=== PATIENT | male | born 1935 | race Caucasian/White ===

== ENCOUNTER 2016-11-04 10:07 | Emergency (ER) | payer MEDICARE, BC ==
[2016-11-04 11:09] VITALS: BP 151/63
--- NOTE | 2016-11-04 11:17 | EDM.PDOC ---
ED HISTORY OF PRESENT ILLNESS - General Chief Complaint: Chest Pain Stated Complaint: [facility] Time Seen by Provider: 11/04/16 11:09 Source: Reports: Patient, RN notes reviewed History Limitations: Reports: No limitations - History of Present Illness INITIAL COMMENTS - FREE TEXT/NARRATIVE: 81-year-old gentleman presents emergency department a complaint of chest pain, he is a known history of coronary artery disease had 5 stents placed in 2000, 2 more stents placed in 2011 had a carotid endarterectomy in 2008. This particular event he had epigastric pain that radiated into his abdomen he took one nitroglycerin which relieved the pain at approximately 1 minute. Denies any diaphoresis shortness of breath no nausea or vomiting, did take full asa at home - Related Data Allergies/ADRs: Allergies Allergy/AdvReac Type Severity Reaction Status Date / Time clopidogrel bisulfate Allergy Intermediate Rash Verified 11/04/16 10:47 [From Plavix] Home Meds: Home Meds Aspirin 325 mg PO DAILY 12/09/15 [History] Isosorbide Dinitrate 40 mg PO DAILY 12/09/15 [History] Nitroglycerin [Nitrostat] 0.4 mg PO ASDIRECTED PRN 12/09/15 [History] Omeprazole [Omeprazole] 20 mg PO DAILY 12/09/15 [History] Simvastatin [Simvastatin] 40 mg PO DAILY 12/09/15 [History] amLODIPine [Norvasc] 10 mg PO DAILY 12/09/15 [History] hydrALAZINE [Apresoline] 50 mg PO BID 12/09/15 [History] Acetaminophen/Diphenhydramine [Tylenol Pm Ex-Strength Caplet] 1 tab PO BEDTIME 11/04/16 [History] Lisinopril 5 mg PO DAILY 11/04/16 [History] Losartan Potassium 25 mg PO DAILY 11/04/16 [History] Metoprolol Succinate [Toprol Xl] 50 mg PO DAILY 11/04/16 [History] Multivitamin [Multivitamins] 1 tab PO DAILY 11/04/16 [History] Past Medical History HEENT History: Reports: Cataract Cardiovascular History: Reports: CAD, High cholesterol, Hypertension, Stents Gastrointestinal History: Reports: GERD Genitourinary History: Reports: Prostate disorder Musculoskeletal History: Reports: Fracture, Osteoarthritis Psychiatric History: Reports: Addiction Oncologic (Cancer) History: Reports: Other (see below) Other Oncologic History: small skin cancer Dermatologic History: Reports: Other (see below) Other Dermatologic History: multiple cysts - Infectious Disease History Infectious Disease History: Reports: Chicken pox, Measles, Mumps - Past Surgical History Cardiovascular Surgical History: Reports: Carotid endarterectomy, Carotid stents GI Surgical History: Reports: Cholecystectomy Male Surgical History: Reports: Nephrectomy, TURP-Transurethral resection of prostate, Other (see below) Other Male Surgeries/Procedures: stent in remaining kidney Musculoskeletal Surgical History: Reports: Other (see below) Other Musculoskeletal Surgeries/Procedures:: plates in left leg Social & Family History - Tobacco Use Smoking Status *Q: Former Smoker Used Tobacco, but Quit: Yes Month Tobacco Last Used: 2003 Second Hand Smoke Exposure: No - Caffeine Use Caffeine Use: Reports: Coffee - Alcohol Use Days Per Week of Alcohol Use: 0 - Recreational Drug Use Recreational Drug Use: No ED ROS GENERAL - Review of Systems Review Of Systems: See Below Constitutional: Reports: no symptoms HEENT: Reports: No symptoms Respiratory: Reports: No Symptoms Cardiovascular: Reports: Chest pain GI/Abdominal: Reports: No symptoms : Reports: no symptoms Musculoskeletal: Reports: no symptoms Skin: Reports: no symptoms Neurological: Reports: No Symptoms ED EXAM, GENERAL - Physical Exam Exam: See Below Exam Limited By: No limitations General Appearance: alert, WD/WN, no apparent distress Head: atraumatic, normocephalic Neck: normal inspection, supple, non-tender, full range of motion Respiratory/Chest: no respiratory distress, lungs clear, normal breath sounds, no accessory muscle use, chest non-tender Cardiovascular: regular rate, rhythm, no murmur GI/Abdominal: soft, non tender Extremities: normal inspection, no pedal edema Course - Vital Signs Last Recorded V/S: Last Vital Signs Temp 97.7 F 11/04/16 10:29 Pulse 55 L 11/04/16 10:56 Resp 16 11/04/16 10:56 BP 151/63 H 11/04/16 10:56 Pulse Ox 92 L 11/04/16 10:56 - Orders/Labs/Meds Orders: Active Orders 24 hr Category Date Time Status Cardiac Monitoring [RC] .As Directed Care 11/04/16 11:14 Active EKG Documentation Completion [RC] ASDIRECTED Care 11/04/16 11:14 Active Chest 2V [CR] Stat Exams 11/04/16 11:14 Taken EKG 12 Lead [EK] Stat Ther 11/04/16 11:14 Ordered Labs: Laboratory Tests 11/04/16 11/04/16 Range/Units 11:24 11:24 WBC 7.9 (4.5-11.0) K/uL RBC 5.01 (4.30-5.90) M/uL Hgb 14.5 (12.0-15.0) g/dL Hct 43.4 (40.0-54.0) % MCV 87 (80-98) fL MCH 29 (27-31) pg MCHC 33 (32-36) % Plt Count 191 (150-400) K/uL Neut % (Auto) 61 (36-66) % Lymph % (Auto) 27 (24-44) % [place] % (Auto) 10 H (2-6) % Eos % (Auto) 3 (2-4) % Baso % (Auto) 0 (0-1) % Sodium 137 L (140-148) mmol/L Potassium 3.9 (3.6-5.2) mmol/L Chloride 103 (100-108) mmol/L Carbon Dioxide 30 (21-32) mmol/L Anion Gap 7.9 (5.0-14.0) mmol/L BUN 25 H (7-18) mg/dL Creatinine 1.9 H (0.8-1.3) mg/dL Est Cr Clr Drug Dosing 31.03 mL/min Estimated GFR (MDRD) 34 L (>60) Glucose 102 (74-106) mg/dL Calcium 8.5 (8.5-10.1) mg/dL Total Bilirubin 0.4 (0.2-1.0) mg/dL AST 30 (15-37) U/L ALT 31 (12-78) U/L Alkaline Phosphatase 79 (46-116) U/L CK-MB (CK-2) 1.6 (0-3.6) mg/mL Troponin I < 0.017 (0.000-0.056) ng/mL Total Protein 6.9 (6.4-8.2) g/dL Albumin 3.2 L (3.4-5.0) g/dL Globulin 3.7 H (2.3-3.5) g/dL Albumin/Globulin Ratio 0.9 L (1.2-2.2) - Re-Assessments/Exams Free Text/Narrative Re-Assessment/Exam: 11/04/16 12:20 srinivasa score is 3 , heart score is 5 Departure - Departure Time of Disposition: 12:41 Disposition: Home, Self-Care 01 Condition: good Clinical Impression: Atypical chest pain Forms: ED Department Discharge Additional Instructions: Please report for your stress test this week, and then try to followup with your primary care the following day, call or return to the emergency department with worsening of symptoms - My Orders Last 24 Hours: My Active Orders 11/04/16 11:14 Cardiac Monitoring [RC] .As Directed EKG Documentation Completion [RC] ASDIRECTED Chest 2V [CR] Stat EKG 12 Lead [EK] Stat - Assessment/Plan Last 24 Hours: My Active Orders 11/04/16 11:14 Cardiac Monitoring [RC] .As Directed EKG Documentation Completion [RC] ASDIRECTED Chest 2V [CR] Stat EKG 12 Lead [EK] Stat Plan: Assessment Acuity = acute Site and laterality = epigastric chest pain complicated patient with known history of coronary artery disease Etiology = unclear etiology Manifestations = pain now resolved Location of injury = home Lab values = sodium low at 137 consistent hyponatremia creatinine elevated at 1.9 consistent with chronic renal failure stage GIIIB troponin negative, CK-MB negative chest x-ray I did review films myself I cannot appreciate any acute process, the official read from radiology is pending, EKG demonstrates a first degree block, PVCs no ST changes Plan I did offer him hospital admission he declined would like to try this as an outpatient first however I did set him up for a Chloe scan stress test which will be scheduled this week, hospitalist will followup, then we'll have him see his primary care approximately 24 hours after the stress test is completed Patient was in agreement with the plan all questions were answered, they were instructed to return to the emergency department or call for worsening symptoms. This note was dictated using [employer] voice recognition software please call with any questions.
--- NOTE | 2016-11-04 13:19 | CR ---
Chest 2V HISTORY: Chest pain COMPARISON: 07/08/2006 FINDINGS: Cardiac size normal pulmonary vessels normal distributed. No focal infiltrates or effusion s. Impression: No acute pulmonary disease.
== END 2016-11-04 13:18 | disposition home or self-care (01) ==
LOC: JP.ED 10:07
DX: R07.89 Other chest pain (principal); I10 Essential (primary) hypertension; E78.00 Pure hypercholesterolemia, unspecified; K21.9 Gastro-esophageal reflux disease without esophagitis; M19.90 Unspecified osteoarthritis, unspecified site; I25.10 Atherosclerotic heart disease of native coronary artery without angina pectoris; Z90.49 Acquired absence of other specified parts of digestive tract; Z88.8 Allergy status to other drugs, medicaments and biological substances; Z79.82 Long term (current) use of aspirin; Z79.899 Other long term (current) drug therapy; Z87.891 Personal history of nicotine dependence
CPT/HCPCS: 36415; 71020; 71020-26; 80053; 82553; 84484; 85025; 93005; 93010; 99284; 99285-25

== ENCOUNTER 2017-12-18 06:31 | Day surgery (SDC) | payer MEDICARE, BC ==
[~2017-12-18 06:31] MED LIST: Sodium Chloride 0.9% 10 ML Syringe FLUSH PRN
--- NOTE | 2017-12-18 08:33 | OR ---
DATE OF PROCEDURE: 12/18/2017 POSTOPERATIVE CARE: Postoperative care will be provided mainly at the [address] [place] [address] [facility] in conjunction with [facility]. PREOPERATIVE DIAGNOSIS: Cataract, left eye. POSTOPERATIVE DIAGNOSIS: Cataract, left eye. PROCEDURE: Cataract extraction, phacoemulsification with intraocular lens placement, left eye. ANESTHESIA: Topical and intracameral. ESTIMATED BLOOD LOSS: Minimal. COMPLICATIONS: None. PATHOLOGY SPECIMENS: None. SURGICAL FINDINGS: None. INDICATION FOR PROCEDURE: The patient is an 82-year-old male with history of a visually significant cataract in the left eye, which interfered with activities of daily living. This consisted of a nuclear sclerosis cataract. Following careful discussion of the risks, benefits and alternatives to cataract extraction with intraocular lens placement including blindness and , the patient elected to proceed, and informed, written consent was obtained prior to the procedure. DESCRIPTION OF THE PROCEDURE: The patient was previously identified, and a alesha placed above the left eye. All sources, including the patient, indicated that the left eye was the correct eye. The patient was subsequently taken to the operating room where standard monitors were applied. The patient was then prepped and draped in the usual sterile fashion for ophthalmic surgery. Attention was first directed at the 12 o'clock position where a paracentesis port was fashioned. Shugar solution followed by Viscoat was instilled into the eye. Attention was then directed to the 8:30 position where a triplanar incision was made in a near-clear manner using a keratome. A continuous capsulorrhexis was then made using a combination of the cystotome and Utrata forceps. Hydrodissection was achieved using a balanced salt solution, and the lens rotated nicely. Phacoemulsification was then done using a modified [id number] technique without complication. Phaco time was 12.32 CDE. The remaining cortex was removed using the irrigation/aspiration handpiece. Provisc was then instilled into the eye. A Technis lens, model [id number], at 16.0 diopters was then placed in the capsular bag using an Mccurtain injector. The remaining viscoelastic was removed using the irrigation/aspiration forceps. All wounds were then checked and found to be watertight. The lid speculum and drapes were removed. Maxitrol ointment was placed in the patient's left eye, and the eye was shielded. The patient tolerated the procedure well. The patient was instructed to follow up tomorrow. All needle and sponge counts were correct at the end of the procedure. Belkis Russell MD /[id number]
[2017-12-18 09:32] VITALS: BP 154/77
== END 2017-12-18 09:36 | disposition home or self-care (01) ==
LOC: JP.SDS 06:31
PROVIDERS: ATTEND Ophthalmology
DX: H25.12 Age-related nuclear cataract, left eye (principal); K21.9 Gastro-esophageal reflux disease without esophagitis; Z88.8 Allergy status to other drugs, medicaments and biological substances
CPT/HCPCS: 66984; J7050

== ENCOUNTER 2018-01-01 06:34 | Day surgery (SDC) | payer MEDICARE, BC ==
[2018-01-01] MEDS: Sodium Chloride 0.9% 10 ML Syringe FLUSH PRN (07:35)
[2018-01-01 08:35] VITALS: BP 158/82
--- NOTE | 2018-01-01 09:06 | OR ---
DATE OF PROCEDURE: 01/01/2018 POSTOPERATIVE CARE: Postoperative care will be provided mainly at the [address] [place] [address] [facility] in conjunction with [facility]. PREOPERATIVE DIAGNOSIS: Cataract, right eye. POSTOPERATIVE DIAGNOSIS: Cataract, right eye. PROCEDURE: Cataract extraction, phacoemulsification with intraocular lens placement, right eye. ANESTHESIA: Topical and intracameral. ESTIMATED BLOOD LOSS: Minimal. COMPLICATIONS: None. PATHOLOGY SPECIMENS: None. SURGICAL FINDINGS: None. INDICATION FOR PROCEDURE: The patient is an 82-year-old male with history of a visually significant cataract in the right eye, which interfered with activities of daily living. This consisted of a nuclear sclerosis cataract. Following careful discussion of the risks, benefits and alternatives to cataract extraction with intraocular lens placement including blindness and , the patient elected to proceed, and informed, written consent was obtained prior to the procedure. DESCRIPTION OF THE PROCEDURE: The patient was previously identified, and a alesha placed above the right eye. All sources, including the patient, indicated that the right eye was the correct eye. The patient was subsequently taken to the operating room where standard monitors were applied. The patient was then prepped and draped in the usual sterile fashion for ophthalmic surgery. Attention was first directed at the 12 o'clock position where a paracentesis port was fashioned. Shugar solution followed by Viscoat was instilled into the eye. Attention was then directed to the 8:30 position where a triplanar incision was made in a near-clear manner using a keratome. A continuous capsulorrhexis was then made using a combination of the cystotome and Utrata forceps. Hydrodissection was achieved using a balanced salt solution, and the lens rotated nicely. Phacoemulsification was then done using a modified [id number] technique without complication. Phaco time was 10.76 CDE. The remaining cortex was removed using the irrigation/aspiration handpiece. Provisc was then instilled into the eye. A Technis lens, model [id number], at 16.0 diopters was then placed in the capsular bag using an Annona injector. The remaining viscoelastic was removed using the irrigation/aspiration forceps. All wounds were then checked and found to be watertight. The lid speculum and drapes were removed. Maxitrol ointment was placed in the patient's right eye, and the eye was shielded. The patient tolerated the procedure well. The patient was instructed to follow up tomorrow. All needle and sponge counts were correct at the end of the procedure. Belkis Russell MD /[id number]
== END 2018-01-01 08:53 | disposition home or self-care (01) ==
LOC: JP.SDS 06:34
PROVIDERS: ATTEND Ophthalmology
DX: H25.11 Age-related nuclear cataract, right eye (principal); I12.9 Hypertensive chronic kidney disease with stage 1 through stage 4 chronic kidney disease, or unspecified chronic kidney disease; N18.9 Chronic kidney disease, unspecified; I25.10 Atherosclerotic heart disease of native coronary artery without angina pectoris; K27.9 Peptic ulcer, site unspecified, unspecified as acute or chronic, without hemorrhage or perforation; Z88.8 Allergy status to other drugs, medicaments and biological substances
CPT/HCPCS: J7050; V2632

== ENCOUNTER 2018-07-23 11:46 | Inpatient (IN) | payer MEDICARE, BC ==
[2018-07-23] MEDS ORDERED: Sodium Chloride 0.9% 10 ML Syringe FLUSH PRN (12:45)
[2018-07-23] MEDS ORDERED: Furosemide 40 MG/4 ML VIAL IVPUSH ONE (12:46)
[2018-07-23] MEDS ORDERED: Nitroglycerin 0.4 MG Tab.SL SL ONE (12:46)
--- NOTE | 2018-07-23 12:50 | EDM.PDOC ---
ED HPI GENERAL MEDICAL PROBLEM - General Chief Complaint: Respiratory Problem Stated Complaint: SHORTNESS OF BREATH Time Seen by Provider: 07/23/18 12:08 Source of Information: Reports: Patient, Family, Old Records, RN Notes Reviewed History Limitations: Reports: No Limitations - History of Present Illness INITIAL COMMENTS - FREE TEXT/NARRATIVE: 82-year-old gentleman presents emergency department today with complaint of shortness of breath, he was initially evaluated in clinic since the emergency department for further evaluation once she was found to be hypoxic around 87%. He is hypoxic in the emergency department states over the last week or so he has gotten progressively more short of breath has had an 8 pound weight gain over that period time was recently diagnosed as COPD a couple of months ago and started on medications. He does state he takes a diuretic but is unsure what medication that is. He feels chilled no fevers hurts to take a deep breath because he feels full no nausea vomiting no other or GI symptoms. Does have a known history of diastolic congestive heart per echocardiogram. Also found to be hypoxic at night during his last hospital stay now uses oxygen therapy at home at night - Related Data Allergies Allergy/AdvReac Type Severity Reaction Status Date / Time clopidogrel bisulfate Allergy Intermediate Rash Verified 07/23/18 12:01 [From Plavix] Home Meds: Home Meds Aspirin 325 mg PO DAILY 12/09/15 [History] Nitroglycerin [Nitrostat] 0.4 mg PO ASDIRECTED PRN 12/09/15 [History] Simvastatin 40 mg PO DAILY 12/09/15 [History] amLODIPine [Norvasc] 5 mg PO DAILY 12/09/15 [History] hydrALAZINE [Apresoline] 50 mg PO TID 12/09/15 [History] Acetaminophen/Diphenhydramine [Tylenol Pm Ex-Strength Caplet] 1 tab PO BEDTIME 11/04/16 [History] Losartan Potassium 50 mg PO DAILY 11/04/16 [History] Metoprolol Succinate [Toprol Xl] 100 mg PO DAILY 11/04/16 [History] Multivitamin [Multivitamins] 1 tab PO DAILY 11/04/16 [History] Cholecalciferol (Vitamin D3) [Vitamin D3] 2,000 units PO DAILY 12/18/17 [History ] Dextromethorphan/guaiFENesin [Robitussin DM] 5 ml PO Q6HR PRN 12/18/17 [History] Docusate Sodium [Colace] 50 mg PO BID 12/18/17 [History] Fluticasone Propionate [Flonase] 1 spray ANSHUL BID 12/18/17 [History] Isosorbide Mononitrate [Isosorbide Mononitrate ER] 60 mg PO DAILY 04/21/18 [ History] L.acidoph,Paracasei, B.lactis [Probiotic] 1 tab PO BID 04/21/18 [History] Albuterol [Ventolin HFA] 2 puff IH Q4H PRN 06/12/18 [History] Furosemide [Lasix] 1 tab PO DAILY 07/23/18 [History] Umeclidinium Brm/Vilanterol Tr [Anoro Ellipta 62.5-25 MCG] 1 puff INH DAILY [History] Past Medical History HEENT History: Reports: Cataract, Impaired Vision Other HEENT History: wears glasses Cardiovascular History: Reports: Arrhythmia, CAD, Heart Failure, High Cholesterol, Hypertension, Stents Respiratory History: Reports: SOB, Other (See Below) Other Respiratory History: home o2 Gastrointestinal History: Reports: GERD Genitourinary History: Reports: Chronic Renal Insuffiency, Prostate Disorder, Other (See Below) Other Genitourinary History: kidney stent Musculoskeletal History: Reports: Back Pain, Chronic, Fracture Psychiatric History: Reports: Addiction, Anxiety Oncologic (Cancer) History: Reports: Other (See Below) Other Oncologic History: skin cancer Dermatologic History: Reports: None Other Dermatologic History: multiple cysts - Infectious Disease History Infectious Disease History: Reports: Chicken Pox - Past Surgical History HEENT Surgical History: Reports: Cataract Surgery Cardiovascular Surgical History: Reports: Carotid Endarterectomy, Carotid Stents GI Surgical History: Reports: Cholecystectomy, Colonoscopy, Other (See Below) Other GI Surgeries/Procedures: states has "twisted bowel" Male Surgical History: Reports: TURP-Transurethral Resection of Prostate Musculoskeletal Surgical History: Reports: Other (See Below) Other Musculoskeletal Surgeries/Procedures:: right lower leg fracture Dermatological Surgical History: Reports: Skin Biopsy Social & Family History - Family History Family Medical History: Noncontributory - Tobacco Use Smoking Status *Q: Former Smoker Used Tobacco, but Quit: Yes Month/Year Tobacco Last Used: 0 - Caffeine Use Caffeine Use: Reports: Coffee, Soda, Tea - Recreational Drug Use Recreational Drug Use: No ED ROS GENERAL - Review of Systems Review Of Systems: See Below Constitutional: Reports: Chills, Weight Gain HEENT: Reports: No Symptoms Respiratory: Reports: Shortness of Breath, Cough, Sputum Cardiovascular: Reports: Dyspnea on Exertion, PND GI/Abdominal: Reports: No Symptoms : Reports: No Symptoms Musculoskeletal: Reports: No Symptoms Skin: Reports: No Symptoms Neurological: Reports: No Symptoms ED EXAM, GENERAL - Physical Exam Exam: See Below Free Text/Narrative:: General: Elderly Male, dyspneic but not using accessory muscles or in respiratory distress, alert and oriented x3 HEENT: head is atraumatic normocephalic, eyes pupils equal round reactive to light, sclera clear no conjunctivitis appreciated. Ears tympanic membranes clear and servin landmarks and light reflex are present bilaterally canals are clear. Nose no septal deviation, nares are clear, no blood present. Mouth mucosa is dry and pink no erythema or exudate noted in soft palate, tongue is midline uvula is midline, dentition is intact. Neck: Supple no thyromegaly no tracheal deviation. Nodes: Cervical nodes subclavicular nodes nontender no palpable lymphadenopathy noted. Lungs: Breath sounds are distant there is crackles in the bases bilaterally as well as a faint wheeze on the story phase CV: Regular rate and rhythm S1 and S2 appreciated no murmurs rubs or gallops noted. Abdomen: Soft, nontender, no palpable masses or organomegaly appreciated, no distention no guarding bowel sounds are present, . Neuro: Cranial nerves II through XII intact, GCS 15 Skin: Warm and dry, intact Extremities: +2 pitting edema bilaterally, pedal pulse is +2. Course - Vital Signs Last Recorded V/S: Last Vital Signs Temp 95.9 F 07/23/18 11:59 Pulse 60 07/23/18 13:17 Resp 21 H 07/23/18 13:04 BP 154/64 H 07/23/18 13:17 Pulse Ox 92 L 07/23/18 13:04 - Orders/Labs/Meds Orders: Active Orders 24 hr Category Date Time Status Cardiac Monitoring [RC] .As Directed Care 07/23/18 12:45 Active EKG Documentation Completion [RC] ASDIRECTED Care 07/23/18 12:46 Active Peripheral IV Care [RC] . DIRECTED Care 07/23/18 12:46 Active Chest 2V [CR] Stat Exams 07/23/18 12:45 Taken Sodium Chloride 0.9% [Saline Flush] Med 07/23/18 12:45 Active 10 ml FLUSH ASDIRECTED PRN Peripheral IV Insertion Adult [OM.PC] Stat Oth 07/23/18 12:45 Ordered Saline Lock Insert [OM.PC] Stat Oth 07/23/18 12:45 Ordered EKG 12 Lead [EK] Stat Ther 07/23/18 12:45 Ordered Medication Orders Sodium Chloride (Saline Flush) 10 ml FLUSH ASDIRECTED PRN PRN Reason: Keep Vein Open Last Admin: 07/23/18 13:09 Dose: 10 ml Labs: Laboratory Tests 07/23/18 07/23/18 07/23/18 Range/Units 12:51 12:51 12:51 WBC 8.3 (4.5-11.0) K/uL RBC 4.63 (4.30-5.90) M/uL Hgb 11.7 L (12.0-15.0) g/dL Hct 36.8 L (40.0-54.0) % MCV 80 (80-98) fL MCH 25 L (27-31) pg MCHC 32 (32-36) % Plt Count 251 (150-400) K/uL Neut % (Auto) 78 H (36-66) % Lymph % (Auto) 12 L (24-44) % [place] % (Auto) 10 H (2-6) % Eos % (Auto) 1 L (2-4) % Baso % (Auto) 0 (0-1) % Sodium 133 L (140-148) mmol/L Potassium 3.9 (3.6-5.2) mmol/L Chloride 100 (100-108) mmol/L Carbon Dioxide 28 (21-32) mmol/L Anion Gap 8.9 (5.0-14.0) mmol/L BUN 23 H (7-18) mg/dL Creatinine 2.2 H (0.8-1.3) mg/dL Est Cr Clr Drug Dosing 26.27 mL/min Estimated GFR (MDRD) 29 L (>60) Glucose 110 H (74-106) mg/dL Lactic Acid 1.4 (0.4-2.0) mmol/L Calcium 9.0 (8.5-10.1) mg/dL Total Bilirubin 0.8 (0.2-1.0) mg/dL AST 24 (15-37) U/L ALT 28 (12-78) U/L Alkaline Phosphatase 86 (46-116) U/L Troponin I < 0.017 (0.000-0.056) ng/mL Total Protein 6.5 (6.4-8.2) g/dL Albumin 2.7 L (3.4-5.0) g/dL Globulin 3.8 H (2.3-3.5) g/dL Albumin/Globulin Ratio 0.7 L (1.2-2.2) Meds: Medications Generic Name Dose Route Start Last Admin Trade Name Freq PRN Reason Stop Dose Admin Sodium Chloride 10 ml 07/23/18 12:45 07/23/18 13:09 Saline Flush FLUSH 10 ml ASDIRECTED PRN Administration Keep Vein Open Discontinued Medications Generic Name Dose Route Start Last Admin Trade Name Freq PRN Reason Stop Dose Admin Furosemide 80 mg 07/23/18 12:46 07/23/18 13:09 Lasix IVPUSH 07/23/18 12:47 80 mg ONETIME ONE Administration Nitroglycerin 0.4 mg 07/23/18 12:46 07/23/18 13:08 Nitrostat SL 07/23/18 12:47 0.4 mg ONETIME ONE Administration Departure - Departure Time of Disposition: 14:39 Disposition: Home, Self-Care 01 Condition: Fair (Which ones) Clinical Impression: CHF (congestive heart failure) Qualifiers: Heart failure type: diastolic Heart failure chronicity: acute on chronic Qualified Code(s): I50.33 - Acute on chronic diastolic (congestive) heart failure - Discharge Information Referrals: Walt Jenkins MD [Primary Care Provider] - Forms: ED Department Discharge - My Orders Last 24 Hours: My Active Orders 07/23/18 12:45 Cardiac Monitoring [RC] .As Directed Chest 2V [CR] Stat Sodium Chloride 0.9% [Saline Flush] 10 ml FLUSH ASDIRECTED PRN Peripheral IV Insertion Adult [OM.PC] Stat Saline Lock Insert [OM.PC] Stat EKG 12 Lead [EK] Stat 07/23/18 12:46 EKG Documentation Completion [RC] ASDIRECTED Peripheral IV Care [RC] . DIRECTED - Assessment/Plan Last 24 Hours: My Active Orders 07/23/18 12:45 Cardiac Monitoring [RC] .As Directed Chest 2V [CR] Stat Sodium Chloride 0.9% [Saline Flush] 10 ml FLUSH ASDIRECTED PRN Peripheral IV Insertion Adult [OM.PC] Stat Saline Lock Insert [OM.PC] Stat EKG 12 Lead [EK] Stat 07/23/18 12:46 EKG Documentation Completion [RC] ASDIRECTED Peripheral IV Care [RC] . DIRECTED Plan: Assessment Acuity = acute Site and laterality = exacerbation of diastolic congestive heart failure Etiology = unknown etiology Manifestations = dyspnea Location of injury = Home Lab values = CBC unremarkable, sodium low at 133 consistent hyponatremia creatinine elevated 2.2 consistent chronic renal failure stage GIV lactic acid normal at 1.4 troponin was negative albumin low at 2.7 consistent hypoalbuminemia, EKG demonstrates a sinus rhythm with multiple PVCs first ray block left ventricular hypertrophy, chest x-ray consistent with CHF fluid overload type pattern Plan Called discussed case with Dr. Pryor at 14:00 he kindly agreed to come to the emergency department and evaluate the patient for admission This note was dictated using [email or web address] voice recognition software please call with any questions on syntax or grammar.
--- NOTE | 2018-07-23 15:03 | PCM.HP ---
H&P History of Present Illness - General Date of Service: 07/23/18 Admit Problem/Dx: Admission Diagnosis/Problem Admission Diagnosis/Problem CHF, Congestive heart failure Source of Information: Patient, Family, Provider History Limitations: Reports: No Limitations - History of Present Illness Initial Comments - Free Text/Narative: John Paul presents to the emergency room today from the clinic. He was seen in the clinic with shortness of breath and found to be hypoxic so he was promptly sent to the emergency room. He reports progressive shortness of breath over the past week with a more rapid progression the past 2-3 days. He is short of breath with even minimal activity at this time. He normally uses oxygen at night but has been using during the day for the past 2 days with some relief in his symptoms. He has not had any chest pain. He does report some orthopnea. He has gained about 8 or maybe 10 pounds over the last week. He has noticed increased abdominal distention and his pants have been fitting tighter in the past week. He has not had any fevers. No complaints of nausea or abdominal pain. This feels very similar to his episode of congestive heart failure about 3 months ago. Workup in the emergency room revealed stable stage 3/4 chronic kidney disease and fairly unremarkable laboratory testing. Chest x-ray showed pulmonary edema. Examination consistent with congestive heart failure. He was hypoxic. He will be admitted for further management. - Related Data Allergies/Adverse Reactions: Allergies Allergy/AdvReac Type Severity Reaction Status Date / Time clopidogrel bisulfate Allergy Intermediate Rash Verified 07/23/18 12:01 [From Plavix] Home Medications: Home Meds Aspirin 325 mg PO DAILY 12/09/15 [History] Nitroglycerin [Nitrostat] 0.4 mg PO ASDIRECTED PRN 12/09/15 [History] Simvastatin 40 mg PO DAILY 12/09/15 [History] amLODIPine [Norvasc] 5 mg PO DAILY 12/09/15 [History] hydrALAZINE [Apresoline] 50 mg PO TID 12/09/15 [History] Acetaminophen/Diphenhydramine [Tylenol Pm Ex-Strength Caplet] 1 tab PO BEDTIME 11/04/16 [History] Losartan Potassium 50 mg PO DAILY 11/04/16 [History] Metoprolol Succinate [Toprol Xl] 100 mg PO DAILY 11/04/16 [History] Multivitamin [Multivitamins] 1 tab PO DAILY 11/04/16 [History] Cholecalciferol (Vitamin D3) [Vitamin D3] 2,000 units PO DAILY 12/18/17 [History ] Dextromethorphan/guaiFENesin [Robitussin DM] 5 ml PO Q6HR PRN 12/18/17 [History] Docusate Sodium [Colace] 50 mg PO BID 12/18/17 [History] Fluticasone Propionate [Flonase] 1 spray ANSHUL BID 12/18/17 [History] Isosorbide Mononitrate [Isosorbide Mononitrate ER] 60 mg PO DAILY 04/21/18 [ History] L.acidoph,Paracasei, B.lactis [Probiotic] 1 tab PO BID 04/21/18 [History] Albuterol [Ventolin HFA] 2 puff IH Q4H PRN 06/12/18 [History] Furosemide [Lasix] 1 tab PO DAILY 07/23/18 [History] Umeclidinium Brm/Vilanterol Tr [Anoro Ellipta 62.5-25 MCG] 1 puff INH DAILY [History] Past Medical History HEENT History: Reports: Cataract, Impaired Vision Other HEENT History: wears glasses Cardiovascular History: Reports: Arrhythmia, CAD, Heart Failure, High Cholesterol, Hypertension, Stents Respiratory History: Reports: SOB, Other (See Below) Other Respiratory History: home o2 Gastrointestinal History: Reports: GERD Genitourinary History: Reports: Chronic Renal Insuffiency, Prostate Disorder, Other (See Below) Other Genitourinary History: kidney stent Musculoskeletal History: Reports: Back Pain, Chronic, Fracture Psychiatric History: Reports: Addiction, Anxiety Oncologic (Cancer) History: Reports: Other (See Below) Other Oncologic History: skin cancer Dermatologic History: Reports: None Other Dermatologic History: multiple cysts - Infectious Disease History Infectious Disease History: Reports: Chicken Pox - Past Surgical History HEENT Surgical History: Reports: Cataract Surgery Cardiovascular Surgical History: Reports: Carotid Endarterectomy, Carotid Stents GI Surgical History: Reports: Cholecystectomy, Colonoscopy, Other (See Below) Other GI Surgeries/Procedures: states has "twisted bowel" Male Surgical History: Reports: TURP-Transurethral Resection of Prostate Musculoskeletal Surgical History: Reports: Other (See Below) Other Musculoskeletal Surgeries/Procedures:: right lower leg fracture Dermatological Surgical History: Reports: Skin Biopsy Social & Family History - Family History Family Medical History: Noncontributory - Tobacco Use Smoking Status *Q: Former Smoker Used Tobacco, but Quit: Yes Month/Year Tobacco Last Used: 0 - Caffeine Use Caffeine Use: Reports: Coffee, Soda, Tea - Alcohol Use Alcohol Use History: No - Recreational Drug Use Recreational Drug Use: No H&P Review of Systems - Review of Systems: Review Of Systems: See Below Free Text/Narrative: A complete 12 point review of systems was obtained. Pertinent positives and negatives are noted in the history of present illness. All other systems were reviewed and were negative except as noted. Exam - Exam Exam: See Below - Vital Signs Vital Signs: Last Vital Signs Temp 1356 C H 07/23/18 13:55 Pulse 65 07/23/18 13:55 Resp 21 H 07/23/18 13:04 BP 137/75 07/23/18 13:55 Pulse Ox 92 L 07/23/18 13:55 Weight: 83.915 kg - Exam Quality Assessment: Supplemental Oxygen General: Alert, Oriented, Cooperative. No: Mild Distress HEENT: Mucosa Moist & Omega, Other (mild periorbital swelling ). No: Scleral Icterus Neck: Supple, JVD Lungs: Normal Respiratory Effort, Crackles (both bases ). No: Wheezing Cardiovascular: Regular Rate, Irregular Rhythm, Systolic Murmur, Gallop/S3 GI/Abdominal Exam: Normal Bowel Sounds, Soft, Non-Tender, No Distention. No: No Abnormal Bruit (abdominal bruit present) Extremities: Pedal Edema (pitting edema to the knee bilaterally ). No: Increased Warmth Peripheral Pulses: 1+: Dorsalis Pedis (L), Dorsalis Pedis (R) Skin: Warm, Dry Neuro Extensive - Mental Status: Alert, Oriented x3, Nl Response to Commands Neuro Extensive - Motor, Sensory, Reflexes: CN II-XII Intact. No: Dysarthria, Abnormal Motor, Tremor Psychiatric: Alert, Normal Affect - Patient Data Lab Results Last 24 hrs: Laboratory Results - last 24 hr 07/23/18 07/23/18 07/23/18 Range/Units 12:51 12:51 12:51 WBC 8.3 (4.5-11.0) K/uL RBC 4.63 (4.30-5.90) M/uL Hgb 11.7 L (12.0-15.0) g/dL Hct 36.8 L (40.0-54.0) % MCV 80 (80-98) fL MCH 25 L (27-31) pg MCHC 32 (32-36) % Plt Count 251 (150-400) K/uL Neut % (Auto) 78 H (36-66) % Lymph % (Auto) 12 L (24-44) % Marshall % (Auto) 10 H (2-6) % Eos % (Auto) 1 L (2-4) % Baso % (Auto) 0 (0-1) % Sodium 133 L (140-148) mmol/L Potassium 3.9 (3.6-5.2) mmol/L Chloride 100 (100-108) mmol/L Carbon Dioxide 28 (21-32) mmol/L Anion Gap 8.9 (5.0-14.0) mmol/L BUN 23 H (7-18) mg/dL Creatinine 2.2 H (0.8-1.3) mg/dL Est Cr Clr Drug Dosing 26.27 mL/min Estimated GFR (MDRD) 29 L (>60) Glucose 110 H (74-106) mg/dL Lactic Acid 1.4 (0.4-2.0) mmol/L Calcium 9.0 (8.5-10.1) mg/dL Total Bilirubin 0.8 (0.2-1.0) mg/dL AST 24 (15-37) U/L ALT 28 (12-78) U/L Alkaline Phosphatase 86 (46-116) U/L Troponin I < 0.017 (0.000-0.056) ng/mL Total Protein 6.5 (6.4-8.2) g/dL Albumin 2.7 L (3.4-5.0) g/dL Globulin 3.8 H (2.3-3.5) g/dL Albumin/Globulin Ratio 0.7 L (1.2-2.2) Result Diagrams: 07/23/18 12:51 07/23/18 12:51 Imaging Impressions Last 24 hrs: CXR - images personally reviewed - there is diffuse pulmonary edema, curly B lines and a small effusion present. Heart size slightly prominent. No mass or infiltrate. EKG INTERPRETATION EKG Date: 07/23/18 Rhythm: NSR Rate (Beats/Min): 72 [place]: LAD-Left [place] Deviation P-Wave: Present QRS: Normal ST-T: Normal QT: Normal Comparison: No Change *Q Meaningful Use (ADM) - VTE Risk Assess *Q Each Risk Factor Represents 1 Point: Swollen Legs, Current, Obesity ( BMI > 25 kg/m2), Congestive heart failure (CHF) Total Score 1 Point Risk Factors: 3 Each Risk Factor Represents 2 Points: None Total Score 2 Point Risk Factors: 0 Each Risk Factor Represents 3 Points: Age 75 Years or Greater Total Score 3 Point Risk Factors: 3 Each Risk Factor Represents 5 Points: None Total Score 5 Point Risk Factors: 0 Venous Thromboembolism Risk Factor Score *Q: 6 - Problem List (1) Diastolic CHF, acute on chronic SNOMED Code(s): 847099460, 960008527 ICD Code: I50.33 - ACUTE ON CHRONIC DIASTOLIC (CONGESTIVE) HEART FAILURE Status: Acute Current Visit: No (2) Acute respiratory failure with hypoxia SNOMED Code(s): 58371122, 162676076 ICD Code: J96.01 - ACUTE RESPIRATORY FAILURE WITH HYPOXIA Status: Acute Current Visit: Yes (3) CKD (chronic kidney disease) stage 4, GFR 15-29 ml/min SNOMED Code(s): 743959398 ICD Code: N18.4 - CHRONIC KIDNEY DISEASE, STAGE 4 (SEVERE) Status: Chronic Current Visit: No (4) Abdominal bruit SNOMED Code(s): 209640103 ICD Code: R09.89 - OTH SYMPTOMS AND SIGNS INVOLVING THE CIRC AND RESP SYSTEMS Status: Acute Current Visit: Yes (5) Family history of abdominal aortic aneurysm (AAA) SNOMED Code(s): 702285138 ICD Code: Z82.49 - FAMILY HX OF ISCHEM HEART DIS AND OTH DIS OF THE CIRC SYS Status: Chronic Current Visit: Yes Problem List Initiated/Reviewed/Updated: Yes Orders Last 24hrs: Active Orders 24 hr Category Date Time Status Patient Status Manage Transfer [TRANSFER] Routine ADT 07/23/18 14:47 Ordered Cardiac Monitoring [RC] .As Directed Care 07/23/18 12:45 Active EKG Documentation Completion [RC] ASDIRECTED Care 07/23/18 12:46 Active Peripheral IV Care [RC] . DIRECTED Care 07/23/18 12:46 Active Chest 2V [CR] Stat Exams 07/23/18 12:45 Taken Sodium Chloride 0.9% [Saline Flush] Med 07/23/18 12:45 Active 10 ml FLUSH ASDIRECTED PRN Peripheral IV Insertion Adult [OM.PC] Stat Oth 07/23/18 12:45 Ordered Saline Lock Insert [OM.PC] Stat Oth 07/23/18 12:45 Ordered Resuscitation Status Routine Resus Stat 07/23/18 14:51 Ordered EKG 12 Lead [EK] Stat Ther 07/23/18 12:45 Ordered Medication Orders Sodium Chloride (Saline Flush) 10 ml FLUSH ASDIRECTED PRN PRN Reason: Keep Vein Open Last Admin: 07/23/18 13:09 Dose: 10 ml Assessment/Plan Comment:: ASSESSMENT AND PLAN - Acute on chronic diastolic congestive heart failure - complicated by hypoxic respiratory failure. Symptoms include dyspnea with exertion, orthopnea and fatigue. No obvious cause for exacerbation of this may be related to a slow buildup of fluid with more acute decompensation secondary to suboptimal furosemide dosing. No evidence for infection. No recent events to suggest or raise concern for change in cardiac function. No evidence for ischemia. -Continue medical management including beta velvet -Strict intake and output monitoring -Repeat dose of furosemide in the morning -Supplement oxygen as needed -Daily weights Stage III/for chronic kidney disease - recent GFR has been between 27 and 32 but typically less than 30. He has a history of only a single functioning kidney. We will need to closely monitor laboratory studies and urine output in the setting of diuresis. -Heart failure management as above -Repeat labs in the morning Abdominal bruit - Family history of AAA with a father who of a ruptured AAA. Patient has not had previous screening. -Ultrasound in the morning Maintenance issues - - DVT prophylaxis - LUCERO stockings - GI prophylaxis - not indicated - Nutrition - low sodium - Quesada catheter - not indicated CODE STATUS - DNR/DNI Admission justification - This patient will be admitted for inpatient services and is medically appropriate meeting medical necessity for inpatient admission as outlined in my documentation. I reasonably expect the patient will require inpatient services that span a period time over 2 midnights. I reasonably expect this patient to be discharged or transferred within 96 hours [facility]. Disposition - I would anticipate discharge home with his after the hospital stay Primary care physician - Dr Alice Pryor M.D.
[2018-07-23] MEDS ORDERED: Acetaminophen 325 MG Tab PO PRN (15:36)
[2018-07-23] MEDS ORDERED: Magnesium Hydroxide 400 MG/5 ML Susp 30 ML Cup PO PRN (15:36)
[2018-07-23] MEDS ORDERED: Ondansetron 4 MG Tab.DIS PO PRN (15:36)
[2018-07-23] MEDS ORDERED: Albuterol 0.083% 2.5 MG/3 ML Neb Soln NEB PRN (15:36)
[2018-07-23] MEDS: hydrALAZINE 25 MG Tab PO SCH (21:36)
[2018-07-23] MEDS: Docusate Sodium Liquid 100 MG/10 ML UD Cup PO SCH ×2 (21:41→21:48)
[2018-07-23] MEDS: Simvastatin 20 MG Tab PO SCH (21:41)
[2018-07-23] MEDS: Fluticasone Propionate Nasal Spray 16 GM Bottle NASBOTH SCH (21:42)
[2018-07-23] MEDS: Indacaterol/Glycopyrrolate 1 EA Cap.W.Dev Kit of 6 IH SCH (21:45)
[2018-07-24] MEDS: Indacaterol/Glycopyrrolate 1 EA Cap.W.Dev Kit of 6 IH SCH ×2 (07:50→20:26)
[2018-07-24] MEDS ORDERED: Furosemide 40 MG/4 ML VIAL IVPUSH ONE (08:00)
[2018-07-24] MEDS: Fluticasone Propionate Nasal Spray 16 GM Bottle NASBOTH SCH ×2 (08:14→20:26)
[2018-07-24] MEDS: Docusate Sodium Liquid 100 MG/10 ML UD Cup PO SCH ×2 (08:14→20:26)
[2018-07-24] MEDS: hydrALAZINE 25 MG Tab PO SCH ×3 (08:15→20:22)
[2018-07-24] MEDS: Losartan 50 MG Tab PO SCH (08:15)
[2018-07-24] MEDS: Aspirin 325 MG Tab.EC PO SCH (08:15)
[2018-07-24] MEDS: amLODIPine 5 MG Tab PO SCH (08:15)
[2018-07-24] MEDS: Isosorbide Mononitrate 30 MG Tab.ER PO SCH (08:15)
[2018-07-24] MEDS: Metoprolol Succinate 50 MG Tab.ER PO SCH (08:16)
[2018-07-24] MEDS: Multivitamins with Iron/Calcium/Folic Acid/Minerals Tab PO SCH (08:16)
--- NOTE | 2018-07-24 10:14 | PCM.PN ---
- General Info Date of Service: 07/24/18 Subjective Update: no acute events overnight. Excellent response to diuresis yesterday afternoon. Shortness of breath has improved. He did have an episode of orthopnea with increased shortness of breath overnight. Lower extremity edema has improved significantly. Still requiring supplemental oxygen. Kidney function stable with diuresis. Functional Status: Reports: Pain Controlled, Tolerating Diet - Review of Systems Pulmonary: Reports: Shortness of Breath - Patient Data Vitals - Most Recent: Last Vital Signs Temp 36.2 C 07/24/18 07:40 Pulse 62 07/24/18 08:16 Resp 18 07/24/18 07:40 BP 154/49 H 07/24/18 08:16 Pulse Ox 92 L 07/24/18 07:40 Weight - Most Recent: 80.739 kg I&O - Last 24 Hours: Intake & Output 07/23/18 07/24/18 07/24/18 22:59 06:59 14:59 Intake Total 240 Output Total 1950 950 350 Balance -1710 -950 -350 Lab Results Last 24 Hours: Laboratory Results - last 24 hr 07/23/18 07/23/18 07/23/18 Range/Units 12:51 12:51 12:51 WBC 8.3 (4.5-11.0) K/uL RBC 4.63 (4.30-5.90) M/uL Hgb 11.7 L (12.0-15.0) g/dL Hct 36.8 L (40.0-54.0) % MCV 80 (80-98) fL MCH 25 L (27-31) pg MCHC 32 (32-36) % Plt Count 251 (150-400) K/uL Neut % (Auto) 78 H (36-66) % Lymph % (Auto) 12 L (24-44) % [place] % (Auto) 10 H (2-6) % Eos % (Auto) 1 L (2-4) % Baso % (Auto) 0 (0-1) % Sodium 133 L (140-148) mmol/L Potassium 3.9 (3.6-5.2) mmol/L Chloride 100 (100-108) mmol/L Carbon Dioxide 28 (21-32) mmol/L Anion Gap 8.9 (5.0-14.0) mmol/L BUN 23 H (7-18) mg/dL Creatinine 2.2 H (0.8-1.3) mg/dL Est Cr Clr Drug Dosing 26.27 mL/min Estimated GFR (MDRD) 29 L (>60) Glucose 110 H (74-106) mg/dL Lactic Acid 1.4 (0.4-2.0) mmol/L Calcium 9.0 (8.5-10.1) mg/dL Total Bilirubin 0.8 (0.2-1.0) mg/dL AST 24 (15-37) U/L ALT 28 (12-78) U/L Alkaline Phosphatase 86 (46-116) U/L Troponin I < 0.017 (0.000-0.056) ng/mL Total Protein 6.5 (6.4-8.2) g/dL Albumin 2.7 L (3.4-5.0) g/dL Globulin 3.8 H (2.3-3.5) g/dL Albumin/Globulin Ratio 0.7 L (1.2-2.2) 07/24/18 Range/Units 04:58 WBC (4.5-11.0) K/uL RBC (4.30-5.90) M/uL Hgb (12.0-15.0) g/dL Hct (40.0-54.0) % MCV (80-98) fL MCH (27-31) pg MCHC (32-36) % Plt Count (150-400) K/uL Neut % (Auto) (36-66) % Lymph % (Auto) (24-44) % [place] % (Auto) (2-6) % Eos % (Auto) (2-4) % Baso % (Auto) (0-1) % Sodium 138 L (140-148) mmol/L Potassium 3.9 (3.6-5.2) mmol/L Chloride 101 (100-108) mmol/L Carbon Dioxide 31 (21-32) mmol/L Anion Gap 9.9 (5.0-14.0) mmol/L BUN 26 H (7-18) mg/dL Creatinine 2.3 H (0.8-1.3) mg/dL Est Cr Clr Drug Dosing 25.13 mL/min Estimated GFR (MDRD) 27 L (>60) Glucose 92 (74-106) mg/dL Lactic Acid (0.4-2.0) mmol/L Calcium 8.9 (8.5-10.1) mg/dL Total Bilirubin (0.2-1.0) mg/dL AST (15-37) U/L ALT (12-78) U/L Alkaline Phosphatase (46-116) U/L Troponin I (0.000-0.056) ng/mL Total Protein (6.4-8.2) g/dL Albumin (3.4-5.0) g/dL Globulin (2.3-3.5) g/dL Albumin/Globulin Ratio (1.2-2.2) Med Orders - Current: Current Medications Acetaminophen (Tylenol) 650 mg PO Q4H PRN PRN Reason: Pain (Mild 1-3)/fever Albuterol (Proventil Neb Soln) 2.5 mg NEB Q4H PRN PRN Reason: Shortness Of Breath/wheezing Last Admin: 07/24/18 00:29 Dose: 2.5 mg Amlodipine Besylate (Norvasc) 5 mg PO DAILY [facility] Last Admin: 07/24/18 08:15 Dose: 5 mg Aspirin (Ecotrin) 325 mg PO DAILY [facility] Last Admin: 07/24/18 08:15 Dose: 325 mg Docusate Sodium (Colace 50 Mg/5 Ml Liquid) 50 mg PO BID [facility] Last Admin: 07/24/18 08:14 Dose: 50 mg Fluticasone Propionate (Flonase) 0 gm NASBOTH BID [facility] Last Admin: 07/24/18 08:14 Dose: 1 each Glycopyrrolate/Indacaterol (Utibron Neohaler 27.5-15.6 Mcg) 0 each IH BIDRT [facility] Last Admin: 07/24/18 07:50 Dose: 1 cap Hydralazine HCl (Apresoline) 50 mg PO TID [facility] Last Admin: 07/24/18 08:15 Dose: 50 mg Isosorbide Mononitrate (Imdur) 60 mg PO DAILY [facility] Last Admin: 07/24/18 08:15 Dose: 60 mg Losartan Potassium (Cozaar) 50 mg PO DAILY [facility] Last Admin: 07/24/18 08:15 Dose: 50 mg Magnesium Hydroxide (Milk Of Magnesia) 30 ml PO Q12H PRN PRN Reason: Constipation Metoprolol Succinate (Toprol Xl) 100 mg PO DAILY [facility] Last Admin: 07/24/18 08:16 Dose: 100 mg Multivitamins/Minerals (Thera M Plus) 1 tab PO DAILY [facility] Last Admin: 07/24/18 08:16 Dose: 1 tab Ondansetron HCl (Zofran Odt) 4 mg PO Q6H PRN PRN Reason: Nausea able to take PO Simvastatin (Zocor) 40 mg PO BEDTIME [facility] Last Admin: 07/23/18 21:41 Dose: 40 mg Sodium Chloride (Saline Flush) 10 ml FLUSH ASDIRECTED PRN PRN Reason: Keep Vein Open Last Admin: 07/23/18 13:09 Dose: 10 ml Discontinued Medications Furosemide (Lasix) 80 mg IVPUSH ONETIME ONE Stop: 07/23/18 12:47 Last Admin: 07/23/18 13:09 Dose: 80 mg Furosemide (Lasix) 60 mg IVPUSH ONETIME ONE Stop: 07/24/18 08:01 Last Admin: 07/24/18 08:00 Dose: 60 mg Nitroglycerin (Nitrostat) 0.4 mg SL ONETIME ONE Stop: 07/23/18 12:47 Last Admin: 07/23/18 13:08 Dose: 0.4 mg - Exam Quality Assessment: Supplemental Oxygen General: Alert, Oriented, Cooperative, No Acute Distress Neck: JVD Lungs: Normal Respiratory Effort, Crackles (both bases) Cardiovascular: Regular Rate, Irregular Rhythm GI/Abdominal Exam: Soft, No Distention Extremities: No Pedal Edema Skin: Warm, Dry Psy/Mental Status: Alert, Normal Affect - Problem List & Annotations (1) Acute respiratory failure with hypoxia SNOMED Code(s): 76483574, 025365595 Code(s): J96.01 - ACUTE RESPIRATORY FAILURE WITH HYPOXIA Status: Acute Current Visit: Yes (2) CKD (chronic kidney disease) stage 4, GFR 15-29 ml/min SNOMED Code(s): 887472659 Code(s): N18.4 - CHRONIC KIDNEY DISEASE, STAGE 4 (SEVERE) Status: Chronic Current Visit: No (3) Abdominal bruit SNOMED Code(s): 351749198 Code(s): R09.89 - OTH SYMPTOMS AND SIGNS INVOLVING THE CIRC AND RESP SYSTEMS Status: Acute Current Visit: Yes (4) Family history of abdominal aortic aneurysm (AAA) SNOMED Code(s): 915144255 Code(s): Z82.49 - FAMILY HX OF ISCHEM HEART DIS AND OTH DIS OF THE CIRC SYS Status: Chronic Current Visit: Yes - Problem List Review Problem List Initiated/Reviewed/Updated: Yes - My Orders Last 24 Hours: My Active Orders 07/23/18 14:51 Resuscitation Status Routine 07/23/18 15:36 Patient Status [ADT] Routine Antiembolic Devices [RC] .Routine Bedrest Bedside Commode [RC] ASDIRECTED Height and Weight [RC] DAILY Intake and Output [RC] QSHIFT Notify Provider Vital Signs [RC] ASDIRECTED Oxygen Therapy [RC] PRN RT Aerosol Therapy [RC] ASDIRECTED VTE/DVT Education [RC] Per Unit Routine Vital Signs [RC] Q4H Consult to Dietary [Consult to Pattern Illustrator] [CONS] Routine Acetaminophen [Tylenol] 650 mg PO Q4H PRN Albuterol [Proventil Neb Soln] 2.5 mg NEB Q4H PRN Magnesium Hydroxide [Milk of Magnesia] 30 ml PO Q12H PRN Ondansetron [Zofran ODT] 4 mg PO Q6H PRN Antiembolic Hose [OM.PC] Per Unit Routine 07/23/18 21:00 Docusate Sodium [Colace 50 MG/5 ML Liquid] 50 mg PO BID Fluticasone Propionate [Flonase] 0 gm NASBOTH BID Indacaterol/Glycopyrrolate [Utibron Neohaler 27.5-15.6 MCG] 0 each IH BIDRT Simvastatin [Zocor] 40 mg PO BEDTIME hydrALAZINE [Apresoline] 50 mg PO TID 07/23/18 Dinner 2 Gram Sodium Diet [DIET] 07/24/18 07:00 AAA Screen [US] Routine 07/24/18 09:00 Aspirin [Ecotrin] 325 mg PO DAILY Isosorbide Mononitrate [Imdur] 60 mg PO DAILY Losartan [Cozaar] 50 mg PO DAILY Metoprolol Succinate [Toprol XL] 100 mg PO DAILY Multivitamins w-Iron/Ca/FA/Min [Thera M Plus] 1 tab PO DAILY amLODIPine [Norvasc] 5 mg PO DAILY 07/25/18 05:00 BASIC METABOLIC PANEL,BMP [CHEM] Timed - Plan Plan:: ASSESSMENT AND PLAN - Acute on chronic diastolic congestive heart failure - complicated by hypoxic respiratory failure. clinically improved with diuresis but still evidence for volume overload with JVD and ongoing crackles in the lower lungs. Still on supplemental oxygen. -furosemide 60 mg 1 this morning and reassess this afternoon, likely will need additional doses -Continue medical management including beta velvet -Strict intake and output monitoring -Supplement oxygen as needed -Daily weights Stage III/IV chronic kidney disease - recent GFR has been between 27 and 32 but typically less than 30. He has a history of only a single functioning kidney. kidney function stable so far during diuresis. -Heart failure management as above -Repeat labs in the morning Abdominal bruit - Family history of AAA with a father who of a ruptured AAA. aortic ultrasound did not show evidence for aortic aneurysm. Maintenance issues - - DVT prophylaxis - LUCERO stockings - GI prophylaxis - not indicated - Nutrition - low sodium Disposition - I would anticipate discharge home with his after the hospital stay Primary care physician - Dr Alice Pryor M.D.
[2018-07-24] MEDS ORDERED: Furosemide 20 MG/2 ML VIAL IVPUSH ONE (16:00)
[2018-07-24] MEDS: Simvastatin 20 MG Tab PO SCH (20:22)
[2018-07-25] MEDS: Indacaterol/Glycopyrrolate 1 EA Cap.W.Dev Kit of 6 IH SCH ×2 (08:13→20:16)
[2018-07-25] MEDS: Fluticasone Propionate Nasal Spray 16 GM Bottle NASBOTH SCH ×2 (08:15→20:17)
[2018-07-25] MEDS: Aspirin 325 MG Tab.EC PO SCH (08:15)
[2018-07-25] MEDS: Metoprolol Succinate 50 MG Tab.ER PO SCH (08:15)
[2018-07-25] MEDS: Isosorbide Mononitrate 30 MG Tab.ER PO SCH (08:15)
[2018-07-25] MEDS: hydrALAZINE 25 MG Tab PO SCH ×3 (08:15→20:18)
[2018-07-25] MEDS: Furosemide 20 MG/2 ML VIAL IVPUSH SCH (08:16)
[2018-07-25] MEDS: Multivitamins with Iron/Calcium/Folic Acid/Minerals Tab PO SCH (08:16)
[2018-07-25] MEDS: Docusate Sodium Liquid 100 MG/10 ML UD Cup PO SCH ×2 (08:16→20:19)
[2018-07-25] MEDS: amLODIPine 5 MG Tab PO SCH (08:16)
[2018-07-25] MEDS: Losartan 50 MG Tab PO SCH (08:16)
[2018-07-25] MEDS: Potassium Chloride 20 MEQ Tab.ER PO SCH ×2 (10:06→20:18)
--- NOTE | 2018-07-25 10:54 | PCM.PN ---
- General Info Date of Service: 07/25/18 Subjective Update: there were no acute events overnight. Shortness of breath has continued to improve after another day of excellent diuresis. Weight is down 10 pounds from admission. He does continue to require supplemental oxygen. No episodes of chest pain. - Patient Data Vitals - Most Recent: Last Vital Signs Temp 35.9 C 07/25/18 07:22 Pulse 65 07/25/18 08:15 Resp 18 07/25/18 07:22 BP 134/78 07/25/18 08:16 Pulse Ox 91 L 07/25/18 07:22 Weight - Most Recent: 75.75 kg I&O - Last 24 Hours: Intake & Output 07/24/18 07/25/18 07/25/18 22:59 06:59 14:59 Intake Total 940 240 Output Total 1175 555 500 Balance -314 -954 -458 Lab Results Last 24 Hours: Laboratory Results - last 24 hr 07/25/18 Range/Units 05:29 Sodium 140 (140-148) mmol/L Potassium 3.2 L (3.6-5.2) mmol/L Chloride 100 (100-108) mmol/L Carbon Dioxide 31 (21-32) mmol/L Anion Gap 12.2 (5.0-14.0) mmol/L BUN 26 H (7-18) mg/dL Creatinine 2.3 H (0.8-1.3) mg/dL Est Cr Clr Drug Dosing 25.19 mL/min Estimated GFR (MDRD) 27 L (>60) Glucose 96 (74-106) mg/dL Calcium 8.8 (8.5-10.1) mg/dL Med Orders - Current: Current Medications Acetaminophen (Tylenol) 650 mg PO Q4H PRN PRN Reason: Pain (Mild 1-3)/fever Albuterol (Proventil Neb Soln) 2.5 mg NEB Q4H PRN PRN Reason: Shortness Of Breath/wheezing Last Admin: 07/24/18 00:29 Dose: 2.5 mg Amlodipine Besylate (Norvasc) 5 mg PO DAILY [facility] Last Admin: 07/25/18 08:16 Dose: 5 mg Aspirin (Ecotrin) 325 mg PO DAILY [facility] Last Admin: 07/25/18 08:15 Dose: 325 mg Docusate Sodium (Colace 50 Mg/5 Ml Liquid) 50 mg PO BID [facility] Last Admin: 07/25/18 08:16 Dose: 50 mg Fluticasone Propionate (Flonase) 0 gm NASBOTH BID [facility] Last Admin: 07/25/18 08:15 Dose: 1 each Furosemide (Lasix) 60 mg IVPUSH DAILY [facility] Last Admin: 07/25/18 08:16 Dose: 60 mg Furosemide (Lasix) 60 mg IVPUSH ONETIME ONE Stop: 07/25/18 15:01 Glycopyrrolate/Indacaterol (Utibron Neohaler 27.5-15.6 Mcg) 0 each IH BIDRT [facility] Last Admin: 07/25/18 08:13 Dose: 1 cap Hydralazine HCl (Apresoline) 50 mg PO TID [facility] Last Admin: 07/25/18 08:15 Dose: 50 mg Isosorbide Mononitrate (Imdur) 60 mg PO DAILY [facility] Last Admin: 07/25/18 08:15 Dose: 60 mg Losartan Potassium (Cozaar) 50 mg PO DAILY [facility] Last Admin: 07/25/18 08:16 Dose: 50 mg Magnesium Hydroxide (Milk Of Magnesia) 30 ml PO Q12H PRN PRN Reason: Constipation Metoprolol Succinate (Toprol Xl) 100 mg PO DAILY [facility] Last Admin: 07/25/18 08:15 Dose: 100 mg Multivitamins/Minerals (Thera M Plus) 1 tab PO DAILY [facility] Last Admin: 07/25/18 08:16 Dose: 1 tab Ondansetron HCl (Zofran Odt) 4 mg PO Q6H PRN PRN Reason: Nausea able to take PO Potassium Chloride (Klor-Con M20) 40 meq PO BID [facility] Stop: 07/25/18 21:01 Last Admin: 07/25/18 10:06 Dose: 40 meq Simvastatin (Zocor) 40 mg PO BEDTIME [facility] Last Admin: 07/24/18 20:22 Dose: 40 mg Sodium Chloride (Saline Flush) 10 ml FLUSH ASDIRECTED PRN PRN Reason: Keep Vein Open Last Admin: 07/23/18 13:09 Dose: 10 ml Discontinued Medications Furosemide (Lasix) 80 mg IVPUSH ONETIME ONE Stop: 07/23/18 12:47 Last Admin: 07/23/18 13:09 Dose: 80 mg Furosemide (Lasix) 60 mg IVPUSH ONETIME ONE Stop: 07/24/18 08:01 Last Admin: 07/24/18 08:00 Dose: 60 mg Furosemide (Lasix) 60 mg IVPUSH ONETIME ONE Stop: 07/24/18 16:01 Last Admin: 07/24/18 16:25 Dose: 60 mg Nitroglycerin (Nitrostat) 0.4 mg SL ONETIME ONE Stop: 07/23/18 12:47 Last Admin: 07/23/18 13:08 Dose: 0.4 mg - Exam Quality Assessment: Supplemental Oxygen General: Alert, Oriented, Cooperative, No Acute Distress Lungs: Normal Respiratory Effort, Crackles (few at both bases) Cardiovascular: Regular Rate, Irregular Rhythm GI/Abdominal Exam: Soft, No Distention Extremities: No Pedal Edema Psy/Mental Status: Alert, Normal Affect - Problem List & Annotations (1) Diastolic congestive heart failure, NYHA class 3 SNOMED Code(s): 764336904, 038348884, 296107051 Code(s): I50.30 - UNSPECIFIED DIASTOLIC (CONGESTIVE) HEART FAILURE Status: Acute Current Visit: Yes Qualifiers: Congestive heart failure chronicity: acute on chronic Qualified Code(s): I50.33 - Acute on chronic diastolic (congestive) heart failure (2) Acute respiratory failure with hypoxia SNOMED Code(s): 25349793, 426400583 Code(s): J96.01 - ACUTE RESPIRATORY FAILURE WITH HYPOXIA Status: Acute Current Visit: Yes (3) CKD (chronic kidney disease) stage 4, GFR 15-29 ml/min SNOMED Code(s): 526979618 Code(s): N18.4 - CHRONIC KIDNEY DISEASE, STAGE 4 (SEVERE) Status: Chronic Current Visit: No (4) Abdominal bruit SNOMED Code(s): 938403934 Code(s): R09.89 - OTH SYMPTOMS AND SIGNS INVOLVING THE CIRC AND RESP SYSTEMS Status: Acute Current Visit: Yes (5) Family history of abdominal aortic aneurysm (AAA) SNOMED Code(s): 711641990 Code(s): Z82.49 - FAMILY HX OF ISCHEM HEART DIS AND OTH DIS OF THE CIRC SYS Status: Chronic Current Visit: Yes - Problem List Review Problem List Initiated/Reviewed/Updated: Yes - My Orders Last 24 Hours: My Active Orders 07/25/18 09:00 Furosemide [Lasix] 60 mg IVPUSH DAILY 07/25/18 09:15 Potassium Chloride [Klor-Con M20] 40 meq PO BID 07/25/18 15:00 Furosemide [Lasix] 60 mg IVPUSH ONETIME ONE 07/26/18 05:00 BASIC METABOLIC PANEL,BMP [CHEM] Timed CBC W/O DIFF,HEMOGRAM [HEME] Timed (1) - Plan Plan:: ASSESSMENT AND PLAN - Acute on chronic diastolic congestive heart failure - complicated by hypoxic respiratory failure. slowly better and excellent response to diuresis but still requiring supplemental oxygen. Still has mild JVD and some crackles at the bases. weight is down 10 pounds. -furosemide 60 mg 2 today and again in the morning then reassess -Continue medical management including beta velvet -Strict intake and output monitoring -Supplement oxygen as needed -Daily weights -dietary has been consulted for information about heart healthy diet Stage III/IV chronic kidney disease - recent GFR has been between 27 and 32 but typically less than 30. He has a history of only a single functioning kidney. kidney function stable has remained stable with diuresis. -Heart failure management as above -Repeat labs in the morning Abdominal bruit - Family history of AAA with a father who of a ruptured AAA. aortic ultrasound did not show evidence for aortic aneurysm. Maintenance issues - - DVT prophylaxis - LUCERO stockings - GI prophylaxis - not indicated - Nutrition - low sodium Disposition - I would anticipate discharge home with his after the hospital stay Primary care physician - Dr Alice Pryor M.D.
[2018-07-25] MEDS ORDERED: Furosemide 20 MG/2 ML VIAL IVPUSH ONE (15:00)
[2018-07-25] MEDS: Simvastatin 20 MG Tab PO SCH (20:19)
[2018-07-26] MEDS: Indacaterol/Glycopyrrolate 1 EA Cap.W.Dev Kit of 6 IH SCH (07:19)
[2018-07-26] MEDS: hydrALAZINE 25 MG Tab PO SCH (08:24)
[2018-07-26] MEDS: Losartan 50 MG Tab PO SCH (08:25)
[2018-07-26] MEDS: Aspirin 325 MG Tab.EC PO SCH (08:25)
[2018-07-26] MEDS: Fluticasone Propionate Nasal Spray 16 GM Bottle NASBOTH SCH (08:25)
[2018-07-26] MEDS: Isosorbide Mononitrate 30 MG Tab.ER PO SCH (08:25)
[2018-07-26] MEDS: Multivitamins with Iron/Calcium/Folic Acid/Minerals Tab PO SCH (08:26)
[2018-07-26] MEDS: amLODIPine 5 MG Tab PO SCH (08:26)
[2018-07-26] MEDS: Metoprolol Succinate 50 MG Tab.ER PO SCH (08:26)
[2018-07-26] MEDS: Docusate Sodium Liquid 100 MG/10 ML UD Cup PO SCH (08:30)
[2018-07-26] MEDS: Furosemide 20 MG/2 ML VIAL IVPUSH SCH (08:34)
[2018-07-26 11:04] VITALS: BP 136/62
--- NOTE | 2018-07-26 12:11 | PCM.DCSUM1 ---
Discharge Summary - Hospital Course Brief History: 82-year-old male with history of diastolic congestive heart failure and stage IV chronic kidney disease who presented with progressive shortness of breath and weight gain. He was admitted for management of decompensated diastolic congestive heart failure. Diagnosis: Stroke: No - Discharge Data Discharge Date: 07/26/18 Discharge Disposition: Home, Self-Care 01 Condition: Good - Discharge Diagnosis/Problem(s) (1) Diastolic congestive heart failure, NYHA class 3 SNOMED Code(s): 219188941, 797962785, 829670701 ICD Code: I50.30 - UNSPECIFIED DIASTOLIC (CONGESTIVE) HEART FAILURE Status : Acute Qualifiers: Congestive heart failure chronicity: acute on chronic Qualified Code(s): I50.33 - Acute on chronic diastolic (congestive) heart failure (2) Acute respiratory failure with hypoxia SNOMED Code(s): 44541993, 446777593 ICD Code: J96.01 - ACUTE RESPIRATORY FAILURE WITH HYPOXIA Status: Acute (3) CKD (chronic kidney disease) stage 4, GFR 15-29 ml/min SNOMED Code(s): 890588781 ICD Code: N18.4 - CHRONIC KIDNEY DISEASE, STAGE 4 (SEVERE) Status: Chronic (4) Abdominal bruit SNOMED Code(s): 367690194 ICD Code: R09.89 - OTH SYMPTOMS AND SIGNS INVOLVING THE CIRC AND RESP SYSTEMS Status: Acute (5) Family history of abdominal aortic aneurysm (AAA) SNOMED Code(s): 689351750 ICD Code: Z82.49 - FAMILY HX OF ISCHEM HEART DIS AND OTH DIS OF THE CIRC SYS Status: Chronic - Patient Summary/Data Consults: Consultations 07/23/18 15:36 Consult to Dietary [Consult to [employer]] [CONS] Routine Comment: Physician Instructions: Quantity: Reason for Consult: CHF Hospital Course: John Paul presented to the emergency room on July 23 with several days of progressive shortness of breath and 10 pound weight gain. Workup in the emergency room was consistent with an exacerbation of his diastolic congestive heart failure as well as acute respiratory failure with hypoxia. Also noted in the emergency room was an abdominal bruit and with his family history AAA rupture there was concern for possible aortic aneurysm. He was admitted to the hospital after receiving IV diuresis in the emergency room and abdominal ultrasound was planned for the next morning. He had an excellent response to diuresis overnight following admission. By the morning after admission he is feeling fair amount better as far as shortness of breath. He did continue to require supplemental oxygen. His chronic kidney disease was stable. We did perform an ultrasound of the aorta and there is no evidence for aneurysm. We continued the IV diuresis for the next 2 days in the hospital. He had steady improvement in his congestive heart failure with the diuresis. Kidney function remains stable with the diuresis. He did remain on supplemental oxygen all the way up until the morning of discharge. On the morning of discharge she is off supplemental oxygen and has lost nearly 15 pounds with the diuresis. His abdominal distention has improved and lower extremity edema has resolved. He is feeling much better at this point. I think he safe for discharge home. He does have supplemental oxygen at home that he uses at night. I did increase his furosemide from 20-40 mg. I encouraged him to follow-up in a few days time to recheck his weight. He may need additional titration of this furosemide to a larger dose. Kidney function has remained stable as previously mentioned. He is safe for discharge home at this time and will be discharged home with his and son. He did receive heart failure education as well as a dietary consultation during the hospital stay. We did not repeat an echocardiogram as he has had one in recent months. - Patient Instructions Diet: Low Sodium Activity: As Tolerated Showering/Bathing: May Shower Notify Provider of: Fever, Increased Pain, Nausea and/or Vomiting Other/Special Instructions: 1. You were in the hospital for management of diastolic congestive heart failure with signs and symptoms including shortness of breath and significant weight gain. Your condition has been improving with diuretic therapy. I believe we are down to good volume of fluid inside your body and can start you on a maintenance program. You should take 40 mg of furosemide (Lasix) once daily in the morning. Please keep track of your weight every day and alert your healthcare provider if you gain more than 2 pounds in 1 day or more than 5 pounds over a few days. 2. Continue your other home medications as previously prescribed. 3. Follow up either next Friday or the Friday after that with Dr. Jenkins to recheck your weight and respiratory status. 4. Seek medical attention if you have fever greater than 101, severe shortness of breath or if you develop chest pain - Discharge Plan *PRESCRIPTION DRUG MONITORING PROGRAM REVIEWED*: Not Applicable *COPY OF PRESCRIPTION DRUG MONITORING REPORT IN PATIENT JOSELIN: Not Applicable Prescriptions/Med Rec: Furosemide 40 mg PO DAILY #30 tablet Home Medications: Home Meds Aspirin 325 mg PO DAILY 12/09/15 [History] Nitroglycerin [Nitrostat] 0.4 mg PO ASDIRECTED PRN 12/09/15 [History] Simvastatin 40 mg PO DAILY 12/09/15 [History] amLODIPine [Norvasc] 5 mg PO DAILY 12/09/15 [History] hydrALAZINE [Apresoline] 50 mg PO TID 12/09/15 [History] Acetaminophen/Diphenhydramine [Tylenol Pm Ex-Strength Caplet] 1 tab PO BEDTIME 11/04/16 [History] Losartan Potassium 50 mg PO DAILY 11/04/16 [History] Metoprolol Succinate [Toprol Xl] 100 mg PO DAILY 11/04/16 [History] Multivitamin [Multivitamins] 1 tab PO DAILY 11/04/16 [History] Cholecalciferol (Vitamin D3) [Vitamin D3] 2,000 units PO DAILY 12/18/17 [History ] Dextromethorphan/guaiFENesin [Robitussin DM] 5 ml PO Q6HR PRN 12/18/17 [History] Docusate Sodium [Colace] 50 mg PO BID 12/18/17 [History] Fluticasone Propionate [Flonase] 1 spray ANSHUL BID 12/18/17 [History] Isosorbide Mononitrate [Isosorbide Mononitrate ER] 60 mg PO DAILY 04/21/18 [ History] L.acidoph,Paracasei, B.lactis [Probiotic] 1 tab PO BID 04/21/18 [History] Albuterol [Ventolin HFA] 2 puff IH Q4H PRN 06/12/18 [History] Umeclidinium Brm/Vilanterol Tr [Anoro Ellipta 62.5-25 MCG] 1 puff INH DAILY [History] Furosemide 40 mg PO DAILY #30 tablet 07/26/18 [Rx] Oxygen Therapy Mode: Nasal Cannula (at night) Patient Handouts: Low-Sodium Eating Plan, Heart Failure Referrals: Walt Jenkins MD [Primary Care Provider] - (f/u in 5-7 days - f/u hospital stay for CHF, CKD) - Discharge Summary/Plan Comment DC Time >30 min.: No - Patient Data Vitals - Most Recent: Last Vital Signs Temp 35.5 C 07/26/18 11:01 Pulse 62 07/26/18 11:01 Resp 16 07/26/18 11:01 BP 136/62 07/26/18 11:01 Pulse Ox 94 L 07/26/18 12:05 Weight - Most Recent: 74.752 kg I&O - Last 24 hours: Intake & Output 07/25/18 07/26/18 07/26/18 22:59 06:59 14:59 Intake Total 780 200 240 Output Total 1325 700 350 Balance -545 500 -110 Lab Results - Last 24 hrs: Laboratory Results - last 24 hr 07/26/18 07/26/18 Range/Units 04:55 04:55 WBC 8.6 (4.5-11.0) K/uL RBC 4.71 (4.30-5.90) M/uL Hgb 11.7 L (12.0-15.0) g/dL Hct 37.8 L (40.0-54.0) % MCV 80 (80-98) fL MCH 25 L (27-31) pg MCHC 31 L (32-36) % Plt Count 229 (150-400) K/uL Sodium 139 L (140-148) mmol/L Potassium 3.9 (3.6-5.2) mmol/L Chloride 101 (100-108) mmol/L Carbon Dioxide 32 (21-32) mmol/L Anion Gap 9.9 (5.0-14.0) mmol/L BUN 29 H (7-18) mg/dL Creatinine 2.4 H (0.8-1.3) mg/dL Est Cr Clr Drug Dosing 24.14 mL/min Estimated GFR (MDRD) 26 L (>60) Glucose 102 (74-106) mg/dL Calcium 8.8 (8.5-10.1) mg/dL Med Orders - Current: Current Medications Acetaminophen (Tylenol) 650 mg PO Q4H PRN PRN Reason: Pain (Mild 1-3)/fever Albuterol (Proventil Neb Soln) 2.5 mg NEB Q4H PRN PRN Reason: Shortness Of Breath/wheezing Last Admin: 07/24/18 00:29 Dose: 2.5 mg Amlodipine Besylate (Norvasc) 5 mg PO DAILY [facility] Last Admin: 07/26/18 08:26 Dose: 5 mg Aspirin (Ecotrin) 325 mg PO DAILY [facility] Last Admin: 07/26/18 08:25 Dose: 325 mg Docusate Sodium (Colace 50 Mg/5 Ml Liquid) 50 mg PO BID [facility] Last Admin: 07/26/18 08:30 Dose: 50 mg Fluticasone Propionate (Flonase) 0 gm NASBOTH BID [facility] Last Admin: 07/26/18 08:25 Dose: 1 each Furosemide (Lasix) 60 mg IVPUSH DAILY [facility] Last Admin: 07/26/18 08:34 Dose: 60 mg Glycopyrrolate/Indacaterol (Utibron Neohaler 27.5-15.6 Mcg) 0 each IH BIDRT [facility] Last Admin: 07/26/18 07:19 Dose: 1 cap Hydralazine HCl (Apresoline) 50 mg PO TID [facility] Last Admin: 07/26/18 08:24 Dose: 50 mg Isosorbide Mononitrate (Imdur) 60 mg PO DAILY [facility] Last Admin: 07/26/18 08:25 Dose: 60 mg Losartan Potassium (Cozaar) 50 mg PO DAILY [facility] Last Admin: 07/26/18 08:25 Dose: 50 mg Magnesium Hydroxide (Milk Of Magnesia) 30 ml PO Q12H PRN PRN Reason: Constipation Metoprolol Succinate (Toprol Xl) 100 mg PO DAILY [facility] Last Admin: 07/26/18 08:26 Dose: 100 mg Multivitamins/Minerals (Thera M Plus) 1 tab PO DAILY [facility] Last Admin: 07/26/18 08:26 Dose: 1 tab Ondansetron HCl (Zofran Odt) 4 mg PO Q6H PRN PRN Reason: Nausea able to take PO Simvastatin (Zocor) 40 mg PO BEDTIME [facility] Last Admin: 07/25/18 20:19 Dose: 40 mg Sodium Chloride (Saline Flush) 10 ml FLUSH ASDIRECTED PRN PRN Reason: Keep Vein Open Last Admin: 07/23/18 13:09 Dose: 10 ml Discontinued Medications Furosemide (Lasix) 80 mg IVPUSH ONETIME ONE Stop: 07/23/18 12:47 Last Admin: 07/23/18 13:09 Dose: 80 mg Furosemide (Lasix) 60 mg IVPUSH ONETIME ONE Stop: 07/24/18 08:01 Last Admin: 07/24/18 08:00 Dose: 60 mg Furosemide (Lasix) 60 mg IVPUSH ONETIME ONE Stop: 07/24/18 16:01 Last Admin: 07/24/18 16:25 Dose: 60 mg Furosemide (Lasix) 60 mg IVPUSH ONETIME ONE Stop: 07/25/18 15:01 Last Admin: 07/25/18 14:25 Dose: 60 mg Nitroglycerin (Nitrostat) 0.4 mg SL ONETIME ONE Stop: 07/23/18 12:47 Last Admin: 07/23/18 13:08 Dose: 0.4 mg Potassium Chloride (Klor-Con M20) 40 meq PO BID [facility] Stop: 07/25/18 21:01 Last Admin: 07/25/18 20:18 Dose: 40 meq - Exam Quality Assessment: Denies: Supplemental Oxygen General: Reports: Alert, Oriented, Cooperative, No Acute Distress Lungs: Reports: Clear to Auscultation, Normal Respiratory Effort Cardiovascular: Reports: Regular Rate, Regular Rhythm, Murmurs GI/Abdominal Exam: Soft, No Distention Extremities: No Pedal Edema Psy/Mental Status: Reports: Alert, Normal Affect
== END 2018-07-26 13:07 | disposition home or self-care (01) | DRG 291 ==
LOC: JP.ED 11:46 → JP.MS 14:47
PROVIDERS: ADMIT Internal Medicine; ATTEND Internal Medicine
DX: I13.0 Hypertensive heart and chronic kidney disease with heart failure and stage 1 through stage 4 chronic kidney disease, or unspecified chronic kidney disease (principal); I50.33 Acute on chronic diastolic (congestive) heart failure; J96.01 Acute respiratory failure with hypoxia; N18.4 Chronic kidney disease, stage 4 (severe); Z66 Do not resuscitate; Z99.81 Dependence on supplemental oxygen; Z87.891 Personal history of nicotine dependence; R09.89 Other specified symptoms and signs involving the circulatory and respiratory systems; R06.02 Shortness of breath; R09.02 Hypoxemia; J44.9 Chronic obstructive pulmonary disease, unspecified; Z82.49 Family history of ischemic heart disease and other diseases of the circulatory system; I25.10 Atherosclerotic heart disease of native coronary artery without angina pectoris; E78.00 Pure hypercholesterolemia, unspecified; Z85.828 Personal history of other malignant neoplasm of skin; N42.9 Disorder of prostate, unspecified; M54.9 Dorsalgia, unspecified; G89.29 Other chronic pain; Z95.5 Presence of coronary angioplasty implant and graft; H54.7 Unspecified visual loss; Z79.82 Long term (current) use of aspirin; Z88.8 Allergy status to other drugs, medicaments and biological substances
CPT/HCPCS: 36415; 71046; 80053; 83605; 84484; 85025; 93005; 96374; 99285; A9270; J1940; 80048; 85027; 94640

== ENCOUNTER 2018-10-20 22:00 | Inpatient (IN) | payer MEDICARE, BC ==
--- NOTE | 2018-10-20 22:14 | EDM.PDOC ---
ED HPI GENERAL MEDICAL PROBLEM - General Chief Complaint: Respiratory Problem Stated Complaint: SOB Time Seen by Provider: 10/20/18 22:08 Source of Information: Reports: Patient, EMS, Old Records History Limitations: Reports: No Limitations - History of Present Illness INITIAL COMMENTS - FREE TEXT/NARRATIVE: 83 yo male arrives in ER tonight via EMS. Was seen in the clinic earlier today with a WBC ct of 11.3 with a left shift. No fever. Oxygenation in clinic was 92% , lower than normal for him. CXR was suggestive of either early pneumonia or pulm edema. He does have a hx of both CHF and COPD. He was tx'd after his clinic visit today with a course of Levaquin 750 mg qd and prednisone and told to go to the ER if he should worsen. In clinic he reported a productive cough, but no fever. Stools have been darker than normal lately, he thinks due to some spinach he ate. Is not aware of any orthopnea and denies sharp pain with breathing. Onset: Gradual Onset Date: 10/16/18 Duration: Day(s):, Getting Worse Location: Reports: Chest Quality: Reports: Other (mild tightness with breathing) Severity: Mild Improves with: Reports: Rest Worsens with: Reports: Movement Context: Reports: Other (see HPI) Associated Symptoms: Reports: Cough, Shortness of Breath. Denies: Diaphoresis, Fever/Chills Treatments [employer]: Reports: Other (see below) (see HPI) - Related Data Allergies Allergy/AdvReac Type Severity Reaction Status Date / Time clopidogrel bisulfate Allergy Intermediate Rash Verified 07/23/18 12:01 [From Plavix] Home Meds: Home Meds Aspirin 325 mg PO DAILY 12/09/15 [History] Nitroglycerin [Nitrostat] 0.4 mg PO ASDIRECTED PRN 12/09/15 [History] Simvastatin 40 mg PO DAILY 12/09/15 [History] amLODIPine [Norvasc] 5 mg PO DAILY 12/09/15 [History] hydrALAZINE [Apresoline] 50 mg PO TID 12/09/15 [History] Acetaminophen/Diphenhydramine [Tylenol Pm Ex-Strength Caplet] 1 tab PO BEDTIME 11/04/16 [History] Losartan Potassium 12.56 mg PO DAILY 11/04/16 [History] Metoprolol Succinate [Toprol Xl] 50 mg PO DAILY 11/04/16 [History] Multivitamin [Multivitamins] 1 tab PO DAILY 11/04/16 [History] Cholecalciferol (Vitamin D3) [Vitamin D3] 2,000 units PO DAILY 12/18/17 [History ] Dextromethorphan/guaiFENesin [Robitussin DM] 5 ml PO Q6HR PRN 12/18/17 [History] Docusate Sodium [Colace] 50 mg PO BID 12/18/17 [History] Fluticasone Propionate [Flonase] 1 spray ANSHUL BID 12/18/17 [History] Isosorbide Mononitrate [Isosorbide Mononitrate ER] 40 mg PO DAILY 04/21/18 [ History] L.acidoph,Paracasei, B.lactis [Probiotic] 1 tab PO BID 04/21/18 [History] Furosemide 40 mg PO DAILY #30 tablet 07/26/18 [Rx] Levofloxacin 750 mg PO DAILY 10/20/18 [History] predniSONE [Prednisone] 20 mg PO ASDIRECTED 10/20/18 [History] Past Medical History HEENT History: Reports: Cataract, Impaired Vision Other HEENT History: wears glasses Cardiovascular History: Reports: Arrhythmia, CAD, Heart Failure, High Cholesterol, Hypertension, Stents Respiratory History: Reports: SOB, Other (See Below) Other Respiratory History: home o2 Gastrointestinal History: Reports: GERD Genitourinary History: Reports: Chronic Renal Insuffiency, Prostate Disorder, Other (See Below) Other Genitourinary History: kidney stent Musculoskeletal History: Reports: Back Pain, Chronic, Fracture Psychiatric History: Reports: Addiction, Anxiety Oncologic (Cancer) History: Reports: Other (See Below) Other Oncologic History: skin cancer Dermatologic History: Reports: None Other Dermatologic History: multiple cysts - Infectious Disease History Infectious Disease History: Reports: Chicken Pox - Past Surgical History HEENT Surgical History: Reports: Cataract Surgery Cardiovascular Surgical History: Reports: Carotid Endarterectomy, Carotid Stents GI Surgical History: Reports: Cholecystectomy, Colonoscopy, Other (See Below) Other GI Surgeries/Procedures: states has "twisted bowel" Male Surgical History: Reports: TURP-Transurethral Resection of Prostate Musculoskeletal Surgical History: Reports: Other (See Below) Other Musculoskeletal Surgeries/Procedures:: right lower leg fracture Dermatological Surgical History: Reports: Skin Biopsy Social & Family History - Family History Family Medical History: Noncontributory - Tobacco Use Smoking Status *Q: Former Smoker Used Tobacco, but Quit: Yes Month/Year Tobacco Last Used: 12 years ago - Caffeine Use Caffeine Use: Reports: Coffee, Tea - Recreational Drug Use Recreational Drug Use: No ED ROS GENERAL - Review of Systems Review Of Systems: See Below Constitutional: Reports: No Symptoms HEENT: Reports: No Symptoms Respiratory: Reports: Shortness of Breath, Cough, Sputum (white). Denies: Wheezing, Pleuritic Chest Pain, Hemoptysis Cardiovascular: Reports: No Symptoms Endocrine: Reports: No Symptoms GI/Abdominal: Reports: No Symptoms : Reports: No Symptoms Musculoskeletal: Reports: No Symptoms Skin: Reports: No Symptoms Neurological: Reports: No Symptoms Psychiatric: Reports: No Symptoms ED EXAM, GENERAL - Physical Exam Exam: See Below Exam Limited By: No Limitations General Appearance: Alert, WD/WN, Mild Distress Eye Exam: Bilateral Eye: Normal Inspection Ears: Normal External Exam, Normal Canal, Hearing Grossly Normal, Normal TMs Ear Exam: Bilateral Ear: Auricle Normal, Canal Normal, TM normal Nose: Normal Inspection, Normal Mucosa, No Blood Throat/Mouth: Normal Inspection, Normal Lips, Normal Oropharynx, Normal Voice, No Airway Compromise Head: Atraumatic, Normocephalic Neck: Normal Inspection Respiratory/Chest: Lungs Clear, Normal Breath Sounds, No Accessory Muscle Use, Other (mild tachypnea, cough sounds a little wet, but does not produce any sputum. ) Cardiovascular: No Edema, Irregularly Irregular GI/Abdominal: Normal Bowel Sounds, Soft, Non-Tender, No Distention Back Exam: Normal Inspection. No: CVA Tenderness (R), CVA Tenderness (L) Extremities: Normal Inspection, Normal Range of Motion, Non-Tender, No Pedal Edema Neurological: Alert, Oriented, CN II-XII Intact, Normal Cognition, No Motor/ Sensory Deficits Psychiatric: Normal Affect, Anxious Skin Exam: Warm, Dry, Intact, Normal Color, No Rash Lymphatic: No Adenopathy EKG INTERPRETATION EKG Date: 10/21/18 Time: 00:25 Rhythm: NSR Rate (Beats/Min): 76 [place]: Normal P-Wave: Present QRS: Other (L anterior fascicular block) ST-T: Normal QT: Prolonged (borderline) Comparison: No Change Course - Vital Signs Text/Narrative:: Discussed with Becca @ [facility]. Discussed w/Dr. Pride 0000h, Called [facility] per patient request, not able to accept. Called [facility], 0012h, they felt he was not a good candidate for VQ scan. Dr. Pride agreed to admit here for now, doppler US in the morning planned. Last Recorded V/S: Last Vital Signs Temp 36.1 C 10/20/18 23:02 Pulse 70 10/21/18 00:24 Resp 24 H 10/21/18 00:24 BP 162/43 H 10/21/18 00:24 Pulse Ox 98 10/21/18 00:24 - Orders/Labs/Meds Orders: Active Orders 24 hr Category Date Time Status EKG Documentation Completion [RC] ASDIRECTED Care 10/21/18 00:19 Active Sodium Chloride 0.9% [Saline Flush] Med 10/21/18 00:17 Active 10 ml FLUSH ASDIRECTED PRN Saline Lock Insert [OM.PC] Routine Oth 10/21/18 00:17 Ordered EKG 12 Lead [EK] Routine Ther 10/21/18 00:18 Ordered Medication Orders Sodium Chloride (Saline Flush) 10 ml FLUSH ASDIRECTED PRN PRN Reason: Keep Vein Open Last Admin: 10/21/18 00:51 Dose: 10 ml Admin: 10/21/18 00:30 Dose: 10 ml Labs: Laboratory Tests 10/20/18 10/20/18 10/20/18 Range/Units 22:25 22:25 22:25 WBC 6.5 (4.5-11.0) K/uL RBC 4.41 (4.30-5.90) M/uL Hgb 10.6 L (12.0-15.0) g/dL Hct 33.3 L (40.0-54.0) % MCV 76 L (80-98) fL MCH 24 L (27-31) pg MCHC 32 (32-36) % Plt Count 406 H (150-400) K/uL D-Dimer, Quantitative 1050 H (0.0-400.0) ng/mL Sodium 132 L (140-148) mmol/L Potassium 3.8 (3.6-5.2) mmol/L Chloride 96 L (100-108) mmol/L Carbon Dioxide 22 (21-32) mmol/L Anion Gap 17.8 H (5.0-14.0) mmol/L BUN 38 H (7-18) mg/dL Creatinine 3.1 H (0.8-1.3) mg/dL Est Cr Clr Drug Dosing 18.89 mL/min Estimated GFR (MDRD) 19 L (>60) Glucose 189 H (74-106) mg/dL Calcium 10.8 H D (8.5-10.1) mg/dL Troponin I < 0.017 (0.000-0.056) ng/mL C-Reactive Protein (0.0-0.3) mg/dL NT-Pro-B Natriuret Pep (5-450) pg/mL 10/20/18 Range/Units 22:25 WBC (4.5-11.0) K/uL RBC (4.30-5.90) M/uL Hgb (12.0-15.0) g/dL Hct (40.0-54.0) % MCV (80-98) fL MCH (27-31) pg MCHC (32-36) % Plt Count (150-400) K/uL D-Dimer, Quantitative (0.0-400.0) ng/mL Sodium (140-148) mmol/L Potassium (3.6-5.2) mmol/L Chloride (100-108) mmol/L Carbon Dioxide (21-32) mmol/L Anion Gap (5.0-14.0) mmol/L BUN (7-18) mg/dL Creatinine (0.8-1.3) mg/dL Est Cr Clr Drug Dosing mL/min Estimated GFR (MDRD) (>60) Glucose (74-106) mg/dL Calcium (8.5-10.1) mg/dL Troponin I (0.000-0.056) ng/mL C-Reactive Protein 9.55 H (0.0-0.3) mg/dL NT-Pro-B Natriuret Pep 7472 H (5-450) pg/mL Meds: Medications Generic Name Dose Route Start Last Admin Trade Name Freq PRN Reason Stop Dose Admin Sodium Chloride 10 ml 10/21/18 00:17 10/21/18 00:51 Saline Flush FLUSH 10 ml ASDIRECTED PRN Administration Keep Vein Open Discontinued Medications Generic Name Dose Route Start Last Admin Trade Name Freq PRN Reason Stop Dose Admin Al Hydroxide/Mg Hydroxide 30 ml 10/21/18 00:18 10/21/18 00:26 Mag-Al Plus PO 10/21/18 00:19 30 ml ONETIME ONE Administration Enoxaparin Sodium 30 mg 10/21/18 01:03 Lovenox SUBCUT 10/21/18 01:04 ONETIME ONE Lorazepam 0.5 mg 10/21/18 00:17 10/21/18 00:26 Ativan IVPUSH 10/21/18 00:18 0.5 mg ONETIME ONE Administration Morphine Sulfate 2 mg 10/21/18 00:42 10/21/18 00:49 Morphine IVPUSH 10/21/18 00:43 2 mg ONETIME ONE Administration Nitroglycerin 1 gm 10/21/18 00:37 10/21/18 00:43 Nitro-Bid 2% TOP 10/21/18 00:38 1 gm ONETIME ONE Administration - Radiology Interpretation Free Text/Narrative:: CXR-mild congestive changes. Departure - Departure Time of Disposition: 01:15 Disposition: Admitted As Inpatient 65 Condition: Fair Clinical Impression: Elevated brain natriuretic peptide (BNP) level, Elevated d-dimer Dyspnea Qualifiers: Dyspnea type: dyspnea on exertion Qualified Code(s): R06.09 - Other forms of dyspnea CRF (chronic renal failure) Qualifiers: Chronic kidney disease stage: stage 4 (severe) Qualified Code(s): N18.4 - Chronic kidney disease, stage 4 (severe) - Discharge Information Referrals: Walt Jenkins MD [Primary Care Provider] - Forms: ED Department Discharge - My Orders Last 24 Hours: My Active Orders 10/21/18 00:17 Sodium Chloride 0.9% [Saline Flush] 10 ml FLUSH ASDIRECTED PRN Saline Lock Insert [OM.PC] Routine 10/21/18 00:18 EKG 12 Lead [EK] Routine 10/21/18 00:19 EKG Documentation Completion [RC] ASDIRECTED - Assessment/Plan Last 24 Hours: My Active Orders 10/21/18 00:17 Sodium Chloride 0.9% [Saline Flush] 10 ml FLUSH ASDIRECTED PRN Saline Lock Insert [OM.PC] Routine 10/21/18 00:18 EKG 12 Lead [EK] Routine 10/21/18 00:19 EKG Documentation Completion [RC] ASDIRECTED
--- NOTE | 2018-10-21 00:10 | CRLCR ---
INDICATION: Shortness of breath TECHNIQUE: Chest 2 views. COMPARISON: 07/23/2018 FINDINGS: Cardiovascular and mediastinum: Stable cardiomegaly with mild congestive changes.. Mediastinum is within normal limits. Lungs and pleural spaces: Lungs are clear. No sign of infiltrate or mass. No sign of pleural effusion. No pneumothorax. Bones and soft tissues: No significant findings. IMPRESSION: Stable cardiomegaly with mild congestive changes. Dictated by Chiki Mcdonald MD @ 10/21/2018 12:09:54 AM Dictated by: Chiki Mcdonald MD @ 10/21/2018 00:10:00 (Electronically Signed)
[2018-10-21] MEDS ORDERED: LORazepam 2 MG/ML SDV IVPUSH ONE (00:17)
[2018-10-21] MEDS ORDERED: Aluminum Hydroxide/Magnesium Hydroxide/Simethicone Susp 30 ML Cup PO ONE (00:18)
[2018-10-21] MEDS: Sodium Chloride 0.9% 10 ML Syringe FLUSH PRN ×4 (00:30→10:15)
[2018-10-21] MEDS ORDERED: Nitroglycerin 2% Oint 1 GM UD Packet TOP ONE (00:37)
[2018-10-21] MEDS ORDERED: Morphine 2 MG/ML Syringe IVPUSH ONE (00:42)
[2018-10-21] MEDS ORDERED: Enoxaparin 30 MG/0.3 ML Syringe SUBCUT ONE (01:03)
[2018-10-21] MEDS ORDERED: hydrALAZINE 25 MG Tab PO STA (01:12)
--- NOTE | 2018-10-21 01:44 | PCM.HP ---
H&P History of Present Illness - General Date of Service: 10/20/18 Admit Problem/Dx: Admission Diagnosis/Problem Admission Diagnosis/Problem Shortness of breath Source of Information: Patient, Family () History Limitations: Reports: No Limitations - History of Present Illness Initial Comments - Free Text/Narative: INITIAL COMMENTS - FREE TEXT/NARRATIVE: chief complaint shortness of breath for 6 days. 83 yo male arrives in ER tonight via EMS. Was seen in the clinic earlier today with a WBC ct of 11.3 with a left shift. No fever. Oxygenation in clinic was 92% , lower than normal for him. CXR was suggestive of either early pneumonia or pulm edema. He does have a hx of both CHF and COPD. He was tx'd after his clinic visit today with a course of Levaquin 750 mg qd and prednisone and told to go to the ER if he should worsen. In clinic he reported a productive cough, but no fever. Stools have been darker than normal lately, he thinks due to some spinach he ate. Is not aware of any orthopnea and denies sharp pain with breathing. Onset: Gradual Onset Date: 10/16/18 Onset of Symptoms: Reports: Gradual Symptom Onset Date: 10/15/18 Duration of Symptoms: Reports: Getting Worse Location: Reports: Generalized (shortness of breath, weakness) Quality: Reports: Other Severity: Moderate Improves with: Reports: Rest Worsens with: Reports: Movement Context: Reports: Other (acute - chronic illness) Associated Symptoms: Reports: Cough, Shortness of Breath, Weakness - Related Data Allergies/Adverse Reactions: Allergies Allergy/AdvReac Type Severity Reaction Status Date / Time clopidogrel bisulfate Allergy Intermediate Rash Verified 07/23/18 12:01 [From Plavix] Home Medications: Home Meds Aspirin 325 mg PO DAILY 12/09/15 [History] Nitroglycerin [Nitrostat] 0.4 mg PO ASDIRECTED PRN 12/09/15 [History] Simvastatin 40 mg PO DAILY 12/09/15 [History] amLODIPine [Norvasc] 5 mg PO DAILY 12/09/15 [History] hydrALAZINE [Apresoline] 50 mg PO TID 12/09/15 [History] Acetaminophen/Diphenhydramine [Tylenol Pm Ex-Strength Caplet] 1 tab PO BEDTIME 11/04/16 [History] Losartan Potassium 12.56 mg PO DAILY 11/04/16 [History] Metoprolol Succinate [Toprol Xl] 50 mg PO DAILY 11/04/16 [History] Multivitamin [Multivitamins] 1 tab PO DAILY 11/04/16 [History] Cholecalciferol (Vitamin D3) [Vitamin D3] 2,000 units PO DAILY 12/18/17 [History ] Dextromethorphan/guaiFENesin [Robitussin DM] 5 ml PO Q6HR PRN 12/18/17 [History] Docusate Sodium [Colace] 50 mg PO BID 12/18/17 [History] Fluticasone Propionate [Flonase] 1 spray ANSHUL BID 12/18/17 [History] Isosorbide Mononitrate [Isosorbide Mononitrate ER] 40 mg PO DAILY 04/21/18 [ History] L.acidoph,Paracasei, B.lactis [Probiotic] 1 tab PO BID 04/21/18 [History] Furosemide 40 mg PO DAILY #30 tablet 07/26/18 [Rx] Levofloxacin 750 mg PO DAILY 10/20/18 [History] predniSONE [Prednisone] 20 mg PO ASDIRECTED 10/20/18 [History] Past Medical History HEENT History: Reports: Cataract, Impaired Vision Other HEENT History: wears glasses Cardiovascular History: Reports: Arrhythmia, CAD, Heart Failure, High Cholesterol, Hypertension, Stents Respiratory History: Reports: SOB, Other (See Below) Other Respiratory History: home o2 Gastrointestinal History: Reports: GERD Genitourinary History: Reports: Chronic Renal Insuffiency, Prostate Disorder, Other (See Below) Other Genitourinary History: kidney stent Musculoskeletal History: Reports: Back Pain, Chronic, Fracture Psychiatric History: Reports: Addiction, Anxiety Oncologic (Cancer) History: Reports: Other (See Below) Other Oncologic History: skin cancer Dermatologic History: Reports: None Other Dermatologic History: multiple cysts - Infectious Disease History Infectious Disease History: Reports: Chicken Pox - Past Surgical History HEENT Surgical History: Reports: Cataract Surgery Cardiovascular Surgical History: Reports: Carotid Endarterectomy, Carotid Stents GI Surgical History: Reports: Cholecystectomy, Colonoscopy, Other (See Below) Other GI Surgeries/Procedures: states has "twisted bowel" Male Surgical History: Reports: TURP-Transurethral Resection of Prostate Musculoskeletal Surgical History: Reports: Other (See Below) Other Musculoskeletal Surgeries/Procedures:: right lower leg fracture Dermatological Surgical History: Reports: Skin Biopsy Social & Family History - Family History Family Medical History: Noncontributory - Tobacco Use Smoking Status *Q: Former Smoker Used Tobacco, but Quit: Yes Month/Year Tobacco Last Used: 12 years ago - Caffeine Use Caffeine Use: Reports: Coffee, Tea - Recreational Drug Use Recreational Drug Use: No - Living Situation & Occupation Living situation: Reports: , with Family Occupation: Retired (lives with Veena in [place]. 3 Son, none live in the area.) H&P Review of Systems - Review of Systems: Review Of Systems: See Below General: Reports: Weakness, Other (shortness of breath) HEENT: Reports: No Symptoms Pulmonary: Reports: Shortness of Breath, Sputum (clear) Cardiovascular: Reports: Dyspnea on Exertion, Other (history of 6 stent, heart murmur. no chest pain) Gastrointestinal: Reports: Other (loose stool, last bowel movement in ER, fecal occult negative) Genitourinary: Reports: No Symptoms Musculoskeletal: Reports: No Symptoms Skin: Reports: No Symptoms Psychiatric: Reports: No Symptoms Neurological: Reports: No Symptoms Hematologic/Lymphatic: Reports: No Symptoms Immunologic: Reports: No Symptoms Exam - Exam Exam: See Below - Vital Signs Vital Signs: Last Vital Signs Temp 36.1 C 10/20/18 23:02 Pulse 70 10/21/18 00:24 Resp 24 H 10/21/18 00:24 BP 147/70 H 10/21/18 01:29 Pulse Ox 98 10/21/18 00:24 Weight: 79.379 kg - Exam Quality Assessment: Supplemental Oxygen, DVT Prophylaxis General: Alert, Oriented, 4 HEENT: PERRLA, Conjunctiva Clear, EACs Clear, EOMI, Hearing Intact, Mucosa Moist & [place], Nares Patent, Normal Nasal Septum Neck: Supple, Trachea Midline Lungs: Clear to Auscultation, Normal Respiratory Effort, Other (oxygen nasal cannula) Cardiovascular: Normal S1, Normal S2, Irregular Rhythm, Other (murmur present) GI/Abdominal Exam: Normal Bowel Sounds, Soft, Non-Tender, No Distention, No Abnormal Bruit, No Mass, Pelvis Stable (Male) Exam: Deferred Rectal (Males) Exam: Deferred Back Exam: Normal Inspection, Full Range of Motion Extremities: Normal Inspection, Normal Range of Motion, Non-Tender, No Pedal Edema, Normal Capillary Refill Skin: Warm, Dry, Intact Neurological: Strength Equal Bilateral Neuro Extensive - Mental Status: Alert, Oriented x3, Normal Mood/Affect, Normal Cognition Psychiatric: Alert, Normal Affect, Normal Mood - Patient Data Lab Results Last 24 hrs: Laboratory Results - last 24 hr 10/20/18 10/20/18 10/20/18 Range/Units 22:25 22:25 22:25 WBC 6.5 (4.5-11.0) K/uL RBC 4.41 (4.30-5.90) M/uL Hgb 10.6 L (12.0-15.0) g/dL Hct 33.3 L (40.0-54.0) % MCV 76 L (80-98) fL MCH 24 L (27-31) pg MCHC 32 (32-36) % Plt Count 406 H (150-400) K/uL D-Dimer, Quantitative 1050 H (0.0-400.0) ng/mL Sodium 132 L (140-148) mmol/L Potassium 3.8 (3.6-5.2) mmol/L Chloride 96 L (100-108) mmol/L Carbon Dioxide 22 (21-32) mmol/L Anion Gap 17.8 H (5.0-14.0) mmol/L BUN 38 H (7-18) mg/dL Creatinine 3.1 H (0.8-1.3) mg/dL Est Cr Clr Drug Dosing 18.89 mL/min Estimated GFR (MDRD) 19 L (>60) Glucose 189 H (74-106) mg/dL Calcium 10.8 H D (8.5-10.1) mg/dL Troponin I < 0.017 (0.000-0.056) ng/mL C-Reactive Protein (0.0-0.3) mg/dL NT-Pro-B Natriuret Pep (5-450) pg/mL 10/20/18 Range/Units 22:25 WBC (4.5-11.0) K/uL RBC (4.30-5.90) M/uL Hgb (12.0-15.0) g/dL Hct (40.0-54.0) % MCV (80-98) fL MCH (27-31) pg MCHC (32-36) % Plt Count (150-400) K/uL D-Dimer, Quantitative (0.0-400.0) ng/mL Sodium (140-148) mmol/L Potassium (3.6-5.2) mmol/L Chloride (100-108) mmol/L Carbon Dioxide (21-32) mmol/L Anion Gap (5.0-14.0) mmol/L BUN (7-18) mg/dL Creatinine (0.8-1.3) mg/dL Est Cr Clr Drug Dosing mL/min Estimated GFR (MDRD) (>60) Glucose (74-106) mg/dL Calcium (8.5-10.1) mg/dL Troponin I (0.000-0.056) ng/mL C-Reactive Protein 9.55 H (0.0-0.3) mg/dL NT-Pro-B Natriuret Pep 7472 H (5-450) pg/mL Result Diagrams: 10/20/18 22:25 10/20/18 22:25 Levy Results Last 24 hrs: Microbiology 10/20/18 23:02 Stool Occult Blood (LEVY) - Final Stool / Feces - Stool, Formed NEGATIVE OCCULT BLOOD - Problem List (1) Dyspnea SNOMED Code(s): 195570321 ICD Code: R06.00 - DYSPNEA, UNSPECIFIED Status: Acute Priority: High Current Visit: Yes Qualifiers: Dyspnea type: shortness of breath Qualified Code(s): R06.02 - Shortness of breath; R06.00 - Dyspnea, unspecified; R06.01 - Orthopnea (2) Elevated brain natriuretic peptide (BNP) level SNOMED Code(s): 039172478, 079008145 ICD Code: R79.89 - OTHER SPECIFIED ABNORMAL FINDINGS OF BLOOD CHEMISTRY Status: Acute Priority: High Current Visit: Yes (3) Elevated d-dimer SNOMED Code(s): 740748005 ICD Code: R79.89 - OTHER SPECIFIED ABNORMAL FINDINGS OF BLOOD CHEMISTRY Status: Acute Priority: High Current Visit: Yes (4) CHF (congestive heart failure) SNOMED Code(s): 22472052 ICD Code: I50.9 - HEART FAILURE, UNSPECIFIED Status: Acute Priority: High Current Visit: Yes Qualifiers: Heart failure type: diastolic Heart failure chronicity: acute on chronic Qualified Code(s): I50.33 - Acute on chronic diastolic (congestive) heart failure (5) CKD (chronic kidney disease) stage 4, GFR 15-29 ml/min SNOMED Code(s): 728625759 ICD Code: N18.4 - CHRONIC KIDNEY DISEASE, STAGE 4 (SEVERE) Status: Chronic Priority: Medium Current Visit: Yes (6) COPD (chronic obstructive pulmonary disease) SNOMED Code(s): 80721444 ICD Code: J44.9 - CHRONIC OBSTRUCTIVE PULMONARY DISEASE, UNSPECIFIED Status : Acute Current Visit: Yes Qualifiers: COPD type: unspecified COPD Qualified Code(s): J44.9 - Chronic obstructive pulmonary disease, unspecified Problem List Initiated/Reviewed/Updated: Yes Orders Last 24hrs: Active Orders 24 hr Category Date Time Status Patient Status Manage Transfer [TRANSFER] Routine ADT 10/21/18 01:32 Ordered EKG Documentation Completion [RC] ASDIRECTED Care 10/21/18 00:19 Active Sodium Chloride 0.9% [Saline Flush] Med 10/21/18 00:17 Active 10 ml FLUSH ASDIRECTED PRN Saline Lock Insert [OM.PC] Routine Oth 10/21/18 00:17 Ordered Resuscitation Status Routine Resus Stat 10/21/18 01:33 Ordered EKG 12 Lead [EK] Routine Ther 10/21/18 00:18 Ordered Medication Orders Sodium Chloride (Saline Flush) 10 ml FLUSH ASDIRECTED PRN PRN Reason: Keep Vein Open Last Admin: 10/21/18 00:51 Dose: 10 ml Admin: 10/21/18 00:30 Dose: 10 ml Assessment/Plan Comment:: ASSESSMENT / PLAN chief complaint shortness of breath for 6 days. 83 yo male arrives in ER [facility] via EMS. Was seen in the clinic earlier today with a WBC ct of 11.3 with a left shift. No fever. Oxygenation in clinic was 92% , lower than normal for him. Chest x-ray was suggestive of either early pneumonia or pulmonary edema. He does have a hx of both CHF and COPD. He was tx' d after his clinic visit today with a course of Levaquin 750 mg qd and prednisone and told to go to the ER if he should worsen. In clinic he reported a productive cough, but no fever. Stools have been darker than normal lately, he thinks due to some spinach he ate. Is not aware of any orthopnea and denies sharp pain with breathing. In Emergency Room given Lovenox 30 mg subcut, Nitro paste one inch, Morphine 2 mg IV, Ativan 0.5 mg IV, Maalox and Hydralazine 50 mg po . Mr. Curiel reports feeling much better, shortness of breath has improved. Oxygen sats at 99% on 2 liter per NC. Dyspnea, elevated Pro-BNP and elevated D-dimer, CHF, Ischemic heart disease -Admit to [address] [place] [address] for further monitoring -IV saline lock -telemetry -Nitro paste one inch to chest -Lovenox 30 mg subcut in ER, next dose ordered for 1300 -home medications ordered -re-assess in am COPD -Continue Oxygen at 2 liter per NC -Robitussin DM 10 ml every 4 to 6 hours for cough -albuterol nebulizer every 4 hours as needed for wheezing and cough -Duo nebu nebulize every 6 hours prn -Advise to notify nurses of any chest pain or other symptoms -And a.m. labs: CBC, BMP CKD stage IV -monitor I and O -continue diuretics Maintenance issues -Orders home meds: ordered. hold Levaquin -Nutrition: 2 gram sodium diet -Quesada catheter not indicated at this time -DVT: Lovenox 30 mg subcut -PPI: IV Protonix 40mg daily -consult Spiritual CODE STATUS: FULL CODE Admission status: Admit to [address] [place] [address] Admission justification. This patient will be admitted for inpatient services and is medically appropriate meeting medical necessity for inpatient admission as outlined in my documentation. I reasonably expect the patient will require inpatient services that span. Time over 2 midnights. I reasonably expect this patient to be discharged or transferred within 96 hours after admission to the critical access hospital. Disposition: home Primary care provider: Dr. Alice Godoy Hospitalist: Dr. Pride
[2018-10-21] MEDS ORDERED: Albuterol 0.083% 2.5 MG/3 ML Neb Soln NEB PRN (01:57)
[2018-10-21] MEDS ORDERED: Docusate Sodium 100 MG Cap PO PRN (01:57)
[2018-10-21] MEDS ORDERED: LORazepam 2 MG/ML SDV IV PRN (01:57)
[2018-10-21] MEDS ORDERED: Melatonin 3 MG Tab PO PRN (01:57)
[2018-10-21] MEDS ORDERED: Morphine 2 MG/ML Syringe IVPUSH PRN (01:57)
[2018-10-21] MEDS ORDERED: guaiFENesin/Dextromethorphan 100-10 MG/5 ML Soln 10 ML Cup PO PRN (01:57)
[2018-10-21] MEDS ORDERED: Albuterol/Ipratropium 3.0-0.5 MG/3 ML Neb Soln NEB PRN (01:57)
[2018-10-21] MEDS ORDERED: Ondansetron 4 MG/2 ML SDV IVPUSH PRN (04:10)
[2018-10-21] MEDS: Ondansetron 4 MG Tab.DIS PO PRN ×3 (04:34→15:07)
[2018-10-21] MEDS: predniSONE 20 MG Tab PO SCH (08:27)
[2018-10-21] MEDS: Losartan 50 MG Tab PO SCH (08:29)
[2018-10-21] MEDS: Isosorbide Mononitrate 30 MG Tab.ER PO SCH (08:30)
[2018-10-21] MEDS: Simvastatin 20 MG Tab PO SCH (08:31)
[2018-10-21] MEDS: Lactobacillus Rhamnosus GG (Probiotic) Cap PO SCH ×2 (08:34→20:53)
[2018-10-21] MEDS: Aspirin 325 MG Tab.EC PO SCH (08:35)
[2018-10-21] MEDS: hydrALAZINE 25 MG Tab PO SCH ×3 (08:37→20:54)
[2018-10-21] MEDS: Metoprolol Succinate 50 MG Tab.ER PO SCH (08:39)
[2018-10-21] MEDS: amLODIPine 5 MG Tab PO SCH (08:40)
[2018-10-21] MEDS: Docusate Sodium Liquid 100 MG/10 ML UD Cup PO SCH ×2 (08:42→20:53)
[2018-10-21] MEDS: Fluticasone Propionate Nasal Spray 16 GM Bottle NAS SCH ×2 (08:44→20:51)
[2018-10-21] MEDS: Pantoprazole 40 MG Vial IVPUSH SCH (08:48)
[2018-10-21] MEDS ORDERED: Furosemide 40 MG/4 ML VIAL IVPUSH ONE (09:00)
[2018-10-21] MEDS ORDERED: Furosemide 40 MG Tab PO SCH (09:00)
--- NOTE | 2018-10-21 10:34 | CRLUS ---
INDICATION: Dyspnea. Evaluate for DVT. TECHNIQUE: : Ultrasound venous duplex lower extremity bilateral. Compression venous exam was performed using servin scale, color Doppler, and spectral Doppler imaging. COMPARISON: FINDINGS: Sonographic imaging demonstrates the common femoral, deep femoral, superficial femoral, popliteal, posterior tibial and greater saphenous veins to be fully compressible with normal color Doppler blood flow in both lower extremities. IMPRESSION: Normal bilateral lower extremity venous ultrasound, no sign of deep venous thrombosis. Dictated by Geraldo Alba MD @ Oct 21 2018 10:32AM Signed by Dr. Geraldo Alba @ Oct 21 2018 10:33AM
--- NOTE | 2018-10-21 12:58 | PCM.PN ---
- General Info Date of Service: 10/21/18 Subjective Update: Mr. Curiel is an 83-year-old gentleman with a known history of diastolic congestive heart failure as well as COPD. Over the past few days to become progressively more short of breath and presented to the emergency department last night. White blood cell count was normal and chest x-ray showed only mild pulmonary congestion consistent with congestive heart failure, no obvious infiltrate. He's not had significant temperature elevation or cough. D-dimer was obtained and found to be significantly elevated. Unfortunately he is not a candidate for CT angiogram of the chest because of his fairly severe stage IV chronic kidney disease. Initially the plan was to transfer him because of our inability to obtain a VQ scan. We were unsuccessful in obtaining transfer last night so he was admitted here. Bilateral venous Doppler studies of both lower extremities are negative for deep vein thrombosis. Symptomatically he has improved after receiving IV diuretic therapy. We have discussed options for further evaluation and management, I explained to him that were unable to rule out pulmonary emboli without further evaluation. Further evaluation would require transfer to another facility where he could undergo a VQ scan. He does not want to consider transfer at this time and is accepted and understands the risk of undiagnosed PE and potential complications including . Functional Status: Reports: Tolerating Diet, Ambulating, Urinating - Review of Systems General: Reports: Weakness. Denies: Fever, Chills Pulmonary: Reports: Shortness of Breath. Denies: Pleuritic Chest Pain, Cough, Sputum, Hemoptysis, Wheezing Cardiovascular: Reports: Dyspnea on Exertion. Denies: Chest Pain, Palpitations , Orthopnea, PND, Edema, Lightheadedness Gastrointestinal: Reports: No Symptoms - Patient Data Vitals - Most Recent: Last Vital Signs Temp 95.7 F 10/21/18 10:26 Pulse 67 10/21/18 10:26 Resp 16 10/21/18 10:26 BP 131/56 L 10/21/18 10:26 Pulse Ox 97 10/21/18 10:26 Weight - Most Recent: 170 lb 15.989 oz I&O - Last 24 Hours: Intake & Output 10/20/18 10/21/18 10/21/18 22:59 06:59 14:59 Intake Total 660 300 Output Total 425 500 Balance 235 -200 Lab Results Last 24 Hours: Laboratory Results - last 24 hr 10/20/18 10/20/18 10/20/18 Range/Units 22:25 22:25 22:25 WBC 6.5 (4.5-11.0) K/uL RBC 4.41 (4.30-5.90) M/uL Hgb 10.6 L (12.0-15.0) g/dL Hct 33.3 L (40.0-54.0) % MCV 76 L (80-98) fL MCH 24 L (27-31) pg MCHC 32 (32-36) % Plt Count 406 H (150-400) K/uL Neut % (Auto) (36-66) % Lymph % (Auto) (24-44) % Dewey % (Auto) (2-6) % Eos % (Auto) (2-4) % Baso % (Auto) (0-1) % PT (9.5-12.0) sec INR (0.80-1.20) D-Dimer, Quantitative 1050 H (0.0-400.0) ng/mL Sodium 132 L (140-148) mmol/L Potassium 3.8 (3.6-5.2) mmol/L Chloride 96 L (100-108) mmol/L Carbon Dioxide 22 (21-32) mmol/L Anion Gap 17.8 H (5.0-14.0) mmol/L BUN 38 H (7-18) mg/dL Creatinine 3.1 H (0.8-1.3) mg/dL Est Cr Clr Drug Dosing 18.89 mL/min Estimated GFR (MDRD) 19 L (>60) Glucose 189 H (74-106) mg/dL Calcium 10.8 H D (8.5-10.1) mg/dL Troponin I < 0.017 (0.000-0.056) ng/mL C-Reactive Protein (0.0-0.3) mg/dL NT-Pro-B Natriuret Pep (5-450) pg/mL 10/20/18 10/21/18 10/21/18 Range/Units 22:25 05:09 05:09 WBC 7.6 (4.5-11.0) K/uL RBC 3.92 L (4.30-5.90) M/uL Hgb 9.5 L (12.0-15.0) g/dL Hct 30.2 L (40.0-54.0) % MCV 77 L (80-98) fL MCH 24 L (27-31) pg MCHC 32 (32-36) % Plt Count 385 (150-400) K/uL Neut % (Auto) 90 H (36-66) % Lymph % (Auto) 8 L (24-44) % Dewey % (Auto) 2 (2-6) % Eos % (Auto) 0 L (2-4) % Baso % (Auto) 0 (0-1) % PT 13.7 H (9.5-12.0) sec INR 1.26 H (0.80-1.20) D-Dimer, Quantitative (0.0-400.0) ng/mL Sodium (140-148) mmol/L Potassium (3.6-5.2) mmol/L Chloride (100-108) mmol/L Carbon Dioxide (21-32) mmol/L Anion Gap (5.0-14.0) mmol/L BUN (7-18) mg/dL Creatinine (0.8-1.3) mg/dL Est Cr Clr Drug Dosing mL/min Estimated GFR (MDRD) (>60) Glucose (74-106) mg/dL Calcium (8.5-10.1) mg/dL Troponin I (0.000-0.056) ng/mL C-Reactive Protein 9.55 H (0.0-0.3) mg/dL NT-Pro-B Natriuret Pep 7472 H (5-450) pg/mL 10/21/18 Range/Units 05:09 WBC (4.5-11.0) K/uL RBC (4.30-5.90) M/uL Hgb (12.0-15.0) g/dL Hct (40.0-54.0) % MCV (80-98) fL MCH (27-31) pg MCHC (32-36) % Plt Count (150-400) K/uL Neut % (Auto) (36-66) % Lymph % (Auto) (24-44) % Dewey % (Auto) (2-6) % Eos % (Auto) (2-4) % Baso % (Auto) (0-1) % PT (9.5-12.0) sec INR (0.80-1.20) D-Dimer, Quantitative (0.0-400.0) ng/mL Sodium 135 L (140-148) mmol/L Potassium 3.9 (3.6-5.2) mmol/L Chloride 99 L (100-108) mmol/L Carbon Dioxide 26 (21-32) mmol/L Anion Gap 13.9 (5.0-14.0) mmol/L BUN 41 H (7-18) mg/dL Creatinine 3.1 H (0.8-1.3) mg/dL Est Cr Clr Drug Dosing 19.18 mL/min Estimated GFR (MDRD) 19 L (>60) Glucose 239 H (74-106) mg/dL Calcium 9.9 (8.5-10.1) mg/dL Troponin I (0.000-0.056) ng/mL C-Reactive Protein (0.0-0.3) mg/dL NT-Pro-B Natriuret Pep (5-450) pg/mL Levy Results Last 24 Hours: Microbiology 10/20/18 23:02 Stool Occult Blood (LEVY) - Final Stool / Feces - Stool, Formed NEGATIVE OCCULT BLOOD Med Orders - Current: Current Medications Albuterol (Proventil Neb Soln) 2.5 mg NEB Q4H PRN PRN Reason: Shortness Of Breath/wheezing Albuterol/Ipratropium (Duoneb 3.0-0.5 Mg/3 Ml) 3 ml NEB QID PRN PRN Reason: Shortness Of Breath/wheezing Amlodipine Besylate (Norvasc) 5 mg PO DAILY [facility] Last Admin: 10/21/18 08:40 Dose: 5 mg Aspirin (Ecotrin) 325 mg PO DAILY [facility] Last Admin: 10/21/18 08:35 Dose: 325 mg Docusate Sodium (Colace) 100 mg PO BID PRN PRN Reason: Constipation Docusate Sodium (Colace 50 Mg/5 Ml Liquid) 50 mg PO BID [facility] Last Admin: 10/21/18 08:42 Dose: 50 mg Enoxaparin Sodium (Lovenox) 30 mg SUBCUT BEDTIME [facility] Fluticasone Propionate (Flonase) 0 gm ANSHUL BID [facility] Last Admin: 10/21/18 08:44 Dose: 1 spray Guaifenesin/Dextromethorphan (Robitussin Dm) 5 ml PO Q6HR PRN PRN Reason: Cough Hydralazine HCl (Apresoline) 50 mg PO TID [facility] Last Admin: 10/21/18 08:37 Dose: 50 mg Isosorbide Mononitrate (Imdur) 30 mg PO DAILY@0730 [facility] Last Admin: 10/21/18 08:30 Dose: 30 mg Lactobacillus Rhamnosus (Culturelle) 1 cap PO BID [facility] Last Admin: 10/21/18 08:34 Dose: 1 cap Lorazepam (Ativan) 1 mg IV Q6H PRN PRN Reason: Nausea/Vomiting Losartan Potassium (Cozaar) 12.5 mg PO DAILY [facility] Last Admin: 10/21/18 08:29 Dose: 12.5 mg Melatonin (Melatonin) 6 mg PO BEDTIME PRN PRN Reason: Insomnia Metoprolol Succinate (Toprol Xl) 50 mg PO DAILY [facility] Last Admin: 10/21/18 08:39 Dose: 50 mg Morphine Sulfate (Morphine) 2 mg IVPUSH Q2H PRN PRN Reason: Pain (severe 7-10) Nitroglycerin (Nitrostat) 0.4 mg SL ASDIRECTED PRN PRN Reason: Chest Pain Ondansetron HCl (Zofran Odt) 4 mg PO Q4H PRN PRN Reason: Nausea/Vomiting Last Admin: 10/21/18 08:47 Dose: 4 mg Ondansetron HCl (Zofran) 4 mg IVPUSH Q4H PRN PRN Reason: Nausea/Vomiting Pantoprazole Sodium (Protonix Iv) 40 mg IVPUSH DAILY [facility] Last Admin: 10/21/18 08:48 Dose: 40 mg Prednisone (Prednisone) 60 mg PO DAILY [facility] Stop: 10/22/18 09:01 Last Admin: 10/21/18 08:27 Dose: 60 mg Prednisone (Prednisone) 40 mg PO DAILY [facility] Stop: 10/25/18 09:01 Prednisone (Prednisone) 20 mg PO DAILY [facility] Stop: 10/28/18 09:01 Simvastatin (Zocor) 40 mg PO DAILY [facility] Last Admin: 10/21/18 08:31 Dose: 40 mg Sodium Chloride (Saline Flush) 10 ml FLUSH ASDIRECTED PRN PRN Reason: Keep Vein Open Last Admin: 10/21/18 10:15 Dose: 10 ml Discontinued Medications Al Hydroxide/Mg Hydroxide (Mag-Al Plus) 30 ml PO ONETIME ONE Stop: 10/21/18 00:19 Last Admin: 10/21/18 00:26 Dose: 30 ml Enoxaparin Sodium (Lovenox) 30 mg SUBCUT ONETIME ONE Stop: 10/21/18 01:04 Last Admin: 10/21/18 01:09 Dose: 30 mg Furosemide (Lasix) 40 mg PO DAILY [facility] Last Admin: 10/21/18 08:35 Dose: 40 mg Furosemide (Lasix) 80 mg IVPUSH ONETIME ONE Stop: 10/21/18 09:01 Last Admin: 10/21/18 10:01 Dose: 80 mg Hydralazine HCl (Apresoline) 50 mg PO NOW ST[facility] Stop: 10/21/18 01:13 Last Admin: 10/21/18 01:29 Dose: 50 mg Lorazepam (Ativan) 0.5 mg IVPUSH ONETIME ONE Stop: 10/21/18 00:18 Last Admin: 10/21/18 00:26 Dose: 0.5 mg Morphine Sulfate (Morphine) 2 mg IVPUSH ONETIME ONE Stop: 10/21/18 00:43 Last Admin: 10/21/18 00:49 Dose: 2 mg Nitroglycerin (Nitro-Bid 2%) 1 gm TOP ONETIME ONE Stop: 10/21/18 00:38 Last Admin: 10/21/18 00:43 Dose: 1 gm Sodium Chloride (Saline Flush) 10 ml FLUSH ASDIRECTED PRN PRN Reason: Keep Vein Open Last Admin: 10/21/18 00:51 Dose: 10 ml - Exam Quality Assessment: Supplemental Oxygen, DVT Prophylaxis General: Alert, Oriented, Cooperative, Mild Distress Lungs: Clear to Auscultation, Normal Respiratory Effort Cardiovascular: Regular Rate, Regular Rhythm, No Murmurs GI/Abdominal Exam: Soft, Non-Tender, No Organomegaly, No Distention Extremities: Non-Tender, No Pedal Edema - Problem List Review Problem List Initiated/Reviewed/Updated: Yes - My Orders Last 24 Hours: My Active Orders 10/22/18 05:00 BASIC METABOLIC PANEL,BMP [CHEM] Timed MAGNESIUM [CHEM] Timed - Plan Plan:: ASSESSMENT / PLAN Dyspnea, elevated Pro-BNP and elevated D-dimer, CHF, Ischemic heart disease. Venous Doppler studies obtained this morning are negative for deep vein thrombosis. We discussed further evaluation including VQ scan which we are unable to obtain here. He understands that were not able to adequately evaluate for pulmonary emboli under the current circumstances. He wishes to avoid transfer and is willing to accept the risks of missing this diagnosis -telemetry -Nitro paste one inch to chest -home medications ordered -Furosemide 80 mg IV this a.m., reassess tomorrow -Echocardiogram in am -Hold on further eval for PE per pt request COPD -Continue Oxygen at 2 liter per NC -Robitussin DM 10 ml every 4 to 6 hours for cough -albuterol nebulizer every 4 hours as needed for wheezing and cough -Duo nebu nebulize every 6 hours prn -Advise to notify nurses of any chest pain or other symptoms -And a.m. labs: CBC, BMP CKD stage IV -monitor I and O -continue diuretics Maintenance issues -Orders home meds: ordered. hold Levaquin -Nutrition: 2 gram sodium diet -Quesada catheter not indicated at this time -DVT: Lovenox 30 mg subcut -PPI: IV Protonix 40mg daily -consult Spiritual CODE STATUS: FULL CODE Admission status: Admit to [address] [place] [address] Admission justification. This patient will be admitted for inpatient services and is medically appropriate meeting medical necessity for inpatient admission as outlined in my documentation. I reasonably expect the patient will require inpatient services that span. Time over 2 midnights. I reasonably expect this patient to be discharged or transferred within 96 hours after admission to the critical access hospital. Disposition: home Primary care provider: Dr. Alice Godoy Hospitalist: Dr. Pride
[2018-10-21] MEDS: Enoxaparin 30 MG/0.3 ML Syringe SUBCUT SCH (20:55)
[2018-10-22] MEDS: Isosorbide Mononitrate 30 MG Tab.ER PO SCH (08:24)
[2018-10-22] MEDS: hydrALAZINE 25 MG Tab PO SCH ×3 (08:26→21:00)
[2018-10-22] MEDS: Docusate Sodium Liquid 100 MG/10 ML UD Cup PO SCH ×2 (08:29→20:55)
[2018-10-22] MEDS: Losartan 50 MG Tab PO SCH (08:30)
[2018-10-22] MEDS: Lactobacillus Rhamnosus GG (Probiotic) Cap PO SCH ×2 (08:33→20:58)
[2018-10-22] MEDS: Aspirin 325 MG Tab.EC PO SCH (08:35)
[2018-10-22] MEDS: Fluticasone Propionate Nasal Spray 16 GM Bottle NAS SCH ×2 (08:36→20:59)
[2018-10-22] MEDS ORDERED: Furosemide 40 MG/4 ML VIAL IVPUSH ONE (08:36)
[2018-10-22] MEDS: amLODIPine 5 MG Tab PO SCH (08:37)
[2018-10-22] MEDS: predniSONE 20 MG Tab PO SCH (08:39)
[2018-10-22] MEDS: Metoprolol Succinate 50 MG Tab.ER PO SCH (08:40)
[2018-10-22] MEDS: Simvastatin 20 MG Tab PO SCH (08:42)
[2018-10-22] MEDS: Sodium Chloride 0.9% 10 ML Syringe FLUSH PRN (08:45)
[2018-10-22] MEDS: Pantoprazole 40 MG Vial IVPUSH SCH (08:53)
--- NOTE | 2018-10-22 12:24 | PCM.PN ---
- General Info Date of Service: 10/22/18 Subjective Update: Mr. Curiel feels improved since yesterday with less shortness of breath. He feels very well rested this morning and was able to sleep throughout the night. Continues to require use of supplemental oxygen to maintain adequate oxygenation. He has been noted to have transient bradycardia as well as tachycardia dysrhythmias which have been relatively short-lived. Functional Status: Reports: Tolerating Diet, Ambulating, Urinating - Review of Systems General: Reports: Weakness. Denies: Fever, Chills Pulmonary: Reports: Shortness of Breath. Denies: Pleuritic Chest Pain, Cough, Sputum, Hemoptysis, Wheezing Cardiovascular: Reports: Dyspnea on Exertion. Denies: Chest Pain, Palpitations , Orthopnea, PND, Edema, Lightheadedness Gastrointestinal: Reports: No Symptoms - Patient Data Vitals - Most Recent: Last Vital Signs Temp 95.9 F 10/22/18 11:11 Pulse 67 10/22/18 11:11 Resp 16 10/22/18 11:11 BP 123/47 L 10/22/18 11:11 Pulse Ox 98 10/22/18 11:11 Weight - Most Recent: 170 lb 15.989 oz I&O - Last 24 Hours: Intake & Output 10/21/18 10/22/18 10/22/18 22:59 06:59 14:59 Intake Total 660 360 Output Total 350 225 Balance 310 135 Lab Results Last 24 Hours: Laboratory Results - last 24 hr 10/22/18 Range/Units 04:30 Sodium 136 L (140-148) mmol/L Potassium 4.1 (3.6-5.2) mmol/L Chloride 101 (100-108) mmol/L Carbon Dioxide 27 (21-32) mmol/L Anion Gap 12.1 (5.0-14.0) mmol/L BUN 52 H (7-18) mg/dL Creatinine 3.0 H (0.8-1.3) mg/dL Est Cr Clr Drug Dosing 19.44 mL/min Estimated GFR (MDRD) 20 L (>60) Glucose 147 H (74-106) mg/dL Calcium 9.5 (8.5-10.1) mg/dL Magnesium 2.0 (1.8-2.4) mg/dL Med Orders - Current: Current Medications Albuterol (Proventil Neb Soln) 2.5 mg NEB Q4H PRN PRN Reason: Shortness Of Breath/wheezing Albuterol/Ipratropium (Duoneb 3.0-0.5 Mg/3 Ml) 3 ml NEB QID PRN PRN Reason: Shortness Of Breath/wheezing Amlodipine Besylate (Norvasc) 5 mg PO DAILY [facility] Last Admin: 10/22/18 08:37 Dose: 5 mg Aspirin (Ecotrin) 325 mg PO DAILY [facility] Last Admin: 10/22/18 08:35 Dose: 325 mg Docusate Sodium (Colace) 100 mg PO BID PRN PRN Reason: Constipation Docusate Sodium (Colace 50 Mg/5 Ml Liquid) 50 mg PO BID [facility] Last Admin: 10/22/18 08:29 Dose: 50 mg Enoxaparin Sodium (Lovenox) 30 mg SUBCUT BEDTIME [facility] Last Admin: 10/21/18 20:55 Dose: 30 mg Fluticasone Propionate (Flonase) 0 gm ANSHUL BID [facility] Last Admin: 10/22/18 08:36 Dose: 1 spray Guaifenesin/Dextromethorphan (Robitussin Dm) 5 ml PO Q6HR PRN PRN Reason: Cough Hydralazine HCl (Apresoline) 50 mg PO TID [facility] Last Admin: 10/22/18 08:26 Dose: 50 mg Isosorbide Mononitrate (Imdur) 30 mg PO DAILY@0730 [facility] Last Admin: 10/22/18 08:24 Dose: 30 mg Lactobacillus Rhamnosus (Culturelle) 1 cap PO BID [facility] Last Admin: 10/22/18 08:33 Dose: 1 cap Lorazepam (Ativan) 1 mg IV Q6H PRN PRN Reason: Nausea/Vomiting Losartan Potassium (Cozaar) 12.5 mg PO DAILY [facility] Last Admin: 10/22/18 08:30 Dose: 12.5 mg Melatonin (Melatonin) 6 mg PO BEDTIME PRN PRN Reason: Insomnia Metoprolol Succinate (Toprol Xl) 50 mg PO DAILY [facility] Last Admin: 10/22/18 08:40 Dose: 50 mg Morphine Sulfate (Morphine) 2 mg IVPUSH Q2H PRN PRN Reason: Pain (severe 7-10) Nitroglycerin (Nitrostat) 0.4 mg SL ASDIRECTED PRN PRN Reason: Chest Pain Ondansetron HCl (Zofran Odt) 4 mg PO Q4H PRN PRN Reason: Nausea/Vomiting Last Admin: 10/21/18 15:07 Dose: 4 mg Ondansetron HCl (Zofran) 4 mg IVPUSH Q4H PRN PRN Reason: Nausea/Vomiting Pantoprazole Sodium (Protonix Iv) 40 mg IVPUSH DAILY [facility] Last Admin: 10/22/18 08:53 Dose: 40 mg Prednisone (Prednisone) 40 mg PO DAILY [facility] Stop: 10/25/18 09:01 Prednisone (Prednisone) 20 mg PO DAILY [facility] Stop: 10/28/18 09:01 Simvastatin (Zocor) 40 mg PO DAILY [facility] Last Admin: 10/22/18 08:42 Dose: 40 mg Sodium Chloride (Saline Flush) 10 ml FLUSH ASDIRECTED PRN PRN Reason: Keep Vein Open Last Admin: 10/22/18 08:45 Dose: 10 ml Discontinued Medications Al Hydroxide/Mg Hydroxide (Mag-Al Plus) 30 ml PO ONETIME ONE Stop: 10/21/18 00:19 Last Admin: 10/21/18 00:26 Dose: 30 ml Enoxaparin Sodium (Lovenox) 30 mg SUBCUT ONETIME ONE Stop: 10/21/18 01:04 Last Admin: 10/21/18 01:09 Dose: 30 mg Furosemide (Lasix) 40 mg PO DAILY [facility] Last Admin: 10/21/18 08:35 Dose: 40 mg Furosemide (Lasix) 80 mg IVPUSH ONETIME ONE Stop: 10/21/18 09:01 Last Admin: 10/21/18 10:01 Dose: 80 mg Furosemide (Lasix) 80 mg IVPUSH NOW ONE Stop: 10/22/18 08:37 Last Admin: 10/22/18 09:23 Dose: 80 mg Hydralazine HCl (Apresoline) 50 mg PO NOW [facility] Stop: 10/21/18 01:13 Last Admin: 10/21/18 01:29 Dose: 50 mg Lorazepam (Ativan) 0.5 mg IVPUSH ONETIME ONE Stop: 10/21/18 00:18 Last Admin: 10/21/18 00:26 Dose: 0.5 mg Morphine Sulfate (Morphine) 2 mg IVPUSH ONETIME ONE Stop: 10/21/18 00:43 Last Admin: 10/21/18 00:49 Dose: 2 mg Nitroglycerin (Nitro-Bid 2%) 1 gm TOP ONETIME ONE Stop: 10/21/18 00:38 Last Admin: 10/21/18 00:43 Dose: 1 gm Prednisone (Prednisone) 60 mg PO DAILY [facility] Stop: 10/22/18 09:01 Last Admin: 10/22/18 08:39 Dose: 60 mg Sodium Chloride (Saline Flush) 10 ml FLUSH ASDIRECTED PRN PRN Reason: Keep Vein Open Last Admin: 10/21/18 00:51 Dose: 10 ml - Exam Quality Assessment: Supplemental Oxygen, DVT Prophylaxis General: Alert, Oriented, Cooperative, No Acute Distress Lungs: Clear to Auscultation, Normal Respiratory Effort Cardiovascular: Regular Rate, Regular Rhythm, Murmurs GI/Abdominal Exam: Soft, Non-Tender, No Organomegaly, No Distention Extremities: Non-Tender, No Pedal Edema - Problem List Review Problem List Initiated/Reviewed/Updated: Yes - My Orders Last 24 Hours: My Active Orders 10/22/18 08:00 Echo Comp wo Cont [US] Urgent 10/23/18 05:00 BASIC METABOLIC PANEL,BMP [CHEM] Timed - Plan Plan:: ASSESSMENT / PLAN Dyspnea, elevated Pro-BNP and elevated D-dimer, CHF, Ischemic heart disease. Venous Doppler studies obtained this morning are negative for deep vein thrombosis. We discussed further evaluation including VQ scan which we are unable to obtain here. He understands that we are not able to adequately evaluate for pulmonary emboli under the current circumstances. He wishes to avoid transfer and is willing to accept the risks of missing this diagnosis. Preliminary report on echocardiogram obtained from this morning shows evidence of diastolic dysfunction with normal systolic function. Also noted was biatrial enlargement, right ventricular enlargement, and mild to moderate valvular disease -telemetry -home medications ordered -Furosemide 80 mg IV this a.m., reassess tomorrow -Echocardiogram in am -Hold on further eval for PE per pt request COPD -Continue Oxygen at 2 liter per NC -Robitussin DM 10 ml every 4 to 6 hours for cough -albuterol nebulizer every 4 hours as needed for wheezing and cough -Duo nebu nebulize every 6 hours prn -And a.m. labs: CBC, BMP CKD stage IV -monitor I and O -continue diuretics Maintenance issues -Nutrition: 2 gram sodium diet -Quesada catheter not indicated at this time -DVT: Lovenox 30 mg subcut -PPI: Not indicated CODE STATUS: FULL CODE Admission status: Admit to [address] [place] [address] Admission justification. This patient will be admitted for inpatient services and is medically appropriate meeting medical necessity for inpatient admission as outlined in my documentation. I reasonably expect the patient will require inpatient services that span. Time over 2 midnights. I reasonably expect this patient to be discharged or transferred within 96 hours after admission to the critical [facility]. Disposition: home Primary care provider: Dr. Alice Godoy Hospitalist: Dr. Pride
[2018-10-22] MEDS: Ondansetron 4 MG Tab.DIS PO PRN ×2 (16:56→20:55)
[2018-10-22] MEDS: Enoxaparin 30 MG/0.3 ML Syringe SUBCUT SCH (20:58)
[2018-10-22] MEDS ORDERED: Magnesium Sulfate/Water 2 GM in Premix Bag 1 BAG IV ONE (22:55)
[2018-10-22] MEDS: Nitroglycerin 0.4 MG Tab.SL SL PRN ×2 (23:10→23:20)
[2018-10-23] MEDS: Nitroglycerin 0.4 MG Tab.SL SL PRN (00:05)
[2018-10-23] MEDS ORDERED: Morphine 2 MG/ML Syringe IVPUSH PRN (00:54)
[2018-10-23] MEDS ORDERED: Nitroglycerin/D5W 25 MG/250 ML BOTTLE IV SCH (01:00)
--- NOTE | 2018-10-23 01:04 | PCM.PN ---
- General Info Date of Service: 10/23/18 Subjective Update: Mr. Curiel has continued to have dysrhythmias that were somewhat worse this evening with frequent premature ventricular complexes and rates up towards 120. At approximately 10:30 this evening he began to experience substernal chest pain that was moderate to severe in intensity. EKG thus far as been repeat repeated twice and shows no acute ST segment changes. Initial troponin level is within normal range. Pain did improve with sublingual much glycerin as well as IV morphine, after. At time it has reoccurred. I discussed options for management with him as well as his including transfer to a tertiary care center with cardiology available versus medical management here. Consistent with his previous decision that he did not want to consider transfer for VQ scan , at this time he would like to be managed medically here and does recognize and understand that this is not the highest level of care available. - Review of Systems Pulmonary: Reports: Shortness of Breath. Denies: Pleuritic Chest Pain, Cough, Sputum, Hemoptysis, Wheezing Cardiovascular: Reports: Chest Pain, Dyspnea on Exertion. Denies: Palpitations , Orthopnea, PND, Edema, Lightheadedness Gastrointestinal: Reports: Nausea. Denies: Abdominal Pain, Difficulty Swallowing, Vomiting - Patient Data Vitals - Most Recent: Last Vital Signs Temp 97.1 F 10/22/18 19:00 Pulse 82 10/23/18 00:07 Resp 20 10/23/18 00:07 BP 137/40 L 10/23/18 00:07 Pulse Ox 92 L 10/23/18 00:07 Weight - Most Recent: 170 lb 15.989 oz I&O - Last 24 Hours: Intake & Output 10/22/18 10/22/18 10/23/18 14:59 22:59 06:59 Intake Total 840 1130 50 Output Total 625 950 Balance 215 180 50 Lab Results Last 24 Hours: Laboratory Results - last 24 hr 10/22/18 10/22/18 Range/Units 04:30 23:09 Sodium 136 L 137 L (140-148) mmol/L Potassium 4.1 3.9 (3.6-5.2) mmol/L Chloride 101 100 (100-108) mmol/L Carbon Dioxide 27 27 (21-32) mmol/L Anion Gap 12.1 13.9 (5.0-14.0) mmol/L BUN 52 H 63 H (7-18) mg/dL Creatinine 3.0 H 3.0 H (0.8-1.3) mg/dL Est Cr Clr Drug Dosing 19.44 19.44 mL/min Estimated GFR (MDRD) 20 L 20 L (>60) Glucose 147 H 149 H (74-106) mg/dL Calcium 9.5 9.3 (8.5-10.1) mg/dL Magnesium 2.0 (1.8-2.4) mg/dL Troponin I 0.018 (0.000-0.056) ng/mL Med Orders - Current: Current Medications Albuterol (Proventil Neb Soln) 2.5 mg NEB Q4H PRN PRN Reason: Shortness Of Breath/wheezing Albuterol/Ipratropium (Duoneb 3.0-0.5 Mg/3 Ml) 3 ml NEB QID PRN PRN Reason: Shortness Of Breath/wheezing Amlodipine Besylate (Norvasc) 5 mg PO DAILY [facility] Last Admin: 10/22/18 08:37 Dose: 5 mg Aspirin (Ecotrin) 325 mg PO DAILY [facility] Last Admin: 10/22/18 08:35 Dose: 325 mg Docusate Sodium (Colace) 100 mg PO BID PRN PRN Reason: Constipation Docusate Sodium (Colace 50 Mg/5 Ml Liquid) 50 mg PO BID [facility] Last Admin: 10/22/18 20:55 Dose: 50 mg Enoxaparin Sodium (Lovenox) 30 mg SUBCUT BEDTIME [facility] Last Admin: 10/22/18 20:58 Dose: 30 mg Fluticasone Propionate (Flonase) 0 gm ANSHUL BID [facility] Last Admin: 10/22/18 20:59 Dose: 1 spray Guaifenesin/Dextromethorphan (Robitussin Dm) 5 ml PO Q6HR PRN PRN Reason: Cough Hydralazine HCl (Apresoline) 50 mg PO TID [facility] Last Admin: 10/22/18 21:00 Dose: 50 mg Magnesium Sulfate 2 gm/ Premix 50 mls @ 12.5 mls/hr IV ONETIME ONE Stop: 10/23/18 02:54 Last Admin: 10/22/18 23:05 Dose: 12.5 mls/hr Heparin Sodium/Dextrose (Heparin 25,000 Units In D5w 500 Ml) 25,000 units in 500 mls @ 0 mls/hr IV TITRATE [facility]; Protocol Nitroglycerin/Dextrose (Nitroglycerin 25 Mg/D5w 250 Ml) 25 mg in 250 mls @ 6 mls/hr IV TITRATE [facility]; Protocol Isosorbide Mononitrate (Imdur) 30 mg PO DAILY@0730 [facility] Last Admin: 10/22/18 08:24 Dose: 30 mg Lactobacillus Rhamnosus (Culturelle) 1 cap PO BID [facility] Last Admin: 10/22/18 20:58 Dose: 1 cap Lorazepam (Ativan) 1 mg IV Q6H PRN PRN Reason: Nausea/Vomiting Losartan Potassium (Cozaar) 12.5 mg PO DAILY [facility] Last Admin: 10/22/18 08:30 Dose: 12.5 mg Melatonin (Melatonin) 6 mg PO BEDTIME PRN PRN Reason: Insomnia Metoprolol Succinate (Toprol Xl) 50 mg PO DAILY [facility] Last Admin: 10/22/18 08:40 Dose: 50 mg Morphine Sulfate (Morphine) 2 mg IVPUSH Q1H PRN PRN Reason: Chest Pain Nitroglycerin (Nitrostat) 0.4 mg SL ASDIRECTED PRN PRN Reason: Chest Pain Last Admin: 10/23/18 00:05 Dose: 0.4 mg Ondansetron HCl (Zofran Odt) 4 mg PO Q4H PRN PRN Reason: Nausea/Vomiting Last Admin: 10/22/18 20:55 Dose: 4 mg Ondansetron HCl (Zofran) 4 mg IVPUSH Q4H PRN PRN Reason: Nausea/Vomiting Prednisone (Prednisone) 40 mg PO DAILY [facility] Stop: 10/25/18 09:01 Prednisone (Prednisone) 20 mg PO DAILY [facility] Stop: 10/28/18 09:01 Simvastatin (Zocor) 40 mg PO DAILY [facility] Last Admin: 10/22/18 08:42 Dose: 40 mg Sodium Chloride (Saline Flush) 10 ml FLUSH ASDIRECTED PRN PRN Reason: Keep Vein Open Last Admin: 10/22/18 08:45 Dose: 10 ml Discontinued Medications Al Hydroxide/Mg Hydroxide (Mag-Al Plus) 30 ml PO ONETIME ONE Stop: 10/21/18 00:19 Last Admin: 10/21/18 00:26 Dose: 30 ml Enoxaparin Sodium (Lovenox) 30 mg SUBCUT ONETIME ONE Stop: 10/21/18 01:04 Last Admin: 10/21/18 01:09 Dose: 30 mg Furosemide (Lasix) 40 mg PO DAILY [facility] Last Admin: 10/21/18 08:35 Dose: 40 mg Furosemide (Lasix) 80 mg IVPUSH ONETIME ONE Stop: 10/21/18 09:01 Last Admin: 10/21/18 10:01 Dose: 80 mg Furosemide (Lasix) 80 mg IVPUSH NOW ONE Stop: 10/22/18 08:37 Last Admin: 10/22/18 09:23 Dose: 80 mg Hydralazine HCl (Apresoline) 50 mg PO NOW [facility] Stop: 10/21/18 01:13 Last Admin: 10/21/18 01:29 Dose: 50 mg Lorazepam (Ativan) 0.5 mg IVPUSH ONETIME ONE Stop: 10/21/18 00:18 Last Admin: 10/21/18 00:26 Dose: 0.5 mg Morphine Sulfate (Morphine) 2 mg IVPUSH ONETIME ONE Stop: 10/21/18 00:43 Last Admin: 10/21/18 00:49 Dose: 2 mg Morphine Sulfate (Morphine) 2 mg IVPUSH Q2H PRN PRN Reason: Pain (severe 7-10) Last Admin: 10/22/18 23:54 Dose: 2 mg Nitroglycerin (Nitro-Bid 2%) 1 gm TOP ONETIME ONE Stop: 10/21/18 00:38 Last Admin: 10/21/18 00:43 Dose: 1 gm Pantoprazole Sodium (Protonix Iv) 40 mg IVPUSH DAILY [facility] Last Admin: 10/22/18 08:53 Dose: 40 mg Prednisone (Prednisone) 60 mg PO DAILY [facility] Stop: 10/22/18 09:01 Last Admin: 10/22/18 08:39 Dose: 60 mg Sodium Chloride (Saline Flush) 10 ml FLUSH ASDIRECTED PRN PRN Reason: Keep Vein Open Last Admin: 10/21/18 00:51 Dose: 10 ml - Exam Quality Assessment: Supplemental Oxygen, DVT Prophylaxis General: Alert, Oriented, Cooperative, Moderate Distress Lungs: Clear to Auscultation, Normal Respiratory Effort Cardiovascular: Regular Rate, Irregular Rhythm, Murmurs GI/Abdominal Exam: Soft, Non-Tender, No Organomegaly, No Distention Extremities: Non-Tender, No Pedal Edema - Problem List Review Problem List Initiated/Reviewed/Updated: Yes - My Orders Last 24 Hours: My Active Orders 10/22/18 08:00 Echo Comp wo Cont [US] Urgent 10/22/18 22:55 Magnesium Sulfate/Water [Magnesium Sulfate 2 GM in Water 50 ML] 2 gm Premix Bag 1 bag IV ONETIME 10/22/18 23:11 EKG Documentation Completion [RC] ASDIRECTED EKG 12 Lead [EK] Stat 10/23/18 00:49 Patient Status [ADT] Routine 10/23/18 00:54 Morphine 2 mg IVPUSH Q1H PRN 10/23/18 01:00 Heparin Sodium/D5W [Heparin 25,000 Units in D5W 500 ML] 25,000 units in 500 ml IV TITRATE Nitroglycerin 25 MG in D5W @ 10 MCG/MIN(250ml) Premix Nitroglycerin/D5W [ Nitroglycerin 25 MG/D5W 250 ML] 25 mg in 250 ml IV TITRATE 10/23/18 05:00 BASIC METABOLIC PANEL,BMP [CHEM] Routine 10/24/18 05:00 CBC WITH AUTO DIFF [HEME] Timed MAGNESIUM [CHEM] Timed TROPONIN I [CHEM] Timed - Plan Plan:: ASSESSMENT / PLAN Dyspnea, elevated Pro-BNP and elevated D-dimer, CHF, Ischemic heart disease. Venous Doppler studies obtained this morning are negative for deep vein thrombosis. We discussed further evaluation including VQ scan which we are unable to obtain here. He understands that we are not able to adequately evaluate for pulmonary emboli under the current circumstances. He wishes to avoid transfer and is willing to accept the risks of missing this diagnosis. Preliminary report on echocardiogram obtained from this morning shows evidence of diastolic dysfunction with normal systolic function. Also noted was biatrial enlargement, right ventricular enlargement, and mild to moderate valvular disease -telemetry -home medications ordered -Furosemide 80 mg IV this a.m., reassess tomorrow -Hold on further eval for PE per pt request Chest pain-onset this evening, symptoms consistent with and suspicious for angina. 2 EKGs obtained thus far showed no acute ST segment changes, initial troponin level is within normal range. He has a known history of coronary artery disease and is status post previous angioplasties with stent placement. Current chest pain is consistent with angina that he has experienced in the past. We have discussed options for management and I did recommend transfer to tertiary care center for further subspecialty evaluation. He does not want to consider transfer at this time and would like to be treated medically here. -Aspirin 325 mg by mouth now -Transfer to the intensive care unit for more close monitoring -IV heparin per protocol -IV nitroglycerin continuous infusion -IV morphine as needed -Serial troponin levels -Reassess in a.m. COPD -Continue Oxygen at 2 liter per NC -Robitussin DM 10 ml every 4 to 6 hours for cough -albuterol nebulizer every 4 hours as needed for wheezing and cough -Duo nebu nebulize every 6 hours prn -And a.m. labs: CBC, BMP CKD stage IV -monitor I and O -continue diuretics Maintenance issues -Nutrition: 2 gram sodium diet -Quesada catheter not indicated at this time -DVT: Lovenox 30 mg subcut -PPI: Not indicated CODE STATUS: FULL CODE Admission status: Admit to [address] [place] [address] Admission justification. This patient will be admitted for inpatient services and is medically appropriate meeting medical necessity for inpatient admission as outlined in my documentation. I reasonably expect the patient will require inpatient services that span. Time over 2 midnights. I reasonably expect this patient to be discharged or transferred within 96 hours after admission to the critical access hospital. Disposition: home Primary care provider: Dr. Alice Godoy Hospitalist: Dr. Pride
[2018-10-23] MEDS ORDERED: Heparin Sodium 5,000 Units/ML Vial IV ONE (01:15)
[2018-10-23] MEDS: Heparin Sodium/D5W 25,000 UNITS/500 ML BAG IV SCH (01:28)
[2018-10-23] MEDS ORDERED: Heparin Sodium 5,000 Units/ML Vial IVPUSH ONE ×3 (08:12→22:01)
[2018-10-23] MEDS ORDERED: Heparin Sodium 5,000 Units/ML Vial ONE (08:16)
[2018-10-23] MEDS: hydrALAZINE 25 MG Tab PO SCH ×3 (08:32→20:30)
[2018-10-23] MEDS: Isosorbide Mononitrate 30 MG Tab.ER PO SCH (08:32)
[2018-10-23] MEDS: Docusate Sodium Liquid 100 MG/10 ML UD Cup PO SCH ×2 (08:33→20:30)
[2018-10-23] MEDS: Losartan 50 MG Tab PO SCH (08:34)
[2018-10-23] MEDS: Aspirin 325 MG Tab.EC PO SCH (08:35)
[2018-10-23] MEDS: Fluticasone Propionate Nasal Spray 16 GM Bottle NAS SCH ×2 (08:35→20:30)
[2018-10-23] MEDS: Lactobacillus Rhamnosus GG (Probiotic) Cap PO SCH ×2 (08:35→20:29)
[2018-10-23] MEDS: amLODIPine 5 MG Tab PO SCH (08:36)
[2018-10-23] MEDS: predniSONE 20 MG Tab PO SCH (08:37)
[2018-10-23] MEDS: Metoprolol Succinate 50 MG Tab.ER PO SCH (08:37)
[2018-10-23] MEDS: Simvastatin 20 MG Tab PO SCH (08:38)
--- NOTE | 2018-10-23 12:23 | PCM.PN ---
- General Info Date of Service: 10/23/18 Subjective Update: Mr. Curiel experienced more frequent tachycardia last night, followed by an episode of substernal chest pain very consistent with angina. EKG showed no acute ST segment changes and troponin levels have remained normal. He was transferred to the intensive care unit and started on IV heparin as well as IV nitroglycerin. This morning he is pain-free and feels improved. He is unsure concerning his wishes for ongoing management. Considering options for more aggressive evaluation versus comfort cares. Functional Status: Reports: Tolerating Diet, Urinating - Review of Systems General: Reports: Weakness. Denies: Fever, Chills Pulmonary: Reports: Shortness of Breath. Denies: Pleuritic Chest Pain, Cough, Sputum, Hemoptysis, Wheezing Cardiovascular: Reports: Dyspnea on Exertion. Denies: Chest Pain, Palpitations , Orthopnea, PND, Edema, Lightheadedness Gastrointestinal: Reports: No Symptoms - Patient Data Vitals - Most Recent: Last Vital Signs Temp 98.4 F 10/23/18 00:55 Pulse 76 10/23/18 08:37 Resp 13 10/23/18 06:15 BP 151/58 H 10/23/18 08:37 Pulse Ox 93 L 10/23/18 06:15 Weight - Most Recent: 170 lb 15.989 oz I&O - Last 24 Hours: Intake & Output 10/22/18 10/23/18 10/23/18 22:59 06:59 14:59 Intake Total 1130 151 500 Output Total 950 525 300 Balance 180 -374 200 Lab Results Last 24 Hours: Laboratory Results - last 24 hr 10/22/18 10/23/18 10/23/18 Range/Units 23:09 00:01 04:40 WBC 15.4 H (4.5-11.0) K/uL RBC 3.72 L (4.30-5.90) M/uL Hgb 9.0 L (12.0-15.0) g/dL Hct 29.2 L (40.0-54.0) % MCV 79 L (80-98) fL MCH 24 L (27-31) pg MCHC 31 L (32-36) % Plt Count 365 (150-400) K/uL Neut % (Auto) 90 H (36-66) % Lymph % (Auto) 5 L (24-44) % [place] % (Auto) 5 (2-6) % Eos % (Auto) 0 L (2-4) % Baso % (Auto) 0 (0-1) % APTT 30.6 (27.0-36.0) sec Sodium 137 L (140-148) mmol/L Potassium 3.9 (3.6-5.2) mmol/L Chloride 100 (100-108) mmol/L Carbon Dioxide 27 (21-32) mmol/L Anion Gap 13.9 (5.0-14.0) mmol/L BUN 63 H (7-18) mg/dL Creatinine 3.0 H (0.8-1.3) mg/dL Est Cr Clr Drug Dosing 19.44 mL/min Estimated GFR (MDRD) 20 L (>60) Glucose 149 H (74-106) mg/dL Calcium 9.3 (8.5-10.1) mg/dL Magnesium (1.8-2.4) mg/dL Troponin I 0.018 (0.000-0.056) ng/mL 10/23/18 10/23/18 10/23/18 Range/Units 04:40 04:50 07:28 WBC (4.5-11.0) K/uL RBC (4.30-5.90) M/uL Hgb (12.0-15.0) g/dL Hct (40.0-54.0) % MCV (80-98) fL MCH (27-31) pg MCHC (32-36) % Plt Count (150-400) K/uL Neut % (Auto) (36-66) % Lymph % (Auto) (24-44) % [place] % (Auto) (2-6) % Eos % (Auto) (2-4) % Baso % (Auto) (0-1) % APTT 45.8 H (27.0-36.0) sec Sodium 137 L (140-148) mmol/L Potassium 3.9 (3.6-5.2) mmol/L Chloride 102 (100-108) mmol/L Carbon Dioxide 29 (21-32) mmol/L Anion Gap 9.9 (5.0-14.0) mmol/L BUN 64 H (7-18) mg/dL Creatinine 2.9 H (0.8-1.3) mg/dL Est Cr Clr Drug Dosing 20.11 mL/min Estimated GFR (MDRD) 21 L (>60) Glucose 147 H (74-106) mg/dL Calcium 9.1 (8.5-10.1) mg/dL Magnesium 2.7 H (1.8-2.4) mg/dL Troponin I 0.030 (0.000-0.056) ng/mL Med Orders - Current: Current Medications Albuterol (Proventil Neb Soln) 2.5 mg NEB Q4H PRN PRN Reason: Shortness Of Breath/wheezing Albuterol/Ipratropium (Duoneb 3.0-0.5 Mg/3 Ml) 3 ml NEB QID PRN PRN Reason: Shortness Of Breath/wheezing Amlodipine Besylate (Norvasc) 5 mg PO DAILY [facility] Last Admin: 10/23/18 08:36 Dose: 5 mg Aspirin (Ecotrin) 325 mg PO DAILY [facility] Last Admin: 10/23/18 08:35 Dose: 325 mg Docusate Sodium (Colace) 100 mg PO BID PRN PRN Reason: Constipation Docusate Sodium (Colace 50 Mg/5 Ml Liquid) 50 mg PO BID [facility] Last Admin: 10/23/18 08:33 Dose: 50 mg Fluticasone Propionate (Flonase) 0 gm ANSHUL BID [facility] Last Admin: 10/23/18 08:35 Dose: 1 spray Guaifenesin/Dextromethorphan (Robitussin Dm) 5 ml PO Q6HR PRN PRN Reason: Cough Hydralazine HCl (Apresoline) 50 mg PO TID [facility] Last Admin: 10/23/18 08:32 Dose: 50 mg Heparin Sodium/Dextrose (Heparin 25,000 Units In D5w 500 Ml) 25,000 units in 500 mls @ 18.615 mls/hr IV TITRATE [facility]; Protocol Last Titration: 10/23/18 08:08 Dose: 13.27 unit/kg/hr, 20.585 mls/hr Isosorbide Mononitrate (Imdur) 30 mg PO DAILY@0730 [facility] Last Admin: 10/23/18 08:32 Dose: 30 mg Lactobacillus Rhamnosus (Culturelle) 1 cap PO BID [facility] Last Admin: 10/23/18 08:35 Dose: 1 cap Lorazepam (Ativan) 1 mg IV Q6H PRN PRN Reason: Nausea/Vomiting Losartan Potassium (Cozaar) 12.5 mg PO DAILY [facility] Last Admin: 10/23/18 08:34 Dose: 12.5 mg Melatonin (Melatonin) 6 mg PO BEDTIME PRN PRN Reason: Insomnia Metoprolol Succinate (Toprol Xl) 50 mg PO DAILY [facility] Last Admin: 10/23/18 08:37 Dose: 50 mg Morphine Sulfate (Morphine) 2 mg IVPUSH Q1H PRN PRN Reason: Chest Pain Nitroglycerin (Nitrostat) 0.4 mg SL ASDIRECTED PRN PRN Reason: Chest Pain Last Admin: 10/23/18 00:05 Dose: 0.4 mg Ondansetron HCl (Zofran Odt) 4 mg PO Q4H PRN PRN Reason: Nausea/Vomiting Last Admin: 10/22/18 20:55 Dose: 4 mg Ondansetron HCl (Zofran) 4 mg IVPUSH Q4H PRN PRN Reason: Nausea/Vomiting Prednisone (Prednisone) 40 mg PO DAILY [facility] Stop: 10/25/18 09:01 Last Admin: 10/23/18 08:37 Dose: 40 mg Prednisone (Prednisone) 20 mg PO DAILY [facility] Stop: 10/28/18 09:01 Simvastatin (Zocor) 40 mg PO DAILY [facility] Last Admin: 10/23/18 08:38 Dose: 40 mg Sodium Chloride (Saline Flush) 10 ml FLUSH ASDIRECTED PRN PRN Reason: Keep Vein Open Last Admin: 10/22/18 08:45 Dose: 10 ml Discontinued Medications Al Hydroxide/Mg Hydroxide (Mag-Al Plus) 30 ml PO ONETIME ONE Stop: 10/21/18 00:19 Last Admin: 10/21/18 00:26 Dose: 30 ml Enoxaparin Sodium (Lovenox) 30 mg SUBCUT ONETIME ONE Stop: 10/21/18 01:04 Last Admin: 10/21/18 01:09 Dose: 30 mg Enoxaparin Sodium (Lovenox) 30 mg SUBCUT BEDTIME [facility] Last Admin: 10/22/18 20:58 Dose: 30 mg Furosemide (Lasix) 40 mg PO DAILY [facility] Last Admin: 10/21/18 08:35 Dose: 40 mg Furosemide (Lasix) 80 mg IVPUSH ONETIME ONE Stop: 10/21/18 09:01 Last Admin: 10/21/18 10:01 Dose: 80 mg Furosemide (Lasix) 80 mg IVPUSH NOW ONE Stop: 10/22/18 08:37 Last Admin: 10/22/18 09:23 Dose: 80 mg Heparin Sodium (Porcine) (Heparin Sodium) 4,000 units IV ONETIME ONE Stop: 10/23/18 01:16 Last Admin: 10/23/18 01:34 Dose: 4,000 units Heparin Sodium (Porcine) (Heparin Sodium) Confirm Administered Dose 5,000 units .ROUTE .STK-MED ONE Stop: 10/23/18 08:17 Last Admin: 10/23/18 08:26 Dose: Not Given Heparin Sodium (Porcine) (Heparin Sodium) 1,000 units IVPUSH .BOLUS ONE Stop: 10/23/18 08:13 Last Admin: 10/23/18 08:30 Dose: 1,000 units Hydralazine HCl (Apresoline) 50 mg PO NOW [facility] Stop: 10/21/18 01:13 Last Admin: 10/21/18 01:29 Dose: 50 mg Magnesium Sulfate 2 gm/ Premix 50 mls @ 12.5 mls/hr IV ONETIME ONE Stop: 10/23/18 02:54 Last Admin: 10/22/18 23:05 Dose: 12.5 mls/hr Nitroglycerin/Dextrose (Nitroglycerin 25 Mg/D5w 250 Ml) 25 mg in 250 mls @ 6 mls/hr IV TITRATE [facility]; Protocol Last Titration: 10/23/18 01:39 Dose: 5 mcg/min, 3 mls/hr Lorazepam (Ativan) 0.5 mg IVPUSH ONETIME ONE Stop: 10/21/18 00:18 Last Admin: 10/21/18 00:26 Dose: 0.5 mg Morphine Sulfate (Morphine) 2 mg IVPUSH ONETIME ONE Stop: 10/21/18 00:43 Last Admin: 10/21/18 00:49 Dose: 2 mg Morphine Sulfate (Morphine) 2 mg IVPUSH Q2H PRN PRN Reason: Pain (severe 7-10) Last Admin: 10/22/18 23:54 Dose: 2 mg Nitroglycerin (Nitro-Bid 2%) 1 gm TOP ONETIME ONE Stop: 10/21/18 00:38 Last Admin: 10/21/18 00:43 Dose: 1 gm Pantoprazole Sodium (Protonix Iv) 40 mg IVPUSH DAILY [facility] Last Admin: 10/22/18 08:53 Dose: 40 mg Prednisone (Prednisone) 60 mg PO DAILY [facility] Stop: 10/22/18 09:01 Last Admin: 10/22/18 08:39 Dose: 60 mg Sodium Chloride (Saline Flush) 10 ml FLUSH ASDIRECTED PRN PRN Reason: Keep Vein Open Last Admin: 10/21/18 00:51 Dose: 10 ml - Exam Quality Assessment: DVT Prophylaxis General: Alert, Oriented, Cooperative, No Acute Distress Lungs: Clear to Auscultation, Normal Respiratory Effort Cardiovascular: Regular Rate, Regular Rhythm, No Murmurs GI/Abdominal Exam: Soft, Non-Tender, No Organomegaly, No Distention Extremities: Non-Tender, No Pedal Edema - Problem List Review Problem List Initiated/Reviewed/Updated: Yes - My Orders Last 24 Hours: My Active Orders 10/22/18 23:11 EKG Documentation Completion [RC] ASDIRECTED EKG 12 Lead [EK] Stat 10/23/18 00:49 Patient Status [ADT] Routine 10/23/18 00:54 Morphine 2 mg IVPUSH Q1H PRN 10/23/18 01:00 Heparin Sodium/D5W [Heparin 25,000 Units in D5W 500 ML] 25,000 units in 500 ml IV TITRATE 10/23/18 14:30 PTT,PARTIAL THROMBOPLSTIN TIME [COAG] Routine 10/24/18 05:00 BASIC METABOLIC PANEL,BMP [CHEM] Timed CBC WITH AUTO DIFF [HEME] Timed - Plan Plan:: ASSESSMENT / PLAN Congestive heart failure with elevated Pro-BNP and elevated D-dimer, Ischemic heart disease. Level of dyspnea has been stable, he continues to require supplemental oxygen. Obligated by chest pain which occurred last night. -telemetry -home medications ordered -Transitioned to oral furosemide 80 mg by mouth daily -Hold on further eval for PE per pt request Chest pain-currently pain-free, serial EKGs and troponin levels have shown no significant change. We have discussed options for further evaluation and management, he's not sure how we would like to proceed. Further aggressive evaluation and intervention versus more of a pale he did care approach. -Aspirin 325 mg by mouth daily -IV heparin per protocol -Discontinue IV nitroglycerin -IV morphine as needed COPD -Continue Oxygen at 2 liter per NC -Robitussin DM 10 ml every 4 to 6 hours for cough -albuterol nebulizer every 4 hours as needed for wheezing and cough -Duo nebu nebulize every 6 hours prn -And a.m. labs: CBC, BMP CKD stage IV-renal function has remained stable -monitor I and O -continue diuretics Maintenance issues -Nutrition: 2 gram sodium diet -Quesada catheter not indicated at this time -DVT: Lovenox 30 mg subcut -PPI: Not indicated CODE STATUS: FULL CODE Admission status: Admit to [address] [place] [address] Admission justification. This patient will be admitted for inpatient services and is medically appropriate meeting medical necessity for inpatient admission as outlined in my documentation. I reasonably expect the patient will require inpatient services that span. Time over 2 midnights. I reasonably expect this patient to be discharged or transferred within 96 hours after admission to the [facility]. Disposition: home Primary care provider: Dr. Alice Gdooy Hospitalist: Dr. Pride
[2018-10-23] MEDS: Furosemide 40 MG Tab PO SCH (12:48)
[2018-10-24] MEDS: Heparin Sodium/D5W 25,000 UNITS/500 ML BAG IV SCH (00:13)
[2018-10-24] MEDS: Losartan 50 MG Tab PO SCH (08:27)
[2018-10-24] MEDS: Docusate Sodium Liquid 100 MG/10 ML UD Cup PO SCH (08:27)
[2018-10-24] MEDS: Lactobacillus Rhamnosus GG (Probiotic) Cap PO SCH (08:27)
[2018-10-24] MEDS: predniSONE 20 MG Tab PO SCH (08:27)
[2018-10-24] MEDS: Furosemide 40 MG Tab PO SCH (08:28)
[2018-10-24] MEDS: Metoprolol Succinate 50 MG Tab.ER PO SCH (08:28)
[2018-10-24] MEDS: amLODIPine 5 MG Tab PO SCH (08:29)
[2018-10-24] MEDS: hydrALAZINE 25 MG Tab PO SCH (08:29)
[2018-10-24] MEDS: Simvastatin 20 MG Tab PO SCH (08:29)
[2018-10-24] MEDS: Isosorbide Mononitrate 30 MG Tab.ER PO SCH (08:29)
[2018-10-24] MEDS: Aspirin 325 MG Tab.EC PO SCH (08:29)
[2018-10-24] MEDS: Fluticasone Propionate Nasal Spray 16 GM Bottle NAS SCH (08:30)
[2018-10-24 10:57] VITALS: BP 147/61
--- NOTE | 2018-10-24 10:57 | PCM.DCSUM1 ---
Discharge Summary - Hospital Course Brief History: Mr. Curiel is an 83-year-old gentleman who was admitted through the emergency department with increased shortness of breath secondary to exacerbation of diastolic congestive heart failure. - Discharge Data Discharge Date: 10/24/18 Discharge Disposition: Home, Self-Care 01 Condition: Fair - Discharge Diagnosis/Problem(s) (1) Elevated d-dimer SNOMED Code(s): 868053658 ICD Code: R79.89 - OTHER SPECIFIED ABNORMAL FINDINGS OF BLOOD CHEMISTRY Status: Acute Priority: High Current Visit: Yes (2) COPD (chronic obstructive pulmonary disease) SNOMED Code(s): 90667586 ICD Code: J44.9 - CHRONIC OBSTRUCTIVE PULMONARY DISEASE, UNSPECIFIED Status : Acute Current Visit: Yes Qualifiers: COPD type: unspecified COPD Qualified Code(s): J44.9 - Chronic obstructive pulmonary disease, unspecified (3) Chronic ischemic heart disease SNOMED Code(s): 564662376 ICD Code: I25.9 - CHRONIC ISCHEMIC HEART DISEASE, UNSPECIFIED Status: Chronic Current Visit: No (4) CKD (chronic kidney disease) stage 4, GFR 15-29 ml/min SNOMED Code(s): 092812711 ICD Code: N18.4 - CHRONIC KIDNEY DISEASE, STAGE 4 (SEVERE) Status: Chronic Priority: Medium Current Visit: Yes (5) Diastolic congestive heart failure, NYHA class 3 SNOMED Code(s): 053667955, 337042005, 230864819 ICD Code: I50.30 - UNSPECIFIED DIASTOLIC (CONGESTIVE) HEART FAILURE Status : Chronic Current Visit: No Qualifiers: Congestive heart failure chronicity: acute on chronic Qualified Code(s): I50.33 - Acute on chronic diastolic (congestive) heart failure - Patient Summary/Data Consults: Consultations 10/21/18 01:57 Consult to Spiritual Care [CONS] Routine Special Instructions: daily prayers Hospital Course: Mr. Curiel is a 83 yo male who was admitted through the emergency department with increased shortness of breath and hypoxia secondary to exacerbation of diastolic congestive heart failure with underlying COPD. Was seen in the clinic earlier today with a WBC ct of 11.3 with a left shift. No fever. Oxygenation in clinic was 92%, lower than normal for him. CXR was suggestive of either early pneumonia or pulm edema. He does have a hx of both CHF and COPD. He was tx'd after his clinic visit today with a course of Levaquin 750 mg qd and prednisone and told to go to the ER if he should worsen. In clinic he reported a productive cough, but no fever. Stools have been darker than normal lately, he thinks due to some spinach he ate. Is not aware of any orthopnea and denies sharp pain with breathing. He was given a dose of IV diuretic therapy in the emergency department and did note improvement in shortness of breath. On admission he was continued on IV furosemide and later transitioned to oral furosemide, 80 mg per day and will be discharged on this dose. He was noted to have very frequent ventricular ectopy throughout his hospital stay, episodes of short-lived tachycardia and transient episodes of bradycardia. 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 He continued to require use of supplemental oxygen throughout his hospital stay. On the day of discharge he was documented to have oxygen saturation of 85% on room air at rest. D-dimer level was noted to be elevated in the emergency department. We were unable to obtain CT scan angiogram of the chest because of his chronic kidney disease stage IV. On the morning after admission venous Doppler studies were obtained that showed no evidence of deep vein thrombosis in either leg. Discussion was held with the patient and his , we were unable to obtain VQ scan at our facility for further evaluation of possible pulmonary embolism. We discussed transfer to another facility where this test could be accomplished, patient decided not to pursue further evaluation and understands potential risk of undiagnosed pulmonary emboli and potential complications. On the evening of the he did develop substernal chest pain and was transferred to the intensive care unit for further evaluation and monitoring. Pain resolved with use of IV morphine and sublingual nitroglycerin, but then reoccurred. Serial EKG showed no acute ST segment changes and serial troponin levels remained within normal range. After transfer to the intensive care unit he was placed on IV heparin and continuous infusion of IV nitroglycerin. Pain totally resolved with those interventions and he had no recurrence of the chest pain through the rest of his hospital stay. We again had a discussion concerning further evaluation of his chest pain including Deniz scan Cardiolite study. He refused this and prefers to be treated medically without further aggressive evaluation. He understands the potential risk of undiagnosed worsening coronary artery disease. We did have a longer conversation concerning his overall goals for ongoing care. At this time he wants to avoid further aggressive interventions or evaluations and would like to take palliative care approach to ongoing management. He would like to be managed medically with no further aggressive interventions or evaluation at this time. His renal function was monitored daily during his hospital course and remained stable with a GFR in the range of 20. His dose of diuretic therapy will be increased to 80 mg of Lasix daily and his dose of isosorbide will be increased to 60 mg daily. Activity will be as tolerated and he will remain on a low-sodium diet. Follow-up appointment will be scheduled with his primary care provider within one week, BMP will be obtained at the time of follow-up appointment. He will be discharged on home oxygen 2 L/m via nasal cannula with a portable device available. - Patient Instructions Diet: Low Sodium Activity: As Tolerated Other/Special Instructions: Please schedule follow-up appointment with Dr. Jenkins within one week. BMP should be obtained at the time of follow-up appointment. Please arrange for home oxygen after discharge with available portable oxygen for use away from home. - Discharge Plan *PRESCRIPTION DRUG MONITORING PROGRAM REVIEWED*: Not Applicable *COPY OF PRESCRIPTION DRUG MONITORING REPORT IN PATIENT JOSELIN: Not Applicable Prescriptions/Med Rec: Furosemide [Lasix] 80 mg PO DAILY #30 tablet Isosorbide Mononitrate [Isosorbide Mononitrate ER] 60 mg PO DAILY #30 tab.er.24h Home Medications: Home Meds Aspirin 325 mg PO DAILY 12/09/15 [History] Nitroglycerin [Nitrostat] 0.4 mg PO ASDIRECTED PRN 12/09/15 [History] Simvastatin 40 mg PO DAILY 12/09/15 [History] amLODIPine [Norvasc] 5 mg PO DAILY 12/09/15 [History] hydrALAZINE [Apresoline] 50 mg PO TID 12/09/15 [History] Acetaminophen/Diphenhydramine [Tylenol Pm Ex-Strength Caplet] 1 tab PO BEDTIME 11/04/16 [History] Losartan Potassium 12.56 mg PO DAILY 11/04/16 [History] Metoprolol Succinate [Toprol Xl] 50 mg PO DAILY 11/04/16 [History] Multivitamin [Multivitamins] 1 tab PO DAILY 11/04/16 [History] Cholecalciferol (Vitamin D3) [Vitamin D3] 2,000 units PO DAILY 12/18/17 [History ] Dextromethorphan/guaiFENesin [Robitussin DM] 5 ml PO Q6HR PRN 12/18/17 [History] Docusate Sodium [Colace] 50 mg PO BID 12/18/17 [History] Fluticasone Propionate [Flonase] 1 spray ANSHUL BID 12/18/17 [History] L.acidoph,Paracasei, B.lactis [Probiotic] 1 tab PO BID 04/21/18 [History] Furosemide [Lasix] 80 mg PO DAILY #30 tablet 10/24/18 [Rx] Isosorbide Mononitrate [Isosorbide Mononitrate ER] 60 mg PO DAILY #30 tab.er.24h 10/24/18 [Rx] Referrals: Walt Jenkins MD [Primary Care Provider] - - Discharge Summary/Plan Comment DC Time >30 min.: No - Patient Data Vitals - Most Recent: Last Vital Signs Temp 98.6 F 10/24/18 04:00 Pulse 68 10/24/18 08:28 Resp 9 L 10/24/18 07:28 BP 167/73 H 10/24/18 08:29 Pulse Ox 93 L 10/24/18 07:28 Weight - Most Recent: 170 lb 15.989 oz I&O - Last 24 hours: Intake & Output 10/23/18 10/24/18 10/24/18 22:59 06:59 14:59 Intake Total 450 906 Output Total 650 1050 850 Balance -200 -144 -850 Lab Results - Last 24 hrs: Laboratory Results - last 24 hr 10/23/18 10/23/18 10/24/18 Range/Units 14:30 21:28 04:07 WBC 13.8 H (4.5-11.0) K/uL RBC 3.78 L (4.30-5.90) M/uL Hgb 9.2 L (12.0-15.0) g/dL Hct 29.5 L (40.0-54.0) % MCV 78 L (80-98) fL MCH 24 L (27-31) pg MCHC 31 L (32-36) % Plt Count 326 (150-400) K/uL Neut % (Auto) 85 H (36-66) % Lymph % (Auto) 8 L (24-44) % Moca % (Auto) 7 H (2-6) % Eos % (Auto) 0 L (2-4) % Baso % (Auto) 0 (0-1) % APTT 42.3 H 46.1 H (27.0-36.0) sec Sodium (140-148) mmol/L Potassium (3.6-5.2) mmol/L Chloride (100-108) mmol/L Carbon Dioxide (21-32) mmol/L Anion Gap (5.0-14.0) mmol/L BUN (7-18) mg/dL Creatinine (0.8-1.3) mg/dL Est Cr Clr Drug Dosing mL/min Estimated GFR (MDRD) (>60) Glucose (74-106) mg/dL Calcium (8.5-10.1) mg/dL 10/24/18 10/24/18 Range/Units 04:07 04:07 WBC (4.5-11.0) K/uL RBC (4.30-5.90) M/uL Hgb (12.0-15.0) g/dL Hct (40.0-54.0) % MCV (80-98) fL MCH (27-31) pg MCHC (32-36) % Plt Count (150-400) K/uL Neut % (Auto) (36-66) % Lymph % (Auto) (24-44) % Moca % (Auto) (2-6) % Eos % (Auto) (2-4) % Baso % (Auto) (0-1) % APTT 66.9 H (27.0-36.0) sec Sodium 135 L (140-148) mmol/L Potassium 3.9 (3.6-5.2) mmol/L Chloride 99 L (100-108) mmol/L Carbon Dioxide 28 (21-32) mmol/L Anion Gap 11.9 (5.0-14.0) mmol/L BUN 62 H (7-18) mg/dL Creatinine 2.7 H (0.8-1.3) mg/dL Est Cr Clr Drug Dosing 21.60 mL/min Estimated GFR (MDRD) 23 L (>60) Glucose 119 H (74-106) mg/dL Calcium 9.4 (8.5-10.1) mg/dL Med Orders - Current: Current Medications Albuterol (Proventil Neb Soln) 2.5 mg NEB Q4H PRN PRN Reason: Shortness Of Breath/wheezing Albuterol/Ipratropium (Duoneb 3.0-0.5 Mg/3 Ml) 3 ml NEB QID PRN PRN Reason: Shortness Of Breath/wheezing Amlodipine Besylate (Norvasc) 5 mg PO DAILY [facility] Last Admin: 10/24/18 08:29 Dose: 5 mg Aspirin (Ecotrin) 325 mg PO DAILY [facility] [place] Last Admin: 10/24/18 08:29 Dose: 325 mg Docusate Sodium (Colace) 100 mg PO BID PRN PRN Reason: Constipation Docusate Sodium (Colace 50 Mg/5 Ml Liquid) 50 mg PO BID [facility] [place] Last Admin: 10/24/18 08:27 Dose: 50 mg Fluticasone Propionate (Flonase) 0 gm ANSHUL BID [facility] [place] Last Admin: 10/24/18 08:30 Dose: 1 spray Furosemide (Lasix) 80 mg PO DAILY [facility] [place] Last Admin: 10/24/18 08:28 Dose: 80 mg Guaifenesin/Dextromethorphan (Robitussin Dm) 5 ml PO Q6HR PRN PRN Reason: Cough Hydralazine HCl (Apresoline) 50 mg PO TID [facility] [place] Last Admin: 10/24/18 08:29 Dose: 50 mg Heparin Sodium/Dextrose (Heparin 25,000 Units In D5w 500 Ml) 25,000 units in 500 mls @ 18.615 mls/hr IV TITRATE [facility]; Protocol Last Admin: 10/24/18 00:13 Dose: 16.6 unit/kg/hr, 25.751 mls/hr Isosorbide Mononitrate (Imdur) 30 mg PO DAILY@0730 [facility] Last Admin: 10/24/18 08:29 Dose: 30 mg Lactobacillus Rhamnosus (Culturelle) 1 cap PO BID [facility] [place] Last Admin: 10/24/18 08:27 Dose: 1 cap Lorazepam (Ativan) 1 mg IV Q6H PRN PRN Reason: Nausea/Vomiting Losartan Potassium (Cozaar) 12.5 mg PO DAILY [facility] [place] Last Admin: 10/24/18 08:27 Dose: 12.5 mg Melatonin (Melatonin) 6 mg PO BEDTIME PRN PRN Reason: Insomnia Last Admin: 10/23/18 21:20 Dose: 6 mg Metoprolol Succinate (Toprol Xl) 50 mg PO DAILY [facility] [place] Last Admin: 10/24/18 08:28 Dose: 50 mg Morphine Sulfate (Morphine) 2 mg IVPUSH Q1H PRN PRN Reason: Chest Pain Nitroglycerin (Nitrostat) 0.4 mg SL ASDIRECTED PRN PRN Reason: Chest Pain Last Admin: 10/23/18 00:05 Dose: 0.4 mg Ondansetron HCl (Zofran Odt) 4 mg PO Q4H PRN PRN Reason: Nausea/Vomiting Last Admin: 10/22/18 20:55 Dose: 4 mg Ondansetron HCl (Zofran) 4 mg IVPUSH Q4H PRN PRN Reason: Nausea/Vomiting Prednisone (Prednisone) 40 mg PO DAILY [facility] [place] Stop: 10/25/18 09:01 Last Admin: 10/24/18 08:27 Dose: 40 mg Prednisone (Prednisone) 20 mg PO DAILY [facility] [place] Stop: 10/28/18 09:01 Simvastatin (Zocor) 40 mg PO DAILY [facility] [place] Last Admin: 10/24/18 08:29 Dose: 40 mg Sodium Chloride (Saline Flush) 10 ml FLUSH ASDIRECTED PRN PRN Reason: Keep Vein Open Last Admin: 10/22/18 08:45 Dose: 10 ml Discontinued Medications Al Hydroxide/Mg Hydroxide (Mag-Al Plus) 30 ml PO ONETIME ONE Stop: 10/21/18 00:19 Last Admin: 10/21/18 00:26 Dose: 30 ml Enoxaparin Sodium (Lovenox) 30 mg SUBCUT ONETIME ONE Stop: 10/21/18 01:04 Last Admin: 10/21/18 01:09 Dose: 30 mg Enoxaparin Sodium (Lovenox) 30 mg SUBCUT BEDTIME [facility] [place] Last Admin: 10/22/18 20:58 Dose: 30 mg Furosemide (Lasix) 40 mg PO DAILY [facility] [place] Last Admin: 10/21/18 08:35 Dose: 40 mg Furosemide (Lasix) 80 mg IVPUSH ONETIME ONE Stop: 10/21/18 09:01 Last Admin: 10/21/18 10:01 Dose: 80 mg Furosemide (Lasix) 80 mg IVPUSH NOW ONE Stop: 10/22/18 08:37 Last Admin: 10/22/18 09:23 Dose: 80 mg Heparin Sodium (Porcine) (Heparin Sodium) 4,000 units IV ONETIME ONE Stop: 10/23/18 01:16 Last Admin: 10/23/18 01:34 Dose: 4,000 units Heparin Sodium (Porcine) (Heparin Sodium) Confirm Administered Dose 5,000 units .ROUTE .STK-MED ONE Stop: 10/23/18 08:17 Last Admin: 10/23/18 08:26 Dose: Not Given Heparin Sodium (Porcine) (Heparin Sodium) 1,000 units IVPUSH .BOLUS ONE Stop: 10/23/18 08:13 Last Admin: 10/23/18 08:30 Dose: 1,000 units Heparin Sodium (Porcine) (Heparin Sodium) 1,000 units IVPUSH .BOLUS ONE Stop: 10/23/18 15:00 Last Admin: 10/23/18 15:19 Dose: 1,000 units Heparin Sodium (Porcine) (Heparin Sodium) 1,000 units IVPUSH ONETIME ONE Stop: 10/23/18 22:02 Last Admin: 10/23/18 22:10 Dose: 1,000 units Hydralazine HCl (Apresoline) 50 mg PO NOW STA Stop: 10/21/18 01:13 Last Admin: 10/21/18 01:29 Dose: 50 mg Magnesium Sulfate 2 gm/ Premix 50 mls @ 12.5 mls/hr IV ONETIME ONE Stop: 10/23/18 02:54 Last Admin: 10/22/18 23:05 Dose: 12.5 mls/hr Nitroglycerin/Dextrose (Nitroglycerin 25 Mg/D5w 250 Ml) 25 mg in 250 mls @ 6 mls/hr IV TITRATE [facility]; Protocol Last Titration: 10/23/18 01:39 Dose: 5 mcg/min, 3 mls/hr Lorazepam (Ativan) 0.5 mg IVPUSH ONETIME ONE Stop: 10/21/18 00:18 Last Admin: 10/21/18 00:26 Dose: 0.5 mg Morphine Sulfate (Morphine) 2 mg IVPUSH ONETIME ONE Stop: 10/21/18 00:43 Last Admin: 10/21/18 00:49 Dose: 2 mg Morphine Sulfate (Morphine) 2 mg IVPUSH Q2H PRN PRN Reason: Pain (severe 7-10) Last Admin: 10/22/18 23:54 Dose: 2 mg Nitroglycerin (Nitro-Bid 2%) 1 gm TOP ONETIME ONE Stop: 10/21/18 00:38 Last Admin: 10/21/18 00:43 Dose: 1 gm Pantoprazole Sodium (Protonix Iv) 40 mg IVPUSH DAILY [facility] Last Admin: 10/22/18 08:53 Dose: 40 mg Prednisone (Prednisone) 60 mg PO DAILY [facility] Stop: 10/22/18 09:01 Last Admin: 10/22/18 08:39 Dose: 60 mg Sodium Chloride (Saline Flush) 10 ml FLUSH ASDIRECTED PRN PRN Reason: Keep Vein Open Last Admin: 10/21/18 00:51 Dose: 10 ml - Exam Quality Assessment: Reports: Supplemental Oxygen, DVT Prophylaxis General: Reports: Alert, Oriented, Cooperative, No Acute Distress Lungs: Reports: Clear to Auscultation, Normal Respiratory Effort, Decreased Breath Sounds Cardiovascular: Reports: Regular Rate, Irregular Rhythm, Murmurs GI/Abdominal Exam: Soft, Non-Tender, No Organomegaly, No Distention Extremities: Non-Tender, No Pedal Edema
[2018-10-26] MEDS ORDERED: predniSONE 20 MG Tab PO SCH (09:00)
== END 2018-10-24 12:41 | disposition home or self-care (01) | DRG 291 ==
LOC: JP.ED 22:00 → JP.MS 10-21 01:32 → JP.ICU 10-23 00:49
PROVIDERS: ADMIT Hospitalist; ATTEND Hospitalist
DX: I13.0 Hypertensive heart and chronic kidney disease with heart failure and stage 1 through stage 4 chronic kidney disease, or unspecified chronic kidney disease (principal); I50.9 Heart failure, unspecified; I50.33 Acute on chronic diastolic (congestive) heart failure; N18.4 Chronic kidney disease, stage 4 (severe); I25.10 Atherosclerotic heart disease of native coronary artery without angina pectoris; I25.9 Chronic ischemic heart disease, unspecified; I25.119 Atherosclerotic heart disease of native coronary artery with unspecified angina pectoris; J44.9 Chronic obstructive pulmonary disease, unspecified; E78.00 Pure hypercholesterolemia, unspecified; K21.9 Gastro-esophageal reflux disease without esophagitis; M54.9 Dorsalgia, unspecified; G89.29 Other chronic pain; F41.9 Anxiety disorder, unspecified; R79.1 Abnormal coagulation profile; I49.9 Cardiac arrhythmia, unspecified; H54.7 Unspecified visual loss; Z85.828 Personal history of other malignant neoplasm of skin; Z95.828 Presence of other vascular implants and grafts; Z79.82 Long term (current) use of aspirin; Z79.890 Hormone replacement therapy; Z99.81 Dependence on supplemental oxygen; Z79.52 Long term (current) use of systemic steroids; R06.09 Other forms of dyspnea; Z79.899 Other long term (current) drug therapy; R06.02 Shortness of breath; R05 Cough; Z88.8 Allergy status to other drugs, medicaments and biological substances; Z90.49 Acquired absence of other specified parts of digestive tract; Z87.891 Personal history of nicotine dependence; Z95.5 Presence of coronary angioplasty implant and graft
CPT/HCPCS: 36415; 71046; 80048; 82272; 83735; 83880; 84484; 85025; 85027; 85379; 85610; 85730; 86140; 93005; 93010; 93306; 93970; 94762; 96372; 96374; 96375; 99285; 99285-25; A9270-GY; C9113; J1644; J1650; J1940; J2060; J2270; J3475; J3490

== ENCOUNTER 2018-10-30 15:15 | Emergency (ER) | payer MEDICARE, BC ==
[2018-10-30] MEDS ORDERED: Lactated Ringers 1,000 ML IV ONE (15:51)
[2018-10-30] MEDS ORDERED: HYDROmorphone 1 MG/ML Syringe IVPUSH ONE ×2 (15:51→16:29)
[2018-10-30] MEDS ORDERED: Ondansetron 4 MG/2 ML SDV IVPUSH ONE (15:52)
--- NOTE | 2018-10-30 16:00 | EDM.PDOC ---
ED HPI GENERAL MEDICAL PROBLEM - General Chief Complaint: Abdominal Pain Stated Complaint: ABDOMEN PAIN Time Seen by Provider: 10/30/18 15:40 Source of Information: Reports: Patient, Old Records History Limitations: Reports: Other (suboptimal historian) - History of Present Illness INITIAL COMMENTS - FREE TEXT/NARRATIVE: 83 yo male with intermittent abdominal pain since leaving our hospital about a week ago after an admission for chest pain felt possibly initially to be due to a PE. His GFR was too low to perform a contrasted CT and we did not have nuclear medicine capability. He says he had some minor abdominal pain episodes during that admission, but there is no documentation of this. He says his pain gets much worse when he eats. He did vomit once yesterday, otherwise he has had mild nausea ongoing. His stools are light in color, but formed. No fever. Pain is diffuse. He has no hx of any abdominal surgeries. He has tried without success to get into the clinic to see his doctor, he does have a pending appt for hospital follow up, but could not wait. He has known CAD, is a former smoker, and has end stage renal failure. Onset: Gradual Onset Date: 10/23/18 Duration: Week(s): (1), Getting Worse, Waxing/Waning Location: Reports: Abdomen Quality: Reports: Ache Severity: Moderate Improves with: Reports: Other (not eating) Worsens with: Reports: Eating Context: Reports: Other (see HPI) Associated Symptoms: Reports: Nausea/Vomiting. Denies: Chest Pain, Fever/Chills , Shortness of Breath Treatments TAILOR HELPER: Reports: Other (see below) (none) Upper Abdomen Pain Score (Numeric/FACES): 4 - Related Data Allergies Allergy/AdvReac Type Severity Reaction Status Date / Time clopidogrel bisulfate Allergy Intermediate Rash Verified 07/23/18 12:01 [From Plavix] Home Meds: Home Meds Aspirin 325 mg PO DAILY 12/09/15 [History] Nitroglycerin [Nitrostat] 0.4 mg PO ASDIRECTED PRN 12/09/15 [History] Simvastatin 40 mg PO DAILY 12/09/15 [History] amLODIPine [Norvasc] 5 mg PO DAILY 12/09/15 [History] hydrALAZINE [Apresoline] 50 mg PO TID 12/09/15 [History] Acetaminophen/Diphenhydramine [Tylenol Pm Ex-Strength Caplet] 1 tab PO BEDTIME 11/04/16 [History] Losartan Potassium 12.56 mg PO DAILY 11/04/16 [History] Metoprolol Succinate [Toprol Xl] 100 mg PO DAILY 11/04/16 [History] Multivitamin [Multivitamins] 1 tab PO DAILY 11/04/16 [History] Cholecalciferol (Vitamin D3) [Vitamin D3] 2,000 units PO DAILY 12/18/17 [History ] Dextromethorphan/guaiFENesin [Robitussin DM] 5 ml PO Q6HR PRN 12/18/17 [History] Docusate Sodium [Colace] 50 mg PO BID 12/18/17 [History] Fluticasone Propionate [Flonase] 1 spray ANSHUL BID 12/18/17 [History] L.acidoph,Paracasei, B.lactis [Probiotic] 1 tab PO BID 04/21/18 [History] Furosemide [Lasix] 80 mg PO DAILY #30 tablet 10/24/18 [Rx] Isosorbide Mononitrate [Isosorbide Mononitrate ER] 60 mg PO DAILY #30 tab.er.24h 10/24/18 [Rx] Past Medical History HEENT History: Reports: Cataract, Impaired Vision Other HEENT History: wears glasses Cardiovascular History: Reports: Arrhythmia, CAD, Heart Failure, High Cholesterol, Hypertension, Stents Respiratory History: Reports: SOB, Other (See Below) Other Respiratory History: home o2 Gastrointestinal History: Reports: GERD Genitourinary History: Reports: Chronic Renal Insuffiency, Prostate Disorder, Other (See Below) Other Genitourinary History: kidney stent Musculoskeletal History: Reports: Back Pain, Chronic, Fracture Psychiatric History: Reports: Addiction, Anxiety Oncologic (Cancer) History: Reports: Other (See Below) Other Oncologic History: skin cancer Dermatologic History: Reports: None Other Dermatologic History: multiple cysts - Infectious Disease History Infectious Disease History: Reports: Chicken Pox - Past Surgical History HEENT Surgical History: Reports: Cataract Surgery Cardiovascular Surgical History: Reports: Carotid Endarterectomy, Carotid Stents GI Surgical History: Reports: Cholecystectomy, Colonoscopy, Other (See Below) Other GI Surgeries/Procedures: states has "twisted bowel" Male Surgical History: Reports: TURP-Transurethral Resection of Prostate Musculoskeletal Surgical History: Reports: Other (See Below) Other Musculoskeletal Surgeries/Procedures:: right lower leg fracture Dermatological Surgical History: Reports: Skin Biopsy Social & Family History - Family History Family Medical History: Noncontributory - Tobacco Use Smoking Status *Q: Former Smoker Used Tobacco, but Quit: Yes Month/Year Tobacco Last Used: 2000 - Caffeine Use Caffeine Use: Reports: Coffee, Tea - Recreational Drug Use Recreational Drug Use: No - Living Situation & Occupation Living situation: Reports: , with Family Occupation: Retired (lives with Veena in [place]. 3 Son, none live in the area.) ED ROS GENERAL - Review of Systems Review Of Systems: See Below Constitutional: Reports: No Symptoms HEENT: Reports: No Symptoms Respiratory: Reports: No Symptoms Cardiovascular: Reports: No Symptoms GI/Abdominal: Reports: Abdominal Pain, Decreased Appetite, Nausea, Vomiting ( once yesterday). Denies: Black Stool, Bloody Stool, Constipation, Diarrhea, Distension, Hematemesis, Hematochezia : Reports: No Symptoms Musculoskeletal: Reports: No Symptoms Skin: Reports: No Symptoms Neurological: Reports: No Symptoms ED EXAM, GI/ABD - Physical Exam Exam: See Below Exam Limited By: No Limitations General Appearance: Alert, WD/WN, Mild Distress Eyes: Bilateral: Normal Appearance Ears: Normal External Exam, Normal Canal, Hearing Grossly Normal Nose: Normal Inspection, No Blood Throat/Mouth: Normal Inspection, Normal Lips, Normal Oropharynx, Normal Voice, No Airway Compromise Head: Atraumatic, Normocephalic Neck: Normal Inspection Respiratory/Chest: No Respiratory Distress, Lungs Clear, Normal Breath Sounds, No Accessory Muscle Use Cardiovascular: Regular Rate, Rhythm, No Edema GI/Abdominal Exam: Normal Bowel Sounds, Soft, Non-Tender, No Distention Back Exam: Normal Inspection. No: CVA Tenderness (R), CVA Tenderness (L) Extremities: Normal Inspection, Normal Range of Motion, Non-Tender, No Pedal Edema Neurological: Alert, Oriented, CN II-XII Intact, Normal Cognition, No Motor/ Sensory Deficits Psychiatric: Normal Affect, Normal Mood Skin Exam: Warm, Dry, Intact, Normal Color, No Rash Course - Vital Signs Text/Narrative:: Dr. Smallwood called @ 0273h. Dr. Cyr accepted @ [facility] @ 4672 Last Recorded V/S: Last Vital Signs Temp 36.0 C 10/30/18 15:32 Pulse 67 10/30/18 17:28 Resp 18 10/30/18 17:00 BP 145/55 H 10/30/18 17:28 Pulse Ox 97 10/30/18 17:28 - Orders/Labs/Meds Orders: Active Orders 24 hr Category Date Time Status Abdomen 2V AP Flat Upright [CR] Stat Exams 10/30/18 16:29 Taken Abdomen Comp [US] Stat Exams 10/30/18 16:08 Taken UA W/MICROSCOPIC [URIN] Stat Lab 10/30/18 15:52 Ordered Lactated Ringers [Ringers, Lactated] 1,000 ml Med 10/30/18 17:30 Active IV ASDIRECTED Medication Orders Lactated Ringer's (Ringers, Lactated) 1,000 mls @ 500 mls/hr IV ASDIRECTED WILLA Last Admin: 10/30/18 17:27 Dose: 500 mls/hr Labs: Laboratory Tests 10/30/18 10/30/18 10/30/18 Range/Units 16:01 16:01 16:01 WBC 9.4 (4.5-11.0) K/uL RBC 3.99 L (4.30-5.90) M/uL Hgb 9.5 L (12.0-15.0) g/dL Hct 31.7 L (40.0-54.0) % MCV 79 L (80-98) fL MCH 24 L (27-31) pg MCHC 30 L (32-36) % Plt Count 280 (150-400) K/uL Sodium 136 L (140-148) mmol/L Potassium 3.5 L (3.6-5.2) mmol/L Chloride 98 L (100-108) mmol/L Carbon Dioxide 29 (21-32) mmol/L Anion Gap 12.5 (5.0-14.0) mmol/L BUN 31 H (7-18) mg/dL Creatinine 2.8 H (0.8-1.3) mg/dL Est Cr Clr Drug Dosing 20.28 mL/min Estimated GFR (MDRD) 22 L (>60) Glucose 144 H (74-106) mg/dL Lactic Acid (0.4-2.0) mmol/L Calcium 8.6 (8.5-10.1) mg/dL Total Bilirubin (0.2-1.0) mg/dL Direct Bilirubin (0.0-0.2) mg/dL Indirect Bilirubin AST (15-37) U/L ALT (12-78) U/L Alkaline Phosphatase (46-116) U/L C-Reactive Protein 3.52 H (0.0-0.3) mg/dL Total Protein (6.4-8.2) g/dL Albumin (3.4-5.0) g/dL Globulin (2.3-3.5) g/dL Albumin/Globulin Ratio (1.2-2.2) Lipase (73-393) U/L 10/30/18 10/30/18 10/30/18 Range/Units 16:11 16:11 16:37 WBC (4.5-11.0) K/uL RBC (4.30-5.90) M/uL Hgb (12.0-15.0) g/dL Hct (40.0-54.0) % MCV (80-98) fL MCH (27-31) pg MCHC (32-36) % Plt Count (150-400) K/uL Sodium (140-148) mmol/L Potassium (3.6-5.2) mmol/L Chloride (100-108) mmol/L Carbon Dioxide (21-32) mmol/L Anion Gap (5.0-14.0) mmol/L BUN (7-18) mg/dL Creatinine (0.8-1.3) mg/dL Est Cr Clr Drug Dosing mL/min Estimated GFR (MDRD) (>60) Glucose (74-106) mg/dL Lactic Acid 3.1 H (0.4-2.0) mmol/L Calcium (8.5-10.1) mg/dL Total Bilirubin 0.5 (0.2-1.0) mg/dL Direct Bilirubin 0.19 (0.0-0.2) mg/dL Indirect Bilirubin 0.31 AST 17 (15-37) U/L ALT 18 (12-78) U/L Alkaline Phosphatase 76 (46-116) U/L C-Reactive Protein (0.0-0.3) mg/dL Total Protein 5.8 L (6.4-8.2) g/dL Albumin 2.1 L (3.4-5.0) g/dL Globulin 3.7 H (2.3-3.5) g/dL Albumin/Globulin Ratio 0.6 L (1.2-2.2) Lipase 193 (73-393) U/L Meds: Medications Generic Name Dose Route Start Last Admin Trade Name Sherly PRN Reason Stop Dose Admin Lactated Ringer's 1,000 mls @ 500 mls/hr 10/30/18 17:30 10/30/18 17:27 Ringers, Lactated IV 500 mls/hr ASDIRECTED WILLA Administration Discontinued Medications Generic Name Dose Route Start Last Admin Trade Name Sherly PRN Reason Stop Dose Admin Hydromorphone HCl 1 mg 10/30/18 15:51 10/30/18 16:19 Dilaudid IVPUSH 10/30/18 15:52 1 mg ONETIME ONE Administration Hydromorphone HCl 1 mg 10/30/18 16:29 10/30/18 16:35 Dilaudid IVPUSH 10/30/18 16:30 1 mg ONETIME ONE Administration Lactated Ringer's 1,000 mls @ 1,000 mls/hr 10/30/18 15:51 10/30/18 16:16 Ringers, Lactated IV 10/30/18 16:50 1,000 mls/hr BOLUS ONE Administration Ondansetron HCl 4 mg 10/30/18 15:52 10/30/18 16:19 Zofran IVPUSH 10/30/18 15:53 4 mg ONETIME ONE Administration - Radiology Interpretation Free Text/Narrative:: Flat and upright abdomen [id number] Abd US- Departure - Departure Time of Disposition: 17:45 Disposition: DC/Tfer to Acute Hospital 02 Condition: Fair Clinical Impression: Ischemic bowel disease, Elevated lactic acid level Abdominal pain Qualifiers: Abdominal location: generalized Qualified Code(s): R10.84 - Generalized abdominal pain Chronic renal failure Qualifiers: Chronic kidney disease stage: stage 4 (severe) Qualified Code(s): N18.4 - Chronic kidney disease, stage 4 (severe) - Discharge Information *PRESCRIPTION DRUG MONITORING PROGRAM REVIEWED*: No *COPY OF PRESCRIPTION DRUG MONITORING REPORT IN PATIENT JOSELIN: No Referrals: Walt Jenkins MD [Primary Care Provider] - Forms: ED Department Discharge - My Orders Last 24 Hours: My Active Orders 10/30/18 15:52 UA W/MICROSCOPIC [URIN] Stat 10/30/18 16:08 Abdomen Comp [US] Stat 10/30/18 16:29 Abdomen 2V AP Flat Upright [CR] Stat 10/30/18 17:30 Lactated Ringers [Ringers, Lactated] 1,000 ml IV ASDIRECTED - Assessment/Plan Last 24 Hours: My Active Orders 10/30/18 15:52 UA W/MICROSCOPIC [URIN] Stat 10/30/18 16:08 Abdomen Comp [US] Stat 10/30/18 16:29 Abdomen 2V AP Flat Upright [CR] Stat 10/30/18 17:30 Lactated Ringers [Ringers, Lactated] 1,000 ml IV ASDIRECTED
[2018-10-30] MEDS ORDERED: Lactated Ringers 1,000 ML IV SCH (17:30)
--- NOTE | 2018-10-30 18:09 | CRLUS ---
INDICATION: Abdominal pain, worse with eating TECHNIQUE: Ultrasound abdomen complete. Sonographic images of the entire abdomen were obtained using servin-scale and color Doppler. COMPARISON: None FINDINGS: Liver: Normal in size and echotexture. No masses. No intrahepatic biliary dilatation. Gallbladder: History of cholecystectomy. Common bile duct: 4 mm. Pancreas: 3.8 centimeter x 3.6 centimeter x 3.6 centimeter lobulated septated cyst involving the head of the pancreas. Spleen: Normal in size and appearance. Right kidney: 8.6 cm. Normal echotexture and cortex. Multiple renal cysts. No masses, stones, or hydronephrosis. Left kidney: 11.9 cm. Normal echotexture and cortex. No masses, stones, or hydronephrosis. Vasculature: Dilatation of the distal abdominal aorta measures 3.4 centimeter x 2.8 centimeter. IMPRESSION: History of cholecystectomy. Normal common bile duct. 3.8 centimeter x 3.6 centimeter x 3.6 centimeter lobulated cyst septated cystic lesion involving the head of the pancreas. Aneurysmal dilatation of the distal abdominal aorta measuring 3.4 centimeters x 2.8 centimeters. Dictated by Chiki Mcdonald MD @ Oct 30 2018 6:09PM Signed by Dr. Chiki Mcdonald @ Oct 30 2018 6:09PM
--- NOTE | 2018-10-30 18:20 | CRLCR ---
Indication: Abdominal pain Technique: Abdomen 2 view. Comparison: Abdomen CT November 25, 2017 Findings: Bowel: Bowel pattern is normal. Soft tissues: No sign of free air. No sign of soft tissue mass. Vascular calcifications noted. Surgical clips in the right upper quadrant. Bones: Unremarkable for age. Impression: Unremarkable abdomen. Dictated by Jessica Bansal MD @ Oct 30 2018 6:13PM Signed by Dr. Jessica Bansal @ Oct 30 2018 6:17PM
[2018-10-30 18:30] VITALS: BP 131/65
== END 2018-10-30 18:33 ==
LOC: JP.ED 15:15
DX: K55.9 Vascular disorder of intestine, unspecified (principal); I13.0 Hypertensive heart and chronic kidney disease with heart failure and stage 1 through stage 4 chronic kidney disease, or unspecified chronic kidney disease; I50.9 Heart failure, unspecified; E78.00 Pure hypercholesterolemia, unspecified; N18.4 Chronic kidney disease, stage 4 (severe); K21.9 Gastro-esophageal reflux disease without esophagitis; R74.0 Nonspecific elevation of levels of transaminase and lactic acid dehydrogenase [LDH]; Z79.899 Other long term (current) drug therapy; Z88.8 Allergy status to other drugs, medicaments and biological substances; Z99.81 Dependence on supplemental oxygen; Z87.891 Personal history of nicotine dependence
CPT/HCPCS: 36415; 74019; 76700; 80048; 80076; 83605; 83690; 85027; 86140; 96361; 96374; 96375; 99285; J1170; J2405; J7120

== ENCOUNTER 2018-11-19 12:07 | Emergency (ER) | payer MEDICARE, BC ==
[2018-11-19] MEDS ORDERED: HYDROmorphone 1 MG/ML Syringe IM ONE (12:48)
[2018-11-19 12:58] VITALS: BP 129/61
--- NOTE | 2018-11-19 13:29 | EDM.PDOC ---
ED HPI GENERAL MEDICAL PROBLEM - General Chief Complaint: Abdominal Pain Stated Complaint: SEVERE ABD PAIN Time Seen by Provider: 11/19/18 12:40 Source of Information: Reports: Patient, Family History Limitations: Reports: No Limitations - History of Present Illness INITIAL COMMENTS - FREE TEXT/NARRATIVE: 83-year-old male with chronic recurring lower abdominal pain presents with an increase amount of pain over the past several days. He had some type of an imaging study done at [facility] in [place] on Friday, results unknown. This morning the pain was intractable and debilitating so he came in to be evaluated. It is lower abdomen, nonradiating and very sharp and crampy in nature. Onset: Gradual abdominal Pain Score (Numeric/FACES): 5 - Related Data Allergies Allergy/AdvReac Type Severity Reaction Status Date / Time clopidogrel bisulfate Allergy Intermediate Rash Verified 11/19/18 12:31 [From Plavix] Home Meds: Home Meds Aspirin 325 mg PO DAILY 12/09/15 [History] Nitroglycerin [Nitrostat] 0.4 mg PO ASDIRECTED PRN 12/09/15 [History] Simvastatin 40 mg PO DAILY 12/09/15 [History] amLODIPine [Norvasc] 5 mg PO DAILY 12/09/15 [History] hydrALAZINE [Apresoline] 50 mg PO TID 12/09/15 [History] Acetaminophen/Diphenhydramine [Tylenol Pm Ex-Strength Caplet] 1 tab PO BEDTIME 11/04/16 [History] Losartan Potassium 12.56 mg PO DAILY 11/04/16 [History] Metoprolol Succinate [Toprol Xl] 100 mg PO DAILY 11/04/16 [History] Multivitamin [Multivitamins] 1 tab PO DAILY 11/04/16 [History] Cholecalciferol (Vitamin D3) [Vitamin D3] 2,000 units PO DAILY 12/18/17 [History ] Dextromethorphan/guaiFENesin [Robitussin DM] 5 ml PO Q6HR PRN 12/18/17 [History] Docusate Sodium [Colace] 50 mg PO BID 12/18/17 [History] Fluticasone Propionate [Flonase] 1 spray ANSHUL BID 12/18/17 [History] L.acidoph,Paracasei, B.lactis [Probiotic] 1 tab PO BID 04/21/18 [History] Furosemide [Lasix] 80 mg PO DAILY #30 tablet 10/24/18 [Rx] Isosorbide Mononitrate [Isosorbide Mononitrate ER] 60 mg PO DAILY #30 tab.er.24h 10/24/18 [Rx] Past Medical History HEENT History: Reports: Cataract, Impaired Vision Other HEENT History: wears glasses Cardiovascular History: Reports: Arrhythmia, CAD, Heart Failure, High Cholesterol, Hypertension, Stents Respiratory History: Reports: SOB, Other (See Below) Other Respiratory History: home o2 Gastrointestinal History: Reports: GERD Genitourinary History: Reports: Chronic Renal Insuffiency, Prostate Disorder, Other (See Below) Other Genitourinary History: kidney stent Musculoskeletal History: Reports: Back Pain, Chronic, Fracture Psychiatric History: Reports: Addiction, Anxiety Oncologic (Cancer) History: Reports: Other (See Below) Other Oncologic History: skin cancer Dermatologic History: Reports: None Other Dermatologic History: multiple cysts - Infectious Disease History Infectious Disease History: Reports: Chicken Pox - Past Surgical History HEENT Surgical History: Reports: Cataract Surgery Cardiovascular Surgical History: Reports: Carotid Endarterectomy, Carotid Stents GI Surgical History: Reports: Cholecystectomy, Colonoscopy, Other (See Below) Other GI Surgeries/Procedures: states has "twisted bowel" Male Surgical History: Reports: TURP-Transurethral Resection of Prostate Musculoskeletal Surgical History: Reports: Other (See Below) Other Musculoskeletal Surgeries/Procedures:: right lower leg fracture Dermatological Surgical History: Reports: Skin Biopsy Social & Family History - Family History Family Medical History: Noncontributory - Tobacco Use Smoking Status *Q: Never Smoker - Caffeine Use Caffeine Use: Reports: Coffee, Tea - Living Situation & Occupation Living situation: Reports: , with Family Occupation: Retired (lives with Veena in [place]. 3 Son, none live in the area.) ED ROS GENERAL - Review of Systems Review Of Systems: See Below Constitutional: Denies: Fever, Chills HEENT: Reports: No Symptoms Respiratory: Reports: Shortness of Breath, Other Cardiovascular: Denies: Chest Pain (Intermittent shortness of breath with activity) GI/Abdominal: Reports: Abdominal Pain, Vomiting (Emesis one time yesterday). Denies: Diarrhea, Decreased Appetite ED EXAM, GI/ABD - Physical Exam Exam: See Below Exam Limited By: No Limitations General Appearance: Alert, No Apparent Distress (Appears uncomfortable but not distressed), Anxious Eyes: Bilateral: Normal Appearance (No jaundice) Respiratory/Chest: No Respiratory Distress, Lungs Clear Cardiovascular: Regular Rate, Rhythm GI/Abdominal Exam: Normal Bowel Sounds, Tender (Fairly tender to palpation across the lower abdomen, especially the left lower quadrant with mild guarding) Extremities: No: Pedal Edema Neurological: Alert, Oriented Psychiatric: Normal Affect, Normal Mood Skin Exam: Warm, Dry Course - Vital Signs Last Recorded V/S: Last Vital Signs Temp 96.0 F 11/19/18 12:29 Pulse 66 11/19/18 12:29 Resp 16 11/19/18 12:29 BP 129/61 11/19/18 12:29 Pulse Ox 95 11/19/18 12:29 - Orders/Labs/Meds Orders: Active Orders 24 hr Category Date Time Status Enema [RC] ASDIRECTED Care 11/19/18 17:23 Active Labs: Laboratory Tests 11/19/18 11/19/18 11/19/18 Range/Units 12:50 12:50 12:50 WBC 8.2 (4.5-11.0) K/uL RBC 3.92 L (4.30-5.90) M/uL Hgb 9.5 L (12.0-15.0) g/dL Hct 31.5 L (40.0-54.0) % MCV 80 (80-98) fL MCH 24 L (27-31) pg MCHC 30 L (32-36) % Plt Count 231 (150-400) K/uL Neut % (Auto) 72 H (36-66) % Lymph % (Auto) 17 L (24-44) % Dent % (Auto) 10 H (2-6) % Eos % (Auto) 1 L (2-4) % Baso % (Auto) 0 (0-1) % Sodium 135 L (140-148) mmol/L Potassium 3.6 (3.6-5.2) mmol/L Chloride 100 (100-108) mmol/L Carbon Dioxide 29 (21-32) mmol/L Anion Gap 9.6 (5.0-14.0) mmol/L BUN 25 H (7-18) mg/dL Creatinine 2.5 H (0.8-1.3) mg/dL Est Cr Clr Drug Dosing 22.58 mL/min Estimated GFR (MDRD) 25 L (>60) Glucose 105 (74-106) mg/dL Lactic Acid 1.8 (0.4-2.0) mmol/L Calcium 8.8 (8.5-10.1) mg/dL C-Reactive Protein (0.0-0.3) mg/dL 11/19/18 Range/Units 12:50 WBC (4.5-11.0) K/uL RBC (4.30-5.90) M/uL Hgb (12.0-15.0) g/dL Hct (40.0-54.0) % MCV (80-98) fL MCH (27-31) pg MCHC (32-36) % Plt Count (150-400) K/uL Neut % (Auto) (36-66) % Lymph % (Auto) (24-44) % Dent % (Auto) (2-6) % Eos % (Auto) (2-4) % Baso % (Auto) (0-1) % Sodium (140-148) mmol/L Potassium (3.6-5.2) mmol/L Chloride (100-108) mmol/L Carbon Dioxide (21-32) mmol/L Anion Gap (5.0-14.0) mmol/L BUN (7-18) mg/dL Creatinine (0.8-1.3) mg/dL Est Cr Clr Drug Dosing mL/min Estimated GFR (MDRD) (>60) Glucose (74-106) mg/dL Lactic Acid (0.4-2.0) mmol/L Calcium (8.5-10.1) mg/dL C-Reactive Protein 0.96 H (0.0-0.3) mg/dL Meds: Medications Discontinued Medications Generic Name Dose Route Start Last Admin Trade Name Freq PRN Reason Stop Dose Admin Hydromorphone HCl 1 mg 11/19/18 12:48 11/19/18 12:52 Dilaudid IM 11/19/18 12:49 1 mg ONETIME ONE Administration - Re-Assessments/Exams Free Text/Narrative Re-Assessment/Exam: 11/19/18 18:41 CBC, CMP and lactic acid as well as CRP were obtained which were reassuring. CT the abdomen and pelvis showed moderate constipation. After consultation with the hospitalist service, the patient was given a fleets enema had good results and less pain. 11/19/18 18:41 Patient will be discharged and encouraged to use fleets enemas as needed for constipation and increase MiraLAX. He can return if pain recurs and is unrelenting. Departure - Departure Time of Disposition: 18:27 Disposition: Home, Self-Care 01 Condition: Good Clinical Impression: Abdominal pain Qualifiers: Abdominal location: lower abdomen, unspecified Qualified Code(s): R10.30 - Lower abdominal pain, unspecified - Discharge Information Instructions: Constipation, Adult, [id number] Referrals: Walt Jenkins MD [Primary Care Provider] - Forms: ED Department Discharge Care Plan Goals: Consider home enemas as discussed if pain recurs. An increase in your MiraLAX dose may be beneficial as well, and continue drinking sufficient water. Return anytime if worsening and pain is persistent and unresponsive to bowel movements or enemas.
--- NOTE | 2018-11-19 16:14 | CRLCT ---
INDICATION: Lower abdominal pain TECHNIQUE: CT abdomen and pelvis without contrast. COMPARISON: November 25, 2017 FINDINGS: Lower chest: Small pericardial effusion. Borderline cardiomegaly. Significant atherosclerotic disease within the distal descending thoracic aorta. Coronary artery calcifications. Small hiatal hernia. Liver: Unremarkable. Spleen: Unremarkable. Pancreas: 3.3 cm cystic lesion in the pancreatic head. This appears grossly stable within the confines of a noncontrast exam when compared to November 25, 2017. Gallbladder and bile ducts: S/p cholecystectomy. Adrenal glands: Unremarkable. Kidneys: Atrophy of the right kidney. Multiple cysts on the right kidney. GI tract: Moderate amount of feces throughout the colon. Appendix is normal. Vascular structures: Moderate atherosclerotic disease. 3.7 cm infrarenal abdominal aortic aneurysm, stable since November 25, 2017. Proximal left renal artery stent. Lymph nodes: Unremarkable. Miscellaneous: Fat containing left inguinal hernia. No free air or significant free fluid. Pelvic Organs: Enlarged prostate gland. Bones: Unremarkable for age. IMPRESSION: No acute intra-abdominal process identified. 3.3 cystic lesion in the pancreatic head. This appears stable when compared to November 25, 2017. Moderate amount of feces in the colon. Small pericardial effusion. Coronary artery disease. Small hiatal hernia. Right renal atrophy. Moderate to severe atherosclerotic disease with 3.7 cm infrarenal abdominal aortic aneurysm, stable since November 25, 2017. Proximal left renal artery stent. Fat containing left inguinal hernia. Prostate gland enlargement. Status post cholecystectomy. These findings were discussed with Dr. Brewster at 4:11pm on 11/19/2018. Please note that all CT scans at this facility use dose modulation, iterative reconstruction, and/or weight-based dosing when appropriate to reduce radiation dose to as low as reasonably achievable. Dictated by Jessica Bansal MD @ Nov 19 2018 3:41PM (Electronically Signed)
--- NOTE | 2018-11-19 18:21 | PCM.CONS ---
H&P History of Present Illness - General Date of Service: 11/19/18 Source of Information: Patient, Family, Old Records, Provider, RN Notes Reviewed - History of Present Illness Initial Comments - Free Text/Narative: Mr. Curiel is an 83-year-old gentleman who I've been asked to see in the emergency department for recommendations concerning evaluation and management of abdominal pain. He presented to the emergency department today with severe pain in his left lower quadrant of the abdomen. He reports that he is been having this pain over the last year but it's been significantly worse over the past 3 weeks. He presented for emergency department a few weeks ago with similar symptoms and was transferred to tertiary care center for further evaluation. He did have several studies there including an ultrasound looking for ischemic disease. All studies were unremarkable but he continues to experience intermittent episodes of severe left lower quadrant abdominal pain. The pain is present in the left lower quadrant and does not radiate but has been intermittent. Pain will increase and is often associated with nausea as well as vomiting after he eats. He definitely notes that the pain is improved after he has a bowel movement and is fairly good for about a day and a half before it reoccurs. He has a known dilated redundant colon. He reports that his bowel movements remain formed and relatively soft. CT scan of the abdomen and pelvis was obtained in the emergency department today and shows a moderate amount of stool within the colon but no other acute abnormalities to explain his pain. Laboratory studies were obtained and are stable from previous levels including his renal function. abdominal Pain Score (Numeric/FACES): 5 - Related Data Allergies/Adverse Reactions: Allergies Allergy/AdvReac Type Severity Reaction Status Date / Time clopidogrel bisulfate Allergy Intermediate Rash Verified 11/19/18 12:31 [From Plavix] Home Medications: Home Meds Aspirin 325 mg PO DAILY 12/09/15 [History] Nitroglycerin [Nitrostat] 0.4 mg PO ASDIRECTED PRN 12/09/15 [History] Simvastatin 40 mg PO DAILY 12/09/15 [History] amLODIPine [Norvasc] 5 mg PO DAILY 12/09/15 [History] hydrALAZINE [Apresoline] 50 mg PO TID 12/09/15 [History] Acetaminophen/Diphenhydramine [Tylenol Pm Ex-Strength Caplet] 1 tab PO BEDTIME 05/01/17 [History] Losartan Potassium 12.56 mg PO DAILY 11/04/16 [History] Metoprolol Succinate [Toprol Xl] 100 mg PO DAILY 11/04/16 [History] Multivitamin [Multivitamins] 1 tab PO DAILY 11/04/16 [History] Cholecalciferol (Vitamin D3) [Vitamin D3] 2,000 units PO DAILY 12/18/17 [History ] Dextromethorphan/guaiFENesin [Robitussin DM] 5 ml PO Q6HR PRN 12/18/17 [History] Docusate Sodium [Colace] 50 mg PO BID 12/18/17 [History] Fluticasone Propionate [Flonase] 1 spray ANSHUL BID 12/18/17 [History] L.acidoph,Paracasei, B.lactis [Probiotic] 1 tab PO BID 04/21/18 [History] Furosemide [Lasix] 80 mg PO DAILY #30 tablet 10/24/18 [Rx] Isosorbide Mononitrate [Isosorbide Mononitrate ER] 60 mg PO DAILY #30 tab.er.24h 10/24/18 [Rx] Past Medical History HEENT History: Reports: Cataract, Impaired Vision Other HEENT History: wears glasses Cardiovascular History: Reports: Arrhythmia, CAD, Heart Failure, High Cholesterol, Hypertension, Stents Respiratory History: Reports: SOB, Other (See Below) Other Respiratory History: home o2 Gastrointestinal History: Reports: GERD Genitourinary History: Reports: Chronic Renal Insuffiency, Prostate Disorder, Other (See Below) Other Genitourinary History: kidney stent Musculoskeletal History: Reports: Back Pain, Chronic, Fracture Psychiatric History: Reports: Addiction, Anxiety Oncologic (Cancer) History: Reports: Other (See Below) Other Oncologic History: skin cancer Dermatologic History: Reports: None Other Dermatologic History: multiple cysts - Infectious Disease History Infectious Disease History: Reports: Chicken Pox - Past Surgical History HEENT Surgical History: Reports: Cataract Surgery Cardiovascular Surgical History: Reports: Carotid Endarterectomy, Carotid Stents GI Surgical History: Reports: Cholecystectomy, Colonoscopy, Other (See Below) Other GI Surgeries/Procedures: states has "twisted bowel" Male Surgical History: Reports: TURP-Transurethral Resection of Prostate Musculoskeletal Surgical History: Reports: Other (See Below) Other Musculoskeletal Surgeries/Procedures:: right lower leg fracture Dermatological Surgical History: Reports: Skin Biopsy Social & Family History - Family History Family Medical History: Noncontributory - Tobacco Use Smoking Status *Q: Never Smoker - Caffeine Use Caffeine Use: Reports: Coffee, Tea - Living Situation & Occupation Living situation: Reports: , with Family Occupation: Retired (lives with Veena in [place]. 3 Son, none live in the area.) H&P Review of Systems - Review of Systems: Review Of Systems: See Below General: Reports: Weakness. Denies: Fever, Chills Pulmonary: Reports: Shortness of Breath. Denies: Wheezing, Pleuritic Chest Pain , Cough, Sputum, Hemoptysis Cardiovascular: Reports: Dyspnea on Exertion, Edema. Denies: Chest Pain, Palpitations, Orthopnea, PND, Lightheadedness Gastrointestinal: Reports: Abdominal Pain, Anorexia, Constipation, Distension, Nausea, Vomiting. Denies: Black Stool, Bloody Stool, Diarrhea, Difficulty Swallowing Genitourinary: Reports: No Symptoms Musculoskeletal: Reports: No Symptoms Exam - Exam Exam: See Below - Vital Signs Vital Signs: Last Vital Signs Temp 96.0 F 11/19/18 12:29 Pulse 66 11/19/18 12:29 Resp 16 11/19/18 12:29 BP 129/61 11/19/18 12:29 Pulse Ox 95 11/19/18 12:29 Weight: 160 lb - Exam General: Alert, Oriented, Cooperative, Moderate Distress Neck: Supple, Trachea Midline, +2 Carotid Pulse wo Bruit Lungs: Clear to Auscultation, Normal Respiratory Effort Cardiovascular: Regular Rate, Regular Rhythm, Normal S1, Normal S2, Systolic Murmur. No: Diastolic Murmur GI/Abdominal Exam: Soft, No Organomegaly, Distended, Tender. No: Guarding, Rigid, Rebound Back Exam: Normal Inspection, Full Range of Motion Extremities: Non-Tender, Pedal Edema Skin: Warm, Dry - Patient Data Lab Results Last 24 hrs: Laboratory Results - last 24 hr 11/19/18 11/19/18 11/19/18 Range/Units 12:50 12:50 12:50 WBC 8.2 (4.5-11.0) K/uL RBC 3.92 L (4.30-5.90) M/uL Hgb 9.5 L (12.0-15.0) g/dL Hct 31.5 L (40.0-54.0) % MCV 80 (80-98) fL MCH 24 L (27-31) pg MCHC 30 L (32-36) % Plt Count 231 (150-400) K/uL Neut % (Auto) 72 H (36-66) % Lymph % (Auto) 17 L (24-44) % [place] % (Auto) 10 H (2-6) % Eos % (Auto) 1 L (2-4) % Baso % (Auto) 0 (0-1) % Sodium 135 L (140-148) mmol/L Potassium 3.6 (3.6-5.2) mmol/L Chloride 100 (100-108) mmol/L Carbon Dioxide 29 (21-32) mmol/L Anion Gap 9.6 (5.0-14.0) mmol/L BUN 25 H (7-18) mg/dL Creatinine 2.5 H (0.8-1.3) mg/dL Est Cr Clr Drug Dosing 22.58 mL/min Estimated GFR (MDRD) 25 L (>60) Glucose 105 (74-106) mg/dL Lactic Acid 1.8 (0.4-2.0) mmol/L Calcium 8.8 (8.5-10.1) mg/dL C-Reactive Protein (0.0-0.3) mg/dL 11/19/18 Range/Units 12:50 WBC (4.5-11.0) K/uL RBC (4.30-5.90) M/uL Hgb (12.0-15.0) g/dL Hct (40.0-54.0) % MCV (80-98) fL MCH (27-31) pg MCHC (32-36) % Plt Count (150-400) K/uL Neut % (Auto) (36-66) % Lymph % (Auto) (24-44) % [place] % (Auto) (2-6) % Eos % (Auto) (2-4) % Baso % (Auto) (0-1) % Sodium (140-148) mmol/L Potassium (3.6-5.2) mmol/L Chloride (100-108) mmol/L Carbon Dioxide (21-32) mmol/L Anion Gap (5.0-14.0) mmol/L BUN (7-18) mg/dL Creatinine (0.8-1.3) mg/dL Est Cr Clr Drug Dosing mL/min Estimated GFR (MDRD) (>60) Glucose (74-106) mg/dL Lactic Acid (0.4-2.0) mmol/L Calcium (8.5-10.1) mg/dL C-Reactive Protein 0.96 H (0.0-0.3) mg/dL Result Diagrams: 11/19/18 12:50 11/19/18 12:50 Consult PN Assessment/Plan Procedures: Procedures AIRWAY INHALATION TREATMENT (07/23/18) ASSAY OF LACTIC ACID (10/30/18) ASSAY OF LIPASE (10/30/18) ASSAY OF MAGNESIUM (10/21/18) ASSAY OF NATRIURETIC PEPTIDE (10/21/18) ASSAY OF TROPONIN QUANT (10/21/18) C-REACTIVE PROTEIN (10/30/18) CARDIOVASCULAR STRESS TEST (11/06/16) CARDIOVASCULAR STRESS TEST (11/06/16) CATARACT SURG W/IOL 1 STAGE (01/01/18) CHEST X-RAY 2VW FRONTAL&LATL (11/04/16) COMPLETE CBC AUTOMATED (10/30/18) COMPLETE CBC W/AUTO DIFF WBC (10/21/18) COMPREHEN METABOLIC PANEL (07/23/18) CREATINE MB FRACTION (11/04/16) CT ABD & PELVIS W/O CONTRAST (11/25/17) ELECTROCARDIOGRAM REPORT (04/21/18) ELECTROCARDIOGRAM TRACING (10/21/18) EMERGENCY DEPT VISIT (10/30/18) EMERGENCY DEPT VISIT (06/12/18) EMERGENCY DEPT VISIT (06/11/18) EMERGENCY DEPT VISIT (06/11/18) EMERGENCY DEPT VISIT (05/25/18) EMERGENCY DEPT VISIT (04/21/18) EMERGENCY DEPT VISIT (11/04/16) EMERGENCY DEPT VISIT (11/04/16) EMERGENCY DEPT VISIT (12/09/15) EMERGENCY DEPT VISIT (05/31/14) EXTRACRANIAL BILAT STUDY (07/23/16) EXTREMITY STUDY (10/21/18) FIBRIN DEGRADATION QUANT (10/21/18) HEPATIC FUNCTION PANEL (10/30/18) HT MUSCLE IMAGE SPECT MULT (11/06/16) HYDRATE IV INFUSION ADD-ON (10/30/18) MANUAL THERAPY 1/> REGIONS (03/14/16) MEASURE BLOOD OXYGEN LEVEL (10/21/18) METABOLIC PANEL TOTAL CA (10/30/18) MRI ABDOMEN W/O DYE (03/24/17) OCCULT BLD FECES 1-3 TESTS (10/21/18) PROTHROMBIN TIME (10/21/18) PT EVALUATION (03/05/16) ROUTINE VENIPUNCTURE (10/30/18) THER/PROPH/DIAG INJ IV PUSH (10/30/18) THER/PROPH/DIAG INJ SC/IM (10/21/18) THERAPEUTIC EXERCISES (03/14/16) THROMBOPLASTIN TIME PARTIAL (10/21/18) TTE W/DOPPLER COMPLETE (10/21/18) TX/PRO/DX INJ NEW DRUG ADDON (10/30/18) URINALYSIS AUTO W/SCOPE (04/21/18) URINE BACTERIA CULTURE (05/31/14) US ABDL AORTA SCREEN AAA (07/23/18) US EXAM ABDO [place] (03/15/16) US EXAM ABDOM COMPLETE (10/30/18) X-RAY EXAM ABDOMEN 2 VIEWS (10/30/18) X-RAY EXAM CHEST 1 VIEW (04/21/18) X-RAY EXAM CHEST 2 VIEWS (10/21/18) X-RAY EXAM OF ANKLE (12/09/15) (1) LLQ abdominal pain SNOMED Code(s): 975787629 Code(s): R10.32 - LEFT LOWER QUADRANT PAIN Current Visit: Yes (2) Constipation by delayed colonic transit SNOMED Code(s): 22117132 Code(s): K59.01 - SLOW TRANSIT CONSTIPATION Current Visit: Yes (3) CAD (coronary artery disease) SNOMED Code(s): 83292288 Code(s): I25.10 - ATHSCL HEART DISEASE OF [place] CORONARY ARTERY W/O ANG PCTRS Current Visit: No (4) CKD (chronic kidney disease) stage 4, GFR 15-29 ml/min SNOMED Code(s): 981681682 Code(s): N18.4 - CHRONIC KIDNEY DISEASE, STAGE 4 (SEVERE) Priority: Medium Current Visit: No (5) Diastolic congestive heart failure, NYHA class 3 SNOMED Code(s): 570309262, 563361786, 850265664 Code(s): I50.30 - UNSPECIFIED DIASTOLIC (CONGESTIVE) HEART FAILURE Current Visit: No Qualifiers: Congestive heart failure chronicity: acute on chronic Qualified Code(s): I50.33 - Acute on chronic diastolic (congestive) heart failure Problem List Initiated/Reviewed/Updated: Yes My Orders Last 24 Hours: My Active Orders 11/19/18 17:23 Enema [RC] ASDIRECTED Plan: ASSESSMENT AND RECOMMENDATIONS LEFT LOWER QUADRANT ABDOMINAL PAIN SECONDARY TO CONSTIPATION-ongoing left lower quadrant abdominal pain over the past few weeks, status post hospitalization at a tertiary care center with extensive evaluation. No specific etiology identified without evaluation. CT scan of the abdomen obtained today shows no acute abnormalities but does document moderate stool within a dilated redundant colon. Laboratory studies including renal function are stable from recent evaluations. He has been given a tap water enema in the emergency department resulting in a large bowel movement and resolution of his pain. -Discharge to home -Increase MiraLAX to 17 g 3 times daily -May use intermittent tapwater enemas at home for management of recurrent pain and constipation Requesting Provider: BIPIN Date Consult Requested: 11/19/18 Reason for Consult: Left lower quadrant abdominal pain Patient History Reviewed: Yes Notified Requestor: Yes
== END 2018-11-19 18:27 | disposition home or self-care (01) ==
LOC: JP.ED 12:07
DX: R10.30 Lower abdominal pain, unspecified (principal); J44.9 Chronic obstructive pulmonary disease, unspecified; I25.10 Atherosclerotic heart disease of native coronary artery without angina pectoris; E78.00 Pure hypercholesterolemia, unspecified; I10 Essential (primary) hypertension; Z95.5 Presence of coronary angioplasty implant and graft; Z88.8 Allergy status to other drugs, medicaments and biological substances; Z79.82 Long term (current) use of aspirin; Z79.899 Other long term (current) drug therapy
CPT/HCPCS: 36415; 74176; 80048; 83605; 85025; 86140; 96372; 99284; J1170

== ENCOUNTER 2020-02-17 07:44 | Emergency (ER) | payer MEDICARE, BC, OTHER ==
[2020-02-17 08:03] VITALS: BP 144/76; PULSE 71
--- NOTE | 2020-02-17 08:45 | EDM.PDOC ---
ED HPI GENERAL MEDICAL PROBLEM - General Chief Complaint: Respiratory Problem Stated Complaint: SHORT OF BREATH,RECENT FALL Time Seen by Provider: 02/17/20 08:17 Source of Information: Reports: Patient, Family History Limitations: Reports: No Limitations - History of Present Illness INITIAL COMMENTS - FREE TEXT/NARRATIVE: 84-year-old male with COPD, uses oxygen at night but usually has more energy and participates in cardiac rehab twice weekly has become much more weak in the past 7 to 10 days, has fallen twice and struck his anterior chest once on the floor and once on the wall over the past 7 days. He was seen in the clinic on Friday, a chest x-ray was reassuring and he was told he has a chest wall injury. He is concerned that 4 more days have gone by and he still has significant discomfort with breathing, shortness of breath, and profound weakness. He is concerned of COVID or some other type of serious medical condition. When he breathes he feels a "oozing feeling" in the left chest, no significant cough or fever. Denies peripheral edema. Onset: Unknown/Unsure (Started gradually sometime over the past 2 weeks) Location: Reports: Chest (Most of his symptoms are in the left chest especially anteriorly) Worsens with: Reports: Breathing, Other (Any activity causes shortness of breath and weakness), Movement Associated Symptoms: Reports: Chest Pain, Malaise, Shortness of Breath, Weakness. Denies: Cough, Fever/Chills, Headaches, Loss of Appetite, Nausea /Vomiting Left Chest Pain Score (Numeric/FACES): 6 - Related Data Allergies Allergy/AdvReac Type Severity Reaction Status Date / Time clopidogrel bisulfate Allergy Intermediate Rash Verified 02/17/20 07:50 [From Plavix] lisinopril Allergy Cough Verified 02/17/20 07:50 contrast dye Allergy Other Uncoded 02/17/20 07:50 Home Meds: Home Meds Aspirin 325 mg PO DAILY 12/09/15 [History] Nitroglycerin [Nitrostat] 0.4 mg PO ASDIRECTED PRN 12/09/15 [History] Simvastatin 40 mg PO DAILY 12/09/15 [History] amLODIPine [Norvasc] 5 mg PO DAILY 12/09/15 [History] hydrALAZINE [Apresoline] 50 mg PO TID 12/09/15 [History] Acetaminophen/Diphenhydramine [Tylenol Pm Ex-Strength Caplet] 1 tab PO BEDTIME 11/04/16 [History] Metoprolol Succinate [Toprol Xl] 100 mg PO DAILY 11/04/16 [History] Multivitamin [Multivitamins] 1 tab PO DAILY 11/04/16 [History] Cholecalciferol (Vitamin D3) [Vitamin D3] 5,000 units PO DAILY 12/18/17 [History] Dextromethorphan/guaiFENesin [Robitussin DM] 5 ml PO Q6HR PRN 12/18/17 [History] Fluticasone Propionate [Flonase] 1 spray ANSHUL BID 12/18/17 [History] Furosemide [Lasix] 80 mg PO DAILY #30 tablet 10/24/18 [Rx] Isosorbide Mononitrate [Isosorbide Mononitrate ER] 60 mg PO DAILY #30 tab.er.24h 10/24/18 [Rx] Albuterol Sulfate [Proair Hfa] 1 - 2 puff IH Q4H PRN 06/09/19 [History] Albuterol/Ipratropium [DuoNeb 3.0-0.5 MG/3 ML] 3 ml INH Q4H PRN 06/09/19 [History] Budesonide/Formoterol [Symbicort 80-4.5 MCG] 1 puff INH BID 06/09/19 [History] Melatonin 5 mg PO BEDTIME 06/09/19 [History] Sennosides/Docusate Sodium [Senokot-S Tablet] 2 each PO BID PRN 06/09/19 [History] Umeclidinium Brm/Vilanterol Tr [Anoro Ellipta 62.5-25 MCG] 1 each IH DAILY 06/09/19 [History] polyethylene glycoL 3350 [MiraLAX] 17 gm PO DAILY 06/09/19 [History] Azithromycin [Zithromax] 250 mg PO DAILY 5 Days #6 tab 02/17/20 [Rx] Past Medical History HEENT History: Reports: Cataract, Impaired Vision Other HEENT History: wears glasses Cardiovascular History: Reports: Arrhythmia, CAD, Heart Failure, High Cholesterol, Hypertension, Stents Respiratory History: Reports: SOB, Other (See Below) Other Respiratory History: home o2 Gastrointestinal History: Reports: GERD Genitourinary History: Reports: Chronic Renal Insuffiency, Prostate Disorder, Other (See Below) Other Genitourinary History: kidney stent Musculoskeletal History: Reports: Back Pain, Chronic, Fracture Psychiatric History: Reports: Addiction, Anxiety Endocrine/Metabolic History: Reports: Obesity/BMI 30+ Oncologic (Cancer) History: Reports: Other (See Below) Other Oncologic History: skin cancer Dermatologic History: Reports: None Other Dermatologic History: multiple cysts - Infectious Disease History Infectious Disease History: Reports: Chicken Pox, Measles, Mumps - Past Surgical History HEENT Surgical History: Reports: Cataract Surgery Cardiovascular Surgical History: Reports: Carotid Endarterectomy, Carotid Stents GI Surgical History: Reports: Cholecystectomy, Colonoscopy, Other (See Below) Other GI Surgeries/Procedures: states has "twisted bowel" Male Surgical History: Reports: TURP-Transurethral Resection of Prostate Musculoskeletal Surgical History: Reports: Other (See Below) Other Musculoskeletal Surgeries/Procedures:: right lower leg fracture Dermatological Surgical History: Reports: Skin Biopsy Social & Family History - Family History Family Medical History: Noncontributory - Tobacco Use Smoking Status *Q: Former Smoker Years of Tobacco use: 40 Packs/Tins Daily: 1 Used Tobacco, but Quit: Yes Month/Year Tobacco Last Used: 20 years ago Second Hand Smoke Exposure: No - Caffeine Use Caffeine Use: Reports: Coffee, Soda, Tea - Recreational Drug Use Recreational Drug Use: No - Living Situation & Occupation Living situation: Reports: , with Family Occupation: Retired (lives with Veena in [place]. 3 Son, none live in the area.) ED ROS GENERAL - Review of Systems Review Of Systems: See Below Constitutional: Reports: Malaise. Denies: Fever, Chills Respiratory: Reports: Shortness of Breath, Other (Left anterior chest wall discomfort). Denies: Cough Cardiovascular: Reports: Other (Chronic frequent PVCs and bradycardia) GI/Abdominal: Reports: No Symptoms Musculoskeletal: Reports: Back Pain (Chronic back and hip pain, currently being evaluated for epidural treatment) Neurological: Reports: Weakness, Other (2 falls in the past week). Denies: Confusion, Headache Psychiatric: Reports: No Symptoms Hematologic/Lymphatic: Reports: Other (Denies any recent bleeding or anemia but his last hemoglobin done here in the emergency room a year ago was 9.5) ED EXAM, GENERAL - Physical Exam Exam: See Below Exam Limited By: No Limitations General Appearance: Alert, No Apparent Distress, Other (Appears tired but not distressed, on arrival was tachypneic but now comfortable) Throat/Mouth: Normal Inspection Head: Atraumatic Respiratory/Chest: No Respiratory Distress, Rales (Basilar rales are heard posteriorly and are symmetric.), Other (Definite left anterior chest tenderness to palpation along the lateral costochondral line, no bruising or deformity. No crepitus.) GI/Abdominal: Normal Bowel Sounds, Soft, Non-Tender Extremities: Normal Inspection. No: Pedal Edema, Slow Capillary Refill, Pallor Neurological: Alert, Oriented, No Motor/Sensory Deficits Psychiatric: Normal Affect, Normal Mood Skin Exam: Warm, Dry Course - Vital Signs Last Recorded V/S: Last Vital Signs Temp 97.9 F 02/17/20 08:18 Pulse 71 02/17/20 08:18 Resp 24 H 02/17/20 08:18 BP 144/76 H 02/17/20 08:18 Pulse Ox 93 L 02/17/20 08:18 - Orders/Labs/Meds Orders: Active Orders 24 hr Category Date Time Status CORONAVIRUS COVID-19, RANDY Stat Lab 02/17/20 11:12 Received Labs: Laboratory Tests 02/17/20 02/17/20 Range/Units 08:48 08:48 WBC 8.8 (4.5-11.0) K/uL RBC 4.04 L (4.30-5.90) M/uL Hgb 11.8 L D (12.0-15.0) g/dL Hct 37.3 L (40.0-54.0) % MCV 92 (80-98) fL MCH 29 (27-31) pg MCHC 32 (32-36) % Plt Count 183 (150-400) K/uL Neut % (Auto) 81 H (36-66) % Lymph % (Auto) 10 L (24-44) % [place] % (Auto) 8 H (2-6) % Eos % (Auto) 1 L (2-4) % Baso % (Auto) 0 (0-1) % Sodium 137 L (140-148) mmol/L Potassium 4.5 (3.6-5.2) mmol/L Chloride 105 (100-108) mmol/L Carbon Dioxide 25 (21-32) mmol/L Anion Gap 11.5 (5.0-14.0) mmol/L BUN 33 H (7-18) mg/dL Creatinine 3.1 H (0.8-1.3) mg/dL Est Cr Clr Drug Dosing 17.99 mL/min Estimated GFR (MDRD) 19 L (>60) Glucose 149 H (74-106) mg/dL Calcium 8.6 (8.5-10.1) mg/dL Total Bilirubin 0.9 D (0.2-1.0) mg/dL AST 16 (15-37) U/L ALT 17 (12-78) U/L Alkaline Phosphatase 73 (46-116) U/L Total Protein 6.2 L (6.4-8.2) g/dL Albumin 2.8 L (3.4-5.0) g/dL Globulin 3.4 (2.3-3.5) g/dL Albumin/Globulin Ratio 0.8 L (1.2-2.2) - Re-Assessments/Exams Free Text/Narrative Re-Assessment/Exam: 02/17/20 08:46 At rest the patient's O2 saturations improved to the low 90s without oxygen. CBC and CMP were ordered and a CT of the chest will be done to observe for subtle traumatic findings such as linear rib fractures or small pneumothorax 02/17/20 09:59 Patient remained stable, fatigued but in no distress while in the emergency room. Hemoglobin returned 11.8 which is a significant improvement from his level last year. Kidney function is poor but stable, GFR is 19 and creatinine is 3.1. CT of the chest show small bilateral effusions and possible basilar pneumonias. White count is normal. A COVID test was obtained. Patient will be placed on a course of Zithromax and recheck next week if not improving satisfactorily. Departure - Departure Time of Disposition: 11:32 Disposition: Home, Self-Care 01 Clinical Impression: Weakness, Shortness of breath Pneumonia Qualifiers: Pneumonia type: due to unspecified organism Laterality: bilateral Lung location: lower lobe of lung Qualified Code(s): J18.9 - Pneumonia, unspecified organism - Discharge Information Prescriptions: Azithromycin [Zithromax] 250 mg PO DAILY 5 Days #6 tab Instructions: COVID-19, Weakness, [id number], COVID-19: How to Protect Yourself and Others - [facility] Referrals: Pat Johnson PA-C [Primary Care Provider] - Forms: ED Department Discharge Care Plan Goals: Continue your current medications, take antibiotic as prescribed through the weekend and recheck next week if not improving satisfactorily. Return sooner if worsening such as increasing shortness of breath or fever. Sepsis Event Note (ED) - Evaluation Sepsis Screening Result: No Definite Risk - Focused Exam Vital Signs: Vital Signs Temp Pulse Resp BP Pulse Ox 02/17/20 08:18 97.9 F 71 24 H 144/76 H 93 L 02/17/20 08:03 93 L 02/17/20 08:02 97.9 F 71 26 H 144/76 H 88 L - My Orders Last 24 Hours: My Active Orders 02/17/20 11:12 CORONAVIRUS COVID-19, RANDY Stat - Assessment/Plan Last 24 Hours: My Active Orders 02/17/20 11:12 CORONAVIRUS COVID-19, RANDY Stat
--- NOTE | 2020-02-17 09:35 | CT ---
Chest wo Cont CLINICAL HISTORY: Chest injury, SOB TECHNIQUE: Transverse scans were obtained from the thoracic inlet to the lung bases without contrast. Auto dosage reduction in intervertebral reconstruction techniques were employed COMPARISONS: Plain image 2019 FINDINGS: Patient is a small to moderate right pleural effusion and a small left effusion. There is bilateral lower lobe airspace disease. There is a 9 x 11 mm pulmonary nodule in the lateral left upper lobe. There is an 8 x 12 mm noncalcified nodule in the right upper lobe there is a 9 mm nonsolid nodule in the posterior right upper lobe. There is a 4 mm noncalcified nodule in the right middle lobe The mediastinum contains multiple varying sized lymph nodes a periaortic lymph node measures 1.3 x 1.6 cm. There is a pretracheal lymph node measuring 1.9 x 1.1 x 2.0 cm. There are smaller lymph nodes in the aortopulmonic window. There is also soft tissue fullness in the subcarinal region which may be some matted lymphadenopathy. There is moderate atheromatous change in the aorta with the ectasia of the descending aorta. Maximum transverse diameter in the mid descending aorta is 3.5 cm. There is a small hiatal hernia. Skin incision to the upper abdomen show no mass or adenopathy. There is moderate atrophy of the right the kidney. This is likely due to chronic renal artery stenosis. IMPRESSION: No fracture is identified Small to moderate right effusion and small left pleural effusion Bilateral lower lobe airspace disease may represent bilateral pneumonia Multiple pulmonary nodules described above Mediastinal lymphadenopathy Advanced atherosclerotic changes in the aorta Moderate atrophy right kidney likely vascular in nature
== END 2020-02-17 11:00 | disposition home or self-care (01) ==
LOC: JP.ED 07:44
DX: J18.9 Pneumonia, unspecified organism (principal); I13.0 Hypertensive heart and chronic kidney disease with heart failure and stage 1 through stage 4 chronic kidney disease, or unspecified chronic kidney disease; I50.9 Heart failure, unspecified; N18.9 Chronic kidney disease, unspecified; E78.00 Pure hypercholesterolemia, unspecified; I25.10 Atherosclerotic heart disease of native coronary artery without angina pectoris; K21.9 Gastro-esophageal reflux disease without esophagitis; E66.9 Obesity, unspecified; Z68.25 Body mass index [BMI] 25.0-25.9, adult; Z79.82 Long term (current) use of aspirin; Z79.899 Other long term (current) drug therapy; Z79.2 Long term (current) use of antibiotics; Z79.01 Long term (current) use of anticoagulants; Z88.8 Allergy status to other drugs, medicaments and biological substances; Z91.041 Radiographic dye allergy status; Z90.89 Acquired absence of other organs; Z20.828 Contact with and (suspected) exposure to other viral communicable diseases; Z87.891 Personal history of nicotine dependence
CPT/HCPCS: 36415; 71250; 80053; 85025; 99284; 99285; U0002

== ENCOUNTER 2020-02-21 13:03 | Inpatient (IN) | payer MEDICARE, BC ==
--- NOTE | 2020-02-21 13:43 | EDM.PDOC ---
ED HPI GENERAL MEDICAL PROBLEM - General Chief Complaint: Respiratory Problem Stated Complaint: SHORTNESS OF BREATH Time Seen by Provider: 02/21/20 13:40 Source of Information: Reports: Patient, Old Records, RN History Limitations: Reports: Other (poor hearing, poor historian) - History of Present Illness INITIAL COMMENTS - FREE TEXT/NARRATIVE: 84 yo male was seen here 4 d ago with a similar complaint of ANDERSEN. He was worked up and not much was found and he was placed on a Z-pack. Today with only 1 pill left and not feeling any better(didn't understand that this med works for 10 days) he called the clinic and was told to come back to the ER. He denies fever, cough, orthopnea, chest pain, or a hx of valvular heart dz. He is followed by cardiology. He has not had calf pain or LE edema. Last had an ECHO in 10/23 that showed a normal EF and minimal valvular dz. His Pro-BNP was elevated higher than in the past on his last visit here 4 d ago. Onset: Gradual Duration: Week(s): (approximately), Getting Worse (not sure, possibly slightly worse.) Location: Reports: Chest Quality: Reports: Other (no pain) Severity: Mild Improves with: Reports: Rest Worsens with: Reports: Other (exertion) Context: Reports: Other (See HPI) Associated Symptoms: Reports: Shortness of Breath. 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 (see below) (Z-pack) denies Pain Score (Numeric/FACES): 0 - Related Data Allergies Allergy/AdvReac Type Severity Reaction Status Date / Time clopidogrel bisulfate Allergy Intermediate Rash Verified 02/21/20 13:12 [From Plavix] lisinopril Allergy Cough Verified 02/21/20 13:12 contrast dye Allergy Other Uncoded 02/21/20 13:12 Home Meds: Home Meds Aspirin 325 mg PO DAILY 12/09/15 [History] Nitroglycerin [Nitrostat] 0.4 mg PO ASDIRECTED PRN 12/09/15 [History] Simvastatin 40 mg PO DAILY 12/09/15 [History] amLODIPine [Norvasc] 5 mg PO DAILY 12/09/15 [History] hydrALAZINE [Apresoline] 50 mg PO TID 12/09/15 [History] Acetaminophen/Diphenhydramine [Tylenol Pm Ex-Strength Caplet] 1 tab PO BEDTIME 11/04/16 [History] Metoprolol Succinate [Toprol Xl] 100 mg PO DAILY 11/04/16 [History] Multivitamin [Multivitamins] 1 tab PO DAILY 11/04/16 [History] Cholecalciferol (Vitamin D3) [Vitamin D3] 5,000 units PO DAILY 12/18/17 [History] Dextromethorphan/guaiFENesin [Robitussin DM] 5 ml PO Q6HR PRN 12/18/17 [History] Fluticasone Propionate [Flonase] 1 spray ANSHUL BID 12/18/17 [History] Furosemide [Lasix] 80 mg PO DAILY #30 tablet 10/24/18 [Rx] Isosorbide Mononitrate [Isosorbide Mononitrate ER] 60 mg PO DAILY #30 tab.er.24h 10/24/18 [Rx] Albuterol Sulfate [Proair Hfa] 1 - 2 puff IH Q4H PRN 06/09/19 [History] Albuterol/Ipratropium [DuoNeb 3.0-0.5 MG/3 ML] 3 ml INH Q4H PRN 06/09/19 [History] Budesonide/Formoterol [Symbicort 80-4.5 MCG] 1 puff INH BID 06/09/19 [History] Melatonin 5 mg PO BEDTIME 06/09/19 [History] Sennosides/Docusate Sodium [Senokot-S Tablet] 2 each PO BID PRN 06/09/19 [History] Umeclidinium Brm/Vilanterol Tr [Anoro Ellipta 62.5-25 MCG] 1 each IH DAILY 06/09/19 [History] polyethylene glycoL 3350 [MiraLAX] 17 gm PO DAILY 06/09/19 [History] Azithromycin [Zithromax] 250 mg PO DAILY 5 Days #6 tab 02/17/20 [Rx] Past Medical History HEENT History: Reports: Cataract, Impaired Vision Other HEENT History: wears glasses Cardiovascular History: Reports: Arrhythmia, CAD, Heart Failure, High Cholesterol, Hypertension, Stents Respiratory History: Reports: SOB, Other (See Below) Other Respiratory History: home o2 Gastrointestinal History: Reports: GERD Genitourinary History: Reports: Chronic Renal Insuffiency, Prostate Disorder, Other (See Below) Other Genitourinary History: kidney stent Musculoskeletal History: Reports: Back Pain, Chronic, Fracture Psychiatric History: Reports: Addiction, Anxiety Endocrine/Metabolic History: Reports: Obesity/BMI 30+ Oncologic (Cancer) History: Reports: Other (See Below) Other Oncologic History: skin cancer Dermatologic History: Reports: None Other Dermatologic History: multiple cysts - Infectious Disease History Infectious Disease History: Reports: Chicken Pox - Past Surgical History HEENT Surgical History: Reports: Cataract Surgery Cardiovascular Surgical History: Reports: Carotid Endarterectomy, Carotid Stents GI Surgical History: Reports: Cholecystectomy, Colonoscopy, Other (See Below) Other GI Surgeries/Procedures: states has "twisted bowel" Male Surgical History: Reports: TURP-Transurethral Resection of Prostate Musculoskeletal Surgical History: Reports: Other (See Below) Other Musculoskeletal Surgeries/Procedures:: right lower leg fracture Dermatological Surgical History: Reports: Skin Biopsy Social & Family History - Family History Family Medical History: Noncontributory - Tobacco Use Smoking Status *Q: Former Smoker Years of Tobacco use: 40 Packs/Tins Daily: 1 Used Tobacco, but Quit: Yes Month/Year Tobacco Last Used: Quit 20 years ago - Caffeine Use Caffeine Use: Reports: Coffee, Soda, Tea - Recreational Drug Use Recreational Drug Use: No - Living Situation & Occupation Living situation: Reports: , with Family Occupation: Retired (lives with Veena in [place]. 3 Son, none live in the area.) ED ROS GENERAL - Review of Systems Review Of Systems: See Below Constitutional: Reports: No Symptoms HEENT: Reports: No Symptoms Respiratory: Reports: Shortness of Breath (mainly with exertion). Denies: Wheezing, Pleuritic Chest Pain, Cough, Sputum, Hemoptysis Cardiovascular: Reports: Other (patient perceived chronic bradycardia(actually a mostly bigeminal rhythm)) Endocrine: Reports: No Symptoms GI/Abdominal: Reports: No Symptoms : Reports: No Symptoms Musculoskeletal: Reports: No Symptoms Skin: Reports: No Symptoms Neurological: Reports: No Symptoms Psychiatric: Reports: No Symptoms ED EXAM, GENERAL - Physical Exam Exam: See Below Exam Limited By: No Limitations General Appearance: Alert, WD/WN, No Apparent Distress Eye Exam: Bilateral Eye: Normal Inspection Ears: Normal External Exam, Normal Canal, Hearing Loss Ear Exam: Bilateral Ear: Auricle Normal, Canal Normal Nose: Normal Inspection, No Blood Throat/Mouth: Normal Inspection, Normal Lips, Normal Oropharynx, Normal Voice, No Airway Compromise Head: Atraumatic, Normocephalic Neck: Normal Inspection Respiratory/Chest: No Respiratory Distress, No Accessory Muscle Use, Chest Non- Tender, Rales (? at both bases). No: Rhonchi, Wheezing, Retractions Cardiovascular: No Edema, Extra Beats GI/Abdominal: Normal Bowel Sounds, Soft, Non-Tender, No Distention. No: Distended Back Exam: Normal Inspection Extremities: Normal Inspection, Normal Range of Motion, Non-Tender, No Pedal Edema. No: Pedal Edema Neurological: Alert, Oriented, CN II-XII Intact, Normal Cognition, No Motor/Sensory Deficits Psychiatric: Normal Affect, Normal Mood Skin Exam: Warm, Dry, Intact, Normal Color, No Rash Course - Vital Signs Text/Narrative:: Dr. Pride called @ 1435h Last Recorded V/S: Last Vital Signs Temp 36.5 C 02/21/20 13:26 Pulse 61 02/21/20 13:26 Resp 14 02/21/20 13:26 BP 107/73 02/21/20 13:26 Pulse Ox 93 L 02/21/20 13:26 - Orders/Labs/Meds Orders: Active Orders 24 hr Category Date Time Status Chest 2V [CR] Stat Exams 02/21/20 13:37 Taken Sodium Chloride 0.9% [Saline Flush] Med 02/21/20 14:01 Active 10 ml FLUSH ASDIRECTED PRN Saline Lock Insert [OM.PC] Routine Oth 02/21/20 14:01 Ordered Medication Orders Sodium Chloride (Saline Flush) 10 ml FLUSH ASDIRECTED PRN PRN Reason: Keep Vein Open Last Admin: 02/21/20 14:16 Dose: 10 ml Documented by: GUME Labs: Laboratory Tests 02/21/20 02/21/20 02/21/20 Range/Units 13:45 13:45 13:45 Hgb 11.1 L (12.0-15.0) g/dL D-Dimer, Quantitative 1850 H (0.0-400.0) ng/mL Sodium (140-148) mmol/L Potassium (3.6-5.2) mmol/L Chloride (100-108) mmol/L Carbon Dioxide (21-32) mmol/L Anion Gap (5.0-14.0) mmol/L BUN (7-18) mg/dL Creatinine (0.8-1.3) mg/dL Est Cr Clr Drug Dosing mL/min Estimated GFR (MDRD) (>60) Glucose (74-106) mg/dL Calcium (8.5-10.1) mg/dL NT-Pro-B Natriuret Pep 07891 H (5-450) pg/mL 02/21/20 Range/Units 13:45 Hgb (12.0-15.0) g/dL D-Dimer, Quantitative (0.0-400.0) ng/mL Sodium 139 L (140-148) mmol/L Potassium 4.6 (3.6-5.2) mmol/L Chloride 106 (100-108) mmol/L Carbon Dioxide 24 (21-32) mmol/L Anion Gap 13.6 (5.0-14.0) mmol/L BUN 34 H (7-18) mg/dL Creatinine 3.0 H (0.8-1.3) mg/dL Est Cr Clr Drug Dosing 18.59 mL/min Estimated GFR (MDRD) 20 L (>60) Glucose 103 (74-106) mg/dL Calcium 8.5 (8.5-10.1) mg/dL NT-Pro-B Natriuret Pep (5-450) pg/mL Meds: Medications Generic Name Dose Route Start Last Admin Trade Name Freq PRN Reason Stop Dose Admin Sodium Chloride 10 ml 02/21/20 14:01 02/21/20 14:16 Saline Flush FLUSH 10 ml ASDIRECTED PRN Administration Keep Vein Open - Radiology Interpretation Free Text/Narrative:: CXR- Departure - Departure Time of Disposition: 15:00 Disposition: Admitted As Inpatient 65 Condition: Fair Clinical Impression: Elevated d-dimer, Hypoxia CHF (congestive heart failure) Qualifiers: Heart failure type: diastolic Heart failure chronicity: acute on chronic Qualified Code(s): I50.33 - Acute on chronic diastolic (congestive) heart failure CRF (chronic renal failure) Qualifiers: Chronic kidney disease stage: stage 4 (severe) Qualified Code(s): N18.4 - Chronic kidney disease, stage 4 (severe) - Discharge Information *PRESCRIPTION DRUG MONITORING PROGRAM REVIEWED*: Not Applicable *COPY OF PRESCRIPTION DRUG MONITORING REPORT IN PATIENT JOSELIN: Not Applicable Referrals: Pat Johnson PA-C [Primary Care Provider] - Forms: ED Department Discharge Sepsis Event Note (ED) - Evaluation Sepsis Screening Result: No Definite Risk - Focused Exam Vital Signs: Vital Signs Temp Pulse Resp BP Pulse Ox 02/21/20 13:26 36.5 C 61 14 107/73 93 L 02/21/20 13:21 36.5 C 61 14 107/73 93 L - My Orders Last 24 Hours: My Active Orders 02/21/20 13:37 Chest 2V [CR] Stat 02/21/20 14:01 Sodium Chloride 0.9% [Saline Flush] 10 ml FLUSH ASDIRECTED PRN Saline Lock Insert [OM.PC] Routine - Assessment/Plan Last 24 Hours: My Active Orders 02/21/20 13:37 Chest 2V [CR] Stat 02/21/20 14:01 Sodium Chloride 0.9% [Saline Flush] 10 ml FLUSH ASDIRECTED PRN Saline Lock Insert [OM.PC] Routine
[2020-02-21] MEDS: Sodium Chloride 0.9% 10 ML Syringe FLUSH PRN ×2 (14:16→14:48)
[2020-02-21] MEDS ORDERED: Furosemide 40 MG/4 ML VIAL IVPUSH ONE (14:40)
--- NOTE | 2020-02-21 14:43 | CR ---
CHEST: 2 view CLINICAL HISTORY:SOB with exertion COMPARISON:2019 FINDINGS: Heart is moderately enlarged. Pulmonary vascularity is cephalized. There is diffuse interstitial infiltrate. There are small bilateral pleural effusions. Lungs are generally hyperaerated. There are atherosclerotic changes in the aorta. Impression: Cardiomegaly with vascular cephalization and interstitial infiltrate and effusions is most likely CHF superimposed over COPD.
--- NOTE | 2020-02-21 15:42 | PCM.HP.2 ---
H&P History of Present Illness - General Date of Service: 02/21/20 Admit Problem/Dx: Admission Diagnosis/Problem Admission Diagnosis/Problem Congestive heart failure Source of Information: Patient, Family, Old Records, Provider, RN Notes Reviewed History Limitations: Reports: No Limitations - History of Present Illness Initial Comments - Free Text/Narative: Mr. Curiel is an 84-year-old gentleman who was admitted through the emergency department with increased shortness of breath secondary to diastolic CHF exacerbation and underlying chronic kidney disease stage IV. Over the past month he has experienced progressive increase in shortness of breath. This has come on slowly and gradually, he is noted no acute episodes of shortness of breath, pleuritic chest pain, or anginal type chest pain. He was seen and evaluated in the emergency department 4 days ago, CT scan of the chest showed pleural effusions possible infiltrates. He was discharged home with oral azithromycin but unfortunately has not felt improved over the last 4 days. Chest x-ray today appears to be more consistent with congestive failure with some cardiac enlargement and evidence of pulmonary edema. He has a known history of diastolic CHF, coronary artery disease, and COPD. He denies recent f flory, chills, sweats, or productive cough. denies Pain Score (Numeric/FACES): 0 - Related Data Allergies/Adverse Reactions: Allergies Allergy/AdvReac Type Severity Reaction Status Date / Time clopidogrel bisulfate Allergy Intermediate Rash Verified 02/21/20 13:12 [From Plavix] lisinopril Allergy Cough Verified 02/21/20 13:12 contrast dye Allergy Other Uncoded 02/21/20 13:12 Home Medications: Home Meds Aspirin 325 mg PO DAILY 12/09/15 [History] Nitroglycerin [Nitrostat] 0.4 mg PO ASDIRECTED PRN 12/09/15 [History] Simvastatin 40 mg PO DAILY 12/09/15 [History] amLODIPine [Norvasc] 5 mg PO DAILY 12/09/15 [History] hydrALAZINE [Apresoline] 50 mg PO TID 12/09/15 [History] Acetaminophen/Diphenhydramine [Tylenol Pm Ex-Strength Caplet] 1 tab PO BEDTIME 11/04/16 [History] Metoprolol Succinate [Toprol Xl] 100 mg PO DAILY 11/04/16 [History] Multivitamin [Multivitamins] 1 tab PO DAILY 11/04/16 [History] Cholecalciferol (Vitamin D3) [Vitamin D3] 5,000 units PO DAILY 12/18/17 [His tory] Dextromethorphan/guaiFENesin [Robitussin DM] 5 ml PO Q6HR PRN 12/18/17 [History] Fluticasone Propionate [Flonase] 1 spray ANSHUL BID 12/18/17 [History] Furosemide [Lasix] 80 mg PO DAILY #30 tablet 10/24/18 [Rx] Isosorbide Mononitrate [Isosorbide Mononitrate ER] 60 mg PO DAILY #30 tab.er.24h 10/24/18 [Rx] Albuterol Sulfate [Proair Hfa] 1 - 2 puff IH Q4H PRN 06/09/19 [History] Albuterol/Ipratropium [DuoNeb 3.0-0.5 MG/3 ML] 3 ml INH Q4H PRN 06/09/19 [History] Budesonide/Formoterol [Symbicort 80-4.5 MCG] 1 puff INH BID 06/09/19 [History] Melatonin 5 mg PO BEDTIME 06/09/19 [History] Sennosides/Docusate Sodium [Senokot-S Tablet] 2 each PO BID PRN 06/09/19 [History] Umeclidinium Brm/Vilanterol Tr [Anoro Ellipta 62.5-25 MCG] 1 each IH DAILY 06/09/19 [History] polyethylene glycoL 3350 [MiraLAX] 17 gm PO DAILY 06/09/19 [History] Azithromycin [Zithromax] 250 mg PO DAILY 5 Days #6 tab 02/17/20 [Rx] Past Medical History HEENT History: Reports: Cataract, Impaired Vision Other HEENT History: wears glasses Cardiovascular History: Reports: Arrhythmia, CAD, Heart Failure, High Cholesterol, Hypertension, Stents Respiratory History: Reports: SOB, Other (See Below) Other Respiratory History: home o2 Gastrointestinal History: Reports: GERD Genitourinary History: Reports: Chronic Renal Insuffiency, Prostate Disorder, Other (See Below) Other Genitourinary History: kidney stent Musculoskeletal History: Reports: Back Pain, Chronic, Fracture Psychiatric History: Reports: Addiction, Anxiety Endocrine/Metabolic History: Reports: Obesity/BMI 30+ Oncologic (Cancer) History: Reports: Other (See Below) Other Oncologic History: skin cancer Dermatologic History: Reports: None Other Dermatologic History: multiple cysts - Infectious Disease History Infectious Disease History: Reports: Chicken Pox - Past Surgical History HEENT Surgical History: Reports: Cataract Surgery Cardiovascular Surgical History: Reports: Carotid Endarterectomy, Carotid Stents GI Surgical History: Reports: Cholecystectomy, Colonoscopy, Other (See Below) Other GI Surgeries/Procedures: states has "twisted bowel" Male Surgical History: Reports: TURP-Transurethral Resection of Prostate Musculoskeletal Surgical History: Reports: Other (See Below) Other Musculoskeletal Surgeries/Procedures:: right lower leg fracture Dermatological Surgical History: Reports: Skin Biopsy Social & Family History - Family History Family Medical History: Noncontributory - Tobacco Use Smoking Status *Q: Former Smoker Years of Tobacco use: 40 Packs/Tins Daily: 1 Used Tobacco, but Quit: Yes Month/Year Tobacco Last Used: Quit 20 years ago - Caffeine Use Caffeine Use: Reports: Coffee, Soda, Tea - Recreational Drug Use Recreational Drug Use: No - Living Situation & Occupation Living situation: Reports: , with Family Occupation: Retired (lives with Veena in [place]. 3 Son, none live in the area.) H&P Review of Systems - Review of Systems: Review Of Systems: See Below General: Reports: Malaise, Weakness, Fatigue, Decreased Appetite. Denies: Fever, Chills HEENT: Reports: No Symptoms Pulmonary: Reports: Shortness of Breath. Denies: Wheezing, Pleuritic Chest Pain, Cough, Sputum, Hemoptysis Cardiovascular: Reports: Dyspnea on Exertion. Denies: Chest Pain, Palpitations, Orthopnea, PND, Edema, Lightheadedness Gastrointestinal: Reports: No Symptoms Genitourinary: Reports: No Symptoms Musculoskeletal: Reports: Back Pain Skin: Reports: No Symptoms Psychiatric: Reports: No Symptoms Neurological: Reports: No Symptoms Hematologic/Lymphatic: Reports: No Symptoms Immunologic: Reports: No Symptoms Exam - Exam Exam: See Below - Vital Signs Vital Signs: Last Vital Signs Temp 97.7 F 02/21/20 13:26 Pulse 62 02/21/20 13:46 Resp 20 02/21/20 13:46 BP 130/73 02/21/20 13:46 Pulse Ox 90 L 02/21/20 13:46 Weight: 178 lb 12.718 oz - Exam Quality Assessment: DVT Prophylaxis General: Alert, Oriented, Cooperative, Mild Distress HEENT: Conjunctiva Clear, Hearing Intact, Mucosa Moist & [place], Normal Nasal Septum, Posterior Pharynx Clear, Pupils Equal Neck: Supple, Trachea Midline, +2 Carotid Pulse wo Bruit Lungs: Normal Respiratory Effort, Decreased Breath Sounds, Rales. No: Rhonchi, Wheezing Cardiovascular: Regular Rate, Regular Rhythm, Normal S1, Normal S2. No: Systolic Murmur, Diastolic Murmur GI/Abdominal Exam: Soft, Non-Tender, No Organomegaly, No Distention Back Exam: Normal Inspection, Vertebral Tenderness Extremities: Non-Tender, No Pedal Edema Skin: Warm, Dry, Intact Neurological: Cranial Nerves Intact, Strength Equal Bilateral, Normal Speech, Normal Tone, Sensation Intact. No: Focal Deficit Neuro Extensive - Mental Status: Alert, Oriented x3, Normal Mood/Affect, Normal Cognition, Memory Intact - Patient Data Lab Results Last 24 hrs: Laboratory Results - last 24 hr 02/21/20 02/21/20 02/21/20 Range/Units 13:45 13:45 13:45 Hgb 11.1 L (12.0-15.0) g/dL D-Dimer, Quantitative 1850 H (0.0-400.0) ng/mL Sodium (140-148) mmol/L Potassium (3.6-5.2) mmol/L Chloride (100-108) mmol/L Carbon Dioxide (21-32) mmol/L Anion Gap (5.0-14.0) mmol/L BUN (7-18) mg/dL Creatinine (0.8-1.3) mg/dL Est Cr Clr Drug Dosing mL/min Estimated GFR (MDRD) (>60) Glucose (74-106) mg/dL Calcium (8.5-10.1) mg/dL NT-Pro-B Natriuret Pep 02454 H (5-450) pg/mL 02/21/20 Range/Units 13:45 Hgb (12.0-15.0) g/dL D-Dimer, Quantitative (0.0-400.0) ng/mL Sodium 139 L (140-148) mmol/L Potassium 4.6 (3.6-5.2) mmol/L Chloride 106 (100-108) mmol/L Carbon Dioxide 24 (21-32) mmol/L Anion Gap 13.6 (5.0-14.0) mmol/L BUN 34 H (7-18) mg/dL Creatinine 3.0 H (0.8-1.3) mg/dL Est Cr Clr Drug Dosing 18.59 mL/min Estimated GFR (MDRD) 20 L (>60) Glucose 103 (74-106) mg/dL Calcium 8.5 (8.5-10.1) mg/dL NT-Pro-B Natriuret Pep (5-450) pg/mL Result Diagrams: 02/21/20 13:45 02/21/20 13:45 Sepsis Event Note - Evaluation Sepsis Screening Result: No Definite Risk - Focused Exam Vital Signs: Vital Signs Temp Pulse Resp BP Pulse Ox 02/21/20 13:46 62 20 130/73 90 L 02/21/20 13:26 97.7 F 61 14 107/73 93 L 02/21/20 13:21 97.7 F 61 14 107/73 93 L *Q Meaningful Use (ADM) - VTE Risk Assess *Q Each Risk Factor Represents 1 Point: Congestive heart failure (CHF), Abnormal Pulmonary Function (COPD) Total Score 1 Point Risk Factors: 2 Each Risk Factor Represents 2 Points: None Total Score 2 Point Risk Factors: 0 Each Risk Factor Represents 3 Points: Age 75 Years or Greater Total Score 3 Point Risk Factors: 3 Each Risk Factor Represents 5 Points: None Total Score 5 Point Risk Factors: 0 Venous Thromboembolism Risk Factor Score *Q: 5 Problem List Initiated/Reviewed/Updated: Yes Orders Last 24hrs: Active Orders 24 hr Category Date Time Status Patient Status Manage Transfer [TRANSFER] Routine ADT 02/21/20 15:22 Ordered Sodium Chloride 0.9% [Saline Flush] Med 02/21/20 14:01 Active 10 ml FLUSH ASDIRECTED PRN Saline Lock Insert [OM.PC] Routine Oth 02/21/20 14:01 Ordered Resuscitation Status Routine Resus Stat 02/21/20 15:26 Ordered Medication Orders Sodium Chloride (Saline Flush) 10 ml FLUSH ASDIRECTED PRN PRN Reason: Keep Vein Open Last Admin: 02/21/20 14:48 Dose: 10 ml Documented by: JOSÉ MIGUEL Admin: 02/21/20 14:16 Dose: 10 ml Documented by: GUME Assessment/Plan Comment:: ASSESSMENT AND PLAN DIASTOLIC CONGESTIVE HEART FAILURE EXACERBATION-progressive symptoms over the past month, located by underlying chronic kidney disease stage IV. X-ray shows evidence of pulmonary edema and cardiac enlargement. -Echocardiogram in a.m. -Furosemide 80 mg IV given in the emergency department, reassess in a.m. -2 g sodium diet ELEVATED D-DIMER-not a candidate for CT angiogram of the chest because of his chronic kidney disease -Venous Doppler studies both lower extremities -VQ scan when available CHRONIC KIDNEY DISEASE STAGE IV -Closely monitor renal function and urine output MAINTENANCE ISSUES -DVT prophylaxis; Lovenox 30 mg subcu daily -GI prophylaxis; not indicated -Quesada catheter; not indicated -Nutrition; 2 g sodium diet -Nicotine dependence; not required CODE STATUS-FULL CODE ADMISSION STATUS-patient will be admitted to inpatient status, expect at least a 2 night hospital stay for evaluation and management of problems as outlined above. At the time of this admission I do not reasonably expected evaluation and management of this problem will require more than a 96 hour hospital stay. DISPOSITION-anticipate discharge to home after the hospital stay. PRIMARY CARE PROVIDER-Lizzy Johnson - Mortality Measure Prognosis:: Good
[2020-02-21] MEDS ORDERED: Magnesium Hydroxide 400 MG/5 ML Susp 30 ML Cup PO PRN (16:33)
[2020-02-21] MEDS ORDERED: Albuterol 8 GM Inhaler INH PRN (16:33)
[2020-02-21] MEDS ORDERED: Ondansetron 4 MG/2 ML SDV IV PRN (16:33)
[2020-02-21] MEDS ORDERED: Sodium Chloride 0.9% 10 ML Syringe FLUSH PRN (16:33)
[2020-02-21] MEDS ORDERED: Acetaminophen 325 MG Tab PO PRN (16:33)
[2020-02-21] MEDS ORDERED: Albuterol/Ipratropium 3.0-0.5 MG/3 ML Neb Soln INH PRN (16:33)
[2020-02-21] MEDS: Enoxaparin 30 MG/0.3 ML Syringe SUBCUT SCH (17:15)
[2020-02-21] MEDS: Simvastatin 20 MG Tab PO SCH (21:08)
[2020-02-21] MEDS: Melatonin 3 MG Tab PO SCH (21:08)
[2020-02-21] MEDS: hydrALAZINE 25 MG Tab PO SCH (21:08)
[2020-02-21] MEDS: Aspirin 325 MG Tab.EC PO SCH (21:08)
[2020-02-21] MEDS: Fluticasone Propionate Nasal Spray 16 GM Bottle NASBOTH SCH ×2 (21:09→21:15)
[2020-02-21] MEDS: Fluticasone-Salmeterol 113-14 MCG Powder Inhalant INH SCH (21:09)
[2020-02-22] MEDS: Fluticasone-Salmeterol 113-14 MCG Powder Inhalant INH SCH ×2 (08:07→20:05)
[2020-02-22] MEDS: hydrALAZINE 25 MG Tab PO SCH ×3 (08:26→20:06)
[2020-02-22] MEDS: amLODIPine 5 MG Tab PO SCH (08:27)
[2020-02-22] MEDS: Isosorbide Mononitrate 30 MG Tab.ER PO SCH (08:27)
[2020-02-22] MEDS: Fluticasone Propionate Nasal Spray 16 GM Bottle NASBOTH SCH ×2 (08:27→20:04)
[2020-02-22] MEDS: Polyethylene Glycol 3350 Powder 17 GM Packet PO SCH (08:27)
[2020-02-22] MEDS: Metoprolol Succinate 50 MG Tab.ER PO SCH (08:28)
[2020-02-22] MEDS ORDERED: Aspirin 325 MG Tab.EC PO SCH (09:00)
[2020-02-22] MEDS ORDERED: Simvastatin 20 MG Tab PO SCH (09:00)
--- NOTE | 2020-02-22 09:02 | US ---
VL Duplex Lwr Ext Veins Comp HISTORY: No Clinical Info FINDINGS: The deep veins of the lower extremities bilaterally demonstrate normal augmentation and compressibility. No evidence for deep venous thrombosis. IMPRESSION: No evidence of DVT in either lower extremity
[2020-02-22] MEDS ORDERED: Furosemide 40 MG/4 ML VIAL IVPUSH ONE (09:15)
--- NOTE | 2020-02-22 13:52 | PCM.PN ---
- General Info Date of Service: 02/22/20 Subjective Update: Mr. Curiel has had a good diuresis thus far, resulting in less shortness of breath. Renal function has remained stable with diuretic therapy. Echocardiogram obtained today shows preserved left ventricular systolic function, evidence of diastolic dysfunction and elevated right-sided pressures. Functional Status: Reports: Tolerating Diet, Ambulating, Urinating - Review of Systems General: Reports: Weakness, Fatigue. Denies: Fever, Chills Pulmonary: Reports: Shortness of Breath. Denies: Pleuritic Chest Pain, Cough, Sputum, Hemoptysis, Wheezing Cardiovascular: Reports: Dyspnea on Exertion. Denies: Chest Pain, Palpitations, Orthopnea, PND, Edema, Lightheadedness Gastrointestinal: Reports: No Symptoms - Patient Data Vitals - Most Recent: Last Vital Signs Temp 97.4 F 02/22/20 10:16 Pulse 62 02/22/20 10:16 Resp 20 02/22/20 10:16 BP 151/75 H 02/22/20 10:16 Pulse Ox 86 L 02/22/20 13:33 Weight - Most Recent: 170 lb 12.815 oz I&O - Last 24 Hours: Intake & Output 02/21/20 02/22/20 02/22/20 22:59 06:59 14:59 Intake Total 240 700 680 Output Total 1950 1150 Balance -1710 -450 680 Lab Results Last 24 Hours: Laboratory Results - last 24 hr 02/21/20 02/21/20 02/21/20 Range/Units 13:45 13:45 13:45 WBC (4.5-11.0) K/uL RBC (4.30-5.90) M/uL Hgb 11.1 L (12.0-15.0) g/dL Hct (40.0-54.0) % MCV (80-98) fL MCH (27-31) pg MCHC (32-36) % Plt Count (150-400) K/uL Neut % (Auto) (36-66) % Lymph % (Auto) (24-44) % [place] % (Auto) (2-6) % Eos % (Auto) (2-4) % Baso % (Auto) (0-1) % D-Dimer, Quantitative 1850 H (0.0-400.0) ng/mL Sodium (140-148) mmol/L Potassium (3.6-5.2) mmol/L Chloride (100-108) mmol/L Carbon Dioxide (21-32) mmol/L Anion Gap (5.0-14.0) mmol/L BUN (7-18) mg/dL Creatinine (0.8-1.3) mg/dL Est Cr Clr Drug Dosing mL/min Estimated GFR (MDRD) (>60) Glucose (74-106) mg/dL Calcium (8.5-10.1) mg/dL Magnesium (1.8-2.4) mg/dL NT-Pro-B Natriuret Pep 82817 H (5-450) pg/mL 02/21/20 02/22/20 02/22/20 Range/Units 13:45 05:45 05:45 WBC 6.6 (4.5-11.0) K/uL RBC 3.85 L (4.30-5.90) M/uL Hgb 11.2 L (12.0-15.0) g/dL Hct 35.6 L (40.0-54.0) % MCV 93 (80-98) fL MCH 29 (27-31) pg MCHC 32 (32-36) % Plt Count 192 (150-400) K/uL Neut % (Auto) 73 H (36-66) % Lymph % (Auto) 14 L (24-44) % [place] % (Auto) 8 H (2-6) % Eos % (Auto) 5 H (2-4) % Baso % (Auto) 1 (0-1) % D-Dimer, Quantitative (0.0-400.0) ng/mL Sodium 139 L 141 (140-148) mmol/L Potassium 4.6 4.3 (3.6-5.2) mmol/L Chloride 106 106 (100-108) mmol/L Carbon Dioxide 24 27 (21-32) mmol/L Anion Gap 13.6 8.2 (5.0-14.0) mmol/L BUN 34 H 34 H (7-18) mg/dL Creatinine 3.0 H 3.0 H (0.8-1.3) mg/dL Est Cr Clr Drug Dosing 18.59 18.59 mL/min Estimated GFR (MDRD) 20 L 20 L (>60) Glucose 103 89 (74-106) mg/dL Calcium 8.5 8.6 (8.5-10.1) mg/dL Magnesium 2.2 (1.8-2.4) mg/dL NT-Pro-B Natriuret Pep (5-450) pg/mL Med Orders - Current: Current Medications Acetaminophen (Tylenol) 650 mg PO Q4H PRN PRN Reason: Pain (Mild 1-3)/fever Albuterol (Ventolin Hfa) 0 gm INH Q4H PRN PRN Reason: Shortness of Breath Albuterol/Ipratropium (Duoneb 3.0-0.5 Mg/3 Ml) 3 ml INH Q4H PRN PRN Reason: Shortness of Breath Amlodipine Besylate (Norvasc) 5 mg PO DAILY [facility] Last Admin: 02/22/20 08:27 Dose: 5 mg Documented by: Aspirin (Ecotrin) 325 mg PO BEDTIME [facility] Last Admin: 02/21/20 21:08 Dose: 325 mg Documented by: Enoxaparin Sodium (Lovenox) 30 mg SUBCUT Q24H [facility] Last Admin: 02/21/20 17:15 Dose: 30 mg Documented by: Fluticasone Propionate (Flonase) 0 gm NASBOTH BID [facility] Last Admin: 02/22/20 08:27 Dose: 1 spr Documented by: Hydralazine HCl (Apresoline) 50 mg PO TID [facility] Last Admin: 02/22/20 08:26 Dose: 50 mg Documented by: Isosorbide Mononitrate (Imdur) 60 mg PO DAILY [facility] Last Admin: 02/22/20 08:27 Dose: 60 mg Documented by: Magnesium Hydroxide (Milk Of Magnesia) 30 ml PO Q12H PRN PRN Reason: Constipation Melatonin (Melatonin) 6 mg PO BEDTIME [facility] Last Admin: 02/21/20 21:08 Dose: 6 mg Documented by: Metoprolol Succinate (Toprol Xl) 100 mg PO DAILY [facility] Last Admin: 02/22/20 08:28 Dose: 100 mg Documented by: Ondansetron HCl (Zofran) 4 mg IV Q4H PRN PRN Reason: Nausea/Vomiting Polyethylene Glycol (Miralax) 17 gm PO DAILY [facility] Last Admin: 02/22/20 08:27 Dose: 17 gm Documented by: Fluticasone/Salmeterol (Fluticasone-Salmeterol 113-14 Mcg Powder Inh) 1 puff INH BIDRT [facility] Last Admin: 02/22/20 08:07 Dose: 1 puff Documented by: Senna/Docusate Sodium (Senna Plus) 2 tab PO BID PRN PRN Reason: Constipation Simvastatin (Zocor) 40 mg PO BEDTIME [facility] Last Admin: 02/21/20 21:08 Dose: 40 mg Documented by: Sodium Chloride (Saline Flush) 10 ml FLUSH ASDIRECTED PRN PRN Reason: Keep Vein Open Discontinued Medications Aspirin (Ecotrin) 325 mg PO DAILY [facility] Furosemide (Lasix) 80 mg IVPUSH ONETIME ONE Stop: 02/21/20 14:41 Last Admin: 02/21/20 14:47 Dose: 80 mg Documented by: Furosemide (Lasix) 80 mg IVPUSH NOW ONE Stop: 02/22/20 09:16 Last Admin: 02/22/20 10:19 Dose: 80 mg Documented by: Simvastatin (Zocor) 40 mg PO DAILY [facility] Sodium Chloride (Saline Flush) 10 ml FLUSH ASDIRECTED PRN PRN Reason: Keep Vein Open Last Admin: 02/21/20 14:48 Dose: 10 ml Documented by: - Exam Quality Assessment: DVT Prophylaxis General: Alert, Oriented, Cooperative, Mild Distress Lungs: Clear to Auscultation, Normal Respiratory Effort, Decreased Breath Sounds. No: Crackles, Rales, Rhonchi, Wheezing Cardiovascular: Regular Rate, Regular Rhythm, Murmurs GI/Abdominal Exam: Soft, Non-Tender, No Organomegaly, No Distention Extremities: Non-Tender, No Pedal Edema Sepsis Event Note - Evaluation Sepsis Screening Result: No Definite Risk - Focused Exam Vital Signs: Vital Signs Temp Pulse Pulse Resp BP BP Pulse Ox 02/22/20 13:33 86 L 02/22/20 10:16 97.4 F 62 20 151/75 H 91 L 02/22/20 08:28 70 118/84 02/22/20 08:27 118/84 02/22/20 08:26 116/84 02/22/20 08:18 97.1 F 70 20 116/84 92 L 02/22/20 03:46 98.4 F 68 18 134/57 L 94 L - Problem List Review Problem List Initiated/Reviewed/Updated: Yes - My Orders Last 24 Hours: My Active Orders 02/21/20 15:26 Resuscitation Status Routine 02/21/20 16:33 Acetaminophen [TylenoL] 650 mg PO Q4H PRN Albuterol [Ventolin HFA] 0 gm INH Q4H PRN Albuterol/Ipratropium [DuoNeb 3.0-0.5 MG/3 ML] 3 ml INH Q4H PRN Docusate Sodium/Sennosides [Senna Plus] 2 tab PO BID PRN Magnesium Hydroxide [Milk of Magnesia] 30 ml PO Q12H PRN Ondansetron [Zofran] 4 mg IV Q4H PRN Sodium Chloride 0.9% [Saline Flush] 10 ml FLUSH ASDIRECTED PRN 02/21/20 16:33 Patient Status [ADT] Routine Ambulate [RC] QID Height and Weight [RC] DAILY Intake and Output [RC] QSHIFT Notify Provider Vital Signs [RC] ASDIRECTED Oxygen Therapy [RC] PRN RT Aerosol Therapy [RC] ASDIRECTED RT Post Treatment Assessment [RC] Click to Edit Up With Assistance [RC] ASDIRECTED Up to Chair [RC] QID VTE/DVT Education [RC] Per Unit Routine Vital Signs [RC] Q4H Saline Lock Insert [OM.PC] Routine 02/21/20 17:00 Enoxaparin [Lovenox] 30 mg SUBCUT Q24H 02/21/20 21:00 Aspirin [Ecotrin] 325 mg PO BEDTIME Fluticasone Propionate [Flonase] 0 gm NASBOTH BID Fluticasone/Salmeterol [Fluticasone-Salmeterol 113-14 MCG Powder Inh] 1 puff INH BIDRT Melatonin 6 mg PO BEDTIME Simvastatin [Zocor] 40 mg PO BEDTIME hydrALAZINE [Apresoline] 50 mg PO TID 02/22/20 08:00 Echo Comp wo Cont [US] Urgent 02/22/20 09:00 Isosorbide Mononitrate [Imdur] 60 mg PO DAILY Metoprolol Succinate [Toprol XL] 100 mg PO DAILY amLODIPine [Norvasc] 5 mg PO DAILY polyethylene glycoL 3350 [MiraLAX] 17 gm PO DAILY 02/23/20 05:00 BASIC METABOLIC PANEL,BMP [CHEM] Timed 08/20/20 08:00 Lung Vent Perfusion [NM] Urgent - Plan Plan:: ASSESSMENT AND PLAN DIASTOLIC CONGESTIVE HEART FAILURE EXACERBATION-diuresis thus far with decrease in shortness of breath. Echocardiogram shows preserved left ventricular systolic function, evidence of grade 2 diastolic dysfunction, and elevated right-sided pressures -Furosemide 80 mg IV given this a.m. -2 g sodium diet ELEVATED D-DIMER-not a candidate for CT angiogram of the chest because of his chronic kidney disease. Venous Doppler studies of both lower extremities showed no evidence of deep vein thrombosis. -VQ scan when available CHRONIC KIDNEY DISEASE STAGE IV-renal function has remained stable with diuresis -Closely monitor renal function and urine output MAINTENANCE ISSUES -DVT prophylaxis; Lovenox 30 mg subcu daily -GI prophylaxis; not indicated -Quesada catheter; not indicated -Nutrition; 2 g sodium diet -Nicotine dependence; not required CODE STATUS-FULL CODE ADMISSION STATUS-patient will be admitted to inpatient status, expect at least a 2 night hospital stay for evaluation and management of problems as outlined above. At the time of this admission I do not reasonably expected evaluation and management of this problem will require more than a 96 hour hospital stay. DISPOSITION-anticipate discharge to home after the hospital stay. PRIMARY CARE PROVIDER-Lizzy Johnson
[2020-02-22] MEDS: Enoxaparin 30 MG/0.3 ML Syringe SUBCUT SCH (17:37)
[2020-02-22] MEDS: Melatonin 3 MG Tab PO SCH (20:05)
[2020-02-22] MEDS: Simvastatin 20 MG Tab PO SCH (20:05)
[2020-02-22] MEDS: Aspirin 325 MG Tab.EC PO SCH (20:05)
[2020-02-23] MEDS: Fluticasone-Salmeterol 113-14 MCG Powder Inhalant INH SCH (07:46)
[2020-02-23] MEDS: hydrALAZINE 25 MG Tab PO SCH (08:40)
[2020-02-23] MEDS: Fluticasone Propionate Nasal Spray 16 GM Bottle NASBOTH SCH (08:42)
[2020-02-23] MEDS: Isosorbide Mononitrate 30 MG Tab.ER PO SCH (08:42)
[2020-02-23] MEDS: Polyethylene Glycol 3350 Powder 17 GM Packet PO SCH (08:43)
[2020-02-23] MEDS: Metoprolol Succinate 50 MG Tab.ER PO SCH (08:43)
[2020-02-23] MEDS: amLODIPine 5 MG Tab PO SCH (08:44)
[2020-02-23] MEDS ORDERED: Furosemide 40 MG/4 ML VIAL IVPUSH ONE (09:00)
[2020-02-23 10:47] VITALS: BP 162/71; PULSE 54
--- NOTE | 2020-02-23 11:53 | PCM.DCSUM1 ---
Discharge Summary - Hospital Course Brief History: Mr. Curiel is an 84-year-old gentleman who was admitted through the emergency department with shortness of breath and hypoxia secondary to exacerbation of his diastolic congestive heart failure and COPD. - Discharge Data Discharge Date: 02/23/20 Discharge Disposition: Home, Self-Care 01 Condition: Stable - Referral to Home Health Primary Care Physician: Pat Johnson PA-C - Discharge Diagnosis/Problem(s) (1) Weakness SNOMED Code(s): 28652231 ICD Code: R53.1 - WEAKNESS Status: Acute Current Visit: No (2) Shortness of breath SNOMED Code(s): 969268712 ICD Code: R06.02 - SHORTNESS OF BREATH Status: Acute Current Visit: No (3) Hypoxia SNOMED Code(s): 897604566 ICD Code: R09.02 - HYPOXEMIA Status: Acute Current Visit: Yes (4) COPD (chronic obstructive pulmonary disease) SNOMED Code(s): 58455118 ICD Code: J44.9 - CHRONIC OBSTRUCTIVE PULMONARY DISEASE, UNSPECIFIED Status: Acute Current Visit: No Qualifiers: COPD type: unspecified COPD Qualified Code(s): J44.9 - Chronic obstructive pulmonary disease, unspecified (5) Chronic ischemic heart disease SNOMED Code(s): 969495155 ICD Code: I25.9 - CHRONIC ISCHEMIC HEART DISEASE, UNSPECIFIED Status: Chronic Current Visit: No (6) CKD (chronic kidney disease) stage 4, GFR 15-29 ml/min SNOMED Code(s): 862949757 ICD Code: N18.4 - CHRONIC KIDNEY DISEASE, STAGE 4 (SEVERE) Status: Chronic Priority: Medium Current Visit: No (7) Diastolic congestive heart failure, NYHA class 3 SNOMED Code(s): 270735601, 310755487, 378242040 ICD Code: I50.30 - UNSPECIFIED DIASTOLIC (CONGESTIVE) HEART FAILURE Status: Chronic Current Visit: No Qualifiers: Congestive heart failure chronicity: acute on chronic Qualified Code(s): I50.33 - Acute on chronic diastolic (congestive) heart failure - Patient Summary/Data Hospital Course: Mr. Curiel is an 84-year-old gentleman who was admitted through the emergency department with increased shortness of breath secondary to diastolic CHF exacerbation, COPD and underlying chronic kidney disease stage IV. Over the past month he has experienced progressive increase in shortness of breath. This has come on slowly and gradually, he is noted no acute episodes of shortness of breath, pleuritic chest pain, or anginal type chest pain. He was seen and evaluated in the emergency department 4 days ago, CT scan of the chest showed pleural effusions possible infiltrates. He was discharged home with oral azithromycin but unfortunately has not felt improved over the last 4 days. Chest x-ray today appears to be more consistent with congestive failure with some cardiac enlargement and evidence of pulmonary edema. He has a known history of diastolic CHF, coronary artery disease, and COPD. He denies recent fevers, chills, sweats, or productive cough. While in the emergency department he received 80 mg of IV furosemide, which resulted in a very good diuresis. Over the next 2 days of hospitalization he received additional furosemide and noted good improvement in his shortness of breath. It became apparent that he required continuous oxygen. On the day prior to discharge he had a documented oxygen saturation of 86% on room air while at rest. He will be discharged home with supplemental oxygen continuously, 3 L/min via nasal cannula. While in the emergency department d-dimer was found to be elevated, it was not possible to obtain CT angiogram of the chest because of his chronic kidney disease stage IV. Venous Doppler studies were obtained of both lower extremities and showed no evidence of deep vein thrombosis. VQ scan had been scheduled for February 23, which the patient requested be canceled. He is interested in more of a palliative care approach to his management and was not interested in further testing. Cardiogram was obtained during hospitalization which showed preserved left ventricular systolic function, but did document diastolic dysfunction and elevated right-sided pressures. On discharge his dose of oral furosemide will be increased to 120 mg daily. Activity will be as tolerated and he will be on a low-sodium diet. Follow-up appointment will be scheduled with his primary care provider within 1 week, BMP should be obtained at the time of follow-up appointment. - Patient Instructions Diet: Low Sodium Activity: As Tolerated Other/Special Instructions: Please schedule follow-up appointment with primary care provider within 1 week. BMP should be obtained at the time of follow-up appointment. - Discharge Plan *PRESCRIPTION DRUG MONITORING PROGRAM REVIEWED*: Not Applicable *COPY OF PRESCRIPTION DRUG MONITORING REPORT IN PATIENT JOSELIN: Not Applicable Prescriptions/Med Rec: Furosemide [Lasix] 120 mg PO DAILY #90 tablet Home Medications: Home Meds Aspirin 325 mg PO DAILY 12/09/15 [History] Nitroglycerin [Nitrostat] 0.4 mg PO ASDIRECTED PRN 12/09/15 [History] Simvastatin 40 mg PO DAILY 12/09/15 [History] amLODIPine [Norvasc] 5 mg PO DAILY 12/09/15 [History] hydrALAZINE [Apresoline] 50 mg PO TID 12/09/15 [History] Acetaminophen/Diphenhydramine [Tylenol Pm Ex-Strength Caplet] 1 tab PO BEDTIME 11/04/16 [History] Metoprolol Succinate [Toprol Xl] 100 mg PO DAILY 11/04/16 [History] Multivitamin [Multivitamins] 1 tab PO DAILY 11/04/16 [History] Cholecalciferol (Vitamin D3) [Vitamin D3] 5,000 units PO DAILY 12/18/17 [Histor y] Dextromethorphan/guaiFENesin [Robitussin DM] 5 ml PO Q6HR PRN 12/18/17 [History] Fluticasone Propionate [Flonase] 1 spray ANSHUL BID 12/18/17 [History] Isosorbide Mononitrate [Isosorbide Mononitrate ER] 60 mg PO DAILY #30 tab.er.24h 10/24/18 [Rx] Albuterol Sulfate [Proair Hfa] 1 - 2 puff IH Q4H PRN 06/09/19 [History] Albuterol/Ipratropium [DuoNeb 3.0-0.5 MG/3 ML] 3 ml INH Q4H PRN 06/09/19 [History] Budesonide/Formoterol [Symbicort 80-4.5 MCG] 1 puff INH BID 06/09/19 [History] Melatonin 5 mg PO BEDTIME 06/09/19 [History] Sennosides/Docusate Sodium [Senokot-S Tablet] 2 each PO BID PRN 06/09/19 [ History] Umeclidinium Brm/Vilanterol Tr [Anoro Ellipta 62.5-25 MCG] 1 each IH DAILY 06/09/19 [History] polyethylene glycoL 3350 [MiraLAX] 17 gm PO DAILY 06/09/19 [History] Furosemide [Lasix] 120 mg PO DAILY #90 tablet 02/23/20 [Rx] Oxygen Therapy Mode: Nasal Cannula Oxygen Flow Rate (L/min): 3 Referrals: Pat Johnson PA-C [Primary Care Provider] - - Discharge Summary/Plan Comment DC Time >30 min.: No - Patient Data Vitals - Most Recent: Last Vital Signs Temp 96.3 F L 02/23/20 10:45 Pulse 54 L 02/23/20 10:45 Resp 16 02/23/20 10:45 BP 162/71 H 02/23/20 10:45 Pulse Ox 92 L 02/23/20 10:45 Weight - Most Recent: 169 lb 6.4 oz I&O - Last 24 hours: Intake & Output 02/22/20 02/23/20 02/23/20 22:59 06:59 14:59 Intake Total 400 480 380 Output Total 950 175 900 Balance -550 305 -520 Lab Results - Last 24 hrs: Laboratory Results - last 24 hr 02/23/20 Range/Units 05:28 Sodium 140 (140-148) mmol/L Potassium 3.9 (3.6-5.2) mmol/L Chloride 105 (100-108) mmol/L Carbon Dioxide 27 (21-32) mmol/L Anion Gap 7.9 (5.0-14.0) mmol/L BUN 35 H (7-18) mg/dL Creatinine 2.9 H (0.8-1.3) mg/dL Est Cr Clr Drug Dosing 19.28 mL/min Estimated GFR (MDRD) 21 L (>60) Glucose 92 (74-106) mg/dL Calcium 8.6 (8.5-10.1) mg/dL Med Orders - Current: Current Medications Acetaminophen (Tylenol) 650 mg PO Q4H PRN PRN Reason: Pain (Mild 1-3)/fever Albuterol (Ventolin Hfa) 0 gm INH Q4H PRN PRN Reason: Shortness of Breath Albuterol/Ipratropium (Duoneb 3.0-0.5 Mg/3 Ml) 3 ml INH Q4H PRN PRN Reason: Shortness of Breath Amlodipine Besylate (Norvasc) 5 mg PO DAILY [facility] Last Admin: 02/23/20 08:44 Dose: 5 mg Documented by: Aspirin (Ecotrin) 325 mg PO BEDTIME [facility] Last Admin: 02/22/20 20:05 Dose: 325 mg Documented by: Enoxaparin Sodium (Lovenox) 30 mg SUBCUT Q24H [facility] Last Admin: 02/22/20 17:37 Dose: 30 mg Documented by: Fluticasone Propionate (Flonase) 0 gm NASBOTH BID [facility] Last Admin: 02/23/20 08:42 Dose: 1 spr Documented by: Hydralazine HCl (Apresoline) 50 mg PO TID [facility] Last Admin: 02/23/20 08:40 Dose: 50 mg Documented by: Isosorbide Mononitrate (Imdur) 60 mg PO DAILY [facility] Last Admin: 02/23/20 08:42 Dose: 60 mg Documented by: Magnesium Hydroxide (Milk Of Magnesia) 30 ml PO Q12H PRN PRN Reason: Constipation Melatonin (Melatonin) 6 mg PO BEDTIME [facility] Last Admin: 02/22/20 20:05 Dose: 6 mg Documented by: Metoprolol Succinate (Toprol Xl) 100 mg PO DAILY [facility] Last Admin: 02/23/20 08:43 Dose: 100 mg Documented by: Ondansetron HCl (Zofran) 4 mg IV Q4H PRN PRN Reason: Nausea/Vomiting Polyethylene Glycol (Miralax) 17 gm PO DAILY [facility] Last Admin: 02/23/20 08:43 Dose: 17 gm Documented by: Fluticasone/Salmeterol (Fluticasone-Salmeterol 113-14 Mcg Powder Inh) 1 puff INH BIDRT [facility] Last Admin: 02/23/20 07:46 Dose: 1 puff Documented by: Senna/Docusate Sodium (Senna Plus) 2 tab PO BID PRN PRN Reason: Constipation Simvastatin (Zocor) 40 mg PO BEDTIME [facility] Last Admin: 02/22/20 20:05 Dose: 40 mg Documented by: Sodium Chloride (Saline Flush) 10 ml FLUSH ASDIRECTED PRN PRN Reason: Keep Vein Open Discontinued Medications Aspirin (Ecotrin) 325 mg PO DAILY [facility] Furosemide (Lasix) 80 mg IVPUSH ONETIME ONE Stop: 02/21/20 14:41 Last Admin: 02/21/20 14:47 Dose: 80 mg Documented by: Furosemide (Lasix) 80 mg IVPUSH NOW ONE Stop: 08/18/20 09:16 Last Admin: 02/22/20 10:19 Dose: 80 mg Documented by: Furosemide (Lasix) 80 mg IVPUSH NOW ONE Stop: 02/23/20 09:01 Last Admin: 02/23/20 08:24 Dose: 80 mg Documented by: Simvastatin (Zocor) 40 mg PO DAILY [facility] Sodium Chloride (Saline Flush) 10 ml FLUSH ASDIRECTED PRN PRN Reason: Keep Vein Open Last Admin: 02/21/20 14:48 Dose: 10 ml Documented by: - Exam Quality Assessment: Reports: Supplemental Oxygen, DVT Prophylaxis General: Reports: Alert, Oriented, Cooperative, No Acute Distress Lungs: Reports: Clear to Auscultation, Normal Respiratory Effort, Decreased Breath Sounds Cardiovascular: Reports: Regular Rate, Regular Rhythm, Murmurs GI/Abdominal Exam: Soft, Non-Tender, No Organomegaly, No Distention Extremities: Non-Tender, No Pedal Edema
== END 2020-02-23 13:55 | disposition home or self-care (01) | DRG 291 ==
LOC: JP.ED 13:03 → JP.MS 15:22
PROVIDERS: ADMIT Hospitalist; ATTEND Hospitalist
DX: I13.0 Hypertensive heart and chronic kidney disease with heart failure and stage 1 through stage 4 chronic kidney disease, or unspecified chronic kidney disease (principal); I50.33 Acute on chronic diastolic (congestive) heart failure; N18.4 Chronic kidney disease, stage 4 (severe); R09.02 Hypoxemia; R79.1 Abnormal coagulation profile; H54.7 Unspecified visual loss; I25.9 Chronic ischemic heart disease, unspecified; J44.9 Chronic obstructive pulmonary disease, unspecified; Z95.5 Presence of coronary angioplasty implant and graft; I25.10 Atherosclerotic heart disease of native coronary artery without angina pectoris; E78.00 Pure hypercholesterolemia, unspecified; K21.9 Gastro-esophageal reflux disease without esophagitis; R41.9 Unspecified symptoms and signs involving cognitive functions and awareness; M54.9 Dorsalgia, unspecified; G89.29 Other chronic pain; F41.9 Anxiety disorder, unspecified; Z90.49 Acquired absence of other specified parts of digestive tract; Z90.79 Acquired absence of other genital organ(s); E66.9 Obesity, unspecified; Z88.8 Allergy status to other drugs, medicaments and biological substances; Z98.49 Cataract extraction status, unspecified eye; Z88.5 Allergy status to narcotic agent; Z91.041 Radiographic dye allergy status; Z79.82 Long term (current) use of aspirin; Z79.899 Other long term (current) drug therapy; Z85.828 Personal history of other malignant neoplasm of skin; Z87.891 Personal history of nicotine dependence; Z68.24 Body mass index [BMI] 24.0-24.9, adult
CPT/HCPCS: 36415; 71046 ×2; 80048; 83880; 85018; 85379; 96374; 99285; J1940; 83735; 85025; 93306; 93970; 93970-26; 94640; 99222-AI; 99231; 99238; A9270-GY; J1650

== ENCOUNTER 2020-04-02 10:25 | Inpatient (IN) | payer MEDICARE, BC, OTHER ==
--- NOTE | 2020-04-02 11:27 | EDM.PDOC ---
ED HPI GENERAL MEDICAL PROBLEM - General Chief Complaint: Respiratory Problem Stated Complaint: CANT BREATHE Time Seen by Provider: 04/02/20 11:00 Source of Information: Reports: Patient, Family () History Limitations: Reports: Respiratory Distress - History of Present Illness INITIAL COMMENTS - FREE TEXT/NARRATIVE: John Paul presents to [place] ER with for evaluation of acute worsening of shortness of breath with cough over the last 2-3 days. John Paul has not had a fever but concerns remain for COVID infection, he reports being tested for COVID 1 month ago, negative when hospitalization for acute CHF with renal failure. John Paul has not had a appetitie for the last 3 days (, last good meal). John Paul is concerned today may be pneumonia (which he has never had), COVID, COPD or CHF, similar reason for symptoms during recent hospital stay. John Paul does not check daily weight to see if increased fluid noted. John Paul denies swelling in his legs. John Paul uses CPAP at night and oxygen 2 Liters. John Paul has used supplemental oxygen during the day and needed to increase to 3-4 liters at home. John Paul has an pulse oximeter at home noting 85% results this am. John Paul denies headache, chest pain, abdominal pain or urinary concerns. BM are soft and feels like he is constipated. John Paul has chronic nasal drainage over the last year, he blames 2019 Flu shot. John Paul denies concerning injury, rashes or skin sores. - Related Data Allergies Allergy/AdvReac Type Severity Reaction Status Date / Time clopidogrel bisulfate Allergy Intermediate Rash Verified 04/02/20 10:42 [From Plavix] Iodinated Contrast Media Allergy Other Verified 04/02/20 10:42 lisinopril Allergy Cough Verified 04/02/20 10:42 Home Meds: Home Meds Aspirin 325 mg PO DAILY 12/09/15 [History] Nitroglycerin [Nitrostat] 0.4 mg PO ASDIRECTED PRN 12/09/15 [History] Simvastatin 40 mg PO DAILY 12/09/15 [History] amLODIPine [Norvasc] 5 mg PO DAILY 12/09/15 [History] hydrALAZINE [Apresoline] 50 mg PO TID 12/09/15 [History] Acetaminophen/Diphenhydramine [Tylenol Pm Ex-Strength Caplet] 1 tab PO BEDTIME 11/04/16 [History] Metoprolol Succinate [Toprol Xl] 100 mg PO DAILY 11/04/16 [History] Multivitamin [Multivitamins] 1 tab PO DAILY 11/04/16 [History] Cholecalciferol (Vitamin D3) [Vitamin D3] 5,000 units PO DAILY 12/18/17 [History] Dextromethorphan/guaiFENesin [Robitussin DM] 5 ml PO Q6HR PRN 12/18/17 [History] Fluticasone Propionate [Flonase] 1 spray ANSHUL BID 12/18/17 [History] Isosorbide Mononitrate [Isosorbide Mononitrate ER] 60 mg PO DAILY #30 tab.er.24h 10/24/18 [Rx] Albuterol Sulfate [Proair Hfa] 1 - 2 puff IH Q4H PRN 06/09/19 [History] Albuterol/Ipratropium [DuoNeb 3.0-0.5 MG/3 ML] 3 ml INH Q4H PRN 06/09/19 [History] Budesonide/Formoterol [Symbicort 80-4.5 MCG] 1 puff INH BID 06/09/19 [History] Melatonin 5 mg PO BEDTIME 06/09/19 [History] Sennosides/Docusate Sodium [Senokot-S Tablet] 2 each PO BID PRN 06/09/19 [History] Umeclidinium Brm/Vilanterol Tr [Anoro Ellipta 62.5-25 MCG] 1 each IH DAILY 06/09/19 [History] polyethylene glycoL 3350 [MiraLAX] 17 gm PO DAILY 06/09/19 [History] Furosemide [Lasix] 120 mg PO DAILY #90 tablet 02/23/20 [Rx] Past Medical History HEENT History: Reports: Cataract, Impaired Vision Other HEENT History: wears glasses Cardiovascular History: Reports: Arrhythmia, CAD, Heart Failure, High Cholesterol, Hypertension, Stents Respiratory History: Reports: SOB, Other (See Below) Other Respiratory History: home o2 Gastrointestinal History: Reports: GERD Genitourinary History: Reports: Chronic Renal Insuffiency, Prostate Disorder, Other (See Below) Other Genitourinary History: kidney stent Musculoskeletal History: Reports: Back Pain, Chronic, Fracture Psychiatric History: Reports: Addiction, Anxiety Endocrine/Metabolic History: Reports: Obesity/BMI 30+ Oncologic (Cancer) History: Reports: Other (See Below) Other Oncologic History: skin cancer Dermatologic History: Reports: None Other Dermatologic History: multiple cysts - Infectious Disease History Infectious Disease History: Reports: Chicken Pox - Past Surgical History HEENT Surgical History: Reports: Cataract Surgery Cardiovascular Surgical History: Reports: Carotid Endarterectomy, Carotid Stents GI Surgical History: Reports: Cholecystectomy, Colonoscopy, Other (See Below) Other GI Surgeries/Procedures: states has "twisted bowel" Male Surgical History: Reports: TURP-Transurethral Resection of Prostate Musculoskeletal Surgical History: Reports: Other (See Below) Other Musculoskeletal Surgeries/Procedures:: right lower leg fracture Dermatological Surgical History: Reports: Skin Biopsy Social & Family History - Family History Family Medical History: Noncontributory - Tobacco Use Smoking Status *Q: Former Smoker Used Tobacco, but Quit: Yes Month/Year Tobacco Last Used: 15years - Caffeine Use Caffeine Use: Reports: Coffee - Recreational Drug Use Recreational Drug Use: No - Living Situation & Occupation Living situation: Reports: , with Family Occupation: Retired (lives with Veena in [place]. 3 Son, none live in the area.) ED ROS GENERAL - Review of Systems Review Of Systems: Comprehensive ROS is negative, except as noted in HPI. ED EXAM, GENERAL - Physical Exam Exam: See Below Exam Limited By: Respiratory Distress (increased work of breathing, low pulse oxygen, increased respiratory rate and supplemental oxygen needs) General Appearance: Alert, WD/WN, Moderate Distress Eye Exam: Bilateral Eye: EOMI, Normal Inspection Ears: Normal External Exam, Hearing Loss Nose: Normal Inspection, Nasal Drainage (clear) Throat/Mouth: Normal Inspection, Normal Lips, No Airway Compromise Head: Normocephalic (JVD distention noted) Respiratory/Chest: Chest Non-Tender, Respiratory Distress, Decreased Breath Sounds, Accessory Muscle Use. No: Rhonchi, Wheezing, Retractions Cardiovascular: Normal Peripheral Pulses, Regular Rate, Rhythm (with frequent PVCs), No Murmur, JVD GI/Abdominal: Normal Bowel Sounds, Soft, Non-Tender (Male) Exam: Deferred Rectal (Males) Exam: Deferred Back Exam: Normal Inspection Extremities: Normal Inspection, Normal Range of Motion. No: Pedal Edema Neurological: Alert, Oriented, CN II-XII Intact, Normal Cognition (tired), No Motor/Sensory Deficits Psychiatric: Normal Mood, Flat Affect Skin Exam: Warm, Dry, Intact, Normal Color, No Rash EKG INTERPRETATION EKG Date: 04/02/20 Time: 11:41 Rhythm: NSR Rate (Beats/Min): 63 Waldo: LAD-Left Waldo Deviation (LVH) P-Wave: Present QRS: Normal (Frequent PVCs with bigeminy) ST-T: Normal QT: Normal ND/PQ Interval: ND prolonged 227 Comparison: No Change (October 2018) Course - Vital Signs Last Recorded V/S: Last Vital Signs Temp 36.4 C 04/02/20 10:35 Pulse 56 L 04/02/20 10:35 Resp 22 H 04/02/20 11:24 BP 168/71 H 04/02/20 11:24 Pulse Ox 92 L 04/02/20 11:24 - Orders/Labs/Meds Orders: Active Orders 24 hr Category Date Time Status Patient Status Manage Transfer [TRANSFER] Routine ADT 04/02/20 15:02 Active Cardiac Monitoring [RC] .As Directed Care 04/02/20 11:30 Active EKG Documentation Completion [RC] ASDIRECTED Care 04/02/20 11:48 Active Oxygen Therapy Adult [Oxygen Therapy, ED] [RC] Care 04/02/20 11:28 Active ASDIRECTED Peripheral IV Care [RC] . DIRECTED Care 04/02/20 11:30 Active Vital Signs [RC] Q1H Care 04/02/20 11:24 Active CXR [Chest 2V] [CR] Stat Exams 04/02/20 14:16 Taken CULTURE BLOOD [BC] Urgent Lab 04/02/20 11:37 Received CULTURE BLOOD [BC] Urgent Lab 04/02/20 11:40 Received Sodium Chloride 0.9% [Saline Flush] Med 04/02/20 11:30 Active 10 ml FLUSH ASDIRECTED PRN Blood Culture x2 Reflex Set [OM.PC] Urgent Oth 04/02/20 11:24 Ordered Peripheral IV Insertion Adult [OM.PC] Urgent Oth 04/02/20 11:30 Ordered Resuscitation Status Routine Resus Stat 04/02/20 15:05 Ordered EKG 12 Lead [EK] Urgent Ther 04/02/20 11:48 Ordered Medication Orders Sodium Chloride (Saline Flush) 10 ml FLUSH ASDIRECTED PRN PRN Reason: Keep Vein Open Last Admin: 04/02/20 11:39 Dose: 10 ml Documented by: [email or web address] Labs: Laboratory Tests 04/02/20 04/02/20 04/02/20 Range/Units 11:45 11:45 11:45 WBC 7.6 (4.5-11.0) K/uL RBC 4.04 L (4.30-5.90) M/uL Hgb 11.8 L (12.0-15.0) g/dL Hct 37.1 L (40.0-54.0) % MCV 92 (80-98) fL MCH 29 (27-31) pg MCHC 32 (32-36) % Plt Count 143 L (150-400) K/uL Neut % (Auto) 79 H (36-66) % Lymph % (Auto) 11 L (24-44) % [place] % (Auto) 9 H (2-6) % Eos % (Auto) 1 L (2-4) % Baso % (Auto) 0 (0-1) % Sodium 139 L (140-148) mmol/L Potassium 3.7 (3.6-5.2) mmol/L Chloride 102 (100-108) mmol/L Carbon Dioxide 27 (21-32) mmol/L Anion Gap 13.7 (5.0-14.0) mmol/L BUN 43 H (7-18) mg/dL Creatinine 3.2 H (0.8-1.3) mg/dL Est Cr Clr Drug Dosing 17.43 mL/min Estimated GFR (MDRD) 19 L (>60) Glucose 169 H (74-106) mg/dL Lactic Acid 1.4 (0.4-2.0) mmol/L Calcium 8.5 (8.5-10.1) mg/dL Magnesium (1.8-2.4) mg/dL Total Bilirubin 1.0 (0.2-1.0) mg/dL AST 16 (15-37) U/L ALT 18 (12-78) U/L Alkaline Phosphatase 63 (46-116) U/L Troponin I (0.000-0.056) ng/mL C-Reactive Protein 6.26 H (0.0-0.3) mg/dL NT-Pro-B Natriuret Pep (5-450) pg/mL Total Protein 6.3 L (6.4-8.2) g/dL Albumin 2.7 L (3.4-5.0) g/dL Globulin 3.6 H (2.3-3.5) g/dL Albumin/Globulin Ratio 0.8 L (1.2-2.2) Urine Color (YELLOW) Urine Appearance (CLEAR) Urine pH (5.0-8.0) Ur Specific [place] (1.008-1.030) Urine Protein (NEGATIVE) mg/dL Urine Glucose (UA) (NEGATIVE) mg/dL Urine Ketones (NEGATIVE) mg/dL Urine Occult Blood (NEGATIVE) Urine Nitrite (NEGATIVE) Urine Bilirubin (NEGATIVE) Urine Urobilinogen (0.2-1.0) EU/dL Ur Leukocyte Esterase (NEGATIVE) Urine RBC (0-5) Urine WBC (0-5) Ur Epithelial Cells Amorphous Sediment Urine Bacteria Urine Mucus SARS-CoV-2 RNA (RANDY) (NEGATIVE) 04/02/20 04/02/20 04/02/20 Range/Units 11:45 11:47 12:12 WBC (4.5-11.0) K/uL RBC (4.30-5.90) M/uL Hgb (12.0-15.0) g/dL Hct (40.0-54.0) % MCV (80-98) fL MCH (27-31) pg MCHC (32-36) % Plt Count (150-400) K/uL Neut % (Auto) (36-66) % Lymph % (Auto) (24-44) % [place] % (Auto) (2-6) % Eos % (Auto) (2-4) % Baso % (Auto) (0-1) % Sodium (140-148) mmol/L Potassium (3.6-5.2) mmol/L Chloride (100-108) mmol/L Carbon Dioxide (21-32) mmol/L Anion Gap (5.0-14.0) mmol/L BUN (7-18) mg/dL Creatinine (0.8-1.3) mg/dL Est Cr Clr Drug Dosing mL/min Estimated GFR (MDRD) (>60) Glucose (74-106) mg/dL Lactic Acid (0.4-2.0) mmol/L Calcium (8.5-10.1) mg/dL Magnesium 2.1 (1.8-2.4) mg/dL Total Bilirubin (0.2-1.0) mg/dL AST (15-37) U/L ALT (12-78) U/L Alkaline Phosphatase (46-116) U/L Troponin I 0.037 (0.000-0.056) ng/mL C-Reactive Protein (0.0-0.3) mg/dL NT-Pro-B Natriuret Pep 08493 H (5-450) pg/mL Total Protein (6.4-8.2) g/dL Albumin (3.4-5.0) g/dL Globulin (2.3-3.5) g/dL Albumin/Globulin Ratio (1.2-2.2) Urine Color Yellow (YELLOW) Urine Appearance Clear (CLEAR) Urine pH 5.5 (5.0-8.0) Ur Specific [place] 1.020 (1.008-1.030) Urine Protein >=300 H (NEGATIVE) mg/dL Urine Glucose (UA) Negative (NEGATIVE) mg/dL Urine Ketones Negative (NEGATIVE) mg/dL Urine Occult Blood Negative (NEGATIVE) Urine Nitrite Negative (NEGATIVE) Urine Bilirubin Negative (NEGATIVE) Urine Urobilinogen 1.0 (0.2-1.0) EU/dL Ur Leukocyte Esterase Negative (NEGATIVE) Urine RBC Not seen (0-5) Urine WBC Not seen (0-5) Ur Epithelial Cells Not seen Amorphous Sediment Rare Urine Bacteria Not seen Urine Mucus Not seen SARS-CoV-2 RNA (RANDY) (NEGATIVE) 04/02/20 Range/Units 12:26 WBC (4.5-11.0) K/uL RBC (4.30-5.90) M/uL Hgb (12.0-15.0) g/dL Hct (40.0-54.0) % MCV (80-98) fL MCH (27-31) pg MCHC (32-36) % Plt Count (150-400) K/uL Neut % (Auto) (36-66) % Lymph % (Auto) (24-44) % [place] % (Auto) (2-6) % Eos % (Auto) (2-4) % Baso % (Auto) (0-1) % Sodium (140-148) mmol/L Potassium (3.6-5.2) mmol/L Chloride (100-108) mmol/L Carbon Dioxide (21-32) mmol/L Anion Gap (5.0-14.0) mmol/L BUN (7-18) mg/dL Creatinine (0.8-1.3) mg/dL Est Cr Clr Drug Dosing mL/min Estimated GFR (MDRD) (>60) Glucose (74-106) mg/dL Lactic Acid (0.4-2.0) mmol/L Calcium (8.5-10.1) mg/dL Magnesium (1.8-2.4) mg/dL Total Bilirubin (0.2-1.0) mg/dL AST (15-37) U/L ALT (12-78) U/L Alkaline Phosphatase (46-116) U/L Troponin I (0.000-0.056) ng/mL C-Reactive Protein (0.0-0.3) mg/dL NT-Pro-B Natriuret Pep (5-450) pg/mL Total Protein (6.4-8.2) g/dL Albumin (3.4-5.0) g/dL Globulin (2.3-3.5) g/dL Albumin/Globulin Ratio (1.2-2.2) Urine Color (YELLOW) Urine Appearance (CLEAR) Urine pH (5.0-8.0) Ur Specific [place] (1.008-1.030) Urine Protein (NEGATIVE) mg/dL Urine Glucose (UA) (NEGATIVE) mg/dL Urine Ketones (NEGATIVE) mg/dL Urine Occult Blood (NEGATIVE) Urine Nitrite (NEGATIVE) Urine Bilirubin (NEGATIVE) Urine Urobilinogen (0.2-1.0) EU/dL Ur Leukocyte Esterase (NEGATIVE) Urine RBC (0-5) Urine WBC (0-5) Ur Epithelial Cells Amorphous Sediment Urine Bacteria Urine Mucus SARS-CoV-2 RNA (RANDY) Negative (NEGATIVE) Meds: Medications Generic Name Dose Route Start Last Admin Trade Name Freq PRN Reason Stop Dose Admin Sodium Chloride 10 ml 04/02/20 11:30 04/02/20 11:39 Saline Flush FLUSH 10 ml ASDIRECTED PRN Administration Keep Vein Open Discontinued Medications Generic Name Dose Route Start Last Admin Trade Name Freq PRN Reason Stop Dose Admin Furosemide 40 mg 04/02/20 13:05 04/02/20 13:18 Lasix IVPUSH 04/02/20 13:06 40 mg ONETIME ONE Administration Departure - Departure Time of Disposition: 15:00 Disposition: Left Without Being Seen 07 Clinical Impression: Hypoxia, Respiratory distress, CHF, acute on chronic, Renal failure, Demand ischemia - Discharge Information Referrals: Pat Johnson PA-C [Primary Care Provider] - Forms: ED Department Discharge Sepsis Event Note (ED) - Evaluation Sepsis Screening Result: No Definite Risk - Focused Exam Vital Signs: Vital Signs Temp Pulse Resp BP Pulse Ox 04/02/20 11:24 22 H 168/71 H 92 L 04/02/20 10:35 36.4 C 56 L 24 H 166/95 H 91 L - My Orders Last 24 Hours: My Active Orders 04/02/20 11:24 Vital Signs [RC] Q1H Blood Culture x2 Reflex Set [OM.PC] Urgent 04/02/20 11:28 Oxygen Therapy Adult [Oxygen Therapy, ED] [RC] ASDIRECTED 04/02/20 11:30 Cardiac Monitoring [RC] .As Directed Peripheral IV Care [RC] . DIRECTED Sodium Chloride 0.9% [Saline Flush] 10 ml FLUSH ASDIRECTED PRN Peripheral IV Insertion Adult [OM.PC] Urgent 04/02/20 11:37 CULTURE BLOOD [BC] Urgent 04/02/20 11:40 CULTURE BLOOD [BC] Urgent 04/02/20 11:48 EKG Documentation Completion [RC] ASDIRECTED EKG 12 Lead [EK] Urgent 04/02/20 14:16 CXR [Chest 2V] [CR] Stat - Assessment/Plan Last 24 Hours: My Active Orders 04/02/20 11:24 Vital Signs [RC] Q1H Blood Culture x2 Reflex Set [OM.PC] Urgent 04/02/20 11:28 Oxygen Therapy Adult [Oxygen Therapy, ED] [RC] ASDIRECTED 04/02/20 11:30 Cardiac Monitoring [RC] .As Directed Peripheral IV Care [RC] . DIRECTED Sodium Chloride 0.9% [Saline Flush] 10 ml FLUSH ASDIRECTED PRN Peripheral IV Insertion Adult [OM.PC] Urgent 04/02/20 11:37 CULTURE BLOOD [BC] Urgent 04/02/20 11:40 CULTURE BLOOD [BC] Urgent 04/02/20 11:48 EKG Documentation Completion [RC] ASDIRECTED EKG 12 Lead [EK] Urgent 04/02/20 14:16 CXR [Chest 2V] [CR] Stat
[2020-04-02] MEDS ORDERED: Sodium Chloride 0.9% 10 ML Syringe FLUSH PRN (11:30)
[2020-04-02] MEDS ORDERED: Furosemide 40 MG/4 ML VIAL IVPUSH ONE (13:05)
--- NOTE | 2020-04-02 15:09 | PCM.HP.2 ---
H&P History of Present Illness - General Date of Service: 04/02/20 Admit Problem/Dx: Admission Diagnosis/Problem Admission Diagnosis/Problem CHF, Congestive heart failure Source of Information: Patient, Provider History Limitations: Reports: No Limitations - History of Present Illness Initial Comments - Free Text/Narative: CC: I couldn't catch my breath HPI: John Paul presents to the emergency room today with shortness of breath. It has been steadily progressive over the past 40 hours or so. He first noticed it 2 nights ago and he had difficulty sleeping because of the shortness of breath. This shortness of breath did get worse when he tried to lay down. Seems a opal le better when he is up and about during the day. He had trouble sleeping again last night because of the dyspnea/orthopnea. This morning he was quite short of breath. Over the past 24 hours he has turned his supplemental oxygen up from 2 to 3 to 4 L without much in the way of improvement. He short of breath with any activity. He has a moderate cough but this is unchanged from baseline. No f flory. He has not been keeping track of his weight. No lower extremity edema. No chest pain. No change in bowel or bladder habits. No sick contacts. He does note that he missed a partial dose of his furosemide yesterday. Work-up in the emergency room was concerning for an exacerbation of his congestive heart failure with increased hypoxia from baseline as well as obvious evidence for volume overload. Kidney function is stable but severely reduced. He is going to be admitted for management of an exacerbation of heart failure complicated by pulmonary hypertension and stage IV kidney disease. - Related Data Allergies/Adverse Reactions: Allergies Allergy/AdvReac Type Severity Reaction Status Date / Time clopidogrel bisulfate Allergy Intermediate Rash Verified 04/02/20 10:42 [From Plavix] Iodinated Contrast Media Allergy Other Verified 04/02/20 10:42 lisinopril Allergy Cough Verified 04/02/20 10:42 Home Medications: Home Meds Aspirin 325 mg PO DAILY 12/09/15 [History] Nitroglycerin [Nitrostat] 0.4 mg PO ASDIRECTED PRN 12/09/15 [History] Simvastatin 40 mg PO DAILY 12/09/15 [History] amLODIPine [Norvasc] 5 mg PO DAILY 12/09/15 [History] hydrALAZINE [Apresoline] 50 mg PO TID 12/09/15 [History] Acetaminophen/Diphenhydramine [Tylenol Pm Ex-Strength Caplet] 1 tab PO BEDTIME 11/04/16 [History] Metoprolol Succinate [Toprol Xl] 100 mg PO DAILY 11/04/16 [History] Multivitamin [Multivitamins] 1 tab PO DAILY 11/04/16 [History] Cholecalciferol (Vitamin D3) [Vitamin D3] 5,000 units PO DAILY 12/18/17 [History] Dextromethorphan/guaiFENesin [Robitussin DM] 5 ml PO Q6HR PRN 12/18/17 [History] Fluticasone Propionate [Flonase] 1 spray ANSHUL BID 12/18/17 [History] Isosorbide Mononitrate [Isosorbide Mononitrate ER] 60 mg PO DAILY #30 tab.er.24h 10/24/18 [Rx] Albuterol Sulfate [Proair Hfa] 1 - 2 puff IH Q4H PRN 06/09/19 [History] Albuterol/Ipratropium [DuoNeb 3.0-0.5 MG/3 ML] 3 ml INH Q4H PRN 06/09/19 [History] Budesonide/Formoterol [Symbicort 80-4.5 MCG] 1 puff INH BID 06/09/19 [History] Melatonin 5 mg PO BEDTIME 06/09/19 [History] Sennosides/Docusate Sodium [Senokot-S Tablet] 2 each PO BID PRN 06/09/19 [History] Umeclidinium Brm/Vilanterol Tr [Anoro Ellipta 62.5-25 MCG] 1 each IH DAILY 06/09 [History] polyethylene glycoL 3350 [MiraLAX] 17 gm PO DAILY 06/09/19 [History] Furosemide [Lasix] 120 mg PO DAILY #90 tablet 02/23/20 [Rx] Past Medical History HEENT History: Reports: Cataract, Impaired Vision Other HEENT History: wears glasses Cardiovascular History: Reports: Arrhythmia, CAD, Heart Failure, High Cholesterol, Hypertension, Stents Respiratory History: Reports: SOB, Other (See Below) Other Respiratory History: home o2 Gastrointestinal History: Reports: GERD Genitourinary History: Reports: Chronic Renal Insuffiency, Prostate Disorder, Other (See Below) Other Genitourinary History: kidney stent Musculoskeletal History: Reports: Back Pain, Chronic, Fracture Psychiatric History: Reports: Addiction, Anxiety Endocrine/Metabolic History: Reports: Obesity/BMI 30+ Oncologic (Cancer) History: Reports: Other (See Below) Other Oncologic History: skin cancer Dermatologic History: Reports: None Other Dermatologic History: multiple cysts - Infectious Disease History Infectious Disease History: Reports: Chicken Pox - Past Surgical History HEENT Surgical History: Reports: Cataract Surgery Cardiovascular Surgical History: Reports: Carotid Endarterectomy, Carotid Stents GI Surgical History: Reports: Cholecystectomy, Colonoscopy, Other (See Below) Other GI Surgeries/Procedures: states has "twisted bowel" Male Surgical History: Reports: TURP-Transurethral Resection of Prostate Musculoskeletal Surgical History: Reports: Other (See Below) Other Musculoskeletal Surgeries/Procedures:: right lower leg fracture Dermatological Surgical History: Reports: Skin Biopsy Social & Family History - Family History Family Medical History: Noncontributory - Tobacco Use Smoking Status *Q: Former Smoker Used Tobacco, but Quit: Yes Month/Year Tobacco Last Used: 15years - Caffeine Use Caffeine Use: Reports: Coffee - Alcohol Use Alcohol Use History: No - Recreational Drug Use Recreational Drug Use: No - Living Situation & Occupation Living situation: Reports: , with Family Occupation: Retired (lives with Veena in [place]. 3 Son, none live in the area.) H&P Review of Systems - Review of Systems: Review Of Systems: See Below Free Text/Narrative: A complete 12 point review of systems was obtained. Pertinent positives and negatives are noted in the history of present illness. All other systems were reviewed and were negative except as noted. Exam - Exam Exam: See Below - Vital Signs Vital Signs: Last Vital Signs Temp 36.4 C 04/02/20 10:35 Pulse 56 L 04/02/20 10:35 Resp 22 H 04/02/20 11:24 BP 168/71 H 04/02/20 11:24 Pulse Ox 92 L 04/02/20 11:24 Weight: 76.657 kg - Exam Quality Assessment: Supplemental Oxygen General: Alert, Oriented, Cooperative, Mild Distress (Mild increased work of breathing) HEENT: Conjunctiva Clear. No: Mucosa Moist & [place] (dry) Neck: JVD. No: Lymphadenopathy Lungs: Decreased Breath Sounds (Mild right lung base), Crackles (Mild at both bases). No: Normal Respiratory Effort (Mild increase in work of breathing), Wheezing Cardiovascular: Regular Rate, Irregular Rhythm, Systolic Murmur (Left upper sternal border), Gallop/S3 GI/Abdominal Exam: Normal Bowel Sounds, Soft, Non-Tender, No Distention Extremities: No Pedal Edema. No: Joint Swelling, Increased Warmth Peripheral Pulses: 1+: Dorsalis Pedis (L), Dorsalis Pedis (R) Skin: Warm, Dry Neuro Extensive - Mental Status: Alert, Oriented x3, Nl Response to Commands Neuro Extensive - Motor, Sensory, Reflexes: No: Dysarthria, Abnormal Motor, Tremor Psychiatric: Alert, Normal Affect - Patient Data Lab Results Last 24 hrs: Laboratory Results - last 24 hr 04/02/20 04/02/20 04/02/20 Range/Units 11:45 11:45 11:45 WBC 7.6 (4.5-11.0) K/uL RBC 4.04 L (4.30-5.90) M/uL Hgb 11.8 L (12.0-15.0) g/dL Hct 37.1 L (40.0-54.0) % MCV 92 (80-98) fL MCH 29 (27-31) pg MCHC 32 (32-36) % Plt Count 143 L (150-400) K/uL Neut % (Auto) 79 H (36-66) % Lymph % (Auto) 11 L (24-44) % [place] % (Auto) 9 H (2-6) % Eos % (Auto) 1 L (2-4) % Baso % (Auto) 0 (0-1) % Sodium 139 L (140-148) mmol/L Potassium 3.7 (3.6-5.2) mmol/L Chloride 102 (100-108) mmol/L Carbon Dioxide 27 (21-32) mmol/L Anion Gap 13.7 (5.0-14.0) mmol/L BUN 43 H (7-18) mg/dL Creatinine 3.2 H (0.8-1.3) mg/dL Est Cr Clr Drug Dosing 17.43 mL/min Estimated GFR (MDRD) 19 L (>60) Glucose 169 H (74-106) mg/dL Lactic Acid 1.4 (0.4-2.0) mmol/L Calcium 8.5 (8.5-10.1) mg/dL Magnesium (1.8-2.4) mg/dL Total Bilirubin 1.0 (0.2-1.0) mg/dL AST 16 (15-37) U/L ALT 18 (12-78) U/L Alkaline Phosphatase 63 (46-116) U/L Troponin I (0.000-0.056) ng/mL C-Reactive Protein 6.26 H (0.0-0.3) mg/dL NT-Pro-B Natriuret Pep (5-450) pg/mL Total Protein 6.3 L (6.4-8.2) g/dL Albumin 2.7 L (3.4-5.0) g/dL Globulin 3.6 H (2.3-3.5) g/dL Albumin/Globulin Ratio 0.8 L (1.2-2.2) Urine Color (YELLOW) Urine Appearance (CLEAR) Urine pH (5.0-8.0) Ur Specific [place] (1.008-1.030) Urine Protein (NEGATIVE) mg/dL Urine Glucose (UA) (NEGATIVE) mg/dL Urine Ketones (NEGATIVE) mg/dL Urine Occult Blood (NEGATIVE) Urine Nitrite (NEGATIVE) Urine Bilirubin (NEGATIVE) Urine Urobilinogen (0.2-1.0) EU/dL Ur Leukocyte Esterase (NEGATIVE) Urine RBC (0-5) Urine WBC (0-5) Ur Epithelial Cells Amorphous Sediment Urine Bacteria Urine Mucus SARS-CoV-2 RNA (RANDY) (NEGATIVE) 04/02/20 04/02/20 04/02/20 Range/Units 11:45 11:47 12:12 WBC (4.5-11.0) K/uL RBC (4.30-5.90) M/uL Hgb (12.0-15.0) g/dL Hct (40.0-54.0) % MCV (80-98) fL MCH (27-31) pg MCHC (32-36) % Plt Count (150-400) K/uL Neut % (Auto) (36-66) % Lymph % (Auto) (24-44) % [place] % (Auto) (2-6) % Eos % (Auto) (2-4) % Baso % (Auto) (0-1) % Sodium (140-148) mmol/L Potassium (3.6-5.2) mmol/L Chloride (100-108) mmol/L Carbon Dioxide (21-32) mmol/L Anion Gap (5.0-14.0) mmol/L BUN (7-18) mg/dL Creatinine (0.8-1.3) mg/dL Est Cr Clr Drug Dosing mL/min Estimated GFR (MDRD) (>60) Glucose (74-106) mg/dL Lactic Acid (0.4-2.0) mmol/L Calcium (8.5-10.1) mg/dL Magnesium 2.1 (1.8-2.4) mg/dL Total Bilirubin (0.2-1.0) mg/dL AST (15-37) U/L ALT (12-78) U/L Alkaline Phosphatase (46-116) U/L Troponin I 0.037 (0.000-0.056) ng/mL C-Reactive Protein (0.0-0.3) mg/dL NT-Pro-B Natriuret Pep 07574 H (5-450) pg/mL Total Protein (6.4-8.2) g/dL Albumin (3.4-5.0) g/dL Globulin (2.3-3.5) g/dL Albumin/Globulin Ratio (1.2-2.2) Urine Color Yellow (YELLOW) Urine Appearance Clear (CLEAR) Urine pH 5.5 (5.0-8.0) Ur Specific [place] 1.020 (1.008-1.030) Urine Protein >=300 H (NEGATIVE) mg/dL Urine Glucose (UA) Negative (NEGATIVE) mg/dL Urine Ketones Negative (NEGATIVE) mg/dL Urine Occult Blood Negative (NEGATIVE) Urine Nitrite Negative (NEGATIVE) Urine Bilirubin Negative (NEGATIVE) Urine Urobilinogen 1.0 (0.2-1.0) EU/dL Ur Leukocyte Esterase Negative (NEGATIVE) Urine RBC Not seen (0-5) Urine WBC Not seen (0-5) Ur Epithelial Cells Not seen Amorphous Sediment Rare Urine Bacteria Not seen Urine Mucus Not seen SARS-CoV-2 RNA (RANDY) (NEGATIVE) 04/02/20 Range/Units 12:26 WBC (4.5-11.0) K/uL RBC (4.30-5.90) M/uL Hgb (12.0-15.0) g/dL Hct (40.0-54.0) % MCV (80-98) fL MCH (27-31) pg MCHC (32-36) % Plt Count (150-400) K/uL Neut % (Auto) (36-66) % Lymph % (Auto) (24-44) % [place] % (Auto) (2-6) % Eos % (Auto) (2-4) % Baso % (Auto) (0-1) % Sodium (140-148) mmol/L Potassium (3.6-5.2) mmol/L Chloride (100-108) mmol/L Carbon Dioxide (21-32) mmol/L Anion Gap (5.0-14.0) mmol/L BUN (7-18) mg/dL Creatinine (0.8-1.3) mg/dL Est Cr Clr Drug Dosing mL/min Estimated GFR (MDRD) (>60) Glucose (74-106) mg/dL Lactic Acid (0.4-2.0) mmol/L Calcium (8.5-10.1) mg/dL Magnesium (1.8-2.4) mg/dL Total Bilirubin (0.2-1.0) mg/dL AST (15-37) U/L ALT (12-78) U/L Alkaline Phosphatase (46-116) U/L Troponin I (0.000-0.056) ng/mL C-Reactive Protein (0.0-0.3) mg/dL NT-Pro-B Natriuret Pep (5-450) pg/mL Total Protein (6.4-8.2) g/dL Albumin (3.4-5.0) g/dL Globulin (2.3-3.5) g/dL Albumin/Globulin Ratio (1.2-2.2) Urine Color (YELLOW) Urine Appearance (CLEAR) Urine pH (5.0-8.0) Ur Specific [place] (1.008-1.030) Urine Protein (NEGATIVE) mg/dL Urine Glucose (UA) (NEGATIVE) mg/dL Urine Ketones (NEGATIVE) mg/dL Urine Occult Blood (NEGATIVE) Urine Nitrite (NEGATIVE) Urine Bilirubin (NEGATIVE) Urine Urobilinogen (0.2-1.0) EU/dL Ur Leukocyte Esterase (NEGATIVE) Urine RBC (0-5) Urine WBC (0-5) Ur Epithelial Cells Amorphous Sediment Urine Bacteria Urine Mucus SARS-CoV-2 RNA (RANDY) Negative (NEGATIVE) Result Diagrams: 04/02/20 11:45 04/02/20 11:45 Imaging Impressions Last 24 hrs: Chest x-ray-image personally reviewed-there are small bilateral effusions as well as diffuse interstitial changes. Heart size is borderline enlarged. There is some fluid in the fissure on the right. This appears fairly similar to his chest x-ray from February of this year. Sepsis Event Note - Evaluation Sepsis Screening Result: No Definite Risk - Focused Exam Vital Signs: Vital Signs Temp Pulse Resp BP Pulse Ox 04/02/20 11:24 22 H 168/71 H 92 L 04/02/20 10:35 36.4 C 56 L 24 H 166/95 H 91 L *Q Meaningful Use (ADM) - VTE Risk Assess *Q Each Risk Factor Represents 1 Point: Congestive heart failure (CHF), Abnormal Pulmonary Function (COPD) Total Score 1 Point Risk Factors: 2 Each Risk Factor Represents 2 Points: None Total Score 2 Point Risk Factors: 0 Each Risk Factor Represents 3 Points: Age 75 Years or Greater Total Score 3 Point Risk Factors: 3 Each Risk Factor Represents 5 Points: None Total Score 5 Point Risk Factors: 0 Venous Thromboembolism Risk Factor Score *Q: 5 Problem List Initiated/Reviewed/Updated: Yes Orders Last 24hrs: Active Orders 24 hr Category Date Time Status Patient Status Manage Transfer [TRANSFER] Routine ADT 04/02/20 15:02 Ordered Cardiac Monitoring [RC] .As Directed Care 04/02/20 11:30 Active EKG Documentation Completion [RC] ASDIRECTED Care 04/02/20 11:48 Active Oxygen Therapy Adult [Oxygen Therapy, ED] [RC] Care 04/02/20 11:28 Active ASDIRECTED Peripheral IV Care [RC] . DIRECTED Care 04/02/20 11:30 Active Vital Signs [RC] Q1H Care 04/02/20 11:24 Active CXR [Chest 2V] [CR] Stat Exams 04/02/20 14:16 Taken CULTURE BLOOD [BC] Urgent Lab 04/02/20 11:37 Received CULTURE BLOOD [BC] Urgent Lab 04/02/20 11:40 Received Sodium Chloride 0.9% [Saline Flush] Med 04/02/20 11:30 Active 10 ml FLUSH ASDIRECTED PRN Blood Culture x2 Reflex Set [OM.PC] Urgent Oth 04/02/20 11:24 Ordered Peripheral IV Insertion Adult [OM.PC] Urgent Oth 04/02/20 11:30 Ordered Resuscitation Status Routine Resus Stat 04/02/20 15:05 Ordered EKG 12 Lead [EK] Urgent Ther 04/02/20 11:48 Ordered Medication Orders Sodium Chloride (Saline Flush) 10 ml FLUSH ASDIRECTED PRN PRN Reason: Keep Vein Open Last Admin: 04/02/20 11:39 Dose: 10 ml Documented by: EBONI Assessment/Plan Comment:: ASSESSMENT AND PLAN - HFpEF-no history of heart failure but normal ejection fraction. Complicated by severe pulmonary hypertension as discussed below and hypertensive heart disease. Obvious evidence for volume overload with increased dyspnea and increased supplemental oxygen requirement. -Closely monitor urine output this afternoon, may need second dose of diuretic -80 mg of furosemide in the morning -Daily weights -Continue medical management Severe pulmonary hypertension-I suspect this is the big culprit behind his heart failure issues. He is on a medium dose of amlodipine and small dose of isosorbide. He has COPD but no evidence for acute exacerbation. -Continue amlodipine -Increase isosorbide to 120 mg -Supplement oxygen Stage IV chronic kidney disease-kidney function severely reduced but near baseline. -Closely monitor kidney function during diuresis COPD-no evidence for acute exacerbation -Continue home medications including nebulizers Chronic back pain-stable. Maintenance issues - - DVT prophylaxis -SCDs - GI prophylaxis -not indicated - Nutrition -low-sodium - Quesada catheter -not indicated CODE STATUS -DNR/DNI Admission justification -this patient will be admitted for inpatient services and is medically appropriate meeting medical necessity for inpatient admission as outlined in my documentation. I reasonably expect the patient will require inpatient services that span a period time over 2 midnights. I reasonably expect this patient to be discharged or transferred within 96 hours [facility]. Disposition -I would anticipate discharge home, possibly with home care after the hospital stay Primary care physician - Pat Pryor M.D. - Mortality Measure Prognosis:: Good
[2020-04-02] MEDS ORDERED: Albuterol 0.083% 2.5 MG/3 ML Neb Soln NEB PRN (16:06)
[2020-04-02] MEDS ORDERED: Acetaminophen 325 MG Tab PO PRN (16:06)
[2020-04-02] MEDS ORDERED: Ondansetron 4 MG Tab.DIS PO PRN (16:06)
[2020-04-02] MEDS ORDERED: Magnesium Hydroxide 400 MG/5 ML Susp 30 ML Cup PO PRN (16:06)
[2020-04-02] MEDS ORDERED: Ondansetron 4 MG/2 ML SDV IV PRN (16:06)
[2020-04-02] MEDS ORDERED: LORazepam 2 MG/ML SDV IVPUSH PRN (16:06)
[2020-04-02] MEDS: Albuterol/Ipratropium 3.0-0.5 MG/3 ML Neb Soln NEB SCH ×2 (16:57→20:53)
[2020-04-02] MEDS: Melatonin 3 MG Tab PO SCH (20:53)
[2020-04-02] MEDS: Simvastatin 20 MG Tab PO SCH (20:53)
[2020-04-02] MEDS: hydrALAZINE 25 MG Tab PO SCH (20:53)
[2020-04-02] MEDS: Fluticasone Propionate Nasal Spray 16 GM Bottle NAS SCH (20:54)
[2020-04-03] MEDS: Albuterol/Ipratropium 3.0-0.5 MG/3 ML Neb Soln NEB SCH ×4 (07:24→20:46)
[2020-04-03] MEDS ORDERED: Furosemide 40 MG/4 ML VIAL IVPUSH ONE (08:00)
[2020-04-03] MEDS: Aspirin 325 MG Tab.EC PO SCH (08:04)
[2020-04-03] MEDS: hydrALAZINE 25 MG Tab PO SCH ×3 (08:04→20:35)
[2020-04-03] MEDS: Metoprolol Succinate 50 MG Tab.ER PO SCH (08:05)
[2020-04-03] MEDS: Isosorbide Mononitrate 30 MG Tab.ER PO SCH (08:06)
[2020-04-03] MEDS: amLODIPine 5 MG Tab PO SCH (08:07)
[2020-04-03] MEDS: Fluticasone Propionate Nasal Spray 16 GM Bottle NAS SCH ×2 (08:11→20:35)
[2020-04-03] MEDS: Polyethylene Glycol 3350 Powder 17 GM Packet PO SCH (08:14)
[2020-04-03] MEDS: Indacaterol/Glycopyrrolate 1 EA Cap.W.Dev Kit of 6 IH SCH ×4 (08:26→20:42)
[2020-04-03] MEDS ORDERED: Non-Formulary Medication 1 Each (Umeclidinium Brm/Vilanterol Tr [Anoro Ellipta 62.5-25 Mcg IH SCH (09:00)
--- NOTE | 2020-04-03 09:46 | CR ---
CHEST: 2 view CLINICAL HISTORY:SOB, CHF COMPARISON:02/21/2020 FINDINGS: Heart is enlarged. Pulmonary vascularity is cephalized. There is diffuse bilateral pulmonary infiltrates with alveolar and interstitial. There are small bibasal effusions. There are atherosclerotic changes in the aorta. Impression: Cardiomegaly, vascular congestion and pulmonary edema consistent with CHF Small bibasal effusions.
[2020-04-03] MEDS ORDERED: Potassium Chloride 20 MEQ Tab.ER PO ONE ×2 (10:00→17:00)
--- NOTE | 2020-04-03 16:12 | PCM.PN ---
- General Info Date of Service: 04/03/20 Subjective Update: Mr. Curiel was admitted through the emergency department yesterday with shortness of breath thought secondary to his diastolic congestive heart failure. He received diuretic therapy in the emergency department and again this morning. He reports that his shortness of breath has improved from what he had experienced yesterday. He does use oxygen at home following his last admission over a month ago. He had done well until just recently when he became more severely short of breath and hypoxic over a few days. Functional Status: Reports: Tolerating Diet, Urinating - Review of Systems General: Reports: Weakness, Fatigue Pulmonary: Reports: Shortness of Breath. Denies: Pleuritic Chest Pain, Cough, Sputum, Hemoptysis, Wheezing Cardiovascular: Reports: Dyspnea on Exertion, Orthopnea, PND. Denies: Chest Pain, Palpitations, Edema, Lightheadedness Gastrointestinal: Reports: No Symptoms - Patient Data Vitals - Most Recent: Last Vital Signs Temp 98.6 F 04/03/20 14:35 Pulse 46 L 04/03/20 15:03 Resp 18 04/03/20 14:35 BP 142/68 H 04/03/20 14:38 Pulse Ox 95 04/03/20 15:03 Weight - Most Recent: 169 lb 8.003 oz I&O - Last 24 Hours: Intake & Output 04/03/20 04/03/20 04/03/20 06:59 14:59 22:59 Intake Total 380 480 Output Total 500 1350 Balance -120 -870 Lab Results Last 24 Hours: Laboratory Results - last 24 hr 04/03/20 Range/Units 04:00 Sodium 140 (140-148) mmol/L Potassium 3.3 L (3.6-5.2) mmol/L Chloride 103 (100-108) mmol/L Carbon Dioxide 30 (21-32) mmol/L Anion Gap 10.3 (5.0-14.0) mmol/L BUN 43 H (7-18) mg/dL Creatinine 3.1 H (0.8-1.3) mg/dL Est Cr Clr Drug Dosing 18.03 mL/min Estimated GFR (MDRD) 19 L (>60) Glucose 99 (74-106) mg/dL Calcium 8.6 (8.5-10.1) mg/dL Magnesium 2.0 (1.8-2.4) mg/dL Levy Results Last 24 Hours: Microbiology 04/02/20 11:40 Aerobic Blood Culture - Preliminary Blood - Arm, Right NO GROWTH AFTER 1 DAY Anaerobic Blood Culture - Preliminary NO GROWTH AFTER 1 DAY 04/02/20 11:37 Aerobic Blood Culture - Preliminary Blood - Venous - Iv Start NO GROWTH AFTER 1 DAY Anaerobic Blood Culture - Preliminary NO GROWTH AFTER 1 DAY Med Orders - Current: Current Medications Acetaminophen (Tylenol) 650 mg PO Q4H PRN PRN Reason: Pain (Mild 1-3)/fever Last Admin: 04/02/20 18:42 Dose: 650 mg Documented by: Albuterol (Proventil Neb Soln) 2.5 mg NEB Q4H PRN PRN Reason: Shortness Of Breath/wheezing Albuterol/Ipratropium (Duoneb 3.0-0.5 Mg/3 Ml) 3 ml NEB QIDRT [facility] Last Admin: 04/03/20 15:03 Dose: 3 ml Documented by: Amlodipine Besylate (Norvasc) 5 mg PO DAILY [facility] Last Admin: 04/03/20 08:07 Dose: 5 mg Documented by: Aspirin (Ecotrin) 325 mg PO DAILY [facility] Last Admin: 04/03/20 08:04 Dose: 325 mg Documented by: Fluticasone Propionate (Flonase) 0 gm ANSHUL BID [facility] Last Admin: 04/03/20 08:11 Dose: 1 spray Documented by: Glycopyrrolate/Indacaterol (Utibron Neohaler 27.5-15.6 Mcg) 1 each IH BIDRT [facility] Last Admin: 04/03/20 11:05 Dose: 1 cap Documented by: Hydralazine HCl (Apresoline) 50 mg PO TID [facility] Last Admin: 04/03/20 14:38 Dose: 50 mg Documented by: Isosorbide Mononitrate (Imdur) 120 mg PO DAILY [facility] Last Admin: 04/03/20 08:06 Dose: 120 mg Documented by: Lorazepam (Ativan) 0.5 mg IVPUSH Q4H PRN PRN Reason: Nausea/Vomiting Magnesium Hydroxide (Milk Of Magnesia) 30 ml PO Q12H PRN PRN Reason: Constipation Melatonin (Melatonin) 9 mg PO BEDTIME [facility] Last Admin: 04/02/20 20:53 Dose: 9 mg Documented by: Metoprolol Succinate (Toprol Xl) 100 mg PO DAILY [facility] Last Admin: 04/03/20 08:05 Dose: 100 mg Documented by: Mometasone Furoate/Formoterol Fumar (Dulera 100-5 Mcg) 1 puff IH BIDRT [facility] Ondansetron HCl (Zofran) 4 mg IV Q6H PRN PRN Reason: Nausea/Vomiting Ondansetron HCl (Zofran Odt) 4 mg PO Q6H PRN PRN Reason: Nausea able to take PO Polyethylene Glycol (Miralax) 17 gm PO DAILY [facility] Last Admin: 04/03/20 08:14 Dose: 17 gm Documented by: Potassium Chloride (Klor-Con M20) 40 meq PO ONETIME ONE Stop: 04/03/20 17:01 Senna/Docusate Sodium (Senna Plus) 2 tab PO BID PRN PRN Reason: Constipation Simvastatin (Zocor) 40 mg PO BEDTIME [facility] Last Admin: 04/02/20 20:53 Dose: 40 mg Documented by: Sodium Chloride (Saline Flush) 10 ml FLUSH ASDIRECTED PRN PRN Reason: Keep Vein Open Last Admin: 04/02/20 11:39 Dose: 10 ml Documented by: Discontinued Medications Furosemide (Lasix) 40 mg IVPUSH ONETIME ONE Stop: 04/02/20 13:06 Last Admin: 04/02/20 13:18 Dose: 40 mg Documented by: Furosemide (Lasix) 80 mg IVPUSH ONETIME ONE Stop: 04/03/20 08:01 Last Admin: 04/03/20 09:17 Dose: 80 mg Documented by: Potassium Chloride (Klor-Con M20) 40 meq PO ONETIME ONE Stop: 04/03/20 10:01 Last Admin: 04/03/20 09:28 Dose: 40 meq Documented by: - Exam Quality Assessment: Supplemental Oxygen, DVT Prophylaxis General: Alert, Oriented, Cooperative, Mild Distress Lungs: Clear to Auscultation, Normal Respiratory Effort, Decreased Breath Sounds Cardiovascular: Regular Rate, Irregular Rhythm, Murmurs GI/Abdominal Exam: Soft, Non-Tender, No Organomegaly, No Distention Extremities: Non-Tender, No Pedal Edema Sepsis Event Note - Evaluation Sepsis Screening Result: No Definite Risk - Focused Exam Vital Signs: Vital Signs Temp Pulse Pulse Resp BP BP Pulse Ox 04/03/20 15:03 46 L 04/03/20 14:38 142/68 H 04/03/20 14:35 98.6 F 78 18 142/68 H 98 04/03/20 11:58 99 F 88 18 122/70 97 04/03/20 08:07 185/68 H 04/03/20 08:06 185/68 H 04/03/20 08:05 90 185/68 H 04/03/20 08:04 185/68 H 04/03/20 07:33 96 F L 123 H 20 185/68 H 94 L 04/03/20 07:24 68 Pulse Ox 04/03/20 15:03 95 04/03/20 14:38 04/03/20 14:35 04/03/20 11:58 04/03/20 08:07 04/03/20 08:06 04/03/20 08:05 04/03/20 08:04 04/03/20 07:33 04/03/20 07:24 - Problem List Review Problem List Initiated/Reviewed/Updated: Yes - My Orders Last 24 Hours: My Active Orders 04/03/20 17:00 Potassium Chloride [Klor-Con M20] 40 meq PO ONETIME ONE 04/04/20 05:00 BASIC METABOLIC PANEL,BMP [CHEM] Timed - Plan Plan:: ASSESSMENT AND PLAN - HFpEF-no history of heart failure but normal ejection fraction. Complicated by severe pulmonary hypertension as discussed below and hypertensive heart disease. Obvious evidence for volume overload with increased dyspnea and increased supplemental oxygen requirement. -Closely monitor urine output -80 mg of furosemide today -Daily weights -Continue medical management Severe pulmonary hypertension-I suspect this is the big culprit behind his heart failure issues. He is on a medium dose of amlodipine and small dose of isosorbide. He has COPD but no evidence for acute exacerbation. -Continue amlodipine -Increase isosorbide to 120 mg -Supplement oxygen Stage IV chronic kidney disease-kidney function severely reduced but near baseline. -Closely monitor kidney function during diuresis COPD-no evidence for acute exacerbation -Continue home medications including nebulizers Chronic back pain-stable. Maintenance issues - - DVT prophylaxis -SCDs - GI prophylaxis -not indicated - Nutrition -low-sodium - Quesada catheter -not indicated CODE STATUS -DNR/DNI Admission justification -this patient will be admitted for inpatient services a nd is medically appropriate meeting medical necessity for inpatient admission as outlined in my documentation. I reasonably expect the patient will require inpatient services that span a period time over 2 midnights. I reasonably expect this patient to be discharged or transferred within 96 hours after admission to the [facility]. Disposition -I would anticipate discharge home, possibly with home care after the hospital stay Primary care physician - Pat NICHOLSON
[2020-04-03] MEDS: Formoterol/Mometasone 100-5 MCG 8.8 GM Inhaler IH SCH ×2 (17:14→20:38)
[2020-04-03] MEDS: Melatonin 3 MG Tab PO SCH (20:36)
[2020-04-03] MEDS: Simvastatin 20 MG Tab PO SCH (20:37)
[2020-04-04] MEDS: Albuterol/Ipratropium 3.0-0.5 MG/3 ML Neb Soln NEB SCH ×2 (07:34→10:36)
[2020-04-04] MEDS: Indacaterol/Glycopyrrolate 1 EA Cap.W.Dev Kit of 6 IH SCH (08:04)
[2020-04-04] MEDS: Fluticasone Propionate Nasal Spray 16 GM Bottle NAS SCH (08:15)
[2020-04-04] MEDS: Isosorbide Mononitrate 30 MG Tab.ER PO SCH (08:16)
[2020-04-04] MEDS: hydrALAZINE 25 MG Tab PO SCH (08:16)
[2020-04-04] MEDS: Metoprolol Succinate 50 MG Tab.ER PO SCH (08:17)
[2020-04-04] MEDS: amLODIPine 5 MG Tab PO SCH (08:17)
[2020-04-04] MEDS: Aspirin 325 MG Tab.EC PO SCH (08:17)
[2020-04-04] MEDS: Polyethylene Glycol 3350 Powder 17 GM Packet PO SCH (08:18)
[2020-04-04] MEDS ORDERED: Furosemide 40 MG/4 ML VIAL IVPUSH ONE (09:33)
[2020-04-04] MEDS: Formoterol/Mometasone 100-5 MCG 8.8 GM Inhaler IH SCH (10:50)
[2020-04-04 11:04] VITALS: BP 130/66; PULSE 56
--- NOTE | 2020-04-04 12:47 | PCM.DCSUM1 ---
Discharge Summary - Hospital Course Brief History: Mr. Curiel is an 84-year-old gentleman who was admitted through the emergency department with increased weakness and shortness of breath with hypoxia, secondary to CHF exacerbation and underlying chronic kidney disease stage IV. - Discharge Data Discharge Date: 04/04/20 Discharge Disposition: Home, Self-Care 01 Condition: Fair - Referral to Home Health Primary Care Physician: Pat Johnson PA-C - Discharge Diagnosis/Problem(s) (1) Hypoxia SNOMED Code(s): 566810821 ICD Code: R09.02 - HYPOXEMIA Status: Acute Current Visit: Yes (2) CHF, acute on chronic SNOMED Code(s): 513975500, 52324928509743 ICD Code: I50.9 - HEART FAILURE, UNSPECIFIED Status: Acute Current Visit: Yes (3) COPD (chronic obstructive pulmonary disease) SNOMED Code(s): 63999691 ICD Code: J44.9 - CHRONIC OBSTRUCTIVE PULMONARY DISEASE, UNSPECIFIED Status: Acute Current Visit: No Qualifiers: COPD type: unspecified COPD Qualified Code(s): J44.9 - Chronic obstructive pulmonary disease, unspecified (4) Chronic ischemic heart disease SNOMED Code(s): 852955866 ICD Code: I25.9 - CHRONIC ISCHEMIC HEART DISEASE, UNSPECIFIED Status: Chronic Current Visit: No (5) CKD (chronic kidney disease) stage 4, GFR 15-29 ml/min SNOMED Code(s): 785102555 ICD Code: N18.4 - CHRONIC KIDNEY DISEASE, STAGE 4 (SEVERE) Status: Chronic Priority: Medium Current Visit: No (6) Diastolic congestive heart failure, NYHA class 3 SNOMED Code(s): 001193830, 273451204, 055039686 ICD Code: I50.30 - UNSPECIFIED DIASTOLIC (CONGESTIVE) HEART FAILURE Status: Chronic Current Visit: No Qualifiers: Congestive heart failure chronicity: acute on chronic Qualified Code(s): I50.33 - Acute on chronic diastolic (congestive) heart failure - Patient Summary/Data Hospital Course: Mr. Curiel presented to the emergency room with shortness of breath. It has been steadily progressive over the past 40 hours or so. He first noticed it 2 nights ago and he had difficulty sleeping because of the shortness of breath. This shortness of breath did get worse when he tried to lay down. Seems a little better when he is up and about during the day. He had trouble sleeping again last night because of the dyspnea/orthopnea. This morning he was quite short of breath. Over the past 24 hours he has turned his supplemental oxygen up from 2 to 3 to 4 L without much in the way of improvement. He short of breath with any activity. He has a moderate cough but this is unchanged from baseline. No fevers. He has not been keeping track of his weight. No lower extremity edema. No chest pain. No change in bowel or bladder habits. No sick contacts. He does note that he missed a partial dose of his furosemide yesterday. Work-up in the emergency room was concerning for an exacerbation of his congestive heart failure with increased hypoxia from baseline as well as obvious evidence for volume overload. Kidney function is stable but severely reduced. He was admitted for management of an exacerbation of heart failure complicated by pulmonary hypertension and stage IV kidney disease. While in the emergency department he was given IV furosemide with good result. He received again higher doses of IV furosemide over the next 2 days of hospitalization. Renal function remained stable with diuresis. By the time of discharge he felt back to baseline. He does require continuous home oxygen which he has been on since his last admission. Activity will be as tolerated and he will remain on a 2 g sodium diet. Follow-up appointment will be scheduled with his primary care provider within 1 week, BMP will be obtained at the time of follow-up appointme nt. I did discuss with him the importance of strictly following his 2 g sodium diet as well as daily weights and early intervention if he becomes short of breath or his weights increase. - Patient Instructions Diet: Low Sodium Activity: As Tolerated Other/Special Instructions: Please schedule follow-up appointment with primary care provider within 1 week. Please obtain a BMP at the time of follow-up appointment. - Discharge Plan Prescriptions/Med Rec: Isosorbide Mononitrate [Imdur] 120 mg PO DAILY #30 tab.er Home Medications: Home Meds Aspirin 325 mg PO DAILY 12/09/15 [History] Nitroglycerin [Nitrostat] 0.4 mg PO ASDIRECTED PRN 12/09/15 [History] Simvastatin 40 mg PO DAILY 12/09/15 [History] amLODIPine [Norvasc] 5 mg PO DAILY 12/09/15 [History] hydrALAZINE [Apresoline] 50 mg PO TID 12/09/15 [History] Acetaminophen/Diphenhydramine [Tylenol Pm Ex-Strength Caplet] 1 tab PO BEDTIME 11/04/16 [History] Metoprolol Succinate [Toprol Xl] 100 mg PO DAILY 11/04/16 [History] Multivitamin [Multivitamins] 1 tab PO DAILY 11/04/16 [History] Cholecalciferol (Vitamin D3) [Vitamin D3] 5,000 units PO DAILY 12/18/17 [History] Dextromethorphan/guaiFENesin [Robitussin DM] 5 ml PO Q6HR PRN 12/18/17 [History] Fluticasone Propionate [Flonase] 1 spray ANSHUL BID 12/18/17 [History] Albuterol Sulfate [Proair Hfa] 1 - 2 puff IH Q4H PRN 06/09/19 [History] Albuterol/Ipratropium [DuoNeb 3.0-0.5 MG/3 ML] 3 ml INH Q4H PRN 06/09/19 [History] Budesonide/Formoterol [Symbicort 80-4.5 MCG] 1 puff INH BID 06/09/19 [History] Melatonin 5 mg PO BEDTIME 06/09/19 [History] Sennosides/Docusate Sodium [Senokot-S Tablet] 2 each PO BID PRN 06/09/19 [History] Umeclidinium Brm/Vilanterol Tr [Anoro Ellipta 62.5-25 MCG] 1 each IH DAILY 06/09/19 [History] polyethylene glycoL 3350 [MiraLAX] 17 gm PO DAILY 06/09/19 [History] Furosemide [Lasix] 120 mg PO DAILY #90 tablet 02/23/20 [Rx] Isosorbide Mononitrate [Imdur] 120 mg PO DAILY #30 tab.er 04/04/20 [Rx] Oxygen Therapy Mode: Nasal Cannula Oxygen Flow Rate (L/min): 3 Referrals: Pat Johnson PA-C [Primary Care Provider] - 04/11/20 1:30 pm (Please arrive 15 minutes early to register for your appointment.) - Discharge Summary/Plan Comment DC Time >30 min.: No - Patient Data Vitals - Most Recent: Last Vital Signs Temp 98.1 F 04/04/20 11:00 Pulse 56 L 04/04/20 11:00 Resp 18 04/04/20 11:00 BP 130/66 04/04/20 11:00 Pulse Ox 95 04/04/20 11:00 Weight - Most Recent: 169 lb 8.003 oz I&O - Last 24 hours: Intake & Output 04/03/20 04/04/20 04/04/20 22:59 06:59 14:59 Intake Total 600 200 350 Output Total 100 900 Balance 500 -700 350 Lab Results - Last 24 hrs: Laboratory Results - last 24 hr 04/04/20 Range/Units 06:26 Sodium 139 L (140-148) mmol/L Potassium 4.0 (3.6-5.2) mmol/L Chloride 102 (100-108) mmol/L Carbon Dioxide 29 (21-32) mmol/L Anion Gap 12.0 (5.0-14.0) mmol/L BUN 44 H (7-18) mg/dL Creatinine 3.1 H (0.8-1.3) mg/dL Est Cr Clr Drug Dosing 18.03 mL/min Estimated GFR (MDRD) 19 L (>60) Glucose 111 H (74-106) mg/dL Calcium 8.7 (8.5-10.1) mg/dL SHERRI Results - Last 24 hrs: Microbiology 04/02/20 11:37 Aerobic Blood Culture - Preliminary Blood - Venous - Iv Start NO GROWTH AFTER 2 DAYS Anaerobic Blood Culture - Preliminary NO GROWTH AFTER 2 DAYS 04/02/20 11:40 Aerobic Blood Culture - Preliminary Blood - Arm, Right NO GROWTH AFTER 2 DAYS Anaerobic Blood Culture - Preliminary NO GROWTH AFTER 2 DAYS Med Orders - Current: Current Medications Acetaminophen (Tylenol) 650 mg PO Q4H PRN PRN Reason: Pain (Mild 1-3)/fever Last Admin: 04/02/20 18:42 Dose: 650 mg Documented by: Albuterol (Proventil Neb Soln) 2.5 mg NEB Q4H PRN PRN Reason: Shortness Of Breath/wheezing Albuterol/Ipratropium (Duoneb 3.0-0.5 Mg/3 Ml) 3 ml NEB QIDRT WILLA Last Admin: 04/04/20 10:36 Dose: 3 ml Documented by: Amlodipine Besylate (Norvasc) 5 mg PO DAILY [facility] Last Admin: 04/04/20 08:17 Dose: 5 mg Documented by: Aspirin (Ecotrin) 325 mg PO DAILY [facility] Last Admin: 04/04/20 08:17 Dose: 325 mg Documented by: Fluticasone Propionate (Flonase) 0 gm ANSHUL BID [facility] Last Admin: 04/04/20 08:15 Dose: 1 spray Documented by: Glycopyrrolate/Indacaterol (Utibron Neohaler 27.5-15.6 Mcg) 1 each IH BIDRT [facility] Last Admin: 04/04/20 08:04 Dose: 1 cap Documented by: Hydralazine HCl (Apresoline) 50 mg PO TID [facility] Last Admin: 04/04/20 08:16 Dose: 50 mg Documented by: Isosorbide Mononitrate (Imdur) 120 mg PO DAILY [facility] Last Admin: 04/04/20 08:16 Dose: 120 mg Documented by: Lorazepam (Ativan) 0.5 mg IVPUSH Q4H PRN PRN Reason: Nausea/Vomiting Magnesium Hydroxide (Milk Of Magnesia) 30 ml PO Q12H PRN PRN Reason: Constipation Melatonin (Melatonin) 9 mg PO BEDTIME [facility] Last Admin: 04/03/20 20:36 Dose: 9 mg Documented by: Metoprolol Succinate (Toprol Xl) 100 mg PO DAILY [facility] Last Admin: 04/04/20 08:17 Dose: 100 mg Documented by: Mometasone Furoate/Formoterol Fumar (Dulera 100-5 Mcg) 1 puff IH BIDRT [facility] Last Admin: 04/04/20 10:50 Dose: 1 puff Documented by: Ondansetron HCl (Zofran) 4 mg IV Q6H PRN PRN Reason: Nausea/Vomiting Ondansetron HCl (Zofran Odt) 4 mg PO Q6H PRN PRN Reason: Nausea able to take PO Polyethylene Glycol (Miralax) 17 gm PO DAILY [facility] Last Admin: 04/04/20 08:18 Dose: 17 gm Documented by: Senna/Docusate Sodium (Senna Plus) 2 tab PO BID PRN PRN Reason: Constipation Simvastatin (Zocor) 40 mg PO BEDTIME [facility] Last Admin: 04/03/20 20:37 Dose: 40 mg Documented by: Sodium Chloride (Saline Flush) 10 ml FLUSH ASDIRECTED PRN PRN Reason: Keep Vein Open Last Admin: 04/02/20 11:39 Dose: 10 ml Documented by: Discontinued Medications Furosemide (Lasix) 40 mg IVPUSH ONETIME ONE Stop: 04/02/20 13:06 Last Admin: 04/02/20 13:18 Dose: 40 mg Documented by: Furosemide (Lasix) 80 mg IVPUSH ONETIME ONE Stop: 04/03/20 08:01 Last Admin: 04/03/20 09:17 Dose: 80 mg Documented by: Furosemide (Lasix) 80 mg IVPUSH NOW ONE Stop: 04/04/20 09:34 Last Admin: 04/04/20 10:26 Dose: 80 mg Documented by: Potassium Chloride (Klor-Con M20) 40 meq PO ONETIME ONE Stop: 04/03/20 10:01 Last Admin: 04/03/20 09:28 Dose: 40 meq Documented by: Potassium Chloride (Klor-Con M20) 40 meq PO ONETIME ONE Stop: 04/03/20 17:01 Last Admin: 04/03/20 17:24 Dose: 40 meq Documented by: - Exam Quality Assessment: Reports: DVT Prophylaxis General: Reports: Alert, Oriented, Cooperative, No Acute Distress Lungs: Reports: Clear to Auscultation, Normal Respiratory Effort Cardiovascular: Reports: Regular Rate, Regular Rhythm, Murmurs GI/Abdominal Exam: Soft, Non-Tender, No Organomegaly, No Distention Extremities: Non-Tender, No Pedal Edema
== END 2020-04-04 13:46 | disposition home or self-care (01) | DRG 291 ==
LOC: JP.ED 10:25 → JP.MS 15:02
PROVIDERS: ADMIT Internal Medicine; ATTEND Hospitalist
DX: I13.0 Hypertensive heart and chronic kidney disease with heart failure and stage 1 through stage 4 chronic kidney disease, or unspecified chronic kidney disease (principal); I50.9 Heart failure, unspecified; I50.33 Acute on chronic diastolic (congestive) heart failure; N18.9 Chronic kidney disease, unspecified; N18.4 Chronic kidney disease, stage 4 (severe); J44.9 Chronic obstructive pulmonary disease, unspecified; Z66 Do not resuscitate; I25.9 Chronic ischemic heart disease, unspecified; I27.20 Pulmonary hypertension, unspecified; H54.7 Unspecified visual loss; I25.10 Atherosclerotic heart disease of native coronary artery without angina pectoris; N42.9 Disorder of prostate, unspecified; E78.00 Pure hypercholesterolemia, unspecified; K21.9 Gastro-esophageal reflux disease without esophagitis; Z95.828 Presence of other vascular implants and grafts; Z90.79 Acquired absence of other genital organ(s); Z96.0 Presence of urogenital implants; G89.29 Other chronic pain; Z88.8 Allergy status to other drugs, medicaments and biological substances; Z91.041 Radiographic dye allergy status; M54.9 Dorsalgia, unspecified; F41.9 Anxiety disorder, unspecified; E66.9 Obesity, unspecified; Z79.82 Long term (current) use of aspirin; Z79.899 Other long term (current) drug therapy; Z87.891 Personal history of nicotine dependence; Z85.828 Personal history of other malignant neoplasm of skin; Z98.49 Cataract extraction status, unspecified eye; Z90.49 Acquired absence of other specified parts of digestive tract; Z98.890 Other specified postprocedural states; Z87.81 Personal history of (healed) traumatic fracture; Z68.24 Body mass index [BMI] 24.0-24.9, adult; Z20.828 Contact with and (suspected) exposure to other viral communicable diseases
CPT/HCPCS: 36415; 71046 ×2; 80053; 81001; 83605; 83735; 83880; 84484; 85025; 86140; 87040 ×2; 93005; 96374; 99285; J1940; U0002; 80048; 93010; 94640; 99222-AI; 99232; 99238; A9270-GY; J7620-GY

== ENCOUNTER 2020-05-04 14:36 | Inpatient (IN) | payer MEDICARE, BC, OTHER ==
[2020-05-04] MEDS ORDERED: Sodium Chloride 0.9% 10 ML Syringe FLUSH PRN ×2 (17:31→21:39)
--- NOTE | 2020-05-04 18:06 | EDM.PDOC ---
ED HPI GENERAL MEDICAL PROBLEM - General Chief Complaint: Respiratory Problem Stated Complaint: CAN'T BREATH Time Seen by Provider: 05/04/20 15:33 Source of Information: Reports: Patient, Family History Limitations: Reports: No Limitations - History of Present Illness INITIAL COMMENTS - FREE TEXT/NARRATIVE: Patient presents to the ED with his today expecting to come in for an infusion of electrolytes that was arranged by Dr. Johnson in the clinic. There is been no record of any order for this. It was noted that the patient was quite dyspneic, tachypneic, and hypoxic. The patient agreed to be seen and evaluated in the ER. He states that he has had increasing difficulty breathing for "quite some time" and has a history for both congestive heart failure as well as probable COPD secondary to smoking for a number of years. Patient denies any fever or chills but has had a cough that is been nonproductive. He has had some fluctuation in his weight that he monitors every day and it has been jumping between 161 pounds and 165 pounds. He is demonstrating significant respiratory difficulty with accessory muscle use and belly breathing. Onset: Gradual - Related Data Allergies Allergy/AdvReac Type Severity Reaction Status Date / Time clopidogrel bisulfate Allergy Intermediate Rash Verified 05/04/20 16:18 [From Plavix] Iodinated Contrast Media Allergy Other Verified 05/04/20 16:18 lisinopril Allergy Cough Verified 05/04/20 16:18 Home Meds: Home Meds Aspirin 325 mg PO DAILY 12/09/15 [History] Nitroglycerin [Nitrostat] 0.4 mg PO ASDIRECTED PRN 12/09/15 [History] Simvastatin 40 mg PO DAILY 12/09/15 [History] amLODIPine [Norvasc] 5 mg PO DAILY 12/09/15 [History] hydrALAZINE [Apresoline] 50 mg PO TID 12/09/15 [History] Acetaminophen/Diphenhydramine [Tylenol Pm Ex-Strength Caplet] 1 tab PO BEDTIME 11/04/16 [History] Metoprolol Succinate [Toprol Xl] 100 mg PO DAILY 11/04/16 [History] Multivitamin [Multivitamins] 1 tab PO DAILY 11/04/16 [History] Cholecalciferol (Vitamin D3) [Vitamin D3] 5,000 units PO DAILY 12/18/17 [History] Dextromethorphan/guaiFENesin [Robitussin DM] 5 ml PO Q6HR PRN 12/18/17 [History] Fluticasone Propionate [Flonase] 1 spray ANSHUL BID 12/18/17 [History] Albuterol Sulfate [Proair Hfa] 1 - 2 puff IH Q4H PRN 06/09/19 [History] Albuterol/Ipratropium [DuoNeb 3.0-0.5 MG/3 ML] 3 ml INH Q4H PRN 06/09/19 [History] Budesonide/Formoterol [Symbicort 80-4.5 MCG] 1 puff INH BID 06/09/19 [History] Melatonin 5 mg PO BEDTIME 06/09/19 [History] Sennosides/Docusate Sodium [Senokot-S Tablet] 2 each PO BID PRN 06/09/19 [History] Umeclidinium Brm/Vilanterol Tr [Anoro Ellipta 62.5-25 MCG] 1 each IH DAILY 06/09/19 [History] polyethylene glycoL 3350 [MiraLAX] 17 gm PO DAILY 06/09/19 [History] Furosemide [Lasix] 120 mg PO DAILY #90 tablet 02/23/20 [Rx] Isosorbide Mononitrate [Imdur] 120 mg PO DAILY #30 tab.er 04/04/20 [Rx] Albuterol [Ventolin HFA] 1 puff IH DAILY 05/04/20 [History] Past Medical History HEENT History: Reports: Cataract, Impaired Vision Other HEENT History: wears glasses Cardiovascular History: Reports: Arrhythmia, CAD, Heart Failure, High Cholesterol, Hypertension, Stents Respiratory History: Reports: SOB, Other (See Below) Other Respiratory History: home o2 3 liters Gastrointestinal History: Reports: GERD Genitourinary History: Reports: Chronic Renal Insuffiency, Prostate Disorder, Other (See Below) Other Genitourinary History: kidney stent Musculoskeletal History: Reports: Back Pain, Chronic, Fracture Psychiatric History: Reports: Addiction, Anxiety Endocrine/Metabolic History: Reports: Obesity/BMI 30+ Oncologic (Cancer) History: Reports: Other (See Below) Other Oncologic History: skin cancer Dermatologic History: Reports: Other (See Below) Other Dermatologic History: multiple cysts - Infectious Disease History Infectious Disease History: Reports: Chicken Pox, Measles, Mumps, Pertussis (Whooping Cough) - Past Surgical History Head Surgeries/Procedures: Reports: None HEENT Surgical History: Reports: Cataract Surgery Cardiovascular Surgical History: Reports: Carotid Endarterectomy, Carotid Stents Respiratory Surgical History: Reports: None GI Surgical History: Reports: Cholecystectomy, Colonoscopy, Other (See Below) Other GI Surgeries/Procedures: states has "twisted bowel" Male Surgical History: Reports: TURP-Transurethral Resection of Prostate Musculoskeletal Surgical History: Reports: Other (See Below) Other Musculoskeletal Surgeries/Procedures:: right lower leg fracture Oncologic Surgical History: Reports: None Dermatological Surgical History: Reports: Skin Biopsy Social & Family History - Family History Family Medical History: Noncontributory - Tobacco Use Tobacco Use Status *Q: Former Tobacco User Used Tobacco, but Quit: Yes Month/Year Tobacco Last Used: 1999 - Caffeine Use Caffeine Use: Reports: Coffee - Recreational Drug Use Recreational Drug Use: No - Living Situation & Occupation Living situation: Reports: , with Family Occupation: Retired (lives with Veena in [place]. 3 Son, none live in the area.) ED ROS GENERAL - Review of Systems Review Of Systems: See Below Constitutional: Reports: Weakness, Fatigue, Decreased Appetite HEENT: Reports: No Symptoms Respiratory: Reports: Shortness of Breath, Cough. Denies: Sputum Cardiovascular: Reports: Orthopnea, Palpitations Endocrine: Reports: Fatigue GI/Abdominal: Reports: No Symptoms : Reports: No Symptoms Musculoskeletal: Reports: No Symptoms Skin: Reports: Mottled Neurological: Reports: No Symptoms Psychiatric: Reports: No Symptoms Hematologic/Lymphatic: Reports: No Symptoms Immunologic: Reports: No Symptoms ED EXAM, GENERAL - Physical Exam Exam: See Below Exam Limited By: No Limitations General Appearance: Alert, Anxious, Moderate Distress Eye Exam: Bilateral Eye: EOMI, PERRL Throat/Mouth: Normal Inspection, Normal Oropharynx, Normal Voice, No Airway Compromise Head: Atraumatic, Normocephalic Neck: Normal Inspection, Supple, Non-Tender Respiratory/Chest: Respiratory Distress (Mild), Decreased Breath Sounds (Bibasilar), Rales (Diffuse, scattered), Accessory Muscle Use, Retractions, Other (Belly breathing) Cardiovascular: Normal Peripheral Pulses, Regular Rate, Rhythm, No Gallop, No Murmur, JVD (6 cm at 45 degrees) Peripheral Pulses: 2+: Radial (L), Radial (R), Posterior Tibial (L), Posterior Tibial (R) GI/Abdominal: Normal Bowel Sounds, Soft, Non-Tender, No Distention, No Abnormal Bruit Back Exam: Normal Inspection Extremities: Normal Inspection, Non-Tender, Pedal Edema (1+ bilateral pretibial edema) Neurological: Alert, Oriented, CN II-XII Intact, Normal Cognition, No Motor/Sensory Deficits Psychiatric: Normal Affect Skin Exam: Warm, Mottled Lymphatic: No Adenopathy Course - Vital Signs Last Recorded V/S: Last Vital Signs Temp 36.7 C 05/04/20 16:21 Pulse 55 L 05/04/20 16:24 Resp 20 05/04/20 16:24 BP 126/62 05/04/20 16:24 Pulse Ox 90 L 05/04/20 16:24 - Orders/Labs/Meds Orders: Active Orders 24 hr Category Date Time Status Chest 1V Frontal [CR] Stat Exams 05/04/20 17:31 Taken Sodium Chloride 0.9% [Saline Flush] Med 05/04/20 17:31 Active 10 ml FLUSH ASDIRECTED PRN Saline Lock Insert [OM.PC] Routine Oth 05/04/20 17:31 Ordered Medication Orders Sodium Chloride (Saline Flush) 10 ml FLUSH ASDIRECTED PRN PRN Reason: Keep Vein Open Last Admin: 05/04/20 18:16 Dose: 10 ml Documented by: [place] Labs: Laboratory Tests 05/04/20 05/04/20 05/04/20 Range/Units 17:31 17:47 17:47 WBC 6.7 (4.5-11.0) K/uL RBC 3.61 L (4.30-5.90) M/uL Hgb 10.3 L (12.0-15.0) g/dL Hct 31.9 L (40.0-54.0) % MCV 88 (80-98) fL MCH 29 (27-31) pg MCHC 32 (32-36) % Plt Count 191 (150-400) K/uL Neut % (Auto) 77 H (36-66) % Lymph % (Auto) 12 L (24-44) % Cavalier % (Auto) 7 H (2-6) % Eos % (Auto) 4 (2-4) % Baso % (Auto) 0 (0-1) % PT 12.0 (9.5-12.0) sec INR 1.10 (0.80-1.20) Sodium 132 L (140-148) mmol/L Potassium 3.5 L (3.6-5.2) mmol/L Chloride 95 L (100-108) mmol/L Carbon Dioxide 29 (21-32) mmol/L Anion Gap 11.5 (5.0-14.0) mmol/L BUN 44 H (7-18) mg/dL Creatinine 3.2 H (0.8-1.3) mg/dL Est Cr Clr Drug Dosing 16.88 mL/min Estimated GFR (MDRD) 19 L (>60) Glucose 109 H (74-106) mg/dL Lactic Acid (0.4-2.0) mmol/L Calcium 8.9 (8.5-10.1) mg/dL Magnesium 2.2 (1.8-2.4) mg/dL Total Bilirubin 0.6 (0.2-1.0) mg/dL AST 20 (15-37) U/L ALT 22 (12-78) U/L Alkaline Phosphatase 66 (46-116) U/L Troponin I < 0.017 (0.000-0.056) ng/mL NT-Pro-B Natriuret Pep 22695 H (5-450) pg/mL Total Protein 6.3 L (6.4-8.2) g/dL Albumin 2.3 L (3.4-5.0) g/dL Globulin 4.0 H (2.3-3.5) g/dL Albumin/Globulin Ratio 0.6 L (1.2-2.2) SARS-CoV-2 RNA (RANDY) (NEGATIVE) 05/04/20 05/04/20 Range/Units 17:47 18:05 WBC (4.5-11.0) K/uL RBC (4.30-5.90) M/uL Hgb (12.0-15.0) g/dL Hct (40.0-54.0) % MCV (80-98) fL MCH (27-31) pg MCHC (32-36) % Plt Count (150-400) K/uL Neut % (Auto) (36-66) % Lymph % (Auto) (24-44) % Cavalier % (Auto) (2-6) % Eos % (Auto) (2-4) % Baso % (Auto) (0-1) % PT (9.5-12.0) sec INR (0.80-1.20) Sodium (140-148) mmol/L Potassium (3.6-5.2) mmol/L Chloride (100-108) mmol/L Carbon Dioxide (21-32) mmol/L Anion Gap (5.0-14.0) mmol/L BUN (7-18) mg/dL Creatinine (0.8-1.3) mg/dL Est Cr Clr Drug Dosing mL/min Estimated GFR (MDRD) (>60) Glucose (74-106) mg/dL Lactic Acid 1.7 (0.4-2.0) mmol/L Calcium (8.5-10.1) mg/dL Magnesium (1.8-2.4) mg/dL Total Bilirubin (0.2-1.0) mg/dL AST (15-37) U/L ALT (12-78) U/L Alkaline Phosphatase (46-116) U/L Troponin I (0.000-0.056) ng/mL NT-Pro-B Natriuret Pep (5-450) pg/mL Total Protein (6.4-8.2) g/dL Albumin (3.4-5.0) g/dL Globulin (2.3-3.5) g/dL Albumin/Globulin Ratio (1.2-2.2) SARS-CoV-2 RNA (RANDY) Negative (NEGATIVE) Meds: Medications Generic Name Dose Route Start Last Admin Trade Name Freq PRN Reason Stop Dose Admin Sodium Chloride 10 ml 05/04/20 17:31 05/04/20 18:16 Saline Flush FLUSH 10 ml ASDIRECTED PRN Administration Keep Vein Open Discontinued Medications Generic Name Dose Route Start Last Admin Trade Name Freq PRN Reason Stop Dose Admin Metolazone 2.5 mg 05/04/20 18:59 Zaroxolyn PO 05/04/20 19:00 ONETIME ONE - Radiology Interpretation Free Text/Narrative:: Chest x-ray two-view: Diffuse bilateral pulmonary edema. Cardiomegaly. Free fluid in the major fissure. - Re-Assessments/Exams Free Text/Narrative Re-Assessment/Exam: 05/04/20 18:56 I reviewed the labs with the patient and find his BNP to be 21,000 and his GFR to be 19. 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 The patient and with really like to stay here for admission versus being transferred to [facility]. The patient was hospitalized here a month ago for similar event and did well. I discussed the case with Dr. Pride who agrees to admit the patient here with the understanding that we do not have dialysis or advanced nephrology care here. Family and patient are in agreement with that plan. Free Text/Narrative Re-Assessment/Exam: 05/04/20 19:07 COVID-19 test is negative. Departure - Departure Time of Disposition: 18:55 Disposition: Admitted As Inpatient 65 Clinical Impression: Essential hypertension, Elevated brain natriuretic peptide (BNP) level, Hypoxia CRF (chronic renal failure) Qualifiers: Chronic kidney disease stage: stage 4 (severe) Qualified Code(s): N18.4 - Chronic kidney disease, stage 4 (severe) CHF, acute on chronic Qualifiers: Heart failure type: diastolic Qualified Code(s): I50.33 - Acute on chronic diastolic (congestive) heart failure - Discharge Information Referrals: Pat Johnson PA-C [Primary Care Provider] - Forms: ED Department Discharge Sepsis Event Note (ED) - Evaluation Sepsis Screening Result: No Definite Risk - Focused Exam Vital Signs: Vital Signs Temp Pulse Resp BP Pulse Ox 05/04/20 16:24 55 L 20 126/62 90 L 05/04/20 16:21 36.7 C 66 18 97/59 L 91 L 05/04/20 15:28 36.7 C 66 18 97/59 L 91 L - Problem List & Annotations (1) Hypoxia SNOMED Code(s): 911955260 Code(s): R09.02 - HYPOXEMIA Status: Acute Priority: High Current Visit: Yes (2) Elevated brain natriuretic peptide (BNP) level SNOMED Code(s): 886348947, 153797594 Code(s): R79.89 - OTHER SPECIFIED ABNORMAL FINDINGS OF BLOOD CHEMISTRY Status: Acute Priority: High Current Visit: Yes (3) CKD (chronic kidney disease) stage 4, GFR 15-29 ml/min SNOMED Code(s): 140897237 Code(s): N18.4 - CHRONIC KIDNEY DISEASE, STAGE 4 (SEVERE) Status: Chronic Priority: Medium Current Visit: No (4) Diastolic congestive heart failure, NYHA class 3 SNOMED Code(s): 120974422, 385083382, 859181856 Code(s): I50.30 - UNSPECIFIED DIASTOLIC (CONGESTIVE) HEART FAILURE Status: Chronic Priority: High Current Visit: No Qualifiers: Congestive heart failure chronicity: acute on chronic Qualified Code(s): I50.33 - Acute on chronic diastolic (congestive) heart failure - Problem List Review Problem List Initiated/Reviewed/Updated: Yes - My Orders Last 24 Hours: My Active Orders 05/04/20 17:31 Chest 1V Frontal [CR] Stat Sodium Chloride 0.9% [Saline Flush] 10 ml FLUSH ASDIRECTED PRN Saline Lock Insert [OM.PC] Routine - Assessment/Plan Last 24 Hours: My Active Orders 05/04/20 17:31 Chest 1V Frontal [CR] Stat Sodium Chloride 0.9% [Saline Flush] 10 ml FLUSH ASDIRECTED PRN Saline Lock Insert [OM.PC] Routine Plan: We will arrange for admission of the patient for further medical management of his acute on chronic diastolic congestive heart failure and chronic renal failure stage IV.
[2020-05-04] MEDS ORDERED: Metolazone 2.5 MG Tab PO ONE (18:59)
--- NOTE | 2020-05-04 20:33 | PCM.HP.2 ---
H&P History of Present Illness - General Date of Service: 05/04/20 Source of Information: Patient, Family, Old Records, Provider, RN Notes Reviewed History Limitations: Reports: No Limitations - History of Present Illness Initial Comments - Free Text/Narative: Mr. Curiel is an 84-year-old gentleman who was admitted through the emergency department with increased shortness of breath secondary to diastolic CHF exacerbation and underlying chronic kidney disease stage IV. Over the past few days he has experienced progressive increase in shortness of breath. This has come on slowly and gradually, he is noted no acute episodes of shortness of breath, pleuritic chest pain, or anginal type chest pain. Chest x-ray today appears to be consistent with congestive failure with some cardiac enlargement and evidence of pulmonary edema. He has a known history of diastolic CHF, coronary artery disease, and COPD. He denies recent fevers, chills, sweats, or productive cough. COVID-19 testing done in the emergency department is n egative. - Related Data Allergies/Adverse Reactions: Allergies Allergy/AdvReac Type Severity Reaction Status Date / Time clopidogrel bisulfate Allergy Intermediate Rash Verified 05/04/20 16:18 [From Plavix] Iodinated Contrast Media Allergy Other Verified 05/04/20 16:18 lisinopril Allergy Cough Verified 05/04/20 16:18 Home Medications: Home Meds Aspirin 325 mg PO DAILY 12/09/15 [History] Nitroglycerin [Nitrostat] 0.4 mg PO ASDIRECTED PRN 12/09/15 [History] Simvastatin 40 mg PO DAILY 12/09/15 [History] amLODIPine [Norvasc] 5 mg PO DAILY 12/09/15 [History] hydrALAZINE [Apresoline] 50 mg PO TID 12/09/15 [History] Acetaminophen/Diphenhydramine [Tylenol Pm Ex-Strength Caplet] 1 tab PO BEDTIME 11/04/16 [History] Metoprolol Succinate [Toprol Xl] 100 mg PO DAILY 11/04/16 [History] Multivitamin [Multivitamins] 1 tab PO DAILY 11/04/16 [History] Cholecalciferol (Vitamin D3) [Vitamin D3] 5,000 units PO DAILY 12/18/17 [History] Dextromethorphan/guaiFENesin [Robitussin DM] 5 ml PO Q6HR PRN 12/18/17 [History] Fluticasone Propionate [Flonase] 1 spray ANSHUL BID 12/18/17 [History] Albuterol Sulfate [Proair Hfa] 1 - 2 puff IH Q4H PRN 06/09/19 [History] Albuterol/Ipratropium [DuoNeb 3.0-0.5 MG/3 ML] 3 ml INH Q4H PRN 06/09/19 [History] Budesonide/Formoterol [Symbicort 80-4.5 MCG] 1 puff INH BID 06/09/19 [History] Melatonin 5 mg PO BEDTIME 06/09/19 [History] Sennosides/Docusate Sodium [Senokot-S Tablet] 2 each PO BID PRN 06/09/19 [History] Umeclidinium Brm/Vilanterol Tr [Anoro Ellipta 62.5-25 MCG] 1 each IH DAILY 06/09/19 [History] polyethylene glycoL 3350 [MiraLAX] 17 gm PO DAILY 06/09/19 [History] Furosemide [Lasix] 120 mg PO DAILY #90 tablet 02/23/20 [Rx] Isosorbide Mononitrate [Imdur] 120 mg PO DAILY #30 tab.er 04/04/20 [Rx] Albuterol [Ventolin HFA] 1 puff IH DAILY 05/04/20 [History] Past Medical History HEENT History: Reports: Cataract, Impaired Vision Other HEENT History: wears glasses Cardiovascular History: Reports: Arrhythmia, CAD, Heart Failure, High Cholesterol, Hypertension, Stents Respiratory History: Reports: SOB, Other (See Below) Other Respiratory History: home o2 3 liters Gastrointestinal History: Reports: GERD Genitourinary History: Reports: Chronic Renal Insuffiency, Prostate Disorder, Other (See Below) Other Genitourinary History: kidney stent Musculoskeletal History: Reports: Back Pain, Chronic, Fracture Psychiatric History: Reports: Addiction, Anxiety Endocrine/Metabolic History: Reports: Obesity/BMI 30+ Oncologic (Cancer) History: Reports: Other (See Below) Other Oncologic History: skin cancer Dermatologic History: Reports: Other (See Below) Other Dermatologic History: multiple cysts - Infectious Disease History Infectious Disease History: Reports: Chicken Pox, Measles, Mumps, Pertussis (Whooping Cough) - Past Surgical History Head Surgeries/Procedures: Reports: None HEENT Surgical History: Reports: Cataract Surgery Cardiovascular Surgical History: Reports: Carotid Endarterectomy, Carotid Stents Respiratory Surgical History: Reports: None GI Surgical History: Reports: Cholecystectomy, Colonoscopy, Other (See Below) Other GI Surgeries/Procedures: states has "twisted bowel" Male Surgical History: Reports: TURP-Transurethral Resection of Prostate Musculoskeletal Surgical History: Reports: Other (See Below) Other Musculoskeletal Surgeries/Procedures:: right lower leg fracture Oncologic Surgical History: Reports: None Dermatological Surgical History: Reports: Skin Biopsy Social & Family History - Family History Family Medical History: Noncontributory - Tobacco Use Tobacco Use Status *Q: Former Tobacco User Used Tobacco, but Quit: Yes Month/Year Tobacco Last Used: 1999 - Caffeine Use Caffeine Use: Reports: Coffee - Recreational Drug Use Recreational Drug Use: No - Living Situation & Occupation Living situation: Reports: , with Family Occupation: Retired (lives with Veena in [place]. 3 Son, none live in the area.) H&P Review of Systems - Review of Systems: Review Of Systems: See Below General: Reports: Malaise, Weakness, Fatigue. Denies: Fever, Chills HEENT: Reports: No Symptoms Pulmonary: Reports: Shortness of Breath. Denies: Wheezing, Pleuritic Chest Pain, Cough, Sputum, Hemoptysis Cardiovascular: Reports: Dyspnea on Exertion. Denies: Chest Pain, Palpitations, Orthopnea, PND, Edema, Lightheadedness Gastrointestinal: Reports: No Symptoms Genitourinary: Reports: No Symptoms Musculoskeletal: Reports: No Symptoms Skin: Reports: No Symptoms Psychiatric: Reports: No Symptoms Neurological: Reports: No Symptoms Hematologic/Lymphatic: Reports: No Symptoms Immunologic: Reports: No Symptoms Exam - Exam Exam: See Below - Vital Signs Vital Signs: Last Vital Signs Temp 98.1 F 05/04/20 16:21 Pulse 72 05/04/20 19:25 Resp 20 05/04/20 16:24 BP 150/86 H 05/04/20 19:25 Pulse Ox 94 L 05/04/20 19:25 Weight: 165 lb - Exam Quality Assessment: Supplemental Oxygen, DVT Prophylaxis General: Alert, Oriented, Cooperative, Moderate Distress HEENT: Conjunctiva Clear, Hearing Intact, Mucosa Moist & Cleone, Normal Nasal Septum, Posterior Pharynx Clear, Pupils Equal Neck: Supple, Trachea Midline, +2 Carotid Pulse wo Bruit Lungs: Decreased Breath Sounds, Rales. No: Crackles, Rhonchi, Wheezing Cardiovascular: Regular Rate, Regular Rhythm, Normal S1, Normal S2, Systolic Murmur. No: Diastolic Murmur GI/Abdominal Exam: Soft, Non-Tender, No Organomegaly, No Distention Back Exam: Normal Inspection, Full Range of Motion Extremities: Non-Tender, No Pedal Edema Skin: Warm, Dry, Intact Neurological: Cranial Nerves Intact, Strength Equal Bilateral, Normal Speech, Normal Tone, Sensation Intact. No: Focal Deficit Neuro Extensive - Mental Status: Alert, Oriented x3, Normal Mood/Affect, Normal Cognition, Memory Intact - Patient Data Lab Results Last 24 hrs: Laboratory Results - last 24 hr 05/04/20 05/04/20 05/04/20 Range/Units 17:31 17:47 17:47 WBC 6.7 (4.5-11.0) K/uL RBC 3.61 L (4.30-5.90) M/uL Hgb 10.3 L (12.0-15.0) g/dL Hct 31.9 L (40.0-54.0) % MCV 88 (80-98) fL MCH 29 (27-31) pg MCHC 32 (32-36) % Plt Count 191 (150-400) K/uL Neut % (Auto) 77 H (36-66) % Lymph % (Auto) 12 L (24-44) % [place] % (Auto) 7 H (2-6) % Eos % (Auto) 4 (2-4) % Baso % (Auto) 0 (0-1) % PT 12.0 (9.5-12.0) sec INR 1.10 (0.80-1.20) Sodium 132 L (140-148) mmol/L Potassium 3.5 L (3.6-5.2) mmol/L Chloride 95 L (100-108) mmol/L Carbon Dioxide 29 (21-32) mmol/L Anion Gap 11.5 (5.0-14.0) mmol/L BUN 44 H (7-18) mg/dL Creatinine 3.2 H (0.8-1.3) mg/dL Est Cr Clr Drug Dosing 16.88 mL/min Estimated GFR (MDRD) 19 L (>60) Glucose 109 H (74-106) mg/dL Lactic Acid (0.4-2.0) mmol/L Calcium 8.9 (8.5-10.1) mg/dL Magnesium 2.2 (1.8-2.4) mg/dL Total Bilirubin 0.6 (0.2-1.0) mg/dL AST 20 (15-37) U/L ALT 22 (12-78) U/L Alkaline Phosphatase 66 (46-116) U/L Troponin I < 0.017 (0.000-0.056) ng/mL NT-Pro-B Natriuret Pep 14588 H (5-450) pg/mL Total Protein 6.3 L (6.4-8.2) g/dL Albumin 2.3 L (3.4-5.0) g/dL Globulin 4.0 H (2.3-3.5) g/dL Albumin/Globulin Ratio 0.6 L (1.2-2.2) SARS-CoV-2 RNA (RANDY) (NEGATIVE) 05/04/20 05/04/20 Range/Units 17:47 18:05 WBC (4.5-11.0) K/uL RBC (4.30-5.90) M/uL Hgb (12.0-15.0) g/dL Hct (40.0-54.0) % MCV (80-98) fL MCH (27-31) pg MCHC (32-36) % Plt Count (150-400) K/uL Neut % (Auto) (36-66) % Lymph % (Auto) (24-44) % [place] % (Auto) (2-6) % Eos % (Auto) (2-4) % Baso % (Auto) (0-1) % PT (9.5-12.0) sec INR (0.80-1.20) Sodium (140-148) mmol/L Potassium (3.6-5.2) mmol/L Chloride (100-108) mmol/L Carbon Dioxide (21-32) mmol/L Anion Gap (5.0-14.0) mmol/L BUN (7-18) mg/dL Creatinine (0.8-1.3) mg/dL Est Cr Clr Drug Dosing mL/min Estimated GFR (MDRD) (>60) Glucose (74-106) mg/dL Lactic Acid 1.7 (0.4-2.0) mmol/L Calcium (8.5-10.1) mg/dL Magnesium (1.8-2.4) mg/dL Total Bilirubin (0.2-1.0) mg/dL AST (15-37) U/L ALT (12-78) U/L Alkaline Phosphatase (46-116) U/L Troponin I (0.000-0.056) ng/mL NT-Pro-B Natriuret Pep (5-450) pg/mL Total Protein (6.4-8.2) g/dL Albumin (3.4-5.0) g/dL Globulin (2.3-3.5) g/dL Albumin/Globulin Ratio (1.2-2.2) SARS-CoV-2 RNA (RANDY) Negative (NEGATIVE) Result Diagrams: 05/04/20 17:31 05/04/20 17:47 Sepsis Event Note - Evaluation Sepsis Screening Result: No Definite Risk - Focused Exam Vital Signs: Vital Signs Temp Pulse Resp BP Pulse Ox 05/04/20 19:25 72 150/86 H 94 L 05/04/20 16:24 55 L 20 126/62 90 L 05/04/20 16:21 98.1 F 66 18 97/59 L 91 L 05/04/20 15:28 98.1 F 66 18 97/59 L 91 L *Q Meaningful Use (ADM) - VTE Risk Assess *Q Each Risk Factor Represents 1 Point: Congestive heart failure (CHF), Abnormal Pulmonary Function (COPD) Total Score 1 Point Risk Factors: 2 Each Risk Factor Represents 2 Points: None Total Score 2 Point Risk Factors: 0 Each Risk Factor Represents 3 Points: Age 75 Years or Greater Total Score 3 Point Risk Factors: 3 Each Risk Factor Represents 5 Points: None Total Score 5 Point Risk Factors: 0 Venous Thromboembolism Risk Factor Score *Q: 5 Problem List Initiated/Reviewed/Updated: Yes Orders Last 24hrs: Active Orders 24 hr Category Date Time Status Chest 1V Frontal [CR] Stat Exams 05/04/20 17:31 Taken Sodium Chloride 0.9% [Saline Flush] Med 05/04/20 17:31 Active 10 ml FLUSH ASDIRECTED PRN Saline Lock Insert [OM.PC] Routine Oth 05/04/20 17:31 Ordered Medication Orders Sodium Chloride (Saline Flush) 10 ml FLUSH ASDIRECTED PRN PRN Reason: Keep Vein Open Last Admin: 05/04/20 18:16 Dose: 10 ml Documented by: [place] Assessment/Plan Comment:: ASSESSMENT AND PLAN DIASTOLIC CONGESTIVE HEART FAILURE EXACERBATION-progressive symptoms over the few days, complicated by underlying chronic kidney disease stage IV. X-ray shows evidence of pulmonary edema and cardiac enlargement. Recent echocardiogram showed normal left ventricular systolic function mild valvular disease, diastolic function was unable to be assessed. -Furosemide 80 mg IV given in the emergency department, reassess in a.m. -2 g sodium diet CHRONIC KIDNEY DISEASE STAGE IV -Closely monitor renal function and urine output COPD-no evidence of acute exacerbation or underlying pulmonary infection -Continue outpatient medical therapy MAINTENANCE ISSUES -DVT prophylaxis; Lovenox 30 mg subcu daily -GI prophylaxis; not indicated -Quesada catheter; not indicated -Nutrition; 2 g sodium diet -Nicotine dependence; not required CODE STATUS-DNR/DNI ADMISSION STATUS-patient will be admitted to inpatient status, expect at least a 2 night hospital stay for evaluation and management of problems as outlined above. At the time of this admission I do not reasonably expected evaluation and management of this problem will require more than a 96 hour hospital stay. DISPOSITION-anticipate discharge to home after the hospital stay. PRIMARY CARE PROVIDER-Lizzy Johnson - Mortality Measure Prognosis:: Good
[2020-05-04] MEDS ORDERED: Furosemide 100 MG/10 ML SDV IVPUSH ONE (20:41)
[2020-05-04] MEDS ORDERED: Ondansetron 4 MG/2 ML SDV IV PRN (21:39)
[2020-05-04] MEDS ORDERED: Acetaminophen 325 MG Tab PO PRN (21:39)
[2020-05-04] MEDS ORDERED: Enoxaparin 30 MG/0.3 ML Syringe SUBCUT SCH (21:39)
[2020-05-04] MEDS ORDERED: Melatonin 3 MG Tab PO SCH (21:39)
[2020-05-04] MEDS ORDERED: Albuterol 0.083% 2.5 MG/3 ML Neb Soln NEB PRN (21:39)
[2020-05-04] MEDS ORDERED: Formoterol/Mometasone 100-5 MCG 8.8 GM Inhaler IH SCH (21:39)
[2020-05-04] MEDS: Fluticasone Propionate Nasal Spray 16 GM Bottle NAS SCH (22:24)
[2020-05-04] MEDS: Albuterol/Ipratropium 3.0-0.5 MG/3 ML Neb Soln NEB SCH (22:25)
[2020-05-04] MEDS: hydrALAZINE 25 MG Tab PO SCH (22:25)
[2020-05-04] MEDS: Melatonin 3 MG Tab PO SCH (22:58)
[2020-05-05] MEDS: Albuterol/Ipratropium 3.0-0.5 MG/3 ML Neb Soln NEB SCH ×4 (07:43→20:44)
[2020-05-05] MEDS: Formoterol/Mometasone 100-5 MCG 8.8 GM Inhaler IH SCH ×2 (08:00→20:46)
[2020-05-05] MEDS: Indacaterol/Glycopyrrolate 1 EA Cap.W.Dev Kit of 6 IH SCH ×2 (08:02→20:48)
[2020-05-05] MEDS ORDERED: Potassium Chloride 20 MEQ Tab.ER PO ONE ×2 (08:34→09:00)
[2020-05-05] MEDS: Metoprolol Succinate 50 MG Tab.ER PO SCH (08:41)
[2020-05-05] MEDS: Fluticasone Propionate Nasal Spray 16 GM Bottle NAS SCH ×2 (08:42→20:46)
[2020-05-05] MEDS: Aspirin 325 MG Tab.EC PO SCH (08:43)
[2020-05-05] MEDS: Simvastatin 20 MG Tab PO SCH (08:43)
[2020-05-05] MEDS: hydrALAZINE 25 MG Tab PO SCH ×3 (08:43→20:45)
[2020-05-05] MEDS: Isosorbide Mononitrate 30 MG Tab.ER PO SCH (08:43)
[2020-05-05] MEDS: amLODIPine 5 MG Tab PO SCH (08:43)
[2020-05-05] MEDS ORDERED: Indacaterol/Glycopyrrolate 1 EA Cap.W.Dev Kit of 6 IH SCH (09:00)
[2020-05-05] MEDS ORDERED: Furosemide 40 MG/4 ML VIAL IVPUSH ONE (09:00)
[2020-05-05] MEDS: Polyethylene Glycol 3350 Powder 17 GM Packet PO SCH (09:00)
--- NOTE | 2020-05-05 09:14 | CR ---
CHEST: Multiple 05/04/2020 at 5:52 PM CLINICAL HISTORY:Dyspnea, hypoxia COMPARISON:March 2020 FINDINGS: The heart is enlarged. Pulmonary vascular is cephalized. There is diffuse bilateral predominantly interstitial pulmonary infiltrates. This is superimposed over some chronic lung changes. There are atherosclerotic changes in the aorta. Impression: Cardiomegaly with vascular congestion and interstitial edema consistent with CHF. This is superimposed over some chronic interstitial changes.
--- NOTE | 2020-05-05 16:40 | PCM.PN ---
- General Info Date of Service: 05/05/20 Subjective Update: Mr. Curiel has improved from admission with less shortness of breath. He did experience a good diuresis with furosemide given in the emergency department. Respiratory rate has decreased and oxygenation improved. Renal function has remained stable thus far with diuretic therapy. Functional Status: Reports: Tolerating Diet, Ambulating - Review of Systems General: Reports: Weakness, Fatigue. Denies: Fever, Chills Pulmonary: Reports: Shortness of Breath. Denies: Pleuritic Chest Pain, Cough, Sputum, Hemoptysis, Wheezing Cardiovascular: Reports: Dyspnea on Exertion. Denies: Chest Pain, Palpitations, Orthopnea, PND, Edema, Lightheadedness Gastrointestinal: Reports: No Symptoms - Patient Data Vitals - Most Recent: Last Vital Signs Temp 96.9 F 05/05/20 15:28 Pulse 72 05/05/20 15:28 Resp 20 05/05/20 15:28 BP 118/47 L 05/05/20 15:34 Pulse Ox 94 L 05/05/20 15:28 Weight - Most Recent: 165 lb 3.184 oz I&O - Last 24 Hours: Intake & Output 05/05/20 05/05/20 05/05/20 06:59 14:59 22:59 Intake Total 540 730 400 Output Total 1100 900 Balance -560 -170 400 Lab Results Last 24 Hours: Laboratory Results - last 24 hr 05/04/20 05/04/20 05/04/20 Range/Units 17:31 17:47 17:47 WBC 6.7 (4.5-11.0) K/uL RBC 3.61 L (4.30-5.90) M/uL Hgb 10.3 L (12.0-15.0) g/dL Hct 31.9 L (40.0-54.0) % MCV 88 (80-98) fL MCH 29 (27-31) pg MCHC 32 (32-36) % Plt Count 191 (150-400) K/uL Neut % (Auto) 77 H (36-66) % Lymph % (Auto) 12 L (24-44) % [place] % (Auto) 7 H (2-6) % Eos % (Auto) 4 (2-4) % Baso % (Auto) 0 (0-1) % PT 12.0 (9.5-12.0) sec INR 1.10 (0.80-1.20) Sodium 132 L (140-148) mmol/L Potassium 3.5 L (3.6-5.2) mmol/L Chloride 95 L (100-108) mmol/L Carbon Dioxide 29 (21-32) mmol/L Anion Gap 11.5 (5.0-14.0) mmol/L BUN 44 H (7-18) mg/dL Creatinine 3.2 H (0.8-1.3) mg/dL Est Cr Clr Drug Dosing 16.88 mL/min Estimated GFR (MDRD) 19 L (>60) Glucose 109 H (74-106) mg/dL Lactic Acid (0.4-2.0) mmol/L Calcium 8.9 (8.5-10.1) mg/dL Magnesium 2.2 (1.8-2.4) mg/dL Total Bilirubin 0.6 (0.2-1.0) mg/dL AST 20 (15-37) U/L ALT 22 (12-78) U/L Alkaline Phosphatase 66 (46-116) U/L Troponin I < 0.017 (0.000-0.056) ng/mL NT-Pro-B Natriuret Pep 70931 H (5-450) pg/mL Total Protein 6.3 L (6.4-8.2) g/dL Albumin 2.3 L (3.4-5.0) g/dL Globulin 4.0 H (2.3-3.5) g/dL Albumin/Globulin Ratio 0.6 L (1.2-2.2) SARS-CoV-2 RNA (RANDY) (NEGATIVE) 05/04/20 05/04/20 05/05/20 Range/Units 17:47 18:05 05:43 WBC 7.2 (4.5-11.0) K/uL RBC 3.65 L (4.30-5.90) M/uL Hgb 10.0 L (12.0-15.0) g/dL Hct 32.1 L (40.0-54.0) % MCV 88 (80-98) fL MCH 27 (27-31) pg MCHC 31 L (32-36) % Plt Count 207 (150-400) K/uL Neut % (Auto) 75 H (36-66) % Lymph % (Auto) 12 L (24-44) % [place] % (Auto) 10 H (2-6) % Eos % (Auto) 3 (2-4) % Baso % (Auto) 0 (0-1) % PT (9.5-12.0) sec INR (0.80-1.20) Sodium (140-148) mmol/L Potassium (3.6-5.2) mmol/L Chloride (100-108) mmol/L Carbon Dioxide (21-32) mmol/L Anion Gap (5.0-14.0) mmol/L BUN (7-18) mg/dL Creatinine (0.8-1.3) mg/dL Est Cr Clr Drug Dosing mL/min Estimated GFR (MDRD) (>60) Glucose (74-106) mg/dL Lactic Acid 1.7 (0.4-2.0) mmol/L Calcium (8.5-10.1) mg/dL Magnesium (1.8-2.4) mg/dL Total Bilirubin (0.2-1.0) mg/dL AST (15-37) U/L ALT (12-78) U/L Alkaline Phosphatase (46-116) U/L Troponin I (0.000-0.056) ng/mL NT-Pro-B Natriuret Pep (5-450) pg/mL Total Protein (6.4-8.2) g/dL Albumin (3.4-5.0) g/dL Globulin (2.3-3.5) g/dL Albumin/Globulin Ratio (1.2-2.2) SARS-CoV-2 RNA (RANDY) Negative (NEGATIVE) 05/05/20 Range/Units 05:43 WBC (4.5-11.0) K/uL RBC (4.30-5.90) M/uL Hgb (12.0-15.0) g/dL Hct (40.0-54.0) % MCV (80-98) fL MCH (27-31) pg MCHC (32-36) % Plt Count (150-400) K/uL Neut % (Auto) (36-66) % Lymph % (Auto) (24-44) % [place] % (Auto) (2-6) % Eos % (Auto) (2-4) % Baso % (Auto) (0-1) % PT (9.5-12.0) sec INR (0.80-1.20) Sodium 134 L (140-148) mmol/L Potassium 3.4 L (3.6-5.2) mmol/L Chloride 96 L (100-108) mmol/L Carbon Dioxide 29 (21-32) mmol/L Anion Gap 12.4 (5.0-14.0) mmol/L BUN 44 H (7-18) mg/dL Creatinine 3.3 H (0.8-1.3) mg/dL Est Cr Clr Drug Dosing 16.90 mL/min Estimated GFR (MDRD) 18 L (>60) Glucose 114 H (74-106) mg/dL Lactic Acid (0.4-2.0) mmol/L Calcium 9.1 (8.5-10.1) mg/dL Magnesium 2.1 (1.8-2.4) mg/dL Total Bilirubin (0.2-1.0) mg/dL AST (15-37) U/L ALT (12-78) U/L Alkaline Phosphatase (46-116) U/L Troponin I (0.000-0.056) ng/mL NT-Pro-B Natriuret Pep (5-450) pg/mL Total Protein (6.4-8.2) g/dL Albumin (3.4-5.0) g/dL Globulin (2.3-3.5) g/dL Albumin/Globulin Ratio (1.2-2.2) SARS-CoV-2 RNA (RANDY) (NEGATIVE) Med Orders - Current: Current Medications Acetaminophen (Tylenol) 650 mg PO Q4H PRN PRN Reason: Pain (Mild 1-3)/fever Albuterol (Proventil Neb Soln) 2.5 mg NEB Q4H PRN PRN Reason: Shortness Of Breath/wheezing Albuterol/Ipratropium (Duoneb 3.0-0.5 Mg/3 Ml) 3 ml NEB QIDRT [facility] Last Admin: 05/05/20 15:34 Dose: 3 ml Documented by: Amlodipine Besylate (Norvasc) 5 mg PO DAILY [facility] Last Admin: 05/05/20 08:43 Dose: 5 mg Documented by: Aspirin (Ecotrin) 325 mg PO DAILY [facility] Last Admin: 05/05/20 08:43 Dose: 325 mg Documented by: Enoxaparin Sodium (Lovenox) 30 mg SUBCUT BEDTIME [facility] Fluticasone Propionate (Flonase) 0 gm ANSHUL BID [facility] Last Admin: 05/05/20 08:42 Dose: 2 spray Documented by: Glycopyrrolate/Indacaterol (Utibron Neohaler 27.5-15.6 Mcg) 0 each IH BIDRT [facility] Last Admin: 05/05/20 08:02 Dose: 1 inhalation Documented by: Hydralazine HCl (Apresoline) 50 mg PO TID [facility] Last Admin: 05/05/20 15:34 Dose: 50 mg Documented by: Isosorbide Mononitrate (Imdur) 120 mg PO DAILY [facility] Last Admin: 05/05/20 08:43 Dose: 120 mg Documented by: Melatonin (Melatonin) 6 mg PO BEDTIME [facility] Last Admin: 05/04/20 22:58 Dose: 6 mg Documented by: Metoprolol Succinate (Toprol Xl) 100 mg PO DAILY [facility] Last Admin: 05/05/20 08:41 Dose: 100 mg Documented by: Mometasone Furoate/Formoterol Fumar (Dulera 100-5 Mcg) 1 puff IH BIDRT [facility] Last Admin: 05/05/20 08:00 Dose: 1 puff Documented by: Ondansetron HCl (Zofran) 4 mg IV Q4H PRN PRN Reason: Nausea/Vomiting Polyethylene Glycol (Miralax) 17 gm PO DAILY [facility] Last Admin: 05/05/20 09:00 Dose: 17 gm Documented by: Senna/Docusate Sodium (Senna Plus) 1 tab PO BID PRN PRN Reason: Constipation Last Admin: 05/04/20 22:25 Dose: 1 tab Documented by: Simvastatin (Zocor) 40 mg PO DAILY [facility] Last Admin: 05/05/20 08:43 Dose: 40 mg Documented by: Sodium Chloride (Saline Flush) 10 ml FLUSH ASDIRECTED PRN PRN Reason: Keep Vein Open Discontinued Medications Enoxaparin Sodium (Lovenox) 30 mg SUBCUT DAILY [facility] Last Admin: 05/04/20 22:24 Dose: 30 mg Documented by: Furosemide (Lasix) 80 mg IVPUSH NOW ONE Stop: 10/29/20 20:42 Last Admin: 05/04/20 22:26 Dose: 80 mg Documented by: Furosemide (Lasix) 80 mg IVPUSH NOW ONE Stop: 05/05/20 09:01 Last Admin: 05/05/20 08:54 Dose: 80 mg Documented by: Melatonin (Melatonin) 5 mg PO BEDTIME [facility] Last Admin: 05/04/20 22:32 Dose: Not Given Documented by: Metolazone (Zaroxolyn) 2.5 mg PO ONETIME ONE Stop: 05/04/20 19:00 Last Admin: 05/04/20 19:21 Dose: 2.5 mg Documented by: Mometasone Furoate/Formoterol Fumar (Dulera 100-5 Mcg) 0 puff IH BID [facility] Last Admin: 05/04/20 22:24 Dose: 1 puff Documented by: Potassium Chloride (Klor-Con M20) 40 meq PO ONETIME ONE Stop: 05/05/20 09:01 Last Admin: 05/05/20 08:44 Dose: 40 meq Documented by: Sodium Chloride (Saline Flush) 10 ml FLUSH ASDIRECTED PRN PRN Reason: Keep Vein Open Last Admin: 05/04/20 18:16 Dose: 10 ml Documented by: - Exam Quality Assessment: DVT Prophylaxis General: Alert, Oriented, Cooperative, Mild Distress Lungs: Clear to Auscultation, Normal Respiratory Effort, Decreased Breath Sounds Cardiovascular: Regular Rate, Regular Rhythm, No Murmurs GI/Abdominal Exam: Soft, Non-Tender, No Organomegaly, No Distention Extremities: Non-Tender, No Pedal Edema Sepsis Event Note - Evaluation Sepsis Screening Result: No Definite Risk - Focused Exam Vital Signs: Vital Signs Temp Temp Pulse Pulse Resp BP BP 05/05/20 15:34 118/47 L 05/05/20 15:28 96.9 F 72 20 118/47 L 05/05/20 11:38 97.4 F 60 18 121/71 05/05/20 11:08 82 05/05/20 08:43 122/71 05/05/20 08:41 80 122/71 05/05/20 08:00 92 05/05/20 07:14 98.4 F 113 H 16 122/71 Pulse Ox 05/05/20 15:34 05/05/20 15:28 94 L 10/30/20 11:38 90 L 05/05/20 11:08 05/05/20 08:43 05/05/20 08:41 05/05/20 08:00 05/05/20 07:14 95 - Problem List Review Problem List Initiated/Reviewed/Updated: Yes - My Orders Last 24 Hours: My Active Orders 05/04/20 Dinner 2 Gram Sodium Diet [DIET] 05/04/20 20:38 Resuscitation Status Routine 05/04/20 21:39 Acetaminophen [TylenoL] 650 mg PO Q4H PRN Albuterol [Proventil Neb Soln] 2.5 mg NEB Q4H PRN Albuterol/Ipratropium [DuoNeb 3.0-0.5 MG/3 ML] 3 ml NEB QIDRT Docusate Sodium/Sennosides [Senna Plus] 1 tab PO BID PRN Fluticasone Propionate [Flonase] 0 gm ANSHUL BID Ondansetron [Zofran] 4 mg IV Q4H PRN Sodium Chloride 0.9% [Saline Flush] 10 ml FLUSH ASDIRECTED PRN hydrALAZINE [Apresoline] 50 mg PO TID 05/04/20 21:39 Patient Status [ADT] Routine Ambulate [RC] QID Cardiac Monitoring [RC] .As Directed Height and Weight [RC] 0500 Intake and Output [RC] QSHIFT Notify Provider Vital Signs [RC] ASDIRECTED RT Aerosol Therapy [RC] ASDIRECTED Up With Assistance [RC] ASDIRECTED Up to Chair [RC] QID Vital Signs [RC] Q4H PT Evaluation and Treatment [CONS] Routine Saline Lock Insert [OM.PC] Routine 05/04/20 22:30 Melatonin 6 mg PO BEDTIME 05/05/20 09:00 Aspirin [Ecotrin] 325 mg PO DAILY Indacaterol/Glycopyrrolate [Utibron Neohaler 27.5-15.6 MCG] 0 each IH BIDRT Isosorbide Mononitrate [Imdur] 120 mg PO DAILY Metoprolol Succinate [Toprol XL] 100 mg PO DAILY Mometasone/Formoterol [Dulera 100-5 MCG] 1 puff IH BIDRT Simvastatin [Zocor] 40 mg PO DAILY amLODIPine [Norvasc] 5 mg PO DAILY polyethylene glycoL 3350 [MiraLAX] 17 gm PO DAILY 05/05/20 21:00 Enoxaparin [Lovenox] 30 mg SUBCUT BEDTIME 05/06/20 05:00 BASIC METABOLIC PANEL,BMP [CHEM] Timed - Plan Plan:: ASSESSMENT AND PLAN DIASTOLIC CONGESTIVE HEART FAILURE EXACERBATION-he has experienced a good diuresis from furosemide given in the emergency department last night. This has resulted in decrease in his shortness of breath and improved oxygenation -Furosemide 80 mg IV today, reassess in a.m. -2 g sodium diet CHRONIC KIDNEY DISEASE STAGE IV-renal function has remained stable with diuresis -Closely monitor renal function and urine output COPD-no evidence of acute exacerbation or underlying pulmonary infection -Continue outpatient medical therapy MAINTENANCE ISSUES -DVT prophylaxis; Lovenox 30 mg subcu daily -GI prophylaxis; not indicated -Quesada catheter; not indicated -Nutrition; 2 g sodium diet -Nicotine dependence; not required CODE STATUS-DNR/DNI ADMISSION STATUS-patient will be admitted to inpatient status, expect at least a 2 night hospital stay for evaluation and management of problems as outlined above. At the time of this admission I do not reasonably expected evaluation and management of this problem will require more than a 96 hour hospital stay. DISPOSITION-anticipate discharge to home after the hospital stay. PRIMARY CARE PROVIDER-Lizzy Johnson
[2020-05-05] MEDS: Enoxaparin 30 MG/0.3 ML Syringe SUBCUT SCH (20:44)
[2020-05-05] MEDS: Melatonin 3 MG Tab PO SCH (20:46)
[2020-05-06] MEDS: Albuterol/Ipratropium 3.0-0.5 MG/3 ML Neb Soln NEB SCH ×4 (07:26→20:34)
[2020-05-06] MEDS: Formoterol/Mometasone 100-5 MCG 8.8 GM Inhaler IH SCH ×2 (07:26→20:32)
[2020-05-06] MEDS: Indacaterol/Glycopyrrolate 1 EA Cap.W.Dev Kit of 6 IH SCH ×2 (07:26→20:32)
[2020-05-06] MEDS ORDERED: Potassium Chloride 20 MEQ Tab.ER PO ONE (09:00)
[2020-05-06] MEDS: Isosorbide Mononitrate 30 MG Tab.ER PO SCH (09:29)
[2020-05-06] MEDS: Fluticasone Propionate Nasal Spray 16 GM Bottle NAS SCH ×2 (09:33→20:32)
[2020-05-06] MEDS: Metoprolol Succinate 50 MG Tab.ER PO SCH (09:36)
[2020-05-06] MEDS: Aspirin 325 MG Tab.EC PO SCH (09:38)
[2020-05-06] MEDS: hydrALAZINE 25 MG Tab PO SCH ×3 (09:39→20:34)
[2020-05-06] MEDS: amLODIPine 5 MG Tab PO SCH (09:40)
[2020-05-06] MEDS: Simvastatin 20 MG Tab PO SCH (09:41)
[2020-05-06] MEDS: Polyethylene Glycol 3350 Powder 17 GM Packet PO SCH (09:44)
--- NOTE | 2020-05-06 16:29 | PCM.PN ---
- General Info Date of Service: 05/06/20 Subjective Update: Mr. Curiel unfortunately experienced an episode of increased shortness of breath early this morning. He also had a short run of wide-complex tachycardia. He feels as though he is back to baseline at this point and denies significant shortness of breath. Vital signs have been stable and he has remained afebrile. Chest x-ray shows no obvious infiltrates and appears to be improved from admission at least as far as pulmonary edema. There is chronic underlying pulmonary fibrosis. Troponin level was within normal range, B UNIFORMER is elevated from admission. Functional Status: Reports: Tolerating Diet, Ambulating, Urinating - Review of Systems General: Reports: Weakness. Denies: Fever, Chills Pulmonary: Reports: Shortness of Breath. Denies: Pleuritic Chest Pain, Cough, Sputum, Hemoptysis, Wheezing Cardiovascular: Reports: Dyspnea on Exertion. Denies: Chest Pain, Palpitations, Orthopnea, PND, Edema, Lightheadedness Gastrointestinal: Reports: No Symptoms Genitourinary: Reports: No Symptoms - Patient Data Vitals - Most Recent: Last Vital Signs Temp 97 F 05/06/20 11:30 Pulse 73 05/06/20 09:36 Resp 18 05/06/20 11:30 BP 113/67 05/06/20 13:53 Pulse Ox 97 05/06/20 11:30 Weight - Most Recent: 163 lb 8 oz I&O - Last 24 Hours: Intake & Output 05/06/20 05/06/20 05/06/20 06:59 14:59 22:59 Intake Total 780 Output Total 1150 750 Balance -1150 30 Lab Results Last 24 Hours: Laboratory Results - last 24 hr 05/06/20 05/06/20 05/06/20 Range/Units 05:50 05:50 05:50 WBC 7.6 (4.5-11.0) K/uL RBC 3.75 L (4.30-5.90) M/uL Hgb 10.6 L (12.0-15.0) g/dL Hct 32.9 L (40.0-54.0) % MCV 88 (80-98) fL MCH 28 (27-31) pg MCHC 32 (32-36) % Plt Count 237 (150-400) K/uL Neut % (Auto) 71 H (36-66) % Lymph % (Auto) 15 L (24-44) % [place] % (Auto) 8 H (2-6) % Eos % (Auto) 6 H (2-4) % Baso % (Auto) 0 (0-1) % Sodium (140-148) mmol/L Potassium (3.6-5.2) mmol/L Chloride (100-108) mmol/L Carbon Dioxide (21-32) mmol/L Anion Gap (5.0-14.0) mmol/L BUN (7-18) mg/dL Creatinine (0.8-1.3) mg/dL Est Cr Clr Drug Dosing mL/min Estimated GFR (MDRD) (>60) Glucose (74-106) mg/dL Calcium (8.5-10.1) mg/dL Troponin I 0.034 (0.000-0.056) ng/mL NT-Pro-B Natriuret Pep 25420 H (5-450) pg/mL SARS-CoV-2 RNA (RANDY) (NEGATIVE) 05/06/20 05/06/20 Range/Units 06:03 08:12 WBC (4.5-11.0) K/uL RBC (4.30-5.90) M/uL Hgb (12.0-15.0) g/dL Hct (40.0-54.0) % MCV (80-98) fL MCH (27-31) pg MCHC (32-36) % Plt Count (150-400) K/uL Neut % (Auto) (36-66) % Lymph % (Auto) (24-44) % [place] % (Auto) (2-6) % Eos % (Auto) (2-4) % Baso % (Auto) (0-1) % Sodium 134 L (140-148) mmol/L Potassium 3.5 L (3.6-5.2) mmol/L Chloride 96 L (100-108) mmol/L Carbon Dioxide 30 (21-32) mmol/L Anion Gap 11.5 (5.0-14.0) mmol/L BUN 50 H (7-18) mg/dL Creatinine 3.5 H (0.8-1.3) mg/dL Est Cr Clr Drug Dosing 15.97 mL/min Estimated GFR (MDRD) 17 L (>60) Glucose 129 H (74-106) mg/dL Calcium 9.1 (8.5-10.1) mg/dL Troponin I (0.000-0.056) ng/mL NT-Pro-B Natriuret Pep (5-450) pg/mL SARS-CoV-2 RNA (RANDY) Negative (NEGATIVE) Med Orders - Current: Current Medications Acetaminophen (Tylenol) 650 mg PO Q4H PRN PRN Reason: Pain (Mild 1-3)/fever Last Admin: 05/06/20 03:37 Dose: 650 mg Documented by: Albuterol (Proventil Neb Soln) 2.5 mg NEB Q4H PRN PRN Reason: Shortness Of Breath/wheezing Albuterol/Ipratropium (Duoneb 3.0-0.5 Mg/3 Ml) 3 ml NEB QIDRT [facility] Last Admin: 05/06/20 14:36 Dose: 3 ml Documented by: Amlodipine Besylate (Norvasc) 5 mg PO DAILY [facility] Last Admin: 05/06/20 09:40 Dose: 5 mg Documented by: Aspirin (Ecotrin) 325 mg PO DAILY [facility] Last Admin: 05/06/20 09:38 Dose: 325 mg Documented by: Enoxaparin Sodium (Lovenox) 30 mg SUBCUT BEDTIME [facility] Last Admin: 05/05/20 20:44 Dose: 30 mg Documented by: Fluticasone Propionate (Flonase) 0 gm ANSHUL BID [facility] Last Admin: 05/06/20 09:33 Dose: 2 spray Documented by: Glycopyrrolate/Indacaterol (Utibron Neohaler 27.5-15.6 Mcg) 0 each IH BIDRT [facility] Last Admin: 05/06/20 07:26 Dose: 1 inhalation Documented by: Hydralazine HCl (Apresoline) 50 mg PO TID [facility] Last Admin: 05/06/20 13:53 Dose: 50 mg Documented by: Isosorbide Mononitrate (Imdur) 120 mg PO DAILY [facility] Last Admin: 05/06/20 09:29 Dose: 120 mg Documented by: Melatonin (Melatonin) 6 mg PO BEDTIME [facility] Last Admin: 05/05/20 20:46 Dose: 6 mg Documented by: Metoprolol Succinate (Toprol Xl) 100 mg PO DAILY [facility] Last Admin: 05/06/20 09:36 Dose: 100 mg Documented by: Mometasone Furoate/Formoterol Fumar (Dulera 100-5 Mcg) 1 puff IH BIDRT [facility] Last Admin: 05/06/20 07:26 Dose: 1 puff Documented by: Ondansetron HCl (Zofran) 4 mg IV Q4H PRN PRN Reason: Nausea/Vomiting Polyethylene Glycol (Miralax) 17 gm PO DAILY [facility] Last Admin: 05/06/20 09:44 Dose: 17 gm Documented by: Senna/Docusate Sodium (Senna Plus) 1 tab PO BID PRN PRN Reason: Constipation Last Admin: 05/04/20 22:25 Dose: 1 tab Documented by: Simvastatin (Zocor) 40 mg PO DAILY [facility] Last Admin: 05/06/20 09:41 Dose: 40 mg Documented by: Sodium Chloride (Saline Flush) 10 ml FLUSH ASDIRECTED PRN PRN Reason: Keep Vein Open Discontinued Medications Enoxaparin Sodium (Lovenox) 30 mg SUBCUT DAILY [facility] Last Admin: 05/04/20 22:24 Dose: 30 mg Documented by: Furosemide (Lasix) 80 mg IVPUSH NOW ONE Stop: 05/04/20 20:42 Last Admin: 05/04/20 22:26 Dose: 80 mg Documented by: Furosemide (Lasix) 80 mg IVPUSH NOW ONE Stop: 05/05/20 09:01 Last Admin: 05/05/20 08:54 Dose: 80 mg Documented by: Melatonin (Melatonin) 5 mg PO BEDTIME [facility] Last Admin: 05/04/20 22:32 Dose: Not Given Documented by: Metolazone (Zaroxolyn) 2.5 mg PO ONETIME ONE Stop: 05/04/20 19:00 Last Admin: 05/04/20 19:21 Dose: 2.5 mg Documented by: Mometasone Furoate/Formoterol Fumar (Dulera 100-5 Mcg) 0 puff IH BID [facility] Last Admin: 05/04/20 22:24 Dose: 1 puff Documented by: Potassium Chloride (Klor-Con M20) 40 meq PO ONETIME ONE Stop: 05/05/20 09:01 Last Admin: 05/05/20 08:44 Dose: 40 meq Documented by: Potassium Chloride (Klor-Con M20) 40 meq PO ONETIME ONE Stop: 05/06/20 09:01 Last Admin: 05/06/20 09:37 Dose: 40 meq Documented by: Sodium Chloride (Saline Flush) 10 ml FLUSH ASDIRECTED PRN PRN Reason: Keep Vein Open Last Admin: 05/04/20 18:16 Dose: 10 ml Documented by: - Exam Quality Assessment: Supplemental Oxygen, DVT Prophylaxis General: Alert, Oriented, Cooperative, No Acute Distress Lungs: Clear to Auscultation, Normal Respiratory Effort, Decreased Breath Sounds Cardiovascular: Regular Rate, Regular Rhythm, No Murmurs GI/Abdominal Exam: Soft, Non-Tender, No Organomegaly, No Distention Extremities: Non-Tender, Pedal Edema Sepsis Event Note - Evaluation Sepsis Screening Result: No Definite Risk - Focused Exam Vital Signs: Vital Signs Temp Pulse Pulse Resp BP BP Pulse Ox 05/06/20 13:53 113/67 05/06/20 11:30 97 F 18 110/65 97 05/06/20 09:40 144/87 H 05/06/20 09:39 144/87 H 05/06/20 09:36 73 144/87 H 05/06/20 09:29 144/87 H 05/06/20 07:40 98.5 F 58 L 16 131/72 95 05/06/20 06:03 98.9 F - Problem List Review Problem List Initiated/Reviewed/Updated: Yes - My Orders Last 24 Hours: My Active Orders 05/05/20 21:00 Enoxaparin [Lovenox] 30 mg SUBCUT BEDTIME 05/06/20 08:00 Chest 1V Frontal [CR] Stat 05/06/20 08:17 EKG 12 Lead [EK] Stat 05/07/20 05:00 BASIC METABOLIC PANEL,BMP [CHEM] Timed - Plan Plan:: ASSESSMENT AND PLAN DIASTOLIC CONGESTIVE HEART FAILURE EXACERBATION-he has experienced a good diuresis from furosemide. This has resulted in decrease in his shortness of breath and improved oxygenation. Experienced an episode of increased shortness of breath during the night, that has resolved and he is back to baseline. Creatinine mildly elevated from baseline with diuretic therapy. -Furosemide hold today because of increase in creatinine -2 g sodium diet CHRONIC KIDNEY DISEASE STAGE IV-creatinine mildly elevated from baseline -Closely monitor renal function and urine output COPD-no evidence of acute exacerbation or underlying pulmonary infection -Continue outpatient medical therapy MAINTENANCE ISSUES -DVT prophylaxis; Lovenox 30 mg subcu daily -GI prophylaxis; not indicated -Quesada catheter; not indicated -Nutrition; 2 g sodium diet -Nicotine dependence; not required CODE STATUS-DNR/DNI ADMISSION STATUS-patient will be admitted to inpatient status, expect at least a 2 night hospital stay for evaluation and management of problems as outlined above. At the time of this admission I do not reasonably expected evaluation and management of this problem will require more than a 96 hour hospital stay. DISPOSITION-anticipate discharge to home after the hospital stay. PRIMARY CARE PROVIDER-Lizzy Johnson
[2020-05-06] MEDS: Melatonin 3 MG Tab PO SCH (20:34)
[2020-05-06] MEDS: Enoxaparin 30 MG/0.3 ML Syringe SUBCUT SCH (20:35)
[2020-05-07] MEDS: Formoterol/Mometasone 100-5 MCG 8.8 GM Inhaler IH SCH (07:14)
[2020-05-07] MEDS: Indacaterol/Glycopyrrolate 1 EA Cap.W.Dev Kit of 6 IH SCH (07:14)
[2020-05-07] MEDS: Albuterol/Ipratropium 3.0-0.5 MG/3 ML Neb Soln NEB SCH ×2 (07:14→10:37)
[2020-05-07 08:50] VITALS: BP 142/65; PULSE 83
[2020-05-07] MEDS ORDERED: Potassium Chloride 20 MEQ Tab.ER PO ONE ×2 (09:00→12:00)
[2020-05-07] MEDS: amLODIPine 5 MG Tab PO SCH (09:15)
[2020-05-07] MEDS: Simvastatin 20 MG Tab PO SCH (09:16)
[2020-05-07] MEDS: Metoprolol Succinate 50 MG Tab.ER PO SCH (09:16)
[2020-05-07] MEDS: Isosorbide Mononitrate 30 MG Tab.ER PO SCH (09:17)
[2020-05-07] MEDS: Aspirin 325 MG Tab.EC PO SCH (09:17)
[2020-05-07] MEDS: hydrALAZINE 25 MG Tab PO SCH (09:17)
[2020-05-07] MEDS: Polyethylene Glycol 3350 Powder 17 GM Packet PO SCH (09:18)
[2020-05-07] MEDS: Fluticasone Propionate Nasal Spray 16 GM Bottle NAS SCH (09:19)
[2020-05-07] MEDS ORDERED: Furosemide 40 MG/4 ML VIAL IVPUSH ONE (11:34)
--- NOTE | 2020-05-07 11:38 | PCM.DCSUM1 ---
Discharge Summary - Hospital Course Brief History: Mr. Curiel is an 84-year-old gentleman who was admitted through the emergency department with increased shortness of breath secondary to congestive heart failure exacerbation. - Discharge Data Discharge Date: 05/07/20 Discharge Disposition: Home, Self-Care 01 Condition: Stable - Referral to Home Health Primary Care Physician: Pat Johnson PA-C - Discharge Diagnosis/Problem(s) (1) Hypoxia SNOMED Code(s): 380582588 ICD Code: R09.02 - HYPOXEMIA Status: Acute Priority: High Current Visit: Yes (2) Respiratory distress SNOMED Code(s): 238480541 ICD Code: R06.03 - ACUTE RESPIRATORY DISTRESS Status: Acute Current Visit: No (3) CHF, acute on chronic SNOMED Code(s): 973744870, 12126482488696 ICD Code: I50.9 - HEART FAILURE, UNSPECIFIED Status: Acute Current Visit: Yes Qualifiers: Heart failure type: diastolic Qualified Code(s): I50.33 - Acute on chronic diastolic (congestive) heart failure (4) CKD (chronic kidney disease) stage 4, GFR 15-29 ml/min SNOMED Code(s): 232511733 ICD Code: N18.4 - CHRONIC KIDNEY DISEASE, STAGE 4 (SEVERE) Status: Chronic Priority: Medium Current Visit: No (5) Diastolic congestive heart failure, NYHA class 3 SNOMED Code(s): 676699812, 585287319, 052884967 ICD Code: I50.30 - UNSPECIFIED DIASTOLIC (CONGESTIVE) HEART FAILURE Status: Chronic Priority: High Current Visit: No Qualifiers: Congestive heart failure chronicity: acute on chronic Qualified Code(s): I50.33 - Acute on chronic diastolic (congestive) heart failure - Patient Summary/Data Consults: Consultations 05/04/20 21:39 PT Evaluation and Treatment [CONS] Routine Please Evaluate and Treat. PT Reason for Consult: weakness This query below is only for informational purposes and is not editable. Hospital Course: Mr. Curiel is an 84-year-old gentleman who was admitted through the emergency department with increased shortness of breath secondary to diastolic CHF exacerbation and underlying chronic kidney disease stage IV. Over the past few days he has experienced progressive increase in shortness of breath. This has come on slowly and gradually, he is noted no acute episodes of shortness of breath, pleuritic chest pain, or anginal type chest pain. Chest x-ray today appears to be consistent with congestive failure with some cardiac enlargement and evidence of pulmonary edema. He has a known history of diastolic CHF, coronary artery disease, and COPD. He denies recent fevers, chills, sweats, or productive cough. COVID-19 testing done in the emergency department is negative. Emergency department he received furosemide 80 mg IV, as well as the following day and the day of discharge. He experienced good improvement in his shortness of breath by the following day. Early in the morning of the third day he did experience an episode of increased shortness of breath. He was monitored 1 additional day and was feeling well at the time of discharge. He will resume all of his usual oral medications. We did discuss his decline over the past few months and he is interested in exploring possible hospice admissi on. Hospice consult will be arranged for him on an outpatient basis. Activity will be as tolerated and he will resume his usual diet. Follow-up appointment has already been scheduled with his primary care provider for this next week. - Patient Instructions Diet: Low Sodium Activity: As Tolerated Other/Special Instructions: Follow-up appointment with primary care provider this week as previously scheduled. Please arrange for hospice consult in the next few days. - Discharge Plan *PRESCRIPTION DRUG MONITORING PROGRAM REVIEWED*: Not Applicable *COPY OF PRESCRIPTION DRUG MONITORING REPORT IN PATIENT JOSELIN: Not Applicable Home Medications: Home Meds Aspirin 325 mg PO DAILY 12/09/15 [History] Nitroglycerin [Nitrostat] 0.4 mg PO ASDIRECTED PRN 12/09/15 [History] Simvastatin 40 mg PO DAILY 12/09/15 [History] amLODIPine [Norvasc] 5 mg PO DAILY 12/09/15 [History] hydrALAZINE [Apresoline] 50 mg PO TID 12/09/15 [History] Acetaminophen/Diphenhydramine [Tylenol Pm Ex-Strength Caplet] 1 tab PO BEDTIME 11/04/16 [History] Metoprolol Succinate [Toprol Xl] 100 mg PO DAILY 11/04/16 [History] Multivitamin [Multivitamins] 1 tab PO DAILY 11/04/16 [History] Cholecalciferol (Vitamin D3) [Vitamin D3] 5,000 units PO DAILY 12/18/17 [History] Dextromethorphan/guaiFENesin [Robitussin DM] 5 ml PO Q6HR PRN 12/18/17 [History] Fluticasone Propionate [Flonase] 1 spray ANSHUL BID 12/18/17 [History] Albuterol Sulfate [Proair Hfa] 1 - 2 puff IH Q4H PRN 06/09/19 [History] Albuterol/Ipratropium [DuoNeb 3.0-0.5 MG/3 ML] 3 ml INH Q4H PRN 06/09/19 [History] Budesonide/Formoterol [Symbicort 80-4.5 MCG] 1 puff INH BID 06/09/19 [History] Melatonin 5 mg PO BEDTIME 06/09/19 [History] Sennosides/Docusate Sodium [Senokot-S Tablet] 2 each PO BID PRN 06/09/19 [History] Umeclidinium Brm/Vilanterol Tr [Anoro Ellipta 62.5-25 MCG] 1 each IH DAILY 06/09/19 [History] polyethylene glycoL 3350 [MiraLAX] 17 gm PO DAILY 06/09/19 [History] Furosemide [Lasix] 120 mg PO DAILY #90 tablet 02/23/20 [Rx] Isosorbide Mononitrate [Imdur] 120 mg PO DAILY #30 tab.er 04/04/20 [Rx] Albuterol [Ventolin HFA] 1 puff IH DAILY 05/04/20 [History] Referrals: Pat Johnson PA-C [Primary Care Provider] - 05/10/20 10:30 am (Please arrive 15 minutes early to check in. ) - Discharge Summary/Plan Comment DC Time >30 min.: No - Patient Data Vitals - Most Recent: Last Vital Signs Temp 96 F L 05/07/20 07:41 Pulse 83 05/07/20 09:16 Resp 18 05/07/20 07:41 BP 142/65 H 05/07/20 09:17 Pulse Ox 96 05/07/20 07:41 Weight - Most Recent: 163 lb 12.8 oz I&O - Last 24 hours: Intake & Output 05/06/20 05/07/20 05/07/20 23:59 06:59 14:59 Intake Total 400 Output Total 300 Balance 100 Lab Results - Last 24 hrs: Laboratory Results - last 24 hr 05/07/20 Range/Units 04:10 Sodium 135 L (140-148) mmol/L Potassium 3.5 L (3.6-5.2) mmol/L Chloride 98 L (100-108) mmol/L Carbon Dioxide 30 (21-32) mmol/L Anion Gap 10.5 (5.0-14.0) mmol/L BUN 48 H (7-18) mg/dL Creatinine 3.3 H (0.8-1.3) mg/dL Est Cr Clr Drug Dosing 16.94 mL/min Estimated GFR (MDRD) 18 L (>60) Glucose 109 H (74-106) mg/dL Calcium 8.8 (8.5-10.1) mg/dL Med Orders - Current: Current Medications Acetaminophen (Tylenol) 650 mg PO Q4H PRN PRN Reason: Pain (Mild 1-3)/fever Last Admin: 05/06/20 03:37 Dose: 650 mg Documented by: Albuterol (Proventil Neb Soln) 2.5 mg NEB Q4H PRN PRN Reason: Shortness Of Breath/wheezing Albuterol/Ipratropium (Duoneb 3.0-0.5 Mg/3 Ml) 3 ml NEB QIDRT [facility] Last Admin: 05/07/20 10:37 Dose: 3 ml Documented by: Amlodipine Besylate (Norvasc) 5 mg PO DAILY [facility] Last Admin: 05/07/20 09:15 Dose: 5 mg Documented by: Aspirin (Ecotrin) 325 mg PO DAILY [facility] Last Admin: 05/07/20 09:17 Dose: 325 mg Documented by: Enoxaparin Sodium (Lovenox) 30 mg SUBCUT BEDTIME [facility] Last Admin: 05/06/20 20:35 Dose: 30 mg Documented by: Fluticasone Propionate (Flonase) 0 gm ANSHUL BID [facility] Last Admin: 05/07/20 09:19 Dose: 1 spray Documented by: Glycopyrrolate/Indacaterol (Utibron Neohaler 27.5-15.6 Mcg) 0 each IH BIDRT [facility] Last Admin: 05/07/20 07:14 Dose: 1 inhalation Documented by: Hydralazine HCl (Apresoline) 50 mg PO TID [facility] Last Admin: 05/07/20 09:17 Dose: 50 mg Documented by: Isosorbide Mononitrate (Imdur) 120 mg PO DAILY [facility] Last Admin: 05/07/20 09:17 Dose: 120 mg Documented by: Melatonin (Melatonin) 6 mg PO BEDTIME [facility] Last Admin: 05/06/20 20:34 Dose: 6 mg Documented by: Metoprolol Succinate (Toprol Xl) 100 mg PO DAILY [facility] Last Admin: 05/07/20 09:16 Dose: 100 mg Documented by: Mometasone Furoate/Formoterol Fumar (Dulera 100-5 Mcg) 1 puff IH BIDRT [facility] Last Admin: 05/07/20 07:14 Dose: 1 puff Documented by: Ondansetron HCl (Zofran) 4 mg IV Q4H PRN PRN Reason: Nausea/Vomiting Polyethylene Glycol (Miralax) 17 gm PO DAILY [facility] Last Admin: 05/07/20 09:18 Dose: 17 gm Documented by: Senna/Docusate Sodium (Senna Plus) 1 tab PO BID PRN PRN Reason: Constipation Last Admin: 05/04/20 22:25 Dose: 1 tab Documented by: Simvastatin (Zocor) 40 mg PO DAILY [facility] Last Admin: 05/07/20 09:16 Dose: 40 mg Documented by: Sodium Chloride (Saline Flush) 10 ml FLUSH ASDIRECTED PRN PRN Reason: Keep Vein Open Discontinued Medications Enoxaparin Sodium (Lovenox) 30 mg SUBCUT DAILY [facility] Last Admin: 05/04/20 22:24 Dose: 30 mg Documented by: Furosemide (Lasix) 80 mg IVPUSH NOW ONE Stop: 05/04/20 20:42 Last Admin: 05/04/20 22:26 Dose: 80 mg Documented by: Furosemide (Lasix) 80 mg IVPUSH NOW ONE Stop: 05/05/20 09:01 Last Admin: 05/05/20 08:54 Dose: 80 mg Documented by: Melatonin (Melatonin) 5 mg PO BEDTIME [facility] Last Admin: 05/04/20 22:32 Dose: Not Given Documented by: Metolazone (Zaroxolyn) 2.5 mg PO ONETIME ONE Stop: 05/04/20 19:00 Last Admin: 05/04/20 19:21 Dose: 2.5 mg Documented by: Mometasone Furoate/Formoterol Fumar (Dulera 100-5 Mcg) 0 puff IH BID [facility] Last Admin: 05/04/20 22:24 Dose: 1 puff Documented by: Potassium Chloride (Klor-Con M20) 40 meq PO ONETIME ONE Stop: 05/05/20 09:01 Last Admin: 05/05/20 08:44 Dose: 40 meq Documented by: Potassium Chloride (Klor-Con M20) 40 meq PO ONETIME ONE Stop: 05/06/20 09:01 Last Admin: 05/06/20 09:37 Dose: 40 meq Documented by: Potassium Chloride (Klor-Con M20) 40 meq PO ONETIME ONE Stop: 05/07/20 09:01 Sodium Chloride (Saline Flush) 10 ml FLUSH ASDIRECTED PRN PRN Reason: Keep Vein Open Last Admin: 05/04/20 18:16 Dose: 10 ml Documented by: - Exam Quality Assessment: Reports: Supplemental Oxygen, DVT Prophylaxis General: Reports: Alert, Oriented, Cooperative, No Acute Distress Lungs: Reports: Decreased Breath Sounds. Denies: Rales, Rhonchi, Wheezing Cardiovascular: Reports: Regular Rate, Regular Rhythm, Murmurs GI/Abdominal Exam: Soft, Non-Tender, No Organomegaly, No Distention Extremities: Non-Tender, No Pedal Edema
--- NOTE | 2020-05-08 09:43 | CR ---
CHEST: Portable 05/06/2020 at 9:08 AM CLINICAL HISTORY:Dyspnea COMPARISON:05/04/2020 FINDINGS: Heart is enlarged. Pulmonary vascularity is diminished since prior study. There is still diffuse interstitial prominence. This has improved since prior study. There are atherosclerotic changes in the aorta. IMPRESSION: Decrease in vascular congestion and interstitial pulmonary edema when compared to prior study. Some underlying interstitial disease is likely chronic
== END 2020-05-07 13:20 | disposition home or self-care (01) | DRG 291 ==
LOC: JP.ED 14:36 → JP.MS 20:35
PROVIDERS: ADMIT Hospitalist; ATTEND Hospitalist
DX: I13.0 Hypertensive heart and chronic kidney disease with heart failure and stage 1 through stage 4 chronic kidney disease, or unspecified chronic kidney disease (principal); I50.33 Acute on chronic diastolic (congestive) heart failure; N18.4 Chronic kidney disease, stage 4 (severe); I25.10 Atherosclerotic heart disease of native coronary artery without angina pectoris; R79.89 Other specified abnormal findings of blood chemistry; H54.7 Unspecified visual loss; Z20.828 Contact with and (suspected) exposure to other viral communicable diseases; E78.00 Pure hypercholesterolemia, unspecified; K21.9 Gastro-esophageal reflux disease without esophagitis; M54.9 Dorsalgia, unspecified; F41.9 Anxiety disorder, unspecified; Z66 Do not resuscitate; G89.29 Other chronic pain; E66.9 Obesity, unspecified; Z79.82 Long term (current) use of aspirin; Z79.899 Other long term (current) drug therapy; Z98.49 Cataract extraction status, unspecified eye; Z99.81 Dependence on supplemental oxygen; Z85.828 Personal history of other malignant neoplasm of skin; Z90.49 Acquired absence of other specified parts of digestive tract; Z87.891 Personal history of nicotine dependence; Z88.8 Allergy status to other drugs, medicaments and biological substances; Z91.041 Radiographic dye allergy status
CPT/HCPCS: 36415; 71045 ×2; 80053; 83605; 83735; 83880; 84484; 85025; 85610; 99285; A9270; U0002; 80048; 93005; 94640; 96374; 97162-GP; 97530-GP; J1650; J1940; J7620-GY